=== PATIENT | female | born 2005 | race Caucasian/White ===

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

== ENCOUNTER 2023-06-10 16:13 | Emergency (ER) | payer OTHER, SELFPAY ==
--- NOTE | ~2023-06-10 | CT_ITS ---
EXAMINATION: CT ABDOMEN AND PELVIS WITH CONTRAST CLINICAL INFORMATION: Right lower quadrant pain. Suspect appendicitis COMPARISON: None available. TECHNIQUE: Multidetector volumetric images were obtained from the superior aspect of the liver through the pubic symphysis following administration 85 mL of Omnipaque 350 intravenous contrast. Sagittal and coronal reformatted images were obtained on the technologist's workstation. Oral contrast: No This CT examination was performed using dose optimization techniques as appropriate, variously including the following: *Automated exposure control *Adjustment of mA and/or kV according to patient size (this includes techniques or standardized protocols for targeted exams where dose is matched to indication/reason for exam; i.e. extremities or head) *Use of iterative reconstruction technique DLP: 641 mGy-cm FINDINGS: LUNG BASES: The visualized lung bases are unremarkable. LIVER, GALLBLADDER, AND BILIARY TREE: The liver is enlarged at 17.7 cm and demonstrates decreased attenuation consistent with hepatic steatosis. Decreased attenuation adjacent to the falciform ligament in the right lobe of the liver probably secondary to focal fat. There is some focal fatty sparing seen adjacent to the gallbladder. No worrisome solid focal hepatic lesion or biliary ductal dilatation is present. The gallbladder is unremarkable with no evidence of radiopaque gallstones, gallbladder wall thickening, or obvious pericholecystic inflammatory changes. PANCREAS: Unremarkable. SPLEEN: Mild splenomegaly at 12.7 cm in greatest transverse dimension. ADRENAL GLANDS: Unremarkable. KIDNEYS AND URETERS: The kidneys are normal in size, shape, and attenuation. No hydronephrosis, hydroureter, or calculi seen. No perinephric stranding. BLADDER: Unremarkable. GASTROINTESTINAL TRACT: The small and large bowel are unremarkable. The appendix is unremarkable. ABDOMINAL WALL: No significant hernia is appreciated. LYMPH NODES: Normal. VASCULAR: Unremarkable. PELVIC VISCERA: Unremarkable. OSSEOUS STRUCTURES: Unremarkable. CT/CT abdomen pelvis w IV con IMPRESSION: 1. A cause for the patient's right lower quadrant pain has not been found. The appendix is normal. 2. Enlarged fatty liver with mild splenomegaly. Fleischner guidelines were followed.
[2023-06-10 16:48] VITALS: BP 142/84; PULSE 93; RESP 16; TEMP 36.6; O2SAT 98; BMI 29.0
--- NOTE | 2023-06-10 16:48 | ED.GENADULT ---
HPI - General Adult General Chief complaint: Abdominal Pain Stated complaint: abd pain,vomiting Time Seen by Provider: 06/10/23 20:04 Source: patient Mode of arrival: ambulatory History of Present Illness HPI narrative: 18-year-old female presents with complaints of 3 weeks dark brown vaginal discharge denies any associated fever, chills, nausea, vomiting. Patient is concerned because she states she has not had a period for 3 months she denies any dysuria or diarrhea. Patient reports that she did vomit twice today. Related Data Previous Rx's Medication Instructions Recorded cephalexin 500 mg capsule 1,000 mg (2 x 500 mg) PO BID #20 12/13/22 caps meloxicam 15 mg tablet 15 mg PO DAILY #14 tabs 12/13/22 methocarbamol 750 mg tablet 750 mg PO Q8H PRN back pain #10 12/13/22 tabs Allergies Allergy/AdvReac Type Severity Reaction Status Date / Time No Known Allergies Allergy Verified 11/06/22 13:53 Review of Systems Review of Systems: Pertinent positives and negatives as stated in HPI [facility] Past Medical History Source: nursing notes reviewed Social History Social History Smoked in Last 30 Days: No Use of substances other than those prescribed or required for medical reasons: No Advance Directives: No Advance Directives Information Provided: No Physical Exam ED Vital Signs: Vital Signs - 24 hr 06/10/23 16:48 06/10/23 20:29 Temperature 97.8 F 97.5 F Pulse Rate 93 82 Respiratory Rate 16 18 Blood Pressure 142/84 H 128/82 Pulse Oximetry 98 99 Oxygen Delivery Method Room Air Room Air BMI result Body Mass Index 29.0 VITAL SIGNS: Reviewed. GENERAL: Elevated BMI, Well developed, well nourished, in no acute distress. HEAD: Normocephalic/atraumatic EYES: PERRLA, EOMI EARS: Ext canals without abnormality NOSE: Nares patent bilateral OROPHARYNX: no oral lesions noted, posterior pharynx clear NECK: Supple, no adenopathy LUNGS: Normal breath sounds. No adventitious sounds or accessory muscle use. SpO2<99> CARDIOVASCULAR: Regular rate and rhythm without noted murmurs ABDOMEN: Soft, right lower quadrant discomfort, non-distended with bowel sounds. MUSCULOSKELETAL: No tenderness, deformities, or effusions noted on gross inspection. EXTREMITIES: No cyanosis, clubbing or edema. SKIN: Inspection of the skin reveals no rashes NEUROLOGIC: Alert and oriented x 4. Strength and sensation to light touch were grossly intact x 4. Course Course Course Narrative: RME- 18 year old female presents with abdominal pain and brown vaginal discharge. Has not had a menstrual period in 3 months, denies use of control. Medications Administered Discontinued Medications Generic Name Dose Route Start Last Admin Trade Name Ceci PRN Reason Stop Dose Admin Iohexol 100 ml 06/10/23 21:31 06/10/23 21:31 Iohexol 350 Mg/Ml 100 Ml Infus..Btl IV 06/10/23 21:32 85 ml ONCE ONE Administration Ketorolac Tromethamine 15 mg 06/10/23 21:06 06/10/23 21:11 Ketorolac Tromethamine 30 Mg/Ml Vial IVPUSH 06/10/23 21:07 15 mg ONCE ONE Administration Medical Decision Making Medical Decision Making [facility] Narrative: 18-year-old female with history and clinical presentation, DDX: Ectopic, UTI, due to length of time no clinical suspicion for ovarian torsion, possibility of appendicitis. I reviewed all investigations and hematologic indices demonstrate minimal leukocytosis without left shift and no anemia or thrombocytopenia. Chemistry indices are grossly within normal limits without evidence of UMU her electrolytes/liver enzyme derangements and beta hCG is undetectable. Urinalysis negative for UTI or hematuria. CT scan negative for acute intra-abdominal pathology, and otherwise my interpretation is in agreement with radiology's impression. Patient received Toradol and on re-evaluation her pain has completely resolved and she reports that she is hungry. Patient is offered food and water and tolerating it and will be discharged home with further outpatient workup as necessary. Differential Diagnosis Differential Diagnoses: The differential diagnosis associated with the presentation includes Please see the discussion above Admission/Observation Consideration of admission/observation: Escalation of care including admission/observation considered Please see the discussion above Lab Data [facility] Lab Attestation statement: I reviewed the patient's lab results. Please see the discussion above 06/10/23 17:09 06/10/23 17:09 Labs: Lab Results 06/10/23 06/10/23 Range/Units 17:09 20:37 WBC 11.6 H (4.8-10.8) X10*3/uL RBC 4.53 (4.20-5.50) X10*6/uL Hgb 13.2 (12.0-16.0) g/dl Hct 40.7 (37.0-47.0) % MCV 89.8 (80.0-98.0) fL MCH 29.1 (27.0-33.0) pg MCHC 32.4 (31.0-35.0) g/dl RDW 11.9 (11.0-16.0) % Plt Count 328 (160-400) X10*3/uL MPV 10.7 (9.4-12.3) fL Immature Gran % (Auto) 0.3 (0.0-0.4) % Neut % (Auto) 55.6 (45-73) % Lymph % (Auto) 35.0 (20-40) % Garrett % (Auto) 6.9 (2-11) % Eos % (Auto) 1.9 (0-4) % Baso % (Auto) 0.3 (0-2) % Lymph # (Auto) 4.1 (1.2-4.9) X10*3/uL Garrett # (Auto) 0.8 (0.1-1.2) X10*3/uL Eos # (Auto) 0.2 (0.0-0.4) X10*3/uL Baso # (Auto) 0.0 (0.0-0.2) X10*3/uL Abs Immat Gran (auto) 0.04 H (0.00-0.03) X10*3/uL Absolute Neuts (auto) 6.4 (2.0-8.3) x10*3/uL Absolute Nucleated RBC 0.000 (0.0-0.012) X10*3/uL Nucleated RBC % (auto) 0.0 (0.0-0.2) /100WBC Sodium 139 (135-145) mmol/L Potassium 4.2 (3.3-5.1) mmol/L Chloride 106 (96-108) mmol/L Carbon Dioxide 27 (22-29) mmol/L Anion Gap 10 L (12-20) BUN 9 (9-16) mg/dL Creatinine 0.69 (0.5-1.4) mg/dL Estim Creat Clear Calc 140.1 Estimated GFR > 60 Random Glucose 93 (60-115) mg/dL Calcium 9.6 (8.4-10.2) mg/dL Total Bilirubin 0.4 (0.0-1.0) mg/dL AST 27 (5-31) U/L ALT 47 H (0-31) U/L Alkaline Phosphatase 79 (39-117) U/L Total Protein 7.5 (6.5-8.0) g/dL Albumin 4.1 (3.5-5.0) g/dL Lipase 13 (8-78) U/L Beta HCG, Quant < 2 mIU/mL Urine Color Yellow Urine Appearance Clear Urine pH 6.5 (5.0-9.0) Ur Specific [place] 1.020 (1.005-1.025) Urine Protein Negative (Neg-Trace) mg/dL Urine Glucose (UA) Negative (Negative) mg/dL Urine Ketones Negative (Negative) mg/dL Urine Blood Negative (Negative) Urine Nitrite Negative (Negative) Ur Leukocyte Esterase Negative (Negative) Urine RBC 0-2 (0-2) /HPF Urine WBC 0-5 (0-5) /HPF Ur Squamous Epith Cells 0-2 (0-2) /HPF Urine Bacteria None Seen (None Seen) Hyaline Casts 0-2 (0-2) /LPF Urine Test NEGATIVE (NEGATIVE) Radiology Impression Discussion of test interpretation with radiology: I have reviewed the radiologist's reading. Radiologist Impression: Please see the discussion above Discharge Plan Discharge Clinical Impression: Abdominal discomfort Patient Disposition: Home, Self-Care Instructions: Abdominal Pain (ED) Additional Instructions: 1. Resume all home medications as prescribed. 2. Recommend [id number] Tylenol/ibuprofen as needed for pain control. 3. Please follow-up with your primary care doctor in the next 1-2 days. Return to the ER for any worsening symptoms. Prescriptions: No Action cephalexin 500 mg capsule 1,000 mg PO BID Qty: 20 0RF meloxicam 15 mg tablet 15 mg PO DAILY Qty: 14 0RF methocarbamol 750 mg tablet 750 mg PO Q8H PRN (Reason: back pain) Qty: 10 0RF
[2023-06-10 17:16] LABS: MANUAL DIFF FLAG NO
[2023-06-10 17:19] LABS: Basophils Percent Auto 0.3 % (0-2); Eosinophils Absolute Auto 0.2 X10*3/uL (0.0-0.4); Eosinophils Percent Auto 1.9 % (0-4); Hematocrit 40.7 % (37.0-47.0); Hemoglobin 13.2 g/dl (12.0-16.0); Imm Gran Abs Auto 0.04 X10*3/uL (0.00-0.03); Imm Gran Pct Auto 0.3 % (0.0-0.4); Lymphocytes Absolute Auto 4.1 X10*3/uL (1.2-4.9); Mean Corpuscular HGB Conc 32.4 g/dl (31.0-35.0); Mean Corpuscular Hemoglobin 29.1 pg (27.0-33.0); Mean Corpuscular Volume 89.8 fL (80.0-98.0); Mean Platelet Volume 10.7 fL (9.4-12.3); Monocytes Absolute Auto 0.8 X10*3/uL (0.1-1.2); Monocytes Percent Auto 6.9 % (2-11); Neutrophils Absolute Auto 6.4 x10*3/uL (2.0-8.3); Neutrophils Percent Auto 55.6 % (45-73); Platelet Count 328 X10*3/uL (160-400); Red Blood Count 4.53 X10*6/uL (4.20-5.50); Red Cell Distribution Width 11.9 % (11.0-16.0); White Blood Count 11.6 X10*3/uL (4.8-10.8)
[2023-06-10 17:42] LABS: Alanine Aminotransferase 47 U/L (0-31); Albumin Level 4.1 g/dL (3.5-5.0); Alkaline Phosphatase 79 U/L (39-117); Anion Gap 10 (12-20); Aspartate Amino Transferase 27 U/L (5-31); Bilirubin Total 0.4 mg/dL (0.0-1.0); Blood Urea Nitrogen 9 mg/dL (9-16); Calcium 9.6 mg/dL (8.4-10.2); Carbon Dioxide 27 mmol/L (22-29); Chloride 106 mmol/L (96-108); Creatinine Clr Calc Pharmacy 140.1; Estimated Glomerular Filt Rate > 60; Glucose Random 93 mg/dL (60-115); Lipase 13 U/L (8-78); Potassium 4.2 mmol/L (3.3-5.1); Sodium 139 mmol/L (135-145); Total Protein 7.5 g/dL (6.5-8.0)
[2023-06-10 17:46] LABS: HCG Quantitative < 2 mIU/mL
[2023-06-10 20:29] VITALS: BP 128/82; PULSE 82; RESP 18; TEMP 36.4; O2SAT 99
[2023-06-10 20:48] LABS: Appearance Urine Clear; Color Urine Yellow; Glucose Urine UA Negative (Negative); Leukocyte Esterase Urine Negative (Negative); Nitrite Urine Negative (Negative); PH 6.5 (5.0-9.0); Urine Blood Negative (Negative); Urine Ketones Negative (Negative); Urine Protein Negative (Neg-Trace)
[2023-06-10 20:50] LABS: UPreg QC Valid YES; Urine Pregnancy NEGATIVE (NEGATIVE)
[2023-06-10 20:53] LABS: Bacteria Urine None Seen (None Seen); Hyaline Casts Urine 0-2 /LPF (0-2); RBC Urine 0-2 /HPF (0-2); Squamous Epithelial Cell Urine 0-2 /HPF (0-2); WBC Urine 0-5 /HPF (0-5)
[2023-06-10] MEDS: Ketorolac Tromethamine 30 MG/ML VIAL 15 MG IVPUSH (21:11)
--- NOTE | 2023-06-10 21:13 | PC.NURSE ---
medication administered per provider order.
[2023-06-10] MEDS: iohexoL 350 MG/ML 100 ML INFUS..BTL IV (21:31)
[2023-06-10 23:11] VITALS: PULSE 85; RESP 18
== END 2023-06-10 23:12 | disposition home or self-care (01) ==
PROVIDERS: Physician Assistant; Emergency Provider Student in an Organized Health Care Education/Training Program
DX: R10.9 Unspecified abdominal pain (principal); N89.8 Other specified noninflammatory disorders of vagina; R11.2 Nausea with vomiting, unspecified; Z79.899 Other long term (current) drug therapy
CPT/HCPCS: 36415; 74177; 80053; 81001; 81025; 83690; 84702; 85025; 96374; 99284; 99285; J1885; Q9967

== ENCOUNTER 2023-08-27 13:42 | Emergency (ER) | payer OTHER, SELFPAY ==
--- NOTE | 2023-08-27 13:58 | ED_ITS ---
HPI - General Adult General Chief complaint: General Medical Stated complaint: Not Feeling Well Time Seen by Provider: 08/27/23 14:33 Source: patient and family Mode of arrival: ambulatory Limitations: no limitations History of Present Illness HPI narrative: Patient is a 18-year-old female presenting to the emergency department with complaint of nausea, vomiting, and diarrhea which began suddenly at 3:00 a.m. today. Denies fevers. States has not been able to tolerate any p.o. fluids today. Family gave Zofran once prior to arrival with little relief. States emesis is nonbloody, nonbilious. Denies any hematochezia or melena. Denies any abdominal pain, just diffuse discomfort. Denies dysuria, frequency hematuria or other urinary symptoms. Denies back or flank pain. MD complaint: Nausea vomiting diarrhea Onset (ago): hour(s) Exacerbating factors: eating Associated symptoms: denies other symptoms Treatments prior to arrival: other Related Data Previous Rx's Medication Instructions Recorded cephalexin 500 mg capsule 1,000 mg (2 x 500 mg) PO BID #20 12/13/22 caps meloxicam 15 mg tablet 15 mg PO DAILY #14 tabs 12/13/22 methocarbamol 750 mg tablet 750 mg PO Q8H PRN back pain #10 12/13/22 tabs ibuprofen 600 mg tablet 600 mg PO Q6H PRN pain #14 tabs 08/27/23 ondansetron 4 mg disintegrating 4 mg PO Q8H PRN nausea and 08/27/23 tablet vomiting #12 tabs Allergies Allergy/AdvReac Type Severity Reaction Status Date / Time No Known Allergies Allergy Verified 08/27/23 13:58 Review of Systems 2 Review of Systems: As per HPI. Yes all other systems are reviewed and are negative Constitutional: Constitutional: Reports as per HPI [facility] Social History Social History Advance Directives: No Physical Exam ED Vital Signs: Vital Signs - 24 hr 08/27/23 13:59 Temperature 98 F Pulse Rate 122 H Respiratory Rate 18 Blood Pressure 125/78 Pulse Oximetry 98 BMI result Body Mass Index 30.8 Vital signs have been reviewed and appear to be correct. Blood pressure normal. Heart rate tachycardic. Respiratory rate normal. Temperature normal. Oxygen saturation normal. Const General: cooperative, healthy appearing and no acute distress Orientation/consciousness: oriented to person, oriented to place, oriented to time and patient oriented x3 Limitations: no limitations HENMT Head: Yes normocephalic and Yes atraumatic Ears: external ears normal General nose exam: Normal external nose present Face and sinus: Yes face symmetric Mouth: oropharynx normal and moist mucous membranes Throat: Yes uvula midline Eyes Pupils: Equal, round and reactive pupils present Neck Neck: Yes normal visual inspection and Yes supple Resp Effort & Inspection: normal respiratory effort and able to speak in complete sentences Auscultation: clear to auscultation bilaterally Cardio Rate: regular rate Rhythm: regular rhythm Heart sounds: S1 normal heart sound present and S2 normal heart sound present GI Palpation (GI): Soft to palpation and nontender Auscultation: normoactive bowel sounds General: Yes no CVA tenderness Back/Spine/Pelvis Back: no CVA tenderness Skin General skin exam: elasticity normal and turgor normal Neuro General: oriented to person, oriented to place, oriented to time, patient oriented x3, moves all extremities, no focal motor deficits and CN's II-XI intact bilaterally Cranial nerves: Yes Equal, round and reactive pupils present Cognition (Neuro): normal cognition Extrem General: Yes full ROM, Yes no pedal edema and Yes no calf tenderness Psych Mental Status: mental status grossly normal Affect: normal affect Thought process: Normal thought process present Course Course Course Narrative: RME: 18 year-old F w/no sig PMHx presenting to the ED c/o generalized fatigue, myalgias, nausea, vomiting, diarrhea since 3AM w/lightheadedness. labs, UA, viral testing ordered Full HPI, ROS and PE to be performed by primary ED provider. Medications Administered Discontinued Medications Generic Name Dose Route Start Last Admin Trade Name Freq PRN Reason Stop Dose Admin Sodium Chloride 1,000 mls @ 999 mls/hr 08/27/23 15:15 08/27/23 17:39 Ns IV 08/27/23 16:15 Infused .Q1H1M JEMAL Infusion Ketorolac Tromethamine 15 mg 08/27/23 16:09 08/27/23 16:13 Ketorolac Tromethamine 15 Mg/Ml Vial IVPUSH 08/27/23 16:10 15 mg ONCE ONE Administration Ondansetron HCl 4 mg 08/27/23 15:11 08/27/23 15:30 Ondansetron Hcl 4 Mg/2 Ml Vial IVPUSH 08/27/23 15:12 4 mg ONCE ONE Administration Medical Decision Making Medical Decision Making [facility] Narrative: Patient is a 18-year-old female presenting to the emergency department with complaint of nausea, vomiting, and diarrhea which began suddenly at 3:00 a.m. today. On exam patient is awake, A+Ox3, tachycardic, VS otherwise WNL, afebrile, normal neurological exam without focal deficits, physical exam findings as above. Given reported symptoms and physical exam findings, initial differential includes acute gastroenteritis, other viral illness, COVID, flu. Labs notable for leukocytosis, likely due to viral illness, no electrolyte abnormalities, no evidence of UMU, mildly elevated ALT similar to prior. No evidence of infection on urinalysis. COVID and flu swab negative. Plan: IV fluids,zofran, reassess Patient reports improvement in nausea and headache after ondansetron and ketorolac. She has been able to tolerate small sips of ximena remy in the ED. Feel patient is stable for discharge home with zofran, ibuprofen. Advised patient to slowly progress to clear liquid diet, then bland diet then back to regular diet as symptoms improve. Return precautions discussed at bedside. Instructed patient to follow-up with primary care provider. Patient verbalized understanding of and agreement with plan. Differential Diagnosis Differential Diagnoses: The differential diagnosis associated with the presentation includes As per MDM. Lab Data [facility] Lab Attestation statement: I reviewed the patient's lab results. As per [facility]. 08/27/23 14:34 08/27/23 14:34 Labs: Lab Results 08/27/23 Range/Units 14:34 WBC 17.2 H (4.8-10.8) X10*3/uL RBC 4.73 (4.20-5.50) X10*6/uL Hgb 14.3 (12.0-16.0) g/dl Hct 43.2 (37.0-47.0) % MCV 91.3 (80.0-98.0) fL MCH 30.2 (27.0-33.0) pg MCHC 33.1 (31.0-35.0) g/dl RDW 11.7 (11.0-16.0) % Plt Count 296 (160-400) X10*3/uL MPV 10.7 (9.4-12.3) fL Immature Gran % (Auto) 0.2 (0.0-0.4) % Neut % (Auto) 92.0 H (45-73) % Lymph % (Auto) 3.4 L (20-40) % [place] % (Auto) 3.8 (2-11) % Eos % (Auto) 0.4 (0-4) % Baso % (Auto) 0.2 (0-2) % Lymph # (Auto) 0.6 L (1.2-4.9) X10*3/uL [place] # (Auto) 0.7 (0.1-1.2) X10*3/uL Eos # (Auto) 0.1 (0.0-0.4) X10*3/uL Baso # (Auto) 0.0 (0.0-0.2) X10*3/uL Abs Immat Gran (auto) 0.04 H (0.00-0.03) X10*3/uL Absolute Neuts (auto) 15.8 H (2.0-8.3) x10*3/uL Absolute Nucleated RBC 0.000 (0.0-0.012) X10*3/uL Nucleated RBC % (auto) 0.0 (0.0-0.2) /100WBC Smear Tech's Comments VERIFIED Sodium 139 (135-145) mmol/L Potassium 4.2 (3.3-5.1) mmol/L Chloride 106 (96-108) mmol/L Carbon Dioxide 27 (22-29) mmol/L Anion Gap 10 L (12-20) BUN 10 (9-16) mg/dL Creatinine 0.68 (0.5-1.4) mg/dL Estim Creat Clear Calc 141.1 Estimated GFR > 60 Random Glucose 97 (60-115) mg/dL Calcium 9.4 (8.4-10.2) mg/dL Magnesium 1.8 (1.6-2.6) mg/dL Total Bilirubin 1.0 (0.0-1.0) mg/dL Direct Bilirubin 0.3 (0.0-0.5) mg/dL AST 23 (5-31) U/L ALT 43 H (0-31) U/L Alkaline Phosphatase 80 (39-117) U/L Total Protein 7.7 (6.5-8.0) g/dL Albumin 4.1 (3.5-5.0) g/dL Lipase 11 (8-78) U/L COVID-19 (WADE) Negative (Negative) COVID-19 Clin Com See Note Influenza Type A (TAMIKA) Negative (Negative) Influenza Type B (TAMIKA) Negative (Negative) Influenza A & B Note See Note External Record Review External record reviewed: Inpatient record, Office record and Outpatient record Prescription Management I considered prescription management with: Pain Medication and Other Discharge Plan Discharge Clinical Impression: Acute gastroenteritis Patient Disposition: Home, Self-Care Instructions: Gastroenteritis (DC), Acute Nausea and Vomiting (ED), Acute Diarrhea (ED) Additional Instructions: You have been evaluated in the emergency department today for nausea, vomiting, and diarrhea. Your evaluation suggests that your symptoms are most likely due to a viral illness which will improve on it's own with rest and fluids. Remember to drink plenty of fluids at home. You are being prescribed ondansetron which you can use as per the prescription instructions for nausea. You can take 650mg Tylenol or 600mg ibuprofen every 6 hours as needed for headache/pain. Please follow up with your primary care provider within two days. Return to the emergency department if you experience worsening or uncontrolled pain, inability to tolerate fluids by mouth, difficulty breathing, fevers 100.4? F or greater, recurrent vomiting, or any other concerning symptoms. Prescriptions: New ondansetron 4 mg tablet,disintegrating 4 mg PO Q8H PRN (Reason: nausea and vomiting) Qty: 12 0RF ibuprofen 600 mg tablet 600 mg PO Q6H PRN (Reason: pain) Qty: 14 0RF No Action cephalexin 500 mg capsule 1,000 mg PO BID Qty: 20 0RF meloxicam 15 mg tablet 15 mg PO DAILY Qty: 14 0RF methocarbamol 750 mg tablet 750 mg PO Q8H PRN (Reason: back pain) Qty: 10 0RF Stand Alone Forms: Work/School Release
[2023-08-27 13:59] VITALS: BP 125/78; PULSE 122; RESP 18; TEMP 36.6; O2SAT 98; BMI 30.8
[2023-08-27 14:44] LABS: Basophils Percent Auto 0.2 % (0-2); Eosinophils Absolute Auto 0.1 X10*3/uL (0.0-0.4); Eosinophils Percent Auto 0.4 % (0-4); Hematocrit 43.2 % (37.0-47.0); Hemoglobin 14.3 g/dl (12.0-16.0); Imm Gran Abs Auto 0.04 X10*3/uL (0.00-0.03); Imm Gran Pct Auto 0.2 % (0.0-0.4); Lymphocytes Absolute Auto 0.6 X10*3/uL (1.2-4.9); Lymphocytes Percent Auto 3.4 % (20-40); MANUAL DIFF FLAG SCAN; Mean Corpuscular HGB Conc 33.1 g/dl (31.0-35.0); Mean Corpuscular Hemoglobin 30.2 pg (27.0-33.0); Mean Corpuscular Volume 91.3 fL (80.0-98.0); Mean Platelet Volume 10.7 fL (9.4-12.3); Monocytes Absolute Auto 0.7 X10*3/uL (0.1-1.2); Monocytes Percent Auto 3.8 % (2-11); Neutrophils Absolute Auto 15.8 x10*3/uL (2.0-8.3); Platelet Count 296 X10*3/uL (160-400); Red Blood Count 4.73 X10*6/uL (4.20-5.50); Red Cell Distribution Width 11.7 % (11.0-16.0); SCAN SMEAR FLAG 1; White Blood Count 17.2 X10*3/uL (4.8-10.8)
[2023-08-27 14:58] LABS: Alanine Aminotransferase 43 U/L (0-31); Albumin Level 4.1 g/dL (3.5-5.0); Alkaline Phosphatase 80 U/L (39-117); Anion Gap 10 (12-20); Aspartate Amino Transferase 23 U/L (5-31); Bilirubin Direct 0.3 mg/dL (0.0-0.5); Blood Urea Nitrogen 10 mg/dL (9-16); Calcium 9.4 mg/dL (8.4-10.2); Carbon Dioxide 27 mmol/L (22-29); Chloride 106 mmol/L (96-108); Creatinine Clr Calc Pharmacy 141.1; Estimated Glomerular Filt Rate > 60; Glucose Random 97 mg/dL (60-115); Lipase 11 U/L (8-78); Magnesium 1.8 mg/dL (1.6-2.6); Potassium 4.2 mmol/L (3.3-5.1); Sodium 139 mmol/L (135-145); Total Protein 7.7 g/dL (6.5-8.0)
[2023-08-27 15:02] LABS: COVID-19 Test Negative (Negative); IDNOW Serial# 6674DD1D
[2023-08-27 15:04] LABS: SLIDE REVIEW VERIFIED
[2023-08-27 15:12] LABS: IDNOW Serial# 152EDE1D; Influenza A Negative (Negative); Influenza B2 Negative (Negative)
[2023-08-27] MEDS: ondansetron HCL 4 MG/2 ML VIAL IVPUSH (15:30)
[2023-08-27] MEDS: 0.9 % Sodium Chloride 1,000 ML 999 ML IV (15:30)
--- NOTE | 2023-08-27 15:31 | PC.NURSE ---
pt medicated per mar.
[2023-08-27] MEDS: Ketorolac Tromethamine 15 MG/ML VIAL IVPUSH (16:13)
== END 2023-08-27 19:00 | disposition home or self-care (01) ==
PROVIDERS: Physician Assistant; Emergency Provider Emergency Medicine Emergency Medical Services
DX: K52.9 Noninfective gastroenteritis and colitis, unspecified (principal); R11.2 Nausea with vomiting, unspecified; Z11.52 Encounter for screening for COVID-19
CPT/HCPCS: 80048; 80076; 83690; 83735; 85025; 87502; 87635; 96361; 96374; 96375; 99283; 99284; J1885; J2405

== ENCOUNTER 2023-10-20 18:14 | Emergency (ER) | payer OTHER, SELFPAY ==
--- NOTE | ~2023-10-20 | US_ITS ---
EXAMINATION: US PELVIS CLINICAL INFORMATION: Right lower quadrant pain. Question ovarian torsion/cyst. COMPARISON: CT from the same date. TECHNIQUE: Ultrasound of the pelvis is performed using both transabdominal and transvaginal transducers along with spectral and color Doppler assessment of the ovaries. Transvaginal imaging is performed due to inadequate visualization transabdominally. FINDINGS: Uterus: The uterus is anteverted and measures 7.9 x 3.6 x 4.5 cm. The double wall endometrial thickness is 0.9 mm. The uterus is smooth in contour and has normal myometrial echogenicity. No visible fibroid. A few nabothian cysts are identified in the cervix. Adnexa: Both ovaries are visualized. There is normal color flow to the adnexa. Arterial and venous spectral waveforms are identified in both ovaries on spectral Doppler. There is no evidence of active ovarian torsion. There is no pelvic ascites or fluid collection. There is a dominant follicle in the right ovary. Right ovary measures 3.9 x 1.9 x 2.4 cm. Left ovary measures 3.5 x 2.1 x 2.1 cm. US/US pelvic and transvaginal IMPRESSION: Normal pelvic ultrasound. No evidence of active ovarian torsion.
--- NOTE | ~2023-10-20 | CT_ITS ---
EXAMINATION: CT ABDOMEN AND PELVIS WITH CONTRAST CLINICAL INFORMATION: Right lower quadrant pain and tenderness COMPARISON: 06/10/2023 TECHNIQUE: Multidetector volumetric images were obtained from the superior aspect of the liver through the pubic symphysis following administration 85 mL of Omnipaque 350 intravenous contrast. Sagittal and coronal reformatted images were obtained on the technologist's workstation. Oral contrast: No This CT examination was performed using dose optimization techniques as appropriate, variously including the following: *Automated exposure control *Adjustment of mA and/or kV according to patient size (this includes techniques or standardized protocols for targeted exams where dose is matched to indication/reason for exam; i.e. extremities or head) *Use of iterative reconstruction technique DLP: 698 mGy-cm FINDINGS: LUNG BASES: The visualized lung bases are unremarkable. LIVER, GALLBLADDER, AND BILIARY TREE: The liver appears mildly enlarged and demonstrates hypoattenuation consistent with steatosis. No focal hepatic lesion or biliary ductal dilatation is identified. Gallbladder is contracted and not adequately evaluated. PANCREAS: Unremarkable. SPLEEN: Unremarkable. ADRENAL GLANDS: Unremarkable. KIDNEYS AND URETERS: Bilateral nephrograms are symmetric. No hydronephrosis or obstructing calculus identified. BLADDER: Unremarkable. GASTROINTESTINAL TRACT: No evidence of bowel obstruction or significant wall thickening. The appendix is unremarkable. No free fluid or free air is seen. ABDOMINAL WALL: No significant hernia is appreciated. LYMPH NODES: Normal. VASCULAR: Unremarkable. PELVIC VISCERA: Unremarkable. OSSEOUS STRUCTURES: Unremarkable. CT/CT abdomen pelvis w IV con IMPRESSION: No acute findings identified in the abdomen/pelvis. Normal appendix. Hepatic steatosis.
--- NOTE | ~2023-10-20 | US_ITS ---
EXAMINATION: US PELVIS CLINICAL INFORMATION: Right lower quadrant pain. Question ovarian torsion/cyst. COMPARISON: CT from the same date. TECHNIQUE: Ultrasound of the pelvis is performed using both transabdominal and transvaginal transducers along with spectral and color Doppler assessment of the ovaries. Transvaginal imaging is performed due to inadequate visualization transabdominally. FINDINGS: Uterus: The uterus is anteverted and measures 7.9 x 3.6 x 4.5 cm. The double wall endometrial thickness is 0.9 mm. The uterus is smooth in contour and has normal myometrial echogenicity. No visible fibroid. A few nabothian cysts are identified in the cervix. Adnexa: Both ovaries are visualized. There is normal color flow to the adnexa. Arterial and venous spectral waveforms are identified in both ovaries on spectral Doppler. There is no evidence of active ovarian torsion. There is no pelvic ascites or fluid collection. There is a dominant follicle in the right ovary. Right ovary measures 3.9 x 1.9 x 2.4 cm. Left ovary measures 3.5 x 2.1 x 2.1 cm. US/US pelvic ovarian doppler IMPRESSION: Normal pelvic ultrasound. No evidence of active ovarian torsion.
[2023-10-20 18:24] VITALS: BP 114/62; PULSE 89; RESP 16; TEMP 36.6; O2SAT 98; BMI 28.3
[2023-10-20 18:49] LABS: MANUAL DIFF FLAG NO
[2023-10-20 18:51] LABS: Basophils Absolute Auto 0.1 X10*3/uL (0.0-0.2); Basophils Percent Auto 0.4 % (0-2); Eosinophils Absolute Auto 0.2 X10*3/uL (0.0-0.4); Eosinophils Percent Auto 1.6 % (0-4); Hematocrit 38.6 % (37.0-47.0); Hemoglobin 13.2 g/dl (12.0-16.0); Imm Gran Abs Auto 0.02 X10*3/uL (0.00-0.03); Imm Gran Pct Auto 0.2 % (0.0-0.4); Lymphocytes Absolute Auto 4.2 X10*3/uL (1.2-4.9); Lymphocytes Percent Auto 32.8 % (20-40); Mean Corpuscular HGB Conc 34.2 g/dl (31.0-35.0); Mean Corpuscular Hemoglobin 30.1 pg (27.0-33.0); Mean Corpuscular Volume 87.9 fL (80.0-98.0); Mean Platelet Volume 10.9 fL (9.4-12.3); Monocytes Percent Auto 7.9 % (2-11); Neutrophils Absolute Auto 7.3 x10*3/uL (2.0-8.3); Neutrophils Percent Auto 57.1 % (45-73); Platelet Count 329 X10*3/uL (160-400); Red Blood Count 4.39 X10*6/uL (4.20-5.50); Red Cell Distribution Width 11.8 % (11.0-16.0); White Blood Count 12.8 X10*3/uL (4.8-10.8)
[2023-10-20 19:16] LABS: Alanine Aminotransferase 52 U/L (0-31); Alkaline Phosphatase 83 U/L (39-117); Anion Gap 14 (12-20); Aspartate Amino Transferase 24 U/L (5-31); Bilirubin Total 0.6 mg/dL (0.0-1.0); Blood Urea Nitrogen 11 mg/dL (9-16); Calcium 9.6 mg/dL (8.4-10.2); Carbon Dioxide 26 mmol/L (22-29); Chloride 105 mmol/L (96-108); Creatinine Clr Calc Pharmacy 118.1; Estimated Glomerular Filt Rate > 60; Glucose Random 84 mg/dL (60-115); Potassium 3.8 mmol/L (3.3-5.1); Sodium 141 mmol/L (135-145); Total Protein 7.4 g/dL (6.5-8.0)
--- NOTE | 2023-10-20 19:24 | MHC.EDTECH ---
Patient brought into triage area,urine sample obtained and sent to lab.
[2023-10-20 19:31] LABS: Appearance Urine Cloudy; Color Urine Yellow; Glucose Urine UA Negative (Negative); Leukocyte Esterase Urine Negative (Negative); Nitrite Urine Negative (Negative); PH 5.5 (5.0-9.0); Specific Gravity - Urine >= 1.030 (1.005-1.025); Urine Blood Negative (Negative); Urine Ketones Negative (Negative); Urine Protein Negative (Neg-Trace)
[2023-10-20 19:33] LABS: UPreg QC Valid YES; Urine Pregnancy NEGATIVE (NEGATIVE)
[2023-10-20 19:44] LABS: Bacteria Urine 2+ (None Seen); Hyaline Casts Urine 0-2 /LPF (0-2); Squamous Epithelial Cell Urine >20 /HPF (0-2); WBC Urine 0-5 /HPF (0-5)
--- NOTE | 2023-10-20 21:25 | PC.NURSE ---
this rn assumed care of pt from waiting room 20g iv placed in L Ac. pt tolerate well awaiting CT scan pt partner at bedside
[2023-10-20] MEDS: iohexoL 350 MG/ML 100 ML INFUS..BTL IV (21:32)
[2023-10-20 21:37] LABS: HCG Quantitative < 2 mIU/mL
--- NOTE | 2023-10-20 21:51 | ED_ITS ---
HPI - General Adult General Chief complaint: Abdominal Pain Stated complaint: stabbing lower right abd pain Time Seen by Provider: 10/20/23 20:50 Source: patient Mode of arrival: ambulatory Limitations: no limitations History of Present Illness HPI narrative: 18-year-old female presents to the ED healthy presents to the ED for right lower quadrant pain since saturday and its worse on movement. Patient denies any urinary symptoms. Patient denies any flank pain. Patient states no vaginal lesions or discharge. Related Data Previous Rx's Medication Instructions Recorded cephalexin 500 mg capsule 1,000 mg (2 x 500 mg) PO BID #20 12/13/22 caps meloxicam 15 mg tablet 15 mg PO DAILY #14 tabs 12/13/22 methocarbamol 750 mg tablet 750 mg PO Q8H PRN back pain #10 12/13/22 tabs ibuprofen 600 mg tablet 600 mg PO Q6H PRN pain #14 tabs 08/27/23 ondansetron 4 mg disintegrating 4 mg PO Q8H PRN nausea and 08/27/23 tablet vomiting #12 tabs naproxen 500 mg tablet 500 mg PO BID PRN pain 7 days #14 10/21/23 tabs Allergies Allergy/AdvReac Type Severity Reaction Status Date / Time No Known Allergies Allergy Verified 08/27/23 13:58 Review of Systems 2 Review of Systems: Abdominal pain RLQ Yes all other systems are reviewed and are negative [facility] Social History Social History Smoked in Last 30 Days: No Use of substances other than those prescribed or required for medical reasons: No Advance Directives: No Advance Directives Information Provided: No Patient : No Physical Exam ED Vital Signs: Vital Signs - 24 hr 10/21/23 02:18 Temperature 98.1 F Pulse Rate 84 Respiratory Rate 16 Blood Pressure 120/78 Pulse Oximetry 99 Oxygen Delivery Method Room Air BMI result Body Mass Index 28.3 Const General: cooperative, healthy appearing, comfortable, no acute distress, well developed, alert, awake and Physically active Orientation/consciousness: oriented to person, oriented to place, oriented to time and patient oriented x3 HENMT Head: Yes normal to inspection, Yes No palpable skull fracture present, Yes normocephalic, Yes atraumatic and No abrasion Eyes General: appearance normal, both eyes and all related structures Neck Neck: Yes normal visual inspection, Yes full ROM, Yes no lymphadenopathy, Yes no meningeal signs, Yes trachea midline, Yes supple, No anterior neck swelling and No tender Chest Chest palpation & inspection: normal inspection of the chest and normal palpation of entire chest wall Resp Effort & Inspection: normal respiratory effort and able to speak in complete sentences Auscultation: clear to auscultation bilaterally Cardio Jugular venous distension: no JVD Heart sounds: S1 normal heart sound present and S2 normal heart sound present GI Inspection: Yes normal to inspection Palpation (GI): Soft to palpation, not firm, Tenderness to palpation present (GI) in the RLQ, no guarding and not rigid General: No CVA tenderness and Yes no CVA tenderness External Female Exam: normal external appearance and normal appearance of the urethra Speculum Exam - Vagina: normal appearance of the vagina Speculum Exam - Cervix: normal appearance of the cervix Bimanual exam- vagina & uterus: normal bimanual exam Bimanual Exam- Adnexa, other: normal adnexae Back/Spine/Pelvis Back: no CVA tenderness, No CVA tenderness and No back tenderness Skin General skin exam: no rashes or lesions noted, elasticity normal and turgor normal Neuro General: oriented to person, oriented to place, oriented to time, patient oriented x3, gait normal, tone normal, moves all extremities, Normal light touch and pain sensation, no meningeal signs, no focal motor deficits, CN's II-XI intact bilaterally and normal sensation to monofilament Extrem General: Yes normal to inspection, Yes full ROM and Yes capillary refill normal Psych Appearance: grossly normal, well kempt and not disheveled Medications Administered Discontinued Medications Generic Name Dose Route Start Last Admin Trade Name Checoq PRN Reason Stop Dose Admin Iohexol 100 ml 10/20/23 21:32 10/20/23 21:32 Iohexol 350 Mg/Ml 100 Ml Infus..Btl IV 10/20/23 21:33 85 ml ONCE ONE Administration Ketorolac Tromethamine 30 mg 10/20/23 22:00 10/20/23 23:04 Ketorolac Tromethamine 30 Mg/Ml Vial IVPUSH 10/20/23 22:01 30 mg ONCE ONE Administration Medical Decision Making Medical Decision Making MDM Narrative: 18-year-old female with right lower quadrant pain tender on palpation. Patient has had this pain before in the past Was sent for abdominal CT scan and ultrasound. Ruling out appendicitis, torsion, ovarian abscess. Pain med ordered. 1:09am: Patient abdominal CT scan normal. Ultrasound transvaginal pelvic normal negative for torsion, ovarian abscess. Pelvic exam negative for any discharge, lesions, lympnodes, or rash . STI swabs done. Patient apparently does not want any empiric treatment and does not suspect any STIs. Patient will follow-up with primary care provider and OBGYN. Patient given copy of labs and images for follow up. Differential Diagnosis Differential Diagnoses: The differential diagnosis associated with the presentation includes (Appendicitis, ovarian abscess, ovarian torsion.) Admission/Observation Consideration of admission/observation: Escalation of care including admission/observation considered Lab Data MDM Lab Attestation statement: I reviewed the patient's lab results. 10/20/23 18:37 10/20/23 18:37 Labs: Lab Results 10/20/23 10/20/23 10/21/23 Range/Units 18:37 19:23 01:00 WBC 12.8 H (4.8-10.8) X10*3/uL RBC 4.39 (4.20-5.50) X10*6/uL Hgb 13.2 (12.0-16.0) g/dl Hct 38.6 (37.0-47.0) % MCV 87.9 (80.0-98.0) fL MCH 30.1 (27.0-33.0) pg MCHC 34.2 (31.0-35.0) g/dl RDW 11.8 (11.0-16.0) % Plt Count 329 (160-400) X10*3/uL MPV 10.9 (9.4-12.3) fL Immature Gran % (Auto) 0.2 (0.0-0.4) % Neut % (Auto) 57.1 (45-73) % Lymph % (Auto) 32.8 (20-40) % [place] % (Auto) 7.9 (2-11) % Eos % (Auto) 1.6 (0-4) % Baso % (Auto) 0.4 (0-2) % Lymph # (Auto) 4.2 (1.2-4.9) X10*3/uL [place] # (Auto) 1.0 (0.1-1.2) X10*3/uL Eos # (Auto) 0.2 (0.0-0.4) X10*3/uL Baso # (Auto) 0.1 (0.0-0.2) X10*3/uL Abs Immat Gran (auto) 0.02 (0.00-0.03) X10*3/uL Absolute Neuts (auto) 7.3 (2.0-8.3) x10*3/uL Absolute Nucleated RBC 0.000 (0.0-0.012) X10*3/uL Nucleated RBC % (auto) 0.0 (0.0-0.2) /100WBC Sodium 141 (135-145) mmol/L Potassium 3.8 (3.3-5.1) mmol/L Chloride 105 (96-108) mmol/L Carbon Dioxide 26 (22-29) mmol/L Anion Gap 14 (12-20) BUN 11 (9-16) mg/dL Creatinine 0.78 (0.5-1.4) mg/dL Estim Creat Clear Calc 118.1 Estimated GFR > 60 Random Glucose 84 (60-115) mg/dL Calcium 9.6 (8.4-10.2) mg/dL Total Bilirubin 0.6 (0.0-1.0) mg/dL AST 24 (5-31) U/L ALT 52 H (0-31) U/L Alkaline Phosphatase 83 (39-117) U/L Total Protein 7.4 (6.5-8.0) g/dL Albumin 4.0 (3.5-5.0) g/dL Beta HCG, Quant < 2 mIU/mL Urine Color Yellow Urine Appearance Cloudy Urine pH 5.5 (5.0-9.0) Ur Specific Marshall >= 1.030 H (1.005-1.025) Urine Protein Negative (Neg-Trace) mg/dL Urine Glucose (UA) Negative (Negative) mg/dL Urine Ketones Negative (Negative) mg/dL Urine Blood Negative (Negative) Urine Nitrite Negative (Negative) Ur Leukocyte Esterase Negative (Negative) Urine RBC 3-5 H (0-2) /HPF Urine WBC 0-5 (0-5) /HPF Ur Squamous Epith Cells >20 (0-2) /HPF Urine Bacteria 2+ (None Seen) Hyaline Casts 0-2 (0-2) /LPF Urine Test NEGATIVE (NEGATIVE) Darling species DNA Negative (Negative) Chlam trachomat DNA PCR NOT DETECTED (Not Detect.) Gardnerella DNA Probe Negative (Negative) N.gonorrhoeae DNA (PCR) NOT DETECTED (Not Detect.) Trichomonas DNA Probe Negative (Negative) Independent Interpretation I performed an independent interpretation of an: Ultrasound and CT Scan Radiology Impression Discussion of test interpretation with radiology: I have reviewed the radiologist's reading. Independent Historian Clinical information obtained from an independent historian. History obtained from or confirmed by: Other (Patient) External Record Review External record reviewed: Other (Prior visits) Prescription Management I considered prescription management with: Pain Medication Discharge Plan Discharge Clinical Impression: Abdominal pain Patient Disposition: Home, Self-Care Instructions: Abdominal Pain (ED) Additional Instructions: Recommend follow-up with primary care provider and OBGYN. Return to the ED immediately for worsening abdominal pain, nausea, vomiting, flank pain, fever, chills, weakness, dizziness, blood in urine, blood in stool, constipation, diarrhea, chest pain, shortness of breath, or any other concerning symptoms. Prescriptions: New naproxen 500 mg tablet 500 mg PO BID PRN (Reason: pain) 7 Days Qty: 14 0RF No Action cephalexin 500 mg capsule 1,000 mg PO BID Qty: 20 0RF meloxicam 15 mg tablet 15 mg PO DAILY Qty: 14 0RF methocarbamol 750 mg tablet 750 mg PO Q8H PRN (Reason: back pain) Qty: 10 0RF ondansetron 4 mg tablet,disintegrating 4 mg PO Q8H PRN (Reason: nausea and vomiting) Qty: 12 0RF ibuprofen 600 mg tablet 600 mg PO Q6H PRN (Reason: pain) Qty: 14 0RF Stand Alone Forms: Work/School Release Interventions: ED Discharge Assessment Last Done: 10/21/23 02:18 Discharge Date/Time: 10/21/23 02:20 Print Language: Sri Lankan
[2023-10-20] MEDS: Ketorolac Tromethamine 30 MG/ML VIAL IVPUSH (23:04)
[2023-10-21 02:18] VITALS: BP 120/78; PULSE 84; RESP 16; TEMP 36.7; O2SAT 99
[2023-10-21 02:45] LABS: CT PCR NOT DETECTED (Not Detect.); NG PCR NOT DETECTED (Not Detect.)
[2023-10-21 13:16] LABS: BV Int Neg Control Negative (Negative); BV Int Pos Control Positive (Positive)
== END 2023-10-21 02:20 | disposition home or self-care (01) ==
PROVIDERS: Physician Assistant; Emergency Provider Internal Medicine
DX: R10.31 Right lower quadrant pain (principal)
CPT/HCPCS: 0353U; 36415; 74177; 76830; 76856; 80053; 81001; 81025; 84702; 85025; 87480; 87510; 87660; 93975; 96374; 99284; J1885; Q9967

== ENCOUNTER 2023-12-18 20:04 | Emergency (ER) | payer OTHER, SELFPAY ==
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
[2023-12-18 20:31] VITALS: BP 139/77; PULSE 96; RESP 16; TEMP 36.7; O2SAT 100
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
[2023-12-18 21:25] LABS: UPreg QC Valid YES; Urine Pregnancy NEGATIVE (NEGATIVE)
[2023-12-18 23:50] VITALS: BP 110/79; PULSE 84; RESP 18; O2SAT 99
[2023-12-18] MEDS: Acetaminophen 325 MG TABLET 650 MG PO (23:53)
[2023-12-19] MEDS: Ibuprofen 600 MG TABLET PO (02:17)
[2023-12-19] MEDS: Cyclobenzaprine HCl 10 MG TABLET PO (02:17)
[2023-12-19 02:28] VITALS: BP 115/81; PULSE 71; RESP 15; TEMP 36.6; O2SAT 99
== END 2023-12-19 02:30 | disposition home or self-care (01) ==
PROVIDERS: Registered Nurse Emergency; Emergency Provider Emergency Medicine
DX: S39.012A Strain of muscle, fascia and tendon of lower back, initial encounter (principal); S20.219A Contusion of unspecified front wall of thorax, initial encounter; V43.62XA Car passenger injured in collision with other type car in traffic accident, initial encounter; Y93.9 Activity, unspecified; Y92.410 Unspecified street and highway as the place of occurrence of the external cause; Y99.9 Unspecified external cause status
CPT/HCPCS: 71046; 72100; 81025; 99283; 99284

== ENCOUNTER 2024-03-10 08:28 | Emergency (ER) | payer MEDICAID, SELFPAY ==
--- NOTE | ~2024-03-10 | CT_ITS ---
EXAMINATION: CT ABDOMEN AND PELVIS WITHOUT CONTRAST CLINICAL INFORMATION: Left-sided flank pain COMPARISON: CT abdomen pelvis 10/20/2023 TECHNIQUE: Multidetector volumetric imaging was performed from the superior aspect of the liver through the pubic symphysis. Sagittal and coronal reformatted images were obtained on the technologist's workstation. This CT examination was performed using dose optimization techniques as appropriate, variously including the following: *Automated exposure control *Adjustment of mA and/or kV according to patient size (this includes techniques or standardized protocols for targeted exams where dose is matched to indication/reason for exam; i.e. extremities or head) *Use of iterative reconstruction technique DLP: 708 mGy-cm FINDINGS: LUNG BASES: The visualized lung bases are unremarkable. LIVER, GALLBLADDER, AND BILIARY TREE: The liver is enlarged measuring 19 cm in cephalocaudad dimension with decreased attenuation consistent with hepatic steatosis. Focal areas of sparing are seen around the gallbladder. No concerning solid focal hepatic lesion or biliary ductal dilatation is present. The gallbladder is unremarkable with no evidence of radiopaque gallstones, gallbladder wall thickening, or obvious pericholecystic inflammatory changes. PANCREAS: Unremarkable. SPLEEN: Mildly prominent spleen at 12.3 cm in maximal transverse dimension. ADRENAL GLANDS: Unremarkable. KIDNEYS AND URETERS: The kidneys are normal in size, shape, and attenuation. No hydronephrosis, hydroureter, or calculi seen. No perinephric stranding. BLADDER: Unremarkable. GASTROINTESTINAL TRACT: The small and large bowel are unremarkable aside from colonic diverticulosis without diverticulitis. The appendix is unremarkable. ABDOMINAL WALL: No significant hernia is appreciated. LYMPH NODES: Normal. VASCULAR: Unremarkable. PELVIC VISCERA: The uterus and adnexa are unremarkable. OSSEOUS STRUCTURES: Unremarkable. CT/CT abdomen pelvis wo IV con IMPRESSION: 1. A cause for the patient's left-sided flank pain has not been found. 2. Incidental note made of an enlarged fatty liver and mildly prominent spleen. Fleischner guidelines were followed.
[2024-03-10 08:50] VITALS: BP 117/76; PULSE 93; RESP 16; TEMP 36.8; O2SAT 97; BMI 36.0
--- NOTE | 2024-03-10 09:05 | ED_ITS ---
HPI - Abdominal Pain General Chief Complaint: Abdominal Pain Stated Complaint: Abd pain Time Seen by Provider: 03/10/24 09:04 Source: patient and RN notes reviewed Mode of arrival: ambulatory Limitations: no limitations History of Present Illness ED Provider: Sushila Gonzales PA-C HPI narrative: This is a 19-year-old female, with no known medical problems, who presents emergency department with complaints of left-sided flank pain. Patient states that since March 01, she has had suprapubic pain. She states that last night she developed left-sided flank pain. She states that she is very uncomfortable. She states that she took Tylenol as well as Biofreeze which provided her with minimal relief. She states that the pain woke her up this morning. She denies any fevers, chills, chest pain, shortness of breath, nausea, vomiting, urinary symptoms, or diarrhea. She states that she has a history of constipation which is typical for her, last moved her bowels yesterday. No other complaints or concerns at this time. Related Data Previous Rx's ?Medication ?Instructions ?Recorded cephalexin 500 mg capsule 1,000 mg (2 x 500 mg) PO BID #20 12/13/22 caps meloxicam 15 mg tablet 15 mg PO DAILY #14 tabs 12/13/22 methocarbamol 750 mg tablet 750 mg PO Q8H PRN back pain #10 12/13/22 tabs ibuprofen 600 mg tablet 600 mg PO Q6H PRN pain #14 tabs 08/27/23 ondansetron 4 mg disintegrating 4 mg PO Q8H PRN nausea and 08/27/23 tablet vomiting #12 tabs naproxen 500 mg tablet 500 mg PO BID PRN pain 7 days #14 10/21/23 tabs cyclobenzaprine 10 mg tablet 10 mg PO TID PRN muscle spasm #7 12/19/23 tabs ibuprofen 600 mg tablet 600 mg PO Q8H PRN pain #14 tabs 12/19/23 acetaminophen 500 mg tablet 1,000 mg (2 x 500 mg) PO Q8H PRN 03/10/24 (Tylenol Extra Strength) pain #30 tabs ibuprofen 600 mg tablet 600 mg PO Q6H PRN pain #30 tabs 03/10/24 lidocaine 5 % topical patch 1 patch topical DAILY #30 ea 03/10/24 (Lidoderm) Allergies Allergy/AdvReac Type Severity Reaction Status Date / Time No Known Allergies Allergy Verified 03/10/24 08:56 Review of Systems Review of Systems Yes all other systems are reviewed and are negative Constitutional: Reports as per [facility] Social History Social History Advance Directives: No Advance Directives Information Provided: Yes Physical Exam ED Vital Signs: Vital Signs - 24 hr 03/10/24 08:50 03/10/24 10:21 03/10/24 12:02 Temperature 98.3 F 97.7 F 97.8 F Pulse Rate 93 67 70 Respiratory Rate 16 18 20 Blood Pressure 117/76 95/50 L 132/71 Pulse Oximetry 97 97 97 Oxygen Delivery Method Room Air Room Air Room Air BMI result Body Mass Index 36.0 Const General: cooperative, comfortable and no acute distress Orientation/consciousness: patient oriented x3 Limitations: no limitations HENMT Head: Yes normal to inspection, Yes normocephalic and Yes atraumatic Ears: hearing grossly normal bilaterally General nose exam: Normal external nose present Face and sinus: Yes normal facial exam Mouth: Normal oral and palatal mucosa present, oropharynx normal and moist mucous membranes Throat: Yes posterior oropharynx normal Eyes General: appearance normal, both eyes and all related structures Eyelids: Yes eyelids normal Conjunctivae: conjunctivae normal Sclerae: sclerae normal Pupils: Equal, round and reactive pupils present EOM: EOMs intact bilaterally Neck Neck: Yes normal visual inspection, Yes full ROM and Yes no lymphadenopathy Lymphatic: no lymphadenopathy noted Chest Chest palpation & inspection: normal inspection of the chest Resp Effort & Inspection: normal respiratory effort and able to speak in complete sentences Auscultation: clear to auscultation bilaterally, no crackles, no rales, no rhonchi and no wheezes Cardio Rate: regular rate Rhythm: regular rhythm Heart sounds: S1 normal heart sound present and S2 normal heart sound present GI Other: Abdomen is soft, with tenderness palpation in the left flank Inspection: Yes normal to inspection Back/Spine/Pelvis Other: + CVA tenderness on the left Skin General skin exam: no rashes or lesions noted Trauma: no lacerations or abrasions Wounds: no wounds Neuro General: patient oriented x3 and moves all extremities Cranial nerves: Yes Equal, round and reactive pupils present Extrem General: Yes normal to inspection Right upper extremity: normal to inspection Left upper extremity: normal to inspection Right lower extremity: normal to inspection Left lower extremity: normal to inspection Course Reevaluation(s) Reevaluation #1: CT scan without any acute finding of left flank pain, enlarged fatty liver and mildly prominent spleen noted. Discussed findings with patient, discussed strict return precautions. She is feeling better. She understands and agrees with plan. Time: 11:58 Medical Decision Making Medical Decision Making [facility] Narrative: This is a 19-year-old female, with no known medical problems, who presents emergency department with complaints of left-sided flank pain that started last night. Patient states that she had suprapubic pain for the last week and a half. She states that her last menses was February 18. No urinary symptoms. Differential diagnoses include acute cystitis, pyelonephritis, obstructive uropathy, UMU, acute pancreatitis. Abdomen is soft, with tenderness palpation in the left flank with CVA tenderness. Plan: Labs, UA, U preg, +/- CT abdomen, Toradol 30 mg IV Differential Diagnosis Differential Diagnoses: The differential diagnosis associated with the presentation includes See above Lab Data [facility] Lab Attestation statement: I reviewed the patient's lab results. No WBC, stable H&H, no UMU, neg preg 03/10/24 09:26 03/10/24 09:26 Labs: Lab Results 03/10/24 03/10/24 Range/Units 09:25 09:26 WBC 9.6 (4.8-10.8) X10*3/uL RBC 4.52 (4.20-5.50) X10*6/uL Hgb 13.4 (12.0-16.0) g/dl Hct 40.3 (37.0-47.0) % MCV 89.2 (80.0-98.0) fL MCH 29.6 (27.0-33.0) pg MCHC 33.3 (31.0-35.0) g/dl RDW 11.7 (11.0-16.0) % Plt Count 301 (160-400) X10*3/uL MPV 10.8 (9.4-12.3) fL Immature Gran % (Auto) 0.2 (0.0-0.4) % Neut % (Auto) 58.2 (45-73) % Lymph % (Auto) 31.4 (20-40) % Mcleod % (Auto) 6.7 (2-11) % Eos % (Auto) 3.1 (0-4) % Baso % (Auto) 0.4 (0-2) % Lymph # (Auto) 3.0 (1.2-4.9) X10*3/uL Mcleod # (Auto) 0.6 (0.1-1.2) X10*3/uL Eos # (Auto) 0.3 (0.0-0.4) X10*3/uL Baso # (Auto) 0.0 (0.0-0.2) X10*3/uL Abs Immat Gran (auto) 0.02 (0.00-0.03) X10*3/uL Absolute Neuts (auto) 5.6 (2.0-8.3) x10*3/uL Absolute Nucleated RBC 0.000 (0.0-0.012) X10*3/uL Nucleated RBC % (auto) 0.0 (0.0-0.2) /100WBC Sodium 139 (135-145) mmol/L Potassium 4.3 (3.3-5.1) mmol/L Chloride 107 (96-108) mmol/L Carbon Dioxide 23 (22-29) mmol/L Anion Gap 13 (12-20) BUN 10 (9-16) mg/dL Creatinine 0.66 (0.5-1.4) mg/dL Estim Creat Clear Calc 156.4 Estimated GFR > 60 Random Glucose 97 (60-115) mg/dL Calcium 9.4 (8.4-10.2) mg/dL Total Bilirubin 0.6 (0.0-1.0) mg/dL Direct Bilirubin 0.1 (0.0-0.5) mg/dL AST 27 (5-31) U/L ALT 50 H (0-31) U/L Alkaline Phosphatase 70 (39-117) U/L Total Protein 7.3 (6.5-8.0) g/dL Albumin 4.0 (3.5-5.0) g/dL Lipase 15 (8-78) U/L Beta HCG, Quant < 2 mIU/mL Urine Color Yellow Urine Appearance Clear Urine pH 6.0 (5.0-9.0) Ur Specific Ledbetter 1.020 (1.005-1.025) Urine Protein Negative (Neg-Trace) mg/dL Urine Glucose (UA) Negative (Negative) mg/dL Urine Ketones Negative (Negative) mg/dL Urine Blood Negative (Negative) Urine Nitrite Negative (Negative) Ur Leukocyte Esterase Negative (Negative) Urine Test NEGATIVE (NEGATIVE) Radiology Impression Discussion of test interpretation with radiology: I have reviewed the radiologist's reading. External Record Review External record reviewed: Inpatient record, Office record, Outpatient record, Prior outpatient labs, Prior outpatient radiology, Primary care record and Outside ED record Medications Administered Discontinued Medications Generic Name Dose Route Start Last Admin Trade Name Freq PRN Reason Stop Dose Admin Sodium Chloride 1,000 mls @ 999 mls/hr 03/10/24 09:44 03/10/24 09:52 Ns IV 03/10/24 10:44 999 mls/hr .Q1H1M ONE Administration Ketorolac Tromethamine 30 mg 03/10/24 09:43 03/10/24 09:51 Ketorolac Tromethamine 30 Mg/Ml Vial IVPUSH 03/10/24 09:44 30 mg ONCE ONE Administration Discharge Plan Discharge Clinical Impression: Left flank pain Patient Disposition: Home, Self-Care Instructions: Non-Alcoholic Fatty Liver Disease (ED), Abdominal Pain (ED) Additional Instructions: You were seen in the emergency department due to abdominal pain. You refused doing a pelvic exam today. I am recommending you follow-up with your primary care physician. Your lab work today was reassuring. Your urine does not appear to be infected. Your CT scan showed a mildly enlarged spleen as well as an enlarged fatty liver. You have had this on your CT scans in the past, this is nothing to worry about however notify your primary care physician regarding this. Drink plenty of fluids get plenty of rest. Alternate between ibuprofen and Tylenol as needed for pain. You may use Lidoderm patches as needed for pain and symptoms. If any new or worsening symptoms occur including but not limited to fevers, chills, chest pain, shortness breath, worsening abdominal pain, please return for re-evaluation. Prescriptions: New ibuprofen 600 mg tablet 600 mg PO Q6H PRN (Reason: pain) Qty: 30 0RF acetaminophen [Tylenol Extra Strength] 500 mg tablet 1,000 mg PO Q8H PRN (Reason: pain) Qty: 30 0RF lidocaine [Lidoderm] 5 % adhesive patch,medicated 1 patch topical DAILY Qty: 30 0RF Rx Instructions: leave on most painful area for up to 12 hrs No Action cephalexin 500 mg capsule 1,000 mg PO BID Qty: 20 0RF meloxicam 15 mg tablet 15 mg PO DAILY Qty: 14 0RF methocarbamol 750 mg tablet 750 mg PO Q8H PRN (Reason: back pain) Qty: 10 0RF ondansetron 4 mg tablet,disintegrating 4 mg PO Q8H PRN (Reason: nausea and vomiting) Qty: 12 0RF ibuprofen 600 mg tablet 600 mg PO Q6H PRN (Reason: pain) Qty: 14 0RF naproxen 500 mg tablet 500 mg PO BID PRN (Reason: pain) 7 Days Qty: 14 0RF ibuprofen 600 mg tablet 600 mg PO Q8H PRN (Reason: pain) Qty: 14 0RF cyclobenzaprine 10 mg tablet 10 mg PO TID PRN (Reason: muscle spasm) Qty: 7 0RF Interventions: ED Discharge Assessment Last Done: 03/10/24 12:51 Discharge Date/Time: 03/10/24 12:52 Print Language: Mohawk
--- OUTSIDE RECORDS SUMMARY | 2024-03-10 09:08 | XMS_ITS | Patient Health Record ---
Author Organization [facility] Address [address] [place] [address] Care Team Providers Care Re Examiner Name Role Phone Hattie Mcginnis Unavailable [phone] Osmar Christianson Unavailable [phone] Marychuy Neri Unavailable [phone] Dr Usman Unavailable [phone] PROBLEMS Type Condition ICD9-CM Code QNK89-ND Code Onset Dates Condition Status W/U Status Risk SNOMED Code Notes Problem Abnormal menses N92.6 confirmed [id number] Problem Syncope and collapse R55 confirmed [id number] Problem Acute depression F32.9 confirmed [id number] Problem Frequent nosebleeds R04.0 confirmed [id number] ALLERGIES No Known Allergies ENCOUNTERS from 2003 to 2024-03-10 Encounter Location Date Provider Diagnosis [address] [id number] [place] [address] Apr, Hattie Mcginnis OB/CDE-110 Facility [address] [place] [address] 18 Mar, 2022 Hattie Mcginnis Encounter for physical examination Z00.00 ; Screening for thyroid disorder Z13.29 ; Screening for lipid disorders Z13.220 ; Screening for diabetes mellitus (DM) Z13.1 ; Shortness of breath R06.02 ; control counseling Z30.09 and Screening for STDs (sexually transmitted diseases) Z11.3 [facility] ([facility]) [address] [place] [address] Jan, Marychuy Neri Costovertebral angle pain M54.9 [facility] [address] [facility] [id number], [place] [address] Sep, Osmar Christianson [facility] [address] [facility] [id number], [place] [address] Sep, Osmar Christianson [address] Aug, Osmar Christianson Syncope and collapse R55 ; Abnormal menses N92.6 and Frequent nosebleeds R04.[address] [id number], [place] [address] Jun, Osmar Christianson [place] [address] Jun, Dr Mary [address] [id number], [place] [address] Jun, Osmar Christianson [place] [address] Jun, Dr Mary [place] [address] Jun, Osmar Christianson Acute depression F32.9 ; Encounter for well child exam with abnormal findings Z00.121 ; Acute chest wall pain R07.89 ; Encounter for immunization Z23 ; Dietary counseling Z71.3 ; BMI,pediatric 85% - <95% Z68.53 and Exercise counseling Z71.82 IMMUNIZATIONS Vaccine Route Administration Date Status *VFC (Pedi/Adol): Hepatitis A Vaccine 0.5 mL IM x 1 Unknown Apr 02, 2018 Administered *VFC (Pedi/Adol): Hepatitis A Vaccine 0.5 mL IM x 1 IM Intramuscular Jun 15, 2019 Administered *VFC: MMR-V LIVE Vaccine 0.5 mL SC x 1 Unknown Apr 09, 2007 Administered *VFC: DTaP Vaccine (6 YEARS AND YOUNGER) 0.5 mL IM x 1 Unknown Sep 01, 2004 Administered *VFC: HPV-9 Vaccine 0.5 mL IM x 1 IM Intramuscular Jun 15, 2019 Administered *VFC: Hib Vaccine 0.5 mL IM x 1 Unknown Aug 02, 003 Administered *VFC: Influenza Vaccine, 6mo - 18 yrs IM Intramuscular Jun 15, 2019 Administered *VFC: Hib Vaccine 0.5 mL IM x 1 Unknown 2003 Administered *VFC: Hib Vaccine 0.5 mL IM x 1 Unknown February 29, 2004 Administered *VFC: Varicella LIVE Vaccine 0.5 mL SC x 1 Unknown February 29, 2004 Administered *VFC: DTaP Vaccine (6 YEARS AND YOUNGER) 0.5 mL IM x 1 Unknown Apr 09, 2007 Administered *VFC: MMR LIVE Vaccine 0.5 m L SC x 1 Unknown May 01, 2004 Administered *VFC: HPV-9 Vaccine 0.5 mL IM x 1 Unknown February Administered *VFC: Hib Vaccine 0.5 mL IM x 1 Unknown 2003 Administered *VFC: IPV Vaccine 0.5 mL IM x 1 Unknown Apr 09, 2007 Administered *VFC: Meningococcal (MenACWY ) Vaccine 0.5 mL x 1 IM Intramuscular Jun 15, 2019 Administered *VFC: Meningococcal (MenACWY ) Vaccine 0.5 mL x 1 Unknown Apr 02, 2018 Administered *VFC: DTaP/Hep B/IPV (Pediar ix) Vaccine 0.5 mL IM x 1 Unknown 2003 Administered *VFC: DTaP/Hep B/IPV (Pediar ix) Vaccine 0.5 mL IM x 1 Unknown 2003 Administered *VFC: DTaP/Hep B/IPV (Pediar ix) Vaccine 0.5 mL IM x 1 Unknown 2003 Administered *VFC: Tdap Vaccine (7 YEARS AND UP) 0.5 mL IM x 1 Unknown Aug 24, 2016 Administered SOCIAL HISTORY Tobacco Use: Social History Observation Description Date Details (start date - stop date) Never Smoker Sex Assigned At : Social History Observation Description Sex Assigned At Unknown Alcohol Screen Question Answer Notes Did you have a drink containing alcohol in the p ast year? No Points 0 Interpretation Negative Tobacco Use/Smoking Question Answer Notes Are you a never smoker DAST-10 (2020 Edition) Question Answer Notes 1. Have you used drugs other than those required for medical reasons? No 2. Do you abuse more than one drug at a time? No 3. Are you always able to stop using drugs when you want to? No 4. Have you had blackouts or flashbacks as a result of drug use? No 5. Do you ever feel bad or guilty about your teo g use? No 6. Does your spouse (or pare nts) ever complain about your involvement with drugs? No 7. Have you neglected your family because of you r use of drugs? No 8. Have you engaged in illegal activities in ord er to obtain drugs? No 9. Have you ever experienced withdrawal symptoms (felt sick) when you stopped taking drugs? No 10. Have you had medical pro blems as a result of your drug use (e.g., memory loss, hepatitis, convulsions, bleeding etc.)? No Results: 1 Interpretation of Score: Low level Sexual History Question Answer Notes Had sex in the past 12 months (vaginal, oral, or anal)? Yes Last menstrual period 03/18/2022 Have you ever had a Sexually transmitted disease ? No with Men only Use protection? Yes How often? All of the time REASON FOR REFERRAL from 2003 to 2024-03-10 Reason [employer] Diagnosis 1 Counseling and coord ination of care (Z71.89) Referral Organization [facility] Referring Provider First Name Osmar Ref[facility]erring Provider [facility] Referred Organization [facility] Referred Provider Osmar Martin Referred Address [address] [place] [id number] Referred Provider [facility]ty [facility] Referral Priority Routine General Notes Sabina Plascencia 06/22/20 19 2:38:04 PM >Patient's mom came in to apply for [employer] insurance; mom was unable to get the insurance b/c she still had insurance from [place]. Sabina Plascencia 07/07/2019 11:14:32 AM >Mom and minor child had insurance from [place]. CC Derek Benton advised mom that she needed to [place] before [place] in [place]. Mom decided to keep [place] insurance for now b/c she had some very specialized scheduled visits for one of her children who has some challenges. This referral is closed. Reason Syncope and Collapse while seated doing makeup, pallor and fatigue Does have irregular menses and frequent nosebleeds. Labs being ordered, to be cc'd to specialist Diagnosis 1 Syncope and collapse (R55) Referral Organization [facility] Referring Provider First Name Osmar Referring Provider Last Name Bryan Referring Provider Specialty Family Prac lety Referred Provider CARDIOLOGY, [facility], Referred Provider Specialty Cardiology Referral Priority Routine Referral Appointment Date 2019-08-31 Reason 03/30 17yF with per jeanne SOB following COVID a few months ago. Please eval. Thank you! Diagnosis 1 Encounter for physic al examination (Z00.00) Referral Organization [facility] Referring Provider First Name Hattie Referring Provider Last Name Flater Referring Provider Specialty Physician A ssistant Referred Provider PULMONARY Domenic BELLA IS, Referred Provider Specialty Pulmonary Di seases Referral Priority Routine General Notes Chelsi Lynn 01:45:00 PM >Referral Faxed Provider Name: GAVIN HOOVER Provider Speciality: Pulmonary Diseases Address1: [address] [facility] Address2: [address] [place] [address], Zip: [place], [place], [facility] Chelsi Lynn 03/30/2022 01:47:02 PM >pt was called and given referral info to call and schedule an appt.//ck Chelsi Lynn 04/10/2022 11:35:12 AM >unable to reach pt.//ck VITAL SIGNS from 2003 to 2024-03-10 Weight 192.4 lbs Mar, Height 64.5 in Mar, Temperature 98.6 degrees Fahrenheit Mar, Heart Rate 88 /min Mar, Respiratory Rate 18 /min Mar, BMI 32.51 kg/m2 Mar, Oximetry 98 % Mar, Height-cm 163.83 cm Mar, Weight-kg 87.27 kg Mar, Blood pressure systolic 118 mm Hg Mar, Blood pressure diastolic 77 mm Hg Mar, MEDICATIONS Medication SIG (Take, Route, Frequency, Duration) Notes Start Date End Date Status ProAir HFA 108 (90 Base) MCG/ACT 1 puff as needed Inhalation every 4 hrs for 30 days Active Nexplanon 68 MG as directed Subcutaneous Mar, Active Ibuprofen 800 MG 1 tablet with food or milk as needed Orally Three times a day for 14 days EH1Y Jun, Not-Taking/PRN Cyclobenzaprine HCl 10 MG 1 tablet Orally three times a day as needed for pain for 7 days Jan, Not-Taking/PRN PROCEDURES from 2003 to 2024-03-10 Procedure Date Ordered Date Performed Result Body Sit e PHQ-2/9/A FORM (PSYCHOSOCIAL /BEHAVIORAL ASSESSMENT) 2019-06-15 N/A Y-PSC FORM (PSYCHOSOCIAL/BEH AVIORAL ASSESSMENT) 2019-06-15 N/A RESULTS from 2003 to 2024-03-10 Component Value Reference Range Notes COMPREHENSIVE METABOLIC PANE L Reviewed date:03/27/2022 14:55:06 Interpretation: Normal Performing Lab:[facility] NL1, [employer] [facility], [address] [place] [address], [address], [place], [address] [place]., ,[place], [address] Notes/Report: ALBUMIN 4.1 g/dL 3.6-5.1 g/dL ALBUMIN/GLOBULIN RATIO 1.4 (calc) 1.0-2.5 (calc) ALKALINE PHOSPHATASE 73 U/L 36-128 U/L ALT 15 U/L 5-32 U/L AST 14 U/L 12-32 U/L BILIRUBIN, TOTAL 0.5 mg/dL 0.2-1.1 mg/dL BUN/CREATININE RATIO NOT APPLICABLE (calc) 6-22 (calc) CALCIUM 9.6 mg/dL 8.9-10.4 mg/dL CARBON DIOXIDE 26 mmol/L 20-32 mmol/L CHLORIDE 104 mmol/L 98-110 mmol/L CREATININE 0.63 mg/dL 0.50-0.96 mg/dL EGFR 131 mL/min/1.73m2 >OR = 60 mL/min/1.73m2 GLOBULIN 3.0 g/dL (calc) 2.0-3.8 g/dL (calc) GLUCOSE 96 mg/dL 65-99 mg/dL POTASSIUM 4.3 mmol/L 3.8-5.1 mmol/L PROTEIN, TOTAL 7.1 g/dL 6.3-8.2 g/dL SODIUM 138 mmol/L 135-146 mmol/L UREA NITROGEN (BUN) 11 mg/dL 7-20 mg/dL LIPID PANEL WITH REFLEX TO D IRECT LDL Reviewed date:03/27/2022 14:55:06 Interpretation: Normal Performing Lab:[facility], [facility], [employer], [address] [place] [address], [place], [address] Danny [place]., ,[place], [address] Notes/Report: CHOL/HDLC RATIO 4.0 (calc) <5.0 (calc) CHOLESTEROL, TOTAL 157 mg/dL <170 mg/dL HDL CHOLESTEROL 39 mg/dL >45 mg/dL LDL-CHOLESTEROL 98 mg/dL (calc) <110 mg/dL (calc) NON HDL CHOLESTEROL 118 mg/dL (calc) <120 mg/dL (calc) TRIGLYCERIDES 106 mg/dL <90 mg/dL RPR (DX) W/REFL TITER AND CO NFIRMATORY TESTING Reviewed date:03/27/2022 14:55:06 Interpretation:Negative Performing Lab:[facility], [facility], [employer], [address] [place] [address], [facility], [place], [address] Danny [place]., ,[place], [address] Notes/Report: RPR (DX) W/REFL TITER AND CONFIRMATORY TESTING NON-REACTIVE NON-REACTIVE TSH W/REFLEX TO FT4 Reviewed date:03/27/2022 14:55:06 Interpretation: Normal Performing Lab:[facility], [facility], [employer], [address] [place] [address], [place], [address] Danny [place]., ,[place], [address] Notes/Report: TSH W/REFLEX TO FT4 0.79 mIU/L HEMOGLOBIN A1c Reviewed date:03/27/2022 14:55:06 Interpretation:4.9 Performing Lab:[facility], [facility], [employer], [address] [place] [address], [address] , [place], [address] Danny [place]., ,[place], [address] Notes/Report: HEMOGLOBIN A1c 4.9 % of total Hgb <5.7 % of total Hgb CBC (INCLUDES DIFF/PLT) Reviewed date:03/27/2022 14:55:06 Interpretation: Normal Performing Lab:[facility] [employer] [facility]., NL1, [employer], [address], [place], [address] Danny [place]., ,[place], [address] Notes/Report: ABSOLUTE BASOPHILS 38 cells/uL 0-200 cells/uL ABSOLUTE EOSINOPHILS 202 cells/uL 15-500 cells/uL ABSOLUTE LYMPHOCYTES 2582 cells/uL 850-3900 cells/uL ABSOLUTE MONOCYTES 538 cells/uL 200-950 cells/uL ABSOLUTE NEUTROPHILS 6240 cells/uL 8851-0776 cells/uL ABSOLUTE NEUTROPHILS 6240 cells/uL 3905-8311 cells/uL BASOPHILS 0.4 % EOSINOPHILS 2.1 % HEMATOCRIT 37.3 % 35.0-45.0 % HEMOGLOBIN 12.6 g/dL 11.7-15.5 g/dL LYMPHOCYTES 26.9 % MCH 29.6 pg 27.0-33.0 pg MCHC 33.8 g/dL 32.0-36.0 g/dL MCV 87.6 fL 80.0-100.0 fL MONOCYTES 5.6 % MPV 12.1 fL 7.5-12.5 fL NEUTROPHILS 65 % PLATELET COUNT 300 Thousand/uL 140-400 Thousand/uL RDW 11.9 % 11.0-15.0 % RED BLOOD CELL COUNT 4.26 Million/uL 3.80-5.10 Million /uL WHITE BLOOD CELL COUNT 9.6 Thousand/uL 3.8-10.8 Th[place] [address]/uL HEPATITIS C ANTIBODY Reviewed date:03/27/2022 14:55:06 Interpretation:negative Performing Lab:[facility] [employer] [facility]., 1, [employer], [address], [facility], [place], [address] Danny [place]., ,[place], [address] Notes/Report: HEPATITIS C ANTIBODY NON-REACTIVE NON-REACTIVE INDEX 0.10 <1.00 HIV 1/2 ANTIGEN/ANTIBODY, FO URTH GENERATION W/RFL Reviewed date:03/27/2022 14:55:06 Interpretation:negative Performing Lab:[employer], [employer], [address], [facility] B, [place], [address] Danny [place]., ,[place], [address] Notes/Report: HIV AG/AB, 4TH GEN NON-REACTIVE NON-REACTIVE COMPREHENSIVE METABOLIC PANE L Reviewed date:08/20/2019 20:58:57 Interpretation:WNL Performing Lab:[employer] NL1, [employer], [address], [facility], [place], [address] [place], [address] Notes/Report: ALBUMIN 4.2 g/dL 3.6-5.1 g/dL ALBUMIN/GLOBULIN RATIO 1.6 (calc) 1.0-2.5 (calc) ALKALINE PHOSPHATASE 77 U/L 47-176 U/L ALT 10 U/L 5-32 U/L AST 12 U/L 12-32 U/L BILIRUBIN, TOTAL 0.7 mg/dL 0.2-1.1 mg/dL BUN/CREATININE RATIO NOT APPLICABLE (calc) 6-22 (calc) CALCIUM 9.5 mg/dL 8.9-10.4 mg/dL CARBON DIOXIDE 27 mmol/L 20-32 mmol/L CHLORIDE 105 mmol/L 98-110 mmol/L CREATININE 0.58 mg/dL 0.50-1.00 mg/dL GLOBULIN 2.7 g/dL (calc) 2.0-3.8 g/dL (calc) GLUCOSE 85 mg/dL 65-99 mg/dL POTASSIUM 4.5 mmol/L 3.8-5.1 mmol/L PROTEIN, TOTAL 6.9 g/dL 6.3-8.2 g/dL SODIUM 139 mmol/L 135-146 mmol/L UREA NITROGEN (BUN) 11 mg/dL 7-20 mg/dL CBC (H/H, RBC, INDICES, WBC, PLT) Reviewed date:08/20/2019 20:58:57 Interpretation:WNL Performing Lab:[employer] NL1, [employer], [address] [place] [address], [address], [place], [address] [place], [address] Notes/Report: HEMATOCRIT 38.6 % 34.0-46.0 % HEMOGLOBIN 13.2 g/dL 11.5-15.3 g/dL MCH 30.1 pg 25.0-35.0 pg MCHC 34.2 g/dL 31.0-36.0 g/dL MCV 87.9 fL 78.0-98.0 fL MPV 11.4 fL 7.5-12.5 fL PLATELET COUNT 258 Thousand/uL 140-400 Thousand/uL RDW 11.5 % 11.0-15.0 % RED BLOOD CELL COUNT 4.39 Million/uL 3.80-5.10 Million /uL WHITE BLOOD CELL COUNT 6.6 Thousand/uL 4.5-13.0 Thous[place] nd/uL VON WILLEBRAND COMPREHENSIVE PANEL Reviewed date:08/20/2019 20:58:57 Interpretation:WNL Performing Lab:[employer] AMD, [facility], [address] [facility] , [place], [address] Rigoberto Vaughn M.D.,[place], ,[place], [address] Notes/Report: FACTOR VIII ACTIVITY, CLOTTING 63 % normal 50-180 % n ormal INTERPRETATION see note PARTIAL THROMBOPLASTIN TIME, ACTIVATED 30 sec 22-34 sec RISTOCETIN COFACTOR 45 % normal 42-200 % normal VON WILLEBRAND FACTOR ANTIGEN 54 % 50-217 % VWF AG, MULTIMERIC see note FACTOR VIII ACT, CLOTTING W/ RFL CHROMOGENIC Reviewed date:08/20/2019 20:58:57 Interpretation:WNL Performing Lab:[employer] EZ, [facility],, [address] [address] [place], [address] Maria L Adams MD,PhD,[place], ,[place], [address] Notes/Report: FACTOR VIII ACTIVITY, CLOTTING 79 % normal 50-180 % n ormal T4, FREE Reviewed date:08/20/2019 20:58:57 Interpretation:WNL Performing Lab:[employer] NL1, [employer], [address], [address], [place], [address] [place], [address] Notes/Report: T4, FREE 1.1 ng/dL 0.8-1.4 ng/dL PROTHROMBIN TIME-INR Reviewed date:08/20/2019 20:58:57 Interpretation:WNL Performing Lab:[employer] QWA, [employer] [facility], [address], [place], [address] [place], ,[place], [address] Notes/Report: INR 1.0 PT 10.3 sec 9.0-11.5 sec TSH Reviewed date:08/20/2019 20:58:57 Interpretation:WNL Performing Lab:[employer] NL1, [employer], [address], [address], [place], [address] [place] ,[place], [address] Notes/Report: TSH 1.32 mIU/L REASON FOR VISIT No Information MEDICAL (GENERAL) HISTORY Type Description Date Medical History ADHD Medical History Intermittent Reflux Surgical History colonoscopy/endoscop y as (Failure to thrive, underweight until 3yr) Hospitalization History 1 mo' ICU after swallowe d meconium 2002 MENTAL STATUS No Information ASSESSMENTS Encounter Date Diagnosis Assessment Notes Treatment Notes Treatment Clinical Notes Mar, Screening for thyroid disorder (ICD-10 - Z13.29) Mar, Encounter for physical examination (ICD-10 - Z00.00) Will update bloodwor k and treat as indicated. Reviewed lifestyle modifications for prevention of HTN, DM, CVD. Patient verbalized agreement and understanding. Mar, Screening for lipid disorders (ICD-10 - Z13.220) Mar, Screening for diabetes mellitus (DM) (ICD-10 - Z13.1) Mar, Shortness of breath (ICD-10 - R06.02) CXR ordered for further evaluation. Will also set up for pulmonology consult for PFTs. Exam benign, O2 normal in office today. Rx sent to trial albuterol. Rev'd dosing, side effects. Will follow up after CXR returns. Discussed warning signs and when to seek additional medical treatment, patient verbalized agreement and understanding. Mar, control counseling (ICD-10 - Z30.09) Reviewed options for control including pill, patch, ring, injection, implant and IUD. No contraindications at this time. Patient would like to move forward with nexplanon. Rev'd insertion process, side effects. Forms completed today, will call to schedule patient when device arrives. Discussed warning signs and when to seek additional medical treatment, patient verbalized agreement and understanding. Mar, Screening for STDs (sexually transmitted diseases) (ICD-10 - Z11.3) Additional STD testing sent per patient request. Rev'd safe sex practices. Jan, Costovertebral angle pain (ICD-10 - M54.9) concern for nephrolithiasis given tenderness on left CVA Will order KUB, advised her that not all stones are visible on x-ray Advised to report to ED if experiencing severe pain Patient advised to report to ED if experiencing saddle anesthesia, fever, urinary retention or fecal incontinence Aug, Syncope and collapse (ICD-10 - R55) Syncope and collapse last week of , preceeded with cold feeling, nausea. Was seated and doing makeup at the time. 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 Has BM twice weekly and tenesmus, straining. - cardiology referral - cbc, cmp, - tsh Aug, Abnormal menses (ICD-10 - N92.6) 14yrs old. Menarche began at 11. Reports irregular. Doesn't keep track. But seems to come 1-2x per month for 4-7 days. Heavy initially. Pelvic pain throughout the 4-7 day course. Doesn't take anything for it. - discuss contraception. Aug, Frequent nosebleeds (ICD-10 - R04.0) Notices that nose bleeds very frequently and easily. Feels it occurs more when it's hot. Occurs 2-3x monthly, and can be triggered with the slightest bump. Currently no treatment or prior eval. Jun, Encounter for well child exam with abnormal findings (ICD-10 - Z00.121) Moved from [facility] 2 mo's ago, to [place] 1 week ago. Social stressor of breaking up with bobbi boyfriend. Acutely feels sad, but declines referral, no SI/HI. Has had 1 HPV vaccination at 9yrs old. Has 4 days msck chest pain, costochondritis. Screenings performed. CBC for hx heavy periods. Jun, Acute depression (ICD-10 - F32.9) PHQ9 of 11 with recent depressive symptoms s/p moving from [place] 2 months ago to [place], and to [place] 1 wk ago. Patient feels uprooted and recently broke up with boyfriend. Denies Anhedonia or SI/HI. Declines referral for now. We will re-evaluate mood on f/u. Jun, Acute chest wall pain (ICD-10 - R07.89) Likely recurrence of costochondritis -vs- Somatic dysfunction of 4rth or 5th right rib, of 4-5 days. Not severe pain. Worse with deep inspiration. Advised rest, hot compress, tylenol for pain, ibuprofen for inflammation. f/u 2wks. -Consider chiropractic/omt on f/u Jun, Encounter for immunization (ICD-10 - Z23) Needs HepA, Menactra , HPV #2, and Flu shot. Jun, Dietary counseling (ICD-10 - Z71.3) Jun, BMI,pediatric 85% - <95% (ICD-10 - Z68.53) Jun, Exercise counseling (ICD-10 - Z71.82) PLAN OF TREATMENT Medication Medication Name Sig Start Date Stop Date Nexplanon 68 MG as directed Subcutaneous Mar, ProAir HFA 108 (90 Base) MCG/ACT 1 puff as needed Inhalation every 4 hrs for 30 days Treatment Notes Assessment Notes Clinical Notes Syncope and collapse Syncope and collapse last week of , preceeded with cold feeling, nausea. Was seated and doing makeup at the time. 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 Has BM twice weekly and tenesmus, straining. - cardiology referral - cbc, cmp, - tsh Abnormal menses 14yrs old. Menar maira began at 11. Reports irregular. Doesn't keep track. But seems to come 1-2x per month for 4-7 days. Heavy initially. Pelvic pain throughout the 4-7 day course. Doesn't take anything for it. - discuss contraception. Encounter for physical examination Will update bloodwork and treat as indicated. Reviewed lifestyle modifications for prevention of HTN, DM, CVD. Patient verbalized agreement and understanding. Costovertebral angle pain concern for ne phrolithiasis given tenderness on left CVA Will order KUB, advised her that not all stones are visible on x-ray Advised to report to ED if experiencing severe pain Patient advised to report to ED if experiencing saddle anesthesia, fever, urinary retention or fecal incontinence Encounter for well child exam with abnormal findings Moved from [place] 2 mo 's ago, to [place] 1 week ago. Social stressor of breaking up with bobbi boyfriend. Acutely feels sad, but declines referral, no SI/HI. Has had 1 HPV vaccination at 9yrs old. Has 4 days msck chest pain, costochondritis. Screenings performed. CBC for hx heavy periods. Acute depression PHQ9 of 11 with recent depressive symptoms s/p moving from [place] 2 months ago to [place], and to [place] 1 wk ago. Patient feels uprooted and recently broke up with boyfriend. Denies Anhedonia or SI/HI. Declines referral for now. We will re-evaluate mood on f/u. Frequent nosebleeds Notices that nose bleeds very frequently and easily. Feels it occurs more when it's hot. Occurs 2-3x monthly, and can be triggered with the slightest bump. Currently no treatment or prior eval. Acute chest wall pain Likely rec urrence of costochondritis -vs- Somatic dysfunction of 4rth or 5th right rib, of 4-5 days. Not severe pain. Worse with deep inspiration. Advised rest, hot compress, tylenol for pain, ibuprofen for inflammation. f/u 2wks. -Consider chiropractic/omt on f/u Encounter for immunization Needs HepA, Menactra, HPV #2, and Flu shot. Shortness of breath CXR ordered for further evaluation. Will also set up for pulmonology consult for PFTs. Exam benign, O2 normal in office today. Rx sent to trial albuterol. Rev'd dosing, side effects. Will follow up after CXR returns. Discussed warning signs and when to seek additional medical treatment, patient verbalized agreement and understanding. Screening for STDs (sexually transmitted diseases) Additional STD testing sent per patient request. Rev'd safe sex practices. control counseling Reviewe d options for control including pill, patch, ring, injection, implant and IUD. No contraindications at this time. Patient would like to move forward with nexplanon. Rev'd insertion process, side effects. Forms completed today, will call to schedule patient when device arrives. Discussed warning signs and when to seek additional medical treatment, patient verbalized agreement and understanding. Pending Tests Test Name Order Date CHLAMYDIA/N. GONORRHOEAE RNA, TMA 03-22 X ray : Chest with 2 views 2022-03-22 HEPATITIS C AB W/REFL TO HCV RNA, QN, PC R 2022-03-22 X ray : Abdomen, Kidneys, Ureters, and B ladder (KUB) 2022-01-24 BASIC METABOLIC PANEL 2019-08-12 PARTIAL THROMBOPLASTIN TIME, ACTIVATED 2 CBC (H/H, RBC, INDICES, WBC, PLT) 2018-08 1-11 Referrals Referral Date Details Osmar JOSEPH [facility], [address] [place] [address], [id number], 2019-08-31 2019-08-31, Syncope and Collapse while seated doing makeup, pallor and fatigue Does have irregular menses and frequent nosebleeds. Labs being ordered, to be cc'd to specialist, [facility]30 17yF with per sistent SOB following COVID a few months ago. Please eval. Thank you!, PULMONARY - [facility] Insurance Providers Payer Name Payer Address Payer Phone Insured Name Patient Relationship to Insured Coverage Start Date Coverage End Date Subscriber Number Group Number Crystal Valdez [address] [facility] [id number] Sandra Nunes Self - patient is the insured [id number]
[2024-03-10 09:32] LABS: MANUAL DIFF FLAG NO
--- NOTE | 2024-03-10 09:32 | PC.NURSE ---
IV placed in the left #20 AC, labs drawn and sent. clean catch urine obtained and sent
[2024-03-10 09:34] LABS: Appearance Urine Clear; Color Urine Yellow; Glucose Urine UA Negative (Negative); Leukocyte Esterase Urine Negative (Negative); Nitrite Urine Negative (Negative); UPreg QC Valid YES; Urine Blood Negative (Negative); Urine Ketones Negative (Negative); Urine Protein Negative (Neg-Trace)
[2024-03-10 09:34] LABS: Basophils Percent Auto 0.4 % (0-2); Eosinophils Absolute Auto 0.3 X10*3/uL (0.0-0.4); Eosinophils Percent Auto 3.1 % (0-4); Hematocrit 40.3 % (37.0-47.0); Hemoglobin 13.4 g/dl (12.0-16.0); Imm Gran Abs Auto 0.02 X10*3/uL (0.00-0.03); Imm Gran Pct Auto 0.2 % (0.0-0.4); Lymphocytes Percent Auto 31.4 % (20-40); Mean Corpuscular HGB Conc 33.3 g/dl (31.0-35.0); Mean Corpuscular Hemoglobin 29.6 pg (27.0-33.0); Mean Corpuscular Volume 89.2 fL (80.0-98.0); Mean Platelet Volume 10.8 fL (9.4-12.3); Monocytes Absolute Auto 0.6 X10*3/uL (0.1-1.2); Monocytes Percent Auto 6.7 % (2-11); Neutrophils Absolute Auto 5.6 x10*3/uL (2.0-8.3); Neutrophils Percent Auto 58.2 % (45-73); Platelet Count 301 X10*3/uL (160-400); Red Blood Count 4.52 X10*6/uL (4.20-5.50); Red Cell Distribution Width 11.7 % (11.0-16.0); White Blood Count 9.6 X10*3/uL (4.8-10.8)
[2024-03-10 09:36] LABS: Urine Pregnancy NEGATIVE (NEGATIVE)
[2024-03-10] MEDS: Ketorolac Tromethamine 30 MG/ML VIAL IVPUSH (09:51)
[2024-03-10] MEDS: 0.9 % Sodium Chloride 1,000 ML 999 ML IV (09:52)
[2024-03-10 10:06] LABS: Alanine Aminotransferase 50 U/L (0-31); Alkaline Phosphatase 70 U/L (39-117); Anion Gap 13 (12-20); Aspartate Amino Transferase 27 U/L (5-31); Bilirubin Direct 0.1 mg/dL (0.0-0.5); Bilirubin Total 0.6 mg/dL (0.0-1.0); Blood Urea Nitrogen 10 mg/dL (9-16); Calcium 9.4 mg/dL (8.4-10.2); Carbon Dioxide 23 mmol/L (22-29); Chloride 107 mmol/L (96-108); Creatinine Clr Calc Pharmacy 156.4; Estimated Glomerular Filt Rate > 60; Glucose Random 97 mg/dL (60-115); HCG Quantitative < 2 mIU/mL; Lipase 15 U/L (8-78); Potassium 4.3 mmol/L (3.3-5.1); Sodium 139 mmol/L (135-145); Total Protein 7.3 g/dL (6.5-8.0)
[2024-03-10 10:21] VITALS: BP 95/50; PULSE 67; RESP 18; TEMP 36.5; O2SAT 97
[2024-03-10 12:02] VITALS: BP 132/71; PULSE 70; RESP 20; TEMP 36.6; O2SAT 97
[2024-03-10 12:51] VITALS: BP 126/64; PULSE 65; RESP 17; TEMP 36.6; O2SAT 98
== END 2024-03-10 12:52 | disposition home or self-care (01) ==
PROVIDERS: Physician Assistant Medical; Emergency Provider Emergency Medicine
DX: R10.9 Unspecified abdominal pain (principal); K76.0 Fatty (change of) liver, not elsewhere classified
CPT/HCPCS: 36415; 74176; 80048; 80076; 81003; 81025; 83690; 84702; 85025; 96374; 99284; J1885

== ENCOUNTER 2024-04-11 15:18 | Emergency (ER) | payer MEDICAID, SELFPAY ==
--- NOTE | ~2024-04-11 | XR_ITS ---
EXAMINATION: PORTABLE CHEST 1 VIEW CLINICAL INFORMATION: SOB. COMPARISON: 2003. TECHNIQUE: Portable frontal view of the chest was obtained. FINDINGS: The lungs are well expanded. There is very subtle increased markings the lateral left base but this does not obscure the left hemidiaphragm or left heart border. This is difficult to define further on this single portable frontal view. No superimposed effusion , edema, or pneumothorax. Cardiac and mediastinal silhouettes are within normal limits for technique. No acute bony abnormality seen. XR/XR chest 1V IMPRESSION: Very subtle increased markings at the lateral left base but this does not obscure the left heart border or left hemidiaphragm. Early infiltrate would be difficult to exclude in the acute setting. Electronically signed by: Amandeep Angulo MD 04/11/2024 05:06 PM EDT RP
[2024-04-11 15:20] VITALS: BP 148/79; PULSE 99; RESP 18; TEMP 36.2; O2SAT 97; BMI 36.5
--- NOTE | 2024-04-11 15:21 | ED_ITS ---
HPI - General Adult General Chief complaint: Dyspnea Stated complaint: cough Time Seen by Provider: 04/11/24 16:17 Source: patient Mode of arrival: ambulatory Limitations: no limitations History of Present Illness ED Provider: Dr. Aruna Sharp HPI narrative: Patient comes to the emergency room complaining of 2 weeks of cough. Patient states that the cough has been getting much worse over last couple of days. No fever. Patient states that she has been feeling significantly short of breath, when she got here to the emergency room, she was offered a nebulization treatment which states that it helped significantly. Patient has never been diagnosed with asthma. Patient states that her chest and back hurt from so much coughing. Related Data Previous Rx's ?Medication ?Instructions ?Recorded cephalexin 500 mg capsule 1,000 mg (2 x 500 mg) PO BID #20 12/13/22 caps meloxicam 15 mg tablet 15 mg PO DAILY #14 tabs 12/13/22 methocarbamol 750 mg tablet 750 mg PO Q8H PRN back pain #10 12/13/22 tabs ibuprofen 600 mg tablet 600 mg PO Q6H PRN pain #14 tabs 08/27/23 ondansetron 4 mg disintegrating 4 mg PO Q8H PRN nausea and 08/27/23 tablet vomiting #12 tabs naproxen 500 mg tablet 500 mg PO BID PRN pain 7 days #14 10/21/23 tabs cyclobenzaprine 10 mg tablet 10 mg PO TID PRN muscle spasm #7 12/19/23 tabs ibuprofen 600 mg tablet 600 mg PO Q8H PRN pain #14 tabs 12/19/23 acetaminophen 500 mg tablet 1,000 mg (2 x 500 mg) PO Q8H PRN 03/10/24 (Tylenol Extra Strength) pain #30 tabs ibuprofen 600 mg tablet 600 mg PO Q6H PRN pain #30 tabs 03/10/24 lidocaine 5 % topical patch 1 patch topical DAILY #30 ea 03/10/24 (Lidoderm) albuterol sulfate 90 mcg/actuation 1 puff inhalation QID PRN 04/11/24 aerosol inhaler shortness of breath or wheezing #6.7 grams amoxicillin 500 mg capsule 500 mg PO TID 5 days #15 caps 04/11/24 azithromycin 250 mg tablet 250 mg PO DAILY 4 days #4 tabs 04/11/24 benzonatate 100 mg capsule 100 mg PO TID PRN cough #15 caps 04/11/24 prednisone 50 mg tablet 50 mg PO DAILY #4 tabs 04/11/24 Allergies Allergy/AdvReac Type Severity Reaction Status Date / Time No Known Allergies Allergy Verified 04/11/24 15:22 Review of Systems 2 Review of Systems: Constitutional : No Weight loss, No Fever, No Chills, No Night Sweats, No Fatigue, No Malaise ENT/Mouth : No Hearing loss, No Ear Pain, No Nasal Congestion, No Sinus Pain, No Hoarseness, No sore throat, No Rhinorrhea, No Swallowing Difficulty Eyes: No Eye Pain, No Swelling, No Redness, No Foreign Body, No Discharge, No Vision Changes Cardiovascular : No Chest Pain, No SOB, No Dyspnea on Exertion, No Orthopnea, No Edema, No Palpitations Respiratory : Productive coughing, shortness of breath, wheezing Gastrointestinal : No Nausea, No Vomiting, No Diarrhea, No Constipation, No abdominal Pain, No Hematochezia, No Melena Genitourinary : no irregular bleeding, No Dysuria, No Urinary Frequency, No Hematuria, No Urinary Incontinence, No Urgency, No Flank Pain, No Urinary Flow Changes, No Hesitancy Musculoskeletal : No joint pain, No Myalgias, No Joint Swelling Skin : No Skin Lesions, No rash Neuro : No Weakness, No Numbness, No Paresthesias, No Loss of Consciousness, No Dizziness, No Headache Psych : No Anxiety/Panic, No Depression, No SI/HI/AH/VH, No Social Issues, Heme/Lymph: No Bruising, No Bleeding,No Lymphadenopathy Endocrine : No Polyuria, No Polydipsia, No Temperature Intolerance [facility] Social History Social History Advance Directives: No Advance Directives Information Provided: No Physical Exam ED Vital Signs: Vital Signs - 24 hr 04/11/24 15:20 04/11/24 15:45 04/11/24 16:01 Temperature 97.1 F 98.4 F Pulse Rate 99 92 113 H Respiratory Rate 18 8 L 16 Blood Pressure 148/79 H 138/76 Pulse Oximetry 97 97 Oxygen Delivery Method Room Air Room Air BMI result Body Mass Index 36.5 Const Other: Appearance: Alert. Oriented X3. No acute distress. Eyes: Pupils equal, round and reactive to light. ENT: Pharynx normal. Neck: Normal inspection. Neck supple. No lymph nodes noted. No crepitus CVS: Normal heart rate and rhythm. Pulses normal. Normal S1 and S2 Respiratory: No respiratory distress. Bilateral rales, no crackles, no wheezing Abdomen: Soft and nontender. No rigidity. No distention. Skin: Skin warm and dry. Normal skin color. Normal skin turgor. Extremities: No lower extremity edema. No Lacerations. No Rash Neuro: Oriented X 3. No motor deficit. No sensory deficit. Moving all extremities. No slurred speech. CN 2 through 12 grossly intact Psych: calm, cooperative, normal affect Course Course Course Narrative: RME performed by Yasmine Duran PA-C. Patient is a 19 year old assigned female at presenting to the emergency department with a cough and increased wheezing. Patient states that she has had a cough and had increased difficulty breathing lately. Detailed physical exam and review of systems are deferred to the meter tester primary. Labs, imaging, swabs ordered. Patient placed back in the waiting room pending room availability and results. Medications Administered Discontinued Medications Generic Name Dose Route Start Last Admin Trade Name Freq PRN Reason Stop Dose Admin Albuterol/Ipratropium 3 ml 04/11/24 15:43 04/11/24 15:45 Albuterol/Iprat 2.5/0.5mg 3 Ml Ampul.Neb INHALE 04/11/24 15:44 3 ml ONCE ONE Administration Magnesium Sulfate/Dextrose 1 gm in 100 mls @ 100 mls/hr 04/11/24 15:22 04/11/24 17:08 Magnesium Sulfate/D5w IV 04/11/24 16:21 Infused ONCE ONE Infusion Methylprednisolone Sodium Succinate 60 mg 04/11/24 15:22 04/11/24 15:48 Methylprednisolone Sod Succ 125 Mg/2 Ml Vial IVPUSH 04/11/24 15:23 60 mg ONCE ONE Administration Medical Decision Making Medical Decision Making [facility] Narrative: By the time that I examined the patient, patient had no wheezing at all. From triage, patient had a DuoNeb, magnesium and Solu-Medrol. -my interpretation of chest x-ray, possible infiltrate -I have some, patient is breathing comfortably, oxygen saturation 98% on room air, on physical exam there is no wheezing at all. -radiology report suggests possible early infiltrate. We will go ahead and treat with antibiotics. -patient was given the 1st dose of azithromycin and amoxicillin Differential Diagnosis Differential Diagnoses: The differential diagnosis associated with the presentation includes (RSV, COVID, pneumonia, bronchitis) Lab Data MDM Lab Attestation statement: I reviewed the patient's lab results. 04/11/24 16:12 04/11/24 16:12 Labs: Lab Results 04/11/24 Range/Units 16:12 WBC 9.3 (4.8-10.8) X10*3/uL RBC 4.11 L (4.20-5.50) X10*6/uL Hgb 12.4 (12.0-16.0) g/dl Hct 36.7 L (37.0-47.0) % MCV 89.3 (80.0-98.0) fL MCH 30.2 (27.0-33.0) pg MCHC 33.8 (31.0-35.0) g/dl RDW 11.6 (11.0-16.0) % Plt Count 259 (160-400) X10*3/uL MPV 10.6 (9.4-12.3) fL Immature Gran % (Auto) 0.1 (0.0-0.4) % Neut % (Auto) 48.9 (45-73) % Lymph % (Auto) 40.9 H (20-40) % [place] % (Auto) 7.0 (2-11) % Eos % (Auto) 2.8 (0-4) % Baso % (Auto) 0.3 (0-2) % Lymph # (Auto) 3.8 (1.2-4.9) X10*3/uL [place] # (Auto) 0.7 (0.1-1.2) X10*3/uL Eos # (Auto) 0.3 (0.0-0.4) X10*3/uL Baso # (Auto) 0.0 (0.0-0.2) X10*3/uL Abs Immat Gran (auto) 0.01 (0.00-0.03) X10*3/uL Absolute Neuts (auto) 4.5 (2.0-8.3) x10*3/uL Absolute Nucleated RBC 0.000 (0.0-0.012) X10*3/uL Nucleated RBC % (auto) 0.0 (0.0-0.2) /100WBC Sodium 140 (135-145) mmol/L Potassium 3.6 (3.3-5.1) mmol/L Chloride 108 (96-108) mmol/L Carbon Dioxide 22 (22-29) mmol/L Anion Gap 14 (12-20) BUN 10 (9-16) mg/dL Creatinine 0.70 (0.5-1.4) mg/dL Estim Creat Clear Calc 148.4 Estimated GFR > 60 Random Glucose 112 (60-115) mg/dL Calcium 9.5 (8.4-10.2) mg/dL Magnesium 1.9 (1.6-2.6) mg/dL Total Bilirubin 0.5 (0.0-1.0) mg/dL AST 22 (5-31) U/L ALT 44 H (0-31) U/L Alkaline Phosphatase 70 (39-117) U/L Total Protein 7.2 (6.5-8.0) g/dL Albumin 3.9 (3.5-5.0) g/dL Influenza Type A (PCR) NEGATIVE (Negative) Influenza Type B (PCR) NEGATIVE (Negative) RSV RNA Qual (PCR) NEGATIVE (Negative) SARS-CoV-2 RNA (RT-PCR) NEGATIVE (Negative) Independent Interpretation I performed an independent interpretation of an: Plain X-Ray Radiology Impression Discussion of test interpretation with radiology: I have reviewed the radiologist's reading. Radiologist Impression: The lungs are well expanded. There is very subtle increased markings the lateral left base but this does not obscure the left hemidiaphragm or left heart border. This is difficult to define further on this single portable frontal view. No superimposed effusion , edema, or pneumothorax. Cardiac and mediastinal silhouettes are within normal limits for technique. No acute bony abnormality seen. XR/XR chest 1V IMPRESSION: Very subtle increased markings at the lateral left base but this does not obscure the left heart border or left hemidiaphragm. Early infiltrate would be difficult to exclude in the acute setting. Discharge Plan Discharge Clinical Impression: Bronchitis, Pneumonia Patient Disposition: Home, Self-Care Instructions: Acute Bronchitis (ED), Community Acquired Pneumonia (ED) Additional Instructions: Please follow-up with your primary care physician tomorrow. If you have any worsening or new symptoms, please return to the emergency room or call 911 Prescriptions: New albuterol sulfate 90 mcg/actuation HFA aerosol inhaler 1 puff inhalation QID PRN (Reason: shortness of breath or wheezing) Qty: 6.7 0RF prednisone 50 mg tablet 50 mg PO DAILY Qty: 4 0RF benzonatate 100 mg capsule 100 mg PO TID PRN (Reason: cough) Qty: 15 0RF azithromycin 250 mg tablet 250 mg PO DAILY 4 Days Qty: 4 0RF Rx Instructions: start on day 2 of therapy amoxicillin 500 mg capsule 500 mg PO TID 5 Days Qty: 15 0RF No Action cephalexin 500 mg capsule 1,000 mg PO BID Qty: 20 0RF meloxicam 15 mg tablet 15 mg PO DAILY Qty: 14 0RF methocarbamol 750 mg tablet 750 mg PO Q8H PRN (Reason: back pain) Qty: 10 0RF ondansetron 4 mg tablet,disintegrating 4 mg PO Q8H PRN (Reason: nausea and vomiting) Qty: 12 0RF ibuprofen 600 mg tablet 600 mg PO Q6H PRN (Reason: pain) Qty: 14 0RF naproxen 500 mg tablet 500 mg PO BID PRN (Reason: pain) 7 Days Qty: 14 0RF ibuprofen 600 mg tablet 600 mg PO Q8H PRN (Reason: pain) Qty: 14 0RF cyclobenzaprine 10 mg tablet 10 mg PO TID PRN (Reason: muscle spasm) Qty: 7 0RF ibuprofen 600 mg tablet 600 mg PO Q6H PRN (Reason: pain) Qty: 30 0RF acetaminophen [Tylenol Extra Strength] 500 mg tablet 1,000 mg PO Q8H PRN (Reason: pain) Qty: 30 0RF lidocaine [Lidoderm] 5 % adhesive patch,medicated 1 patch topical DAILY Qty: 30 0RF Rx Instructions: leave on most painful area for up to 12 hrs Print Language: Khmer
--- NOTE | 2024-04-11 15:22 | ECG_ITS ---
Test Reason : sob Blood Pressure : / mmHG Vent. Rate : 090 BPM Atrial Rate : 090 BPM P-R Int : 146 ms QRS Dur : 084 ms QT Int : 374 ms P-R-T Axes : 039 036 017 degrees QTc Int : 457 ms Normal sinus rhythm Normal ECG No previous ECGs available Referred By: Yasmine Duran Electronically Signed By:LUANNE BARRETO
[2024-04-11 15:45] VITALS: PULSE 92; RESP 8; O2SAT 98
[2024-04-11] MEDS: Albuterol/Iprat 2.5/0.5MG 3 ML AMPUL.NEB INHALE (15:45)
[2024-04-11] MEDS: Magnesium Sulfate/D5W 1 GM/100 ML PIGGYBACK IV (15:48)
[2024-04-11] MEDS: methylPREDNISolone Sod Succ 125 MG/2 ML VIAL 60 MG IVPUSH (15:48)
--- OUTSIDE RECORDS SUMMARY | 2024-04-11 15:54 | XMS_ITS | Patient Health Record ---
Author Organization [employer] Address [id number] [place] [address] Care Team Providers Care Money Position Officer Name Role Phone Hattie Mcginnis Primary Care Provider ALLERGIES No Known Allergies REASON FOR REFERRAL No Information MEDICATIONS Medication SIG (Take, Route, Frequency, Duration) Notes Start Date End Date Status Ibuprofen 800 MG 1 tablet with food o r milk as needed Orally Three times a day for 14 days EH1Y 06/15/2019 Not-Taking ProAir HFA 108 (90 Base) MCG/ACT 1 puff as needed Inhalation every 4 hrs for 30 days Active Nexplanon 68 MG as directed Subcutaneous 03/23/2022 Active Cyclobenzaprine HCl 10 MG 1 tablet Orall y three times a day as needed for pain for 7 days 01/24/2022 Not-Taking IMMUNIZATIONS Vaccine Route Administration Date Status Comme nts *VFC (Pedi/Adol): Hepatitis A Vaccine 0.5 mL IM x 1 Unknown 04/02/2018 Administered *VFC (Pedi/Adol): Hepatitis A Vaccine 0.5 mL IM x 1 IM Intramuscular 06/15/2019 Administered *VFC: DTaP Vaccine (6 YEARS AND YOUNGER) 0.5 mL IM x 1 Unknown 09/01/2004 Administered *VFC: DTaP Vaccine (6 YEARS AND YOUNGER) 0.5 mL IM x 1 Unknown 04/09/2007 Administered *VFC: DTaP/Hep B/IPV (Pediarix) Vaccine 0.5 mL IM x 1 Unknown 2003 Administered *VFC: DTaP/Hep B/IPV (Pediarix) Vaccine 0.5 mL IM x 1 Unknown 2003 Administered *VFC: DTaP/Hep B/IPV (Pediarix) Vaccine 0.5 mL IM x 1 Unknown 2003 Administered *VFC: Hib Vaccine 0.5 mL IM x 1 Unknown 2003 Administered *VFC: Hib Vaccine 0.5 mL IM x 1 Unknown 2003 Administered *VFC: Hib Vaccine 0.5 mL IM x 1 Unknown 2003 Administered *VFC: Hib Vaccine 0.5 mL IM x 1 Unknown 02/29/2004 Administered *VFC: HPV-9 Vaccine 0.5 mL IM x 1 Unknown 2014 Administered *VFC: HPV-9 Vaccine 0.5 mL IM x 1 IM Intramuscular 06/15/2019 Administered *VFC: Influenza Vaccine, 6mo - 18 yrs IM Intramuscular 06/15/2019 Administered *VFC: IPV Vaccine 0.5 mL IM x 1 Unknown 04/09/2007 Administered *VFC: Meningococcal (MenACWY) Vaccine 0.5 mL x 1 Unknown 04/02/2018 Administered *VFC: Meningococcal (MenACWY) Vaccine 0.5 mL x 1 IM Intramuscular 06/15/2019 Administered *VFC: MMR LIVE Vaccine 0.5 mL SC x 1 Unknown 05/01/2004 Administered *VFC: MMR-V LIVE Vaccine 0.5 mL SC x 1 Unknown 04/09/2007 Administered *VFC: Tdap Vaccine (7 YEARS AND UP) 0.5 mL IM x 1 Unknown 08/24/2016 Administered *VFC: Varicella LIVE Vaccine 0.5 mL SC x 1 Unknown 02/29/2004 Administered SOCIAL HISTORY Tobacco Use: Social History Observation Description Date Details (start date - stop date) Never Smoker NA - NA Sex Assigned At : Social History Observation Description Sex Assigned At Unknown Tobacco Use/Smoking Question Answer Notes Are you a nonsmoker Alcohol Screen Question Answer Notes Did you have a drink containing alcohol in the p ast year? No Points 0 Interpretation Negative Sexual History Question Answer Notes Had sex in the past 12 months (vaginal, oral, or anal)? Yes with Men only Use protection? Yes How often? All of the time Have you ever had a Sexually transmitted disease ? No Last menstrual period 03/18/2022 DAST-10 (2020 Edition) Question Answer Notes 1. [...] Results: 1 Interpretation of Score: Low level PROBLEMS Problem Type ICD Code Onset Dates Problem Status W/U Status Risk SNOMED Code Notes Problem Syncope and collapse (R55) Active confirmed 900221532 Problem Acute depression (F32.9) Active confirmed Acute depression (335003796) Problem Abnormal menses (N92.6) Active confirmed 714714585 Problem Frequent nosebleeds (R04.0) Active confirmed 755626526 PLAN OF TREATMENT Pending Test Test Name Order Date X ray : Abdomen, Kidneys, Ureters, and B ladder (KUB) 01/24/2022 X ray : Chest with 2 views 03/22/2022 BASIC METABOLIC PANEL 08/12/2019 CHLAMYDIA/N. GONORRHOEAE RNA, TMA 2021 CBC (H/H, RBC, INDICES, WBC, PLT) 2018 PARTIAL THROMBOPLASTIN TIME, ACTIVATED 0 08/12/2019 HEPATITIS C AB W/REFL TO HCV RNA, QN, PC R 03/22/2022 Insurance Providers Payer Name Payer Address Payer Phone Subscriber Number Group Number Insured Name Patient Relationship to Insured Coverage Start Date Coverage End Date Eugenio Valdez [address] [place] [address] [id number] Arlen Nunes Self - patient is the insured MEDICAL (GENERAL) HISTORY Medical History History ICD Code ADHD Intermittent Reflux Surgical History Surgery Date(Month/Year) colonoscopy/endoscopy as inf ant (Failure to thrive, underweight until 5yr) Hospitalization History Reason Date(Month/Year) 1 mo' ICU after swallowed meconium 2002
[2024-04-11 16:01] VITALS: BP 138/76; PULSE 113; RESP 16; TEMP 36.9; O2SAT 97
[2024-04-11 16:15] LABS: MANUAL DIFF FLAG NO
[2024-04-11 16:16] LABS: Basophils Percent Auto 0.3 % (0-2); Eosinophils Absolute Auto 0.3 X10*3/uL (0.0-0.4); Eosinophils Percent Auto 2.8 % (0-4); Hematocrit 36.7 % (37.0-47.0); Hemoglobin 12.4 g/dl (12.0-16.0); Imm Gran Abs Auto 0.01 X10*3/uL (0.00-0.03); Imm Gran Pct Auto 0.1 % (0.0-0.4); Lymphocytes Absolute Auto 3.8 X10*3/uL (1.2-4.9); Lymphocytes Percent Auto 40.9 % (20-40); Mean Corpuscular HGB Conc 33.8 g/dl (31.0-35.0); Mean Corpuscular Hemoglobin 30.2 pg (27.0-33.0); Mean Corpuscular Volume 89.3 fL (80.0-98.0); Mean Platelet Volume 10.6 fL (9.4-12.3); Monocytes Absolute Auto 0.7 X10*3/uL (0.1-1.2); Neutrophils Absolute Auto 4.5 x10*3/uL (2.0-8.3); Neutrophils Percent Auto 48.9 % (45-73); Platelet Count 259 X10*3/uL (160-400); Red Blood Count 4.11 X10*6/uL (4.20-5.50); Red Cell Distribution Width 11.6 % (11.0-16.0); White Blood Count 9.3 X10*3/uL (4.8-10.8)
[2024-04-11 16:38] LABS: Alanine Aminotransferase 44 U/L (0-31); Albumin Level 3.9 g/dL (3.5-5.0); Alkaline Phosphatase 70 U/L (39-117); Anion Gap 14 (12-20); Aspartate Amino Transferase 22 U/L (5-31); Bilirubin Total 0.5 mg/dL (0.0-1.0); Blood Urea Nitrogen 10 mg/dL (9-16); Calcium 9.5 mg/dL (8.4-10.2); Carbon Dioxide 22 mmol/L (22-29); Chloride 108 mmol/L (96-108); Creatinine Clr Calc Pharmacy 148.4; Estimated Glomerular Filt Rate > 60; Glucose Random 112 mg/dL (60-115); Magnesium 1.9 mg/dL (1.6-2.6); Potassium 3.6 mmol/L (3.3-5.1); Sodium 140 mmol/L (135-145); Total Protein 7.2 g/dL (6.5-8.0)
[2024-04-11 17:04] LABS: Influenza A PCR NEGATIVE (Negative); Influenza B PCR NEGATIVE (Negative); Resp Syncy Virus RNA Qual PCR NEGATIVE (Negative); SARS COV2 PCR INHOUSE NEGATIVE (Negative)
[2024-04-11] MEDS: Amoxicillin 500 MG CAPSULE PO (17:23)
[2024-04-11] MEDS: Azithromycin 500 MG TABLET PO (17:23)
[2024-04-11 17:42] VITALS: BP 137/78; PULSE 102; RESP 16; TEMP 36.8; O2SAT 97
[2024-04-11 17:55] VITALS: BP 137/78; PULSE 102; RESP 18; TEMP 36.8; O2SAT 97
== END 2024-04-11 17:57 | disposition home or self-care (01) ==
PROVIDERS: Physician Assistant Medical; Emergency Provider Emergency Medicine
DX: J18.8 Other pneumonia, unspecified organism (principal); J40 Bronchitis, not specified as acute or chronic; Z03.818 Encounter for observation for suspected exposure to other biological agents ruled out; R05.9 Cough, unspecified; R06.02 Shortness of breath
CPT/HCPCS: 0241U; 71045; 80053; 83735; 85025; 93005; 94640; 96361; 96374; 99284; 99285; J2919; J3475

== ENCOUNTER 2024-08-31 16:19 | Outpatient (REF) | payer MEDICAID, SELFPAY ==
--- NOTE | ~2024-08-31 | US_ITS ---
CLINICAL HISTORY: irregular periods Transabdominal and transvaginal pelvic ultrasound Comparison: 10/20/2023 Findings: Uterus 6.4 x 3.2 x 4.2 cm. Endometrium 1.1 cm. No significant free fluid. Small nabothian cysts. Right ovary 3.9 x 1.9 x 2.3 cm. Left ovary 3.4 x 1.4 x 1.7 cm. No significant focal abnormality. Impression: No significant abnormality This document has been electronically signed by: Maikol Barnett MD on 08/31/2024 19:02:48
--- OUTSIDE RECORDS SUMMARY | 2024-08-31 19:50 | XMS_ITS | Clinical Summary ---
Author Organization [facility] Address [address] [place] [address] Care Team Providers Care Av Specialist Name Role Phone Pcp, No Primary Care Provider Unavailabl e Allergies No known active allergies Medications No known medications Social History Tobacco Use Types Packs/Day Years Used Date Smoking Tobacco: Never Smokeless Tobacco: Never Alcohol Use Standard Drinks/Week Comments Never 0 (1 standard drink = 0.6 oz pur e alcohol) Sex and Gender Information Value Date Recorded Sex Assigned at Not on file Gender Identity Not on file Sexual Orientation Not on file Last Filed Vital Signs Vital Sign Reading Time Taken Comments Blood Pressure 120/78 04/07/2021 1:31 PM EDT Pulse 69 04/07/2021 1:31 PM EDT Temperature 36.9 ??C (98.5 ??F) 04/07/2021 1:31 PM ED T Respiratory Rate - - Oxygen Saturation 97% 04/07/2021 1:31 PM EDT Inhaled Oxygen Concentration - - Weight 63.5 kg (140 lb) 04/07/2021 1:31 PM EDT Height 165.1 cm (5' 5 ) 04/07/2021 1:31 PM EDT Body Mass Index 23.3 04/07/2021 1:31 PM EDT Plan of Treatment Health Maintenance Due Date Last Done Comments Hepatitis C Virus Screening 2003 HIV Screening 02/17/2016 HPV Vaccines (1 - 3-dose series) 2018 DTaP/Tdap/Td Vaccines (1 - Tdap) 2022 Hepatitis B Vaccines (1 of 3 - 19+ 3-dose series) 2022 Pap Smear (Ages 21-65) 02/17/2024 Influenza Vaccine 03/05/2024 COVID-19 Vaccine ( - 2023-2 5 season) 2024 12/26/2020, 12/05/2020 Pneumococcal Vaccine: Pediatric (0-5 Years) and At-Risk Patients (6 to 49 Years) Aged Out No longer eligible b ased on patient's age to complete this topic Care Teams Av Specialist Relationship Specialty Start Date End Date Pcp, No [address] [id number] PCP - General 03/08/21
--- OUTSIDE RECORDS SUMMARY | 2024-08-31 19:50 | XMS_ITS | Encounter Summary ---
Author Organization [employer] Address [address] [facility] [address] [place] [address] Care Team Providers Care Music Typographer Name Role Phone Liam Vivar MD Primary Care Prov ider Reason for Visit * Reason Onset Date Comments Chart Prep 08/18/2024 Encounter Details Date Type Department Care Team ([facility] st Contact Info) Description 08/18/2024 Telephone [facility] PEDS [address] [place], [place] [phone] Liam Vivar MD [address] [place] [address] Chart Prep Social History Tobacco Use Types Packs/Day Years Used Date Smoking Tobacco: Never Smokeless Tobacco: Never Alcohol Use Standard Drinks/Week Comments Never 0 (1 standard drink = 0.6 oz pur e alcohol) Depression Answer Date Recorded Patient Health Questionnaire-9 Score 16 08/19/2024 Patient Health Questionnaire-9 Score 16 08/19/2024 Last PHQ-9: Questionnaire Data Not on file 0 08/19/2024 Housing Stability Answer Date Recorded What is your housing situation today? I have nyaligia buchanan 08/12/[address] you li ve. Do you have problems with any of the following? None of the above 08/12/2024 Food Insecurity Answer Date Recorded Within the past 12 months, y ou worried that your food would run out before you got money to buy more: Never True 08/12/2024 Within the past 12 months,th e food you bought just didn't last and you didn't have enough money to get more: Never True 03/2025 Transportation Answer Date Recorded In the past 12 months, has l ack of transportation kept you from medical appts, meetings, work or from getting things needed for daily living? No 08/12/2024 Utilities Answer Date Recorded In the past 12 months, has t he electric, gas, oil or water company threatened to shut off services in your home? No 08/12/2024 Depression Answer Date Recorded Patient Health Questionnaire-2 Score 3 08/19/2024 Internet Access Answer Date Recorded Internet Access Q1 Yes 08/12/2024 Internet Access Q2 Not on file 08/12/2024 Comments Unknown Sex and Gender Information Value Date Recorded Sex Assigned at Female 06/04/2022 10:18 AM EDT Legal Sex Female 10:18 AM EDT Gender Identity Female 06/30/2024 11:46 AM EST Sexual Orientation Don't know 06/30/2024 11 :46 AM EST documented as of this encounter Miscellaneous Notes * Telephone Encounter - Lucille Finn MA - 08/18/2024 2:13 PM EST Chart Prep Labs: not applicable Images: not applicable Vaccines due: yes Referrals: n/a Screenings: pap smear , STI screening Overdue care gaps: Sbirt, PHQ-9 documented in this encounter Plan of Treatment Upcoming Encounters Date Type Department Care Team (Late st Contact Info) Description 09/23/2024 8:30 AM EST Telemedicine [facility] MED & PEDS [address] [place] [address] Liam Vivar MD [address] [place] [address] documented as of this encounter Visit Diagnoses Not on filedocumented in this encounter Care Teams Music Typographer Relationship Specialty Start Date End Date Liam Vivar MD [address] [place] [address] PCP - General Internal Medicine 07/22/24 documented as of this encounter
--- OUTSIDE RECORDS SUMMARY | 2024-08-31 19:50 | XMS_ITS | Encounter Summary ---
Author Organization [employer] Address [address] [place] [address] Care Team Providers Care Music Ministries Director Name Role Phone Liam Vivar MD Primary Care Prov ider Reason for Referral * Imaging (Routine) - Authorized Specialty Diagnoses / Procedures Referred By Contac t Referred To Contact Radiology Diagnoses Irregular periods Procedures US Pelvis Transvaginal Liam Vivar MD [address] [place] [address] Phone: tel: fax: [address] Phone: tel: fax: Referral ID Status Reason Start Date Expiration Date V isits Requested Visits Authorized [id number] Authorized 08/19/2024 08/19/2025 1 1 * Consultation (Routine) - Closed Specialty Diagnoses / Procedures Referred By Contac t Referred To Contact Physical Therapy Diagnoses Chronic pain of left knee Liam Vivar MD [address] [place] [address] Phone: tel: fax: [facility] Physical Therapy [address] [place] [address] Phone: tel: fax: Referral ID Status Reason Start Date Expiration Date V isits Requested Visits Authorized [id number] Closed Specialty Services Required 08/19/2024 08/19/2025 1 1 * Consultation (Routine) - Closed Specialty Diagnoses / Procedures Referred By Contac t Referred To Contact Physical Therapy Diagnoses Upper back pain Liam Vivar MD [address] [place] [address] Phone: tel: fax: [facility] Physical Therapy [address] [place] [address] Phone: tel: fax: Referral ID Status Reason Start Date Expiration Date V isits Requested Visits Authorized [id number] Closed Specialty Services Required 08/19/2024 08/19/2025 1 1 Reason for Visit * Reason Comments Annual Exam Encounter Details Date Type Department Care Team (Late st Contact Info) Description 08/19/2024 8:30 AM EST Office Visit [facility] MED & PEDS [address] [place] [address] Liam Vivar MD [address] [place] [address] Upper back pain (Primary Dx); Chronic pain of left knee; Obesity (BMI 30-39.9); Irregular periods; Gastroesophageal reflux disease without esophagitis; Anxiety and depression; Dietary counseling; Exercise counseling Social History Tobacco Use Types Packs/Day Years [...] is your housing situation today? I have nya buchanan 08/12/[address] you [...] AM EST documented as of this encounter Last Filed Vital Signs Vital Sign Reading Time Taken Comments Blood Pressure 120/78 08/19/2024 9:01 AM EST Pulse 86 08/19/2024 9:01 AM EST Temperature 36.5 ??C (97.7 ??F) 08/19/2024 9:01 AM ES T Respiratory Rate 16 08/19/2024 9:01 AM EST Oxygen Saturation 99% 08/19/2024 9:01 AM EST Inhaled Oxygen Concentration - - Weight 97.5 kg (215 lb) 08/19/2024 9:01 AM EST Height 165.7 cm (5' 5.25 ) 08/19/2024 9:01 AM ES T Body Mass Index 35.5 08/19/2024 9:01 AM EST documented in this encounter Progress Notes * Liam Tam MD - 08/19/2024 8:30 AM EST Subjective Patient ID: Arlen Nunes is a 19 y.o. female who presents for Annual Exam. HPI Patient was seen on the office for a physical examination Review of Systems Constitutional: Negative for chills, fatigue and fever. Respiratory: Negative for cough and shortness of breath. Cardiovascular: Negative for chest pain and palpitations. Gastrointestinal: Negative for abdominal distention and constipation. Genitourinary: Positive for pelvic pain. Musculoskeletal: Positive for arthralgias. Objective Physical Exam Constitutional: Appearance: Normal appearance. HENT: Right Ear: Tympanic membrane, ear canal and external ear normal. There is no impacted cerumen. Left Ear: Tympanic membrane, ear canal and external ear normal. There is no impacted cerumen. Cardiovascular: Rate and Rhythm: Normal rate and regular rhythm. Heart sounds: No murmur heard. Pulmonary: Effort: Pulmonary effort is normal. No respiratory distress. Breath sounds: No stridor. No wheezing or rhonchi. Abdominal: General: Abdomen is flat. There is no distension. Palpations: There is no mass. Tenderness: There is no abdominal tenderness. Hernia: No hernia is present. Musculoskeletal: General: Normal range of motion. Cervical back: Normal range of motion. No rigidity or tenderness. Lymphadenopathy: Cervical: No cervical adenopathy. Neurological: General: No focal deficit present. Mental Status: She is alert and oriented to person, place, and time. Psychiatric: Mood and Affect: Mood normal. Behavior: Behavior normal. Assessment/Plan Problem List Items Addressed This Visit Upper back pain - Primary She has macromastia, instructed about appropriate breast support, will refer to PT for upper back pain, call back if not improving Relevant Orders Referral to Physical Therapy Chronic pain of left knee MRI done in 2020, continues with daily pain, no swelling, erythema, no recent trauma, will refer toPT, take tylenol/Nsaids as needed Relevant Orders Referral to Physical Therapy Gastroesophageal reflux disease without esophagitis Lifestyle modifications discussed, will start on omeprazole, call back if not improving Obesity (BMI 30-39.9) Discussed benefits of weight loss, eating healthier, smaller meals, exercise as tolerated, will start on phentermine and topamax, will call if side effects developed Relevant Orders CBC auto differential Comprehensive Metabolic Panel Lipid Panel, Standard TSH W/Reflex to FT4 Hemoglobin A1c HIV-1/2 Antigen and Antibodies, Fourth Generation, with Reflexes Hepatitis C Antibody with Reflex to HCV, RNA, Quantitative, Real-Time PCR Anxiety and depression No suicidal/homicidal ideas, will refer to therapist, start on hydroxyzine as needed for anxiety Irregular periods Relevant Orders FSH And LH Prolactin hCG, Total, Quantitative Estradiol US Pelvis Transvaginal Other Visit Diagnoses Dietary counseling Exercise counseling documented in this encounter Miscellaneous Notes * Assessment & Plan Note - Liam Tam MD - 08/19/2024 9:32 AM ESTAssociated Problem(s): Upper back pain She has macromastia, instructed about appropriate breast support, will refer to PT for upper back pain, call back if not improving * Assessment & Plan Note - Liam Tam MD - 08/19/2024 9:30 AM ESTAssociated Problem(s): Anxiety and depression No suicidal/homicidal ideas, will refer to therapist, start on hydroxyzine as needed for anxiety * Assessment & Plan Note - Liam Tam MD - 08/19/2024 9:30 AM ESTAssociated Problem(s): Obesity (BMI 30-39.9) Discussed benefits of weight loss, eating healthier, smaller meals, exercise as tolerated, will start on phentermine and topamax, will call if side effects developed * Assessment & Plan Note - Liam Tam MD - 08/19/2024 9:29 AM ESTAssociated Problem(s): Chronic pain of left knee MRI done in 2020, continues with daily pain, no swelling, erythema, no recent trauma, will refer toPT, take tylenol/Nsaids as needed * Assessment & Plan Note - Liam Tam MD - 08/19/2024 9:28 AM ESTAssociated Problem(s): Gastroesophageal reflux disease without esophagitis Lifestyle modifications discussed, will start on omeprazole, call back if not improving documented in this encounter Plan of Treatment Upcoming Encounters Date Type Department Care Team (Late st Contact Info) Description 09/23/2024 8:30 AM EST Telemedicine [facility] MED [facility] PEDS [address] [place], [place] [phone] Liam Vivar MD [address] [place], [place] [phone] Scheduled Orders Name Type Priority Associated Diagnoses Orde r Schedule CBC auto differential Lab Routine Obesity (BMI 30-39.9) Expected: 08/19/2024 (Approximate), Expires: 08/19/2025 Comprehensive Metabolic Panel Lab Routine Obesity (BMI 30-39.9) Expected: 08/19/2024 (Approximate), Expires: 08/19/2025 Lipid Panel, Standard Lab Routine Obesity (BMI 30-39.9) Expected: 08/19/2024 (Approximate), Expires: 08/19/2025 TSH W/Reflex to FT4 Lab Routine Obesity (BMI 30-39.9) Expected: 08/19/2024 (Approximate), Expires: 08/19/2025 Hemoglobin A1c Lab Routine Obesity (BMI 30-39.9) Expected: 08/19/2024 (Approximate), Expires: 08/19/2025 HIV-1/2 Antigen and Antibodies, Fourth Generation, with Reflexes Lab Routine Obesity (BMI 30-39.9) Expected: 08/19/2024 (Approximate), Expires: 08/19/2025 Hepatitis C Antibody with Reflex to HCV, RNA, Quantitative, Real-Time PCR Lab Routine Obesity (BMI 30-39.9) Expected: 08/19/2024, Expires: 08/19/2025 FSH And LH Lab Routine Irregular periods Expected: 08/19/2024 (Approximate), Expires: 08/19/2025 Prolactin Lab Routine Irregular periods Expected: 08/19/2024 (Approximate), Expires: 08/19/2025 hCG, Total, Quantitative Lab Routine Irregular periods Expected: 08/19/2024 (Approximate), Expires: 08/19/2025 Estradiol Lab Routine Irregular periods Expected: 08/19/2024, Expires: 08/19/2025 Scheduled Referrals Name Type Priority Associated Diagnoses Orde r Schedule Referral to Physical Therapy Outpatient Referral Routine Upper back pain Expected: 08/19/2024 (Approximate), Expires: 08/19/2025 Referral to Physical Therapy Outpatient Referral Routine Chronic pain of left knee Expected: 08/19/2024 (Approximate), Expires: 08/19/2025 documented as of this encounter Procedures Procedure Name Priority Date/Time Associated Diagnosis Comments US PELVIS TRANSVAGINAL Routine 08/31/2024 7:02 PM EST Irregular periods documented in this encounter Results * US Pelvis Transvaginal (08/31/2024 7:02 PM EST) Anatomical Region Laterality Modality Pelvis Ultrasound 08/31/2024 7:02 PM EST Narrative 08/31/2024 7:03 PM EST ? [facility] ?[address] ?[place] [address] ? Ultrasound Report ? Signed ? Patient: Nunes,Arlen ?MR#: [id number] ?? [id number] ? : 2005 ?Acct:[id number] ? Age/Sex: 19 / F ?ADM Date: 01/27/25 ? Loc: HO.US ? Attending Augustine Tam MD ? Ordering Physician: Liam Vivar MD ?? Date of Service: 08/31/24 ?? Procedure(s): US pelvic and transvaginal ?? Accession Number(s): [id number] ? cc: Liam Vivar MD ? CLINICAL HISTORY: irregular periods ? Transabdominal and transvaginal pelvic ultrasound ? Comparison: 10/20/2023 ? Findings: ? Uterus 6.4 x 3.2 x 4.2 cm. Endometrium 1.1 cm. ?? No significant free fluid. Small nabothian cysts. ? Right ovary 3.9 x 1.9 x 2.3 cm. ?? Left ovary 3.4 x 1.4 x 1.7 cm. ?? No significant focal abnormality. ? Impression: ? No significant abnormality ? This document has been electronically signed by: Maikol Barnett MD on ?? 08/31/2024 19:02:48 ? Dictated By: ?Maikol Barnett MD ? Signed By: ?<Electronically signed by Maikol Barnett MD in OV> ? 08/31/24 1903 ? DD/ 01 ? TD/TT: 08/31/241901 ? Medical Office Asst: ? Procedure Note Donna, Image - 08/31/2024 [place] [address] Ultrasound Report Signed Patient: Mone Nunes#: [id number] : 2005Acct:[id number] Age/Sex: M Date: 08/31/24 Loc: HO.US Attending Dr: Liam Tam MD Ordering Physician: Liam Vivar MD Date of Service: 08/31/24 Procedure(s): US pelvic and transvaginal Accession Number(s): [id number] cc: Liam Vivar MD CLINICAL HISTORY: irregular periods Transabdominal and transvaginal pelvic ultrasound Comparison: 10/20/2023 Findings: Uterus 6.4 x 3.2 x 4.2 cm. Endometrium 1.1 cm. No significant free fluid. Small nabothian cysts. Right ovary 3.9 x 1.9 x 2.3 cm. Left ovary 3.4 x 1.4 x 1.7 cm. No significant focal abnormality. Impression: No significant abnormality This document has been electronically signed by: Maikol Barnett MD on 08/31/2024 19:02:48 Dictated By: Maikol Barnett MD Signed By: <Electronically signed by Maikol Barnett MD in OV> 08/31/241902 DD/ 01 TD/TT: 08/31/241901 Medical Office Asst: Liam Tam MD [facility] PROCEDURES Final Result documented in this encounter Visit Diagnoses Diagnosis Upper back pain- Primary Unspecified backache Chronic pain of left knee Obesity (BMI 30-39.9) Irregular periods Gastroesophageal reflux disease without esophagitis Esophageal reflux Anxiety and depression Dietary counseling Dietary surveillance and counseling Exercise counseling documented in this encounter Additional Health Concerns Assessment Noted Time PHQ-9 Depression Total Score: 16 025 9:29 AM EST documented as of this encounter Care Teams Music Ministries Director Relationship Specialty Start Date End Date Liam Vivar MD [address] [place] [id number] PCP - General Internal Medicine 07/22/24 documented as of this encounter
--- OUTSIDE RECORDS SUMMARY | 2024-08-31 19:50 | XMS_ITS | Continuity of Care Document ---
Author Organization [employer] Address [address] [place] [address] Phone Care Team Providers Care Soap Slabber Name Role Phone Moises Cui MD Unavailable Unavailable Allergies, Adverse Reactions, Alerts Substance Reaction Status Criticality No Known Allergies Active No Inform ation Procedures Procedure Date OFFICE/OUTPATIENT VISIT, EST IMMUNIZATION ADMIN Flu Vac Preserv Free Quadrivalent 0.5 Ml >6mo IMMUNIZATION ADMIN HPV VACCINE 9 VALENT OFFICE/OUTPATIENT VISIT, EST [facility] D[facility]AL ASSESS[facility]/REFERRAL [facility] NUTRITIONAL ASSESSMENT [facility] 2001P DEVELOPMENTAL ASSESSMENT 8 PURE TONE HEARING TEST, AIR VISUAL ACUITY SCREEN HEMOGLOBIN IMMUNIZATION ADMIN HEP A VACC, PED/ADOL, 2 DOSE PEDIATRIC A IMMUNIZATION ADMIN, EACH ADD MENINGOCOCCAL VACCINE, IM PREV VISIT, NEW, AGE 12-17 Advance Directives Directive Yes / No Effective Date File Name No Information Encounters Encounter Description Practice Location Reason(s) For Visit Diagnoses Date Provider Providers Copied on Encounter [employer], [address], [place], [place], [id number], [place] tel:[phone] [facility] No Information [address], [place], [id number], [place]. tel:[phone] OFFICE/OUTPA TIENT VISIT, EST [facility], [address], [place], [place], [id number], [place] tel:[phone] [facility] flu shot (chief complaint) Needs flu shot No Information OFFICE/OUTPA TIENT VISIT, [facility], [address], [place], [place], [id number], [place] tel:[phone] [facility] Labs Results (chief complaint) Immunization dueEncounter to discuss test results No Information PREV VISIT, NEW, AGE 12-17 [facility], [address], [place], [place], [id number], [place] tel:[phone] [facility] Well child (chief complaint) chest tightness [...] Insurance type Covered republican ID Authoriza tion(s) [facility] [id number] REPLACED BY [facility] Managed Wrap [id number] [facility] [id number] REPLACED BY [facility] Managed Wrap [id number] [facility] [id number] REPLACED BY [facility] Managed Wrap [id number] [facility] [id number] REPLACED BY [facility] Managed Wrap [id number] Social History Type Description Quantity Date Captured [...] Goal Diet education completed Referral Ordered: Referrals: Family Services Coordinator. Consult ordered Patient Education Well Care [...] Related to Encounter to discuss test results HPV not available- s cheduled to come back Related to Immunization due Discussed. Ibuprofen prn Related to Costochondritis Hemoglobin 12.7 Related to Encnt r screen for dis of the bld/bld-form org/immun mechnsm Age appropriate anti cipatory guidance discussed (15-21 [...]
--- OUTSIDE RECORDS SUMMARY | 2024-08-31 19:50 | XMS_ITS | Patient Health Record ---
Author Organization [employer] Address [address] [facility] [id number] [place] [address] Care Team Providers Care Distribution Collection Operator Name Role Phone Hattie Mcginnis Primary Care [...] Problem Syncope and collapse (R55) Active confirmed [id number] Problem Acute depression (F32.9) Active confirmed Acute depression (728571243) Problem Abnormal menses (N92.6) Active confirmed [id number] Problem Frequent nosebleeds (R04.0) Active confirmed [id number] PLAN OF TREATMENT Pending Test Test Name [...] Coverage End Date Eugenio Valdez [address] [place] [address] [id number] Arlen Nunes Self - patient is the insured MEDICAL (GENERAL) HISTORY Medical History History ICD Code ADHD Intermittent Reflux Surgical History Surgery Date(Month/Year) colonoscopy/endoscopy as inf ant (Failure to thrive, underweight until 5yr) Hospitalization History Reason Date(Month/Year) 1 mo' ICU after swallowed meconium 2002
--- OUTSIDE RECORDS SUMMARY | 2024-08-31 19:50 | XMS_ITS | Encounter Summary ---
Author Organization [employer] Address [address] [facility] [address] [place] [address] Care Team Providers Care Agricultural Equipment Design Engineer Name Role Phone Liam Vivar MD Primary Care Prov ider Reason for Visit * Reason Comments Earache Sore Throat Encounter Details Date Type Department Care Team ([facility] st Contact Info) Description 08/07/2024 2:40 PM EST Office Visit [facility] [address] [place] [address] Nereida Handley MD [address] [place] [address] Strep pharyngitis Social History Tobacco Use Types Packs/Day Years Used Date Smoking Tobacco: Never Smokeless Tobacco: Never Alcohol Use Standard Drinks/Week Comments Never 0 (1 standard drink = 0.6 oz pur e alcohol) Comments Unknown Sex and Gender Information Value Date Recorded Sex Assigned at Female 06/04/2022 10:18 AM EDT Legal Sex Female 10:18 AM EDT Gender Identity Female 06/30/2024 11:46 AM EST Sexual Orientation Don't know 06/30/2024 11 :46 AM EST documented as of this encounter Last Filed Vital Signs Vital Sign Reading Time Taken Comments Blood Pressure 122/76 08/07/2024 2:02 PM EST Pulse 83 08/07/2024 2:02 PM EST Temperature 36.6 ??C (97.9 ??F) 08/07/2024 2:02 PM ES T Respiratory Rate 18 08/07/2024 2:02 PM EST Oxygen Saturation 98% 08/07/2024 2:02 PM EST Inhaled Oxygen Concentration - - Weight 98.4 kg (217 lb) 08/07/2024 2:02 PM EST Height - - Body Mass Index - - documented in this encounter Progress Notes * Nereida Handley MD - 08/07/2024 2:40 PM EST Subjective Patient ID: Arlen Nunes is a 19 y.o. female who presents for Earache and Sore Throat. Sore Throat This is a new problem. The current episode started yesterday. The problem has been gradually worsening. There has been no fever. The pain is at a severity of 6/10. The pain is moderate. Associated symptoms include congestion, a hoarse voice, swollen glands and trouble swallowing. Pertinent negatives include no abdominal pain, coughing, diarrhea, drooling, ear discharge, ear pain or headaches. Shehas tried nothing for the symptoms. The treatment provided mild relief. Review of Systems HENT: Positive for congestion, hoarse voice and trouble swallowing. Negative for drooling, ear discharge and ear pain. Respiratory: Negative for cough. Gastrointestinal: Negative for abdominal pain and diarrhea. Neurological: Negative for headaches. Objective Physical Exam Constitutional: Appearance: She is ill-appearing. HENT: Mouth/Throat: Pharynx: Oropharyngeal exudate, posterior oropharyngeal erythema and postnasal drip present. Assessment/Plan Diagnoses and all orders for this visit: Strep pharyngitis Comments: Started On Amox for 5 days Advised warm water gargles Advised ibuprofen /Tylenol as needed Orders: - POCT rapid strep A manually resulted Other orders - amoxicillin (Amoxil) 500 MG capsule; Take 1 capsule (500 mg) by mouth 2 times daily for 5 days. - pseudoephedrine (Sudafed) 30 MG tablet; Take 1 tablet (30 mg) by mouth every 4 (four) hours if needed for congestion for up to 10 days. - ibuprofen 800 MG tablet; Take 1 tablet (800 mg) by mouth 3 times daily. documented in this encounter Plan of Treatment Upcoming Encounters Date Type Department Care Team (Late st Contact Info) Description 09/23/2024 8:30 AM EST Telemedicine [facility] [address] [place] [address] Liam Vivar MD [address] [place] [address] documented as of this encounter Procedures Procedure Name Priority Date/Time Associated Diagnosis Comments POC GALLOWAY ID NOW STREP A Routine 08/07/2024 2:05 PM EST Strep pharyngitis documented in this encounter Results * (ABNORMAL) POCT rapid strep A manually resulted (08/07/2024 2:05 PM EST) Rapid Strep A Screen Positive( A) Negative, None Detected Swab 08/07/2024 2:05 PM EST Nereida Handley MD POINT OF CARE TEST ENTER/EDIT OR DERABLES Final Result documented in this encounter Visit Diagnoses Diagnosis Strep pharyngitis documented in this encounter Care Teams Agricultural Equipment Design Engineer Relationship Specialty Start Date End Date Liam Vivar MD [address] [place] [address] PCP - General Internal Medicine 07/22/24 documented as of this encounter
--- OUTSIDE RECORDS SUMMARY | 2024-08-31 19:50 | XMS_ITS | Encounter Summary ---
Author Organization [employer] Address [address] [facility] 7t [place] [address] Care Team Providers Care Ship Purser Name Role Phone Liam Vivar MD Primary Care Prov ider Encounter Details Date Type Department Care Team (Latest Contact Info) Description 08/19/2024 Travel Social History Tobacco Use Types Packs/Day Years [...] AM EST documented as of this encounter Plan of Treatment Upcoming Encounters Date Type Department Care Team (Late st Contact Info) Description 09/23/2024 8:30 AM EST Telemedicine [facility] [address] [place] [address] Liam Vivar MD 505 [place] [address] documented as of this encounter Visit Diagnoses Not on filedocumented in this encounter Additional Health Concerns Assessment Noted Time PHQ-9 Depression Total Score: 16 025 9:29 AM EST documented as of this encounter Care Teams Ship Purser Relationship Specialty Start Date End Date Liam Vivar MD [address] [place] [address] PCP - General Internal Medicine 07/22/24 documented as of this encounter
--- OUTSIDE RECORDS SUMMARY | 2024-08-31 19:50 | XMS_ITS | Encounter Summary ---
Author Organization [employer] Address [address] [place] [address] [address] [address] Care Team Providers Care Observation Nurse Name Role Phone Liam Vivar MD Primary Care Prov ider Encounter Details Date Type Department Care Team (Late st Contact Info) Description 07/14/2024 Orders Only [facility]S [address] [place] [address] Liam Vivar MD [address] [place] [address] Social History Tobacco Use Types Packs/Day Years [...] Info) Description 09/23/2024 8:30 AM EST Telemedicine [facility] [address] [place], [place] [phone] Liam Vivar MD [address] [place], [place] [phone] documented as of this encounter Visit Diagnoses Not on filedocumented in this encounter Care Teams Observation Nurse Relationship Specialty Start Date End Date Liam Vivar MD [address] [place] [address] PCP - General Internal Medicine 07/22/24 documented as of this encounter
--- OUTSIDE RECORDS SUMMARY | 2024-08-31 19:50 | XMS_ITS | Encounter Summary ---
Author Organization [employer] Address 75 [facility] 7t [place] [address] Care Team Providers Care Collection Clerk Name Role Phone Liam Vivar MD Primary Care Prov ider Reason for Visit * Reason Comments Pre-visit Planning SDOH negative, Tobac co screening negative. Encounter Details Date Type Department Care Team ([facility] st Contact Info) Description 08/12/2024 Patient Outreach [facility]S [address] [place], [place] [phone] Liam Vivar MD 505 [place] [address] Pre-visit Planning (SDOH negative, Tobacco screening negative. ) Social History Tobacco Use Types Packs/Day Years Used Date Smoking Tobacco: Never Smokeless Tobacco: Never Alcohol Use Standard Drinks/Week Comments Never 0 (1 standard drink = 0.6 oz pur e alcohol) Housing Stability Answer Date Recorded What is [...] off services in your home? No 08/12/2024 Internet Access Answer Date Recorded Internet Access Q1 Yes 08/12/2024 Internet Access Q2 Not on file 08/12/2024 Comments Unknown Sex and Gender Information Value Date Recorded Sex Assigned at Female 06/04/2022 10:18 AM EDT Legal Sex Female 10:18 AM EDT Gender Identity Female 06/30/2024 11:46 AM EST Sexual Orientation Don't know 06/30/2024 11 :46 AM EST documented as of this encounter Progress Notes * Nina Gross - 08/12/2024 1:56 PM EST CC Nina S. placed successful outbound call to patient for pre-visit planning. Patient name and confirmed. Patient confirms appt date and time, and has transportation arrangements. Biggest concern for appointment at this time is chest and back pains. Left knee hurts when walking for long period of times, patient period is irregular. Appropriate screenings completed in anticipation of appointment. documented in this encounter Plan of Treatment Upcoming Encounters Date Type Department Care Team (Late st Contact Info) Description 09/23/2024 8:30 AM EST Telemedicine [facility] MED & PEDS [address] [place] [address] Liam Vivar MD [address] [place] [address] documented as of this encounter Visit Diagnoses Not on filedocumented in this encounter Care Teams Collection Clerk Relationship Specialty Start Date End Date Liam Vivar MD [address] [place] [address] PCP - General Internal Medicine 07/22/24 documented as of this encounter
--- OUTSIDE RECORDS SUMMARY | 2024-08-31 19:51 | XMS_ITS | Clinical Summary ---
Author Organization [employer] Address [address] [facility] 7t [place] [address] Care Team Providers Care Overhead Irrigator Name Role Phone Liam Vivar MD Primary Care Prov ider Allergies No known active allergies Medications * This document contains information received from the source organization and may not represent a complete record from that organization. ibuprofen 800 MG tablet Take 1 tablet (800 mg) by mouth 3 times daily. 90 tablet 2 5 11/06/19 25 Active Omeprazole 20 MG tablet delayed-releas e Take 1 tablet (20 mg) by mouth Once per day. 30 tablet 3 5 Active phentermine 15 MG capsule Take 1 capsule (15 mg) by mouth before breakfast. 30 capsule 5 09/18/19 25 Active topiramate (Topamax) 50 MG tablet Take 1 tablet (50 mg) by mouth Once per day. 30 tablet 11 5 08/19/19 26 Active hydrOXYzine HCl (Atarax) 25 MG tablet Take 1 tablet (25 mg) by mouth if needed in the morning, at noon, and at bedtime for anxiety. 90 tablet 3 5 12/18/19 25 Active amoxicillin (Amoxil) 500 MG capsule Take 1 capsule (500 mg) by mouth 2 times daily for 5 days. 10 capsule 5 08/19/19 25 Discontinu ed(Therapy completed) pseudoephedrin e (Sudafed) 30 MG tablet Take 1 tablet (30 mg) by mouth every 4 (four) hours if needed for congestion for up to 10 days. 30 tablet 5 08/19/19 25 Discontinu ed(Therapy completed) Active Problems Problem Noted Date Diagnosed Date Encounter for medical examination to establish c are 08/21/2024 Assessment & Plan (08/21/2024 3:08 PM EST): Last pcp visit 2 years ago Er visit: November 2023 due to abdominal pain Hospitalization:- Pmhx: Pcos/Prediabetes Pshx:- All- Meds- G0 Sexually active with 1 male partner Moderate depressive disorder 08/20/2024 Severe anxiety with panic 08/20/2024 Assessment & Plan (08/25/2024 10:34 AM EST): During IBH Consult Arlen presenting with depressed mood, Tearful, crying spells , hopelessness, irritable mood, loss of interests/pleasure , sense of isolation/loneliness , isolating, change in appetite or weight overeating, changes in sleep difficulty falling asleep, psychomotor retardation, fatigue/loss of energy, worthlessness, inappropriate/excessive guilt , difficulty concentrating, indecisiveness and excessive worry/anxiety, difficulty controlling worry, anxiety/worry associated to restlessness and/or feeling keyed-up/On edge , easily fatigued , difficulty concentrating and/or mind going blank , and irritability, Fear , and sense of dread , palpitations and short of breath; for a period of 6-12 mo, for most or all symptoms in the context of unable to identify significant stressors. Arlen reports feeling emotionally overwhelmed. No particular stressor associated with presentation of sxs. Arlen has a strong sense of spirituality and enrrique. Her sense of belonging and jain are highly connected and identified as strength. Pt needs guidance in setting up healthy boundaries around her social support (family and pentecostal community). Her focus most part of the time goes around pleasing others. PCP started medication as PRN to treat sxs (see PCP note). clinician engaged patient with active/reflective listening. Provided a safe space for patient to share her emotions and concerns. Reviewed and assessed for risk, current stressors and protective factors using open-ended questions. Explored coping skills to incorporate in daily routine and importance of building personal healthy boundaries. Pt will be referred to OP individual therapy, continue treatment recommended by PCP, and will follow-up with clinician to assess sxs and provide additional support if needed. Upper back pain 08/19/2024 Assessment & Plan (08/19/2024 9:32 AM EST): She has macromastia, instructed about appropriate breast support, will refer to PT for upper back pain, call back if not improving Chronic pain of left knee 08/19/2024 Assessment & Plan (08/19/2024 9:29 AM EST): MRI done in 2020, continues with daily pain, no swelling, erythema, no recent trauma, will refer to PT, take tylenol/Nsaids as needed Gastroesophageal reflux disease without esophagi tis 08/19/2024 Assessment & Plan (08/19/2024 9:28 AM EST): Lifestyle modifications discussed, will start on omeprazole, call back if not improving Obesity (BMI 30-39.9) 08/19/2024 Assessment & Plan (08/19/2024 9:30 AM EST): Discussed benefits of weight loss, eating healthier, smaller meals, exercise as tolerated, will start on phentermine and topamax, will call if side effects developed Anxiety and depression 08/19/2024 Assessment & Plan (08/19/2024 9:30 AM EST): No suicidal/homicidal ideas, will refer to therapist, start on hydroxyzine as needed for anxiety Irregular periods 08/19/2024 Encounters * This document contains information received from the source organization and may not represent a complete record from that organization. Date Type Department Care Team Description 08/19/2024 8:30 AM EST Office Visit [facility] [address] [place], [place] [phone] Liam Vivar MD Upper back pain (Primary Dx); Chronic pain of left knee; Obesity (BMI 30-39.9); Irregular periods; Gastroesophageal reflux disease without esophagitis; Anxiety and depression; Dietary counseling; Exercise counseling 08/19/[address] [facility] [address] [place] [address] Liam Vivar MD 08/19/2024 Travel 08/18/2024 Telephone [facility] [address] [place] [address] Liam Vivar MD Chart Prep 08/12/2024 Patient Outreach [facility] [address] [place] [address] Liam Vivar MD Pre-visit Planning (SDOH negative, Tobacco screening negative. ) 08/07/2024 2:40 PM EST Office Visit [facility] [address] [place] [address] Nereida Handley MD Strep pharyngitis 07/22/2024 Telephone [facility] [address] [place] [address] Liam Vivar MD TelephoneCall 07/14/2024 Orders Only [facility] [address] [place] [address] Liam Vivar MD 06/30/2024 1:45 PM EST Telemedicine [facility] [address] [place] [address] Liam Vivar MD Encounter for medical examination to establish care (Primary Dx) 06/30/2024 Telephone [facility] [address] [place] [address] Emily Berman MA 06/30/2024 Travel 06/29/2024 Telephone [facility] [address] [place] [address] Lucille Finn MA Chart Prep from Last 3 Months Immunizations Name Administration Dates Next Due DTaP 04/09/2007, 5,2003,08/02,2003 HPV 9-Valent 11/28/2015 HPV, Quadrivalent 10/11/2014,05/31/2014 Hep A, ped/adol, 2 dose 10/11/2014 Hep B, Adolescent or Pediatric 2003,2002,2003 Hib (HbOC) 02/29/2004, 4,2003,04/21 IPV 04/09/2007, 4,2003,02/18 Influenza injectable quadriv alent IIV4 with preservative 07/06/2015 Influenza injectable quadriv alent preservative free 04/24/2016 Influenza live intranasal trivalent 05/28/2013,1 ,05/24/2011 Influenza, injectable, quadr ivalent, preservative free, pediatric 05/31/2014 MMR 04/09/2007,05/01/2004 Meningococcal MCV4P ACYW-135 10/11/2014 Tdap 05/31/2014 Varicella 04/09/2007,02/29/2004 Family History Medical History Relation Name Comments Diverticulosis Father Hypertension Father Skin cancer Maternal Grandmother Diabetes Mother Hypertension Mother Osteoarthritis Mother Brain cancer Mother's Brother Relation Name Status Comments Father Maternal Grandmother Mother Mother's Brother Social History Tobacco Use Types Packs/Day Years Used Date Smoking Tobacco: Never Smokeless Tobacco: Never Tobacco Cessation:Counseling Given: Not Answered Alcohol Use Standard Drinks/Week Comments Never 0 [...] Don't know 06/30/2024 11 :46 AM EST Last Filed Vital Signs Vital Sign Reading [...] Mass Index 35.5 08/19/2024 9:01 AM EST Plan of Treatment Upcoming Encounters Date Type Department Care Team (Late st Contact Info) Description 09/23/2024 8:30 AM EST Telemedicine [facility] [address] [place] [address] Liam Vivar MD 505 [place] [address] Health Maintenance Due Date Last Done Comments Chlamydia and Gonorrhea Screening 2003 HIV Screening 2003 Lipid Panel 2003 Alcohol/Substance Use Screening 2015 Family Planning (PISQ) 2018 Hepatitis C Screening 2021 Pap Smear 02/17/2024 COVID-19 Vaccine ( season) 2024 Influenza Vaccine (#1) 2024 9, 04/24/2016, 07/06/2015, Additional history exists Depression Monitoring (PHQ-9) 2025 08/19/2024, 08/19/2024 SDOH Screening 08/12/2025 08/12/2024 Depression Screening 08/19/2025 08/19/2024, 08/19/19 Tobacco Screening 08/21/2025 08/21/2024 DTaP/Tdap/Td Vaccines (8 - Td or Tdap) 08/24/2026 08/24/2016, 05/31/2014, 04/09/2007, Additional history exists Zoster Vaccines (1 of 2) 2053 RSV Patients and Patients Aged 60 years or older (1 - 1-dose 75+ series) 2078 Hepatitis B Vaccines Completed 2003, 2003, 2003, Additional history exists HIB Vaccines Completed 02/29/2004, 10/2003, 2003, Additional history exists IPV Vaccines Completed 04/09/2007, 10/2003, 2003, Additional history exists HPV Vaccines Completed 06/15/2019, 11/04, 10/11/2014, Additional history exists Hepatitis A Vaccines Completed 06/15/2019, 04/02/2018, 10/11/2014 Meningococcal Vaccine Completed 06/15/2019 , 04/02/2018, 10/11/2014 Pneumococcal Vaccine: Pediatrics (0 to 5 Years) and At-Risk Patients (6 to 64 Years) Aged Out No longer eligible based on patient's age to complete this topic RSV under 20 months Aged Out No longe r eligible based on patient's age to complete this topic Rotavirus Vaccines Aged Out No longer eligible based on patient's age to complete this topic Procedures Procedure Name Priority Date/Time Associated Diagnosis Comments US PELVIS TRANSVAGINAL Routine 08/31/2024 7:02 PM EST Irregular periods POC GALLOWAY ID NOW STREP A Routine 08/07/2024 2:05 PM EST Strep pharyngitis from Last 3 Months Results * US Pelvis Transvaginal (08/31/2024 7:02 PM EST) Anatomical Region Laterality Modality Pelvis Ultrasound 08/31/2024 7:02 PM EST Narrative 08/31/2024 7:03 PM EST ? [facility] ?[address] ?[place] [address] ? Ultrasound Report ? Signed ? Patient: Nunes,Arlen ?MR#: [id number] ?? [id number] ? : 2005 ?Acct:[id number] ? Age/Sex: 19 / F ?ADM Date: 08/31/24 ? Loc: HO.US ? Attending Dr: Liam Tam MD ? Ordering Physician: Liam Vivar MD ?? Date of Service: 08/31/24 ?? Procedure(s): US pelvic and transvaginal ?? Accession Number(s): [id number] ? cc: Liam Vivar MD ? CLINICAL [...] in OV> ? 08/31/24 1903 ? DD/ 190 ? TD/TT: 08/31/241901 ? Quality Rn: ? Procedure Note Donna, Image - 08/31/[address] [address] Ultrasound Report Signed Patient: Mone Nunes#: [id number] : 2005Acct:[id number] Age/Sex: 19 / FADM Date: 08/31/24 Loc: HO.US Attending Dr: Liam Tam MD Ordering Physician: Liam Vivar MD Date of Service: 08/31/24 Procedure(s): US pelvic and transvaginal Accession Number(s): [id number] cc: Liam Vivar MD CLINICAL HISTORY: irregular [...] in OV> 08/31/241902 DD/ 01 TD/TT: 08/31/241901 Quality Rn: Liam Tam MD IMG US PROCEDURES Final Result * (ABNORMAL) POCT rapid strep A manually resulted (08/07/2024 2:05 PM EST) Rapid Strep A Screen Positive( A) Negative, None Detected Swab 08/07/2024 2:05 PM EST Nereida Handley MD POINT OF CARE TEST ENTER/EDIT OR DERABLES Final Result from Last [address] [place] [address] [place] [address] C3 Care Teams Overhead Irrigator Relationship Specialty Start Date End Date Liam Vivar MD [address] [place] [address] PCP - General Internal Medicine 07/22/24
--- OUTSIDE RECORDS SUMMARY | 2024-08-31 19:51 | XMS_ITS | Encounter Summary ---
Author Organization [employer] Address [address] [address] Care Team Providers Care Windshield Technician Name Role Phone Liam Vivar MD Primary Care Prov ider Encounter Details Date Type Department Care Team (Late st Contact Info) Description 08/19/2024 Telephone [employer] [facility] Information Management [address] [place] [address] Liam Vivar MD [address] [place] [address] Social History Tobacco Use Types Packs/Day Years [...] Description 09/23/2024 8:30 AM EST Telemedicine [facility] PEDS [address] [place] [address] Liam Vivar MD [address] [place] [address] documented as of this encounter Visit Diagnoses Not on filedocumented in this encounter Additional Health Concerns Assessment Noted Time PHQ-9 Depression Total Score: 16 025 9:29 AM EST documented as of this encounter Care Teams Windshield Technician Relationship Specialty Start Date End Date Liam Vivar MD [address] [place] [address] PCP - General Internal Medicine 07/22/24 documented as of this encounter
== END 2024-08-31 16:20 | disposition home or self-care (01) ==
LOC: HO.US 16:19
PROVIDERS: PCP Internal Medicine; Visit Provider Internal Medicine
DX: N92.6 Irregular menstruation, unspecified (principal)
CPT/HCPCS: 76830; 76856

== ENCOUNTER → 2024-08-31 16:21 | Outpatient (BNV) | payer MEDICAID, SELFPAY | PROVIDERS: PCP Internal Medicine; Visit Provider Radiology Diagnostic Radiology | DX: N92.6 Irregular menstruation, unspecified (principal) | CPT/HCPCS: 76830; 76856 ==

== ENCOUNTER 2024-09-01 | Outpatient (REF) | payer MEDICAID, SELFPAY ==
--- OUTSIDE RECORDS SUMMARY | 2024-09-02 14:02 | XMS_ITS | Encounter Summary ---
Author Organization [employer] Address [address] [facility] [address] 7t [place] [address] Care Team Providers Care Health Care Marketing Manager Name Role Phone Liam Vivar MD Primary [...] Info) Description 09/23/2024 8:30 AM EST Telemedicine [facility] MED [facility] PED[facility] [address] [place] [address] Liam Vivar MD [address] [place] [address] documented as of this encounter Visit Diagnoses Not on filedocumented in this encounter Additional Health Concerns Assessment Noted Time PHQ-9 Depression Total Score: 16 025 9:29 AM EST documented as of this encounter Care Teams Health Care Marketing Manager Relationship Specialty Start Date End Date Liam Vivar MD [address] [place] [address] PCP - General Internal Medicine 07/22/24 documented as of this encounter
--- OUTSIDE RECORDS SUMMARY | 2024-09-02 14:02 | XMS_ITS | Encounter Summary ---
Author Organization [employer] Address [address] [place] [address] [address] [place] [address] Care Team Providers Care Guitar Maker Name Role Phone Liam Vivar MD Primary Care Prov ider Reason for Referral * Imaging (Routine) - Authorized Specialty Diagnoses / Procedures Referred By Betty redd Referred To Contact Radiology Diagnoses Irregular periods Procedures US Pelvis Transvaginal Liam Vivar MD [address] [place] [address] Phone: tel: fax: [address] Phone: tel: fax: Referral ID Status Reason Start Date Expiration Date V isits Requested Visits Authorized [id number] Authorized 08/19/2024 08/19/2025 1 1 * Consultation (Routine) - Closed Specialty Diagnoses / Procedures Referred By Betty redd Referred To Contact Physical Therapy Diagnoses Chronic pain of left knee Liam Vivar MD [address] [place] [address] Phone: tel: fax: [facility] Physical [facility] [address] [place] [address] Phone: tel: fax: Referral ID Status Reason Start Date Expiration Date V isits Requested Visits Authorized [id number] Closed Specialty Services Required 08/19/2024 08/19/2025 1 1 * Consultation (Routine) - Closed Specialty Diagnoses / Procedures Referred By Contac t Referred To Contact Physical Therapy Diagnoses Upper back pain Liam Vivar MD [address] [place] [address] Phone: tel: fax: [facility] Physical Therapy [address] [place] [address] Phone: tel: fax: Referral ID Status Reason Start Date Expiration Date V isits Requested Visits Authorized [id number] Closed Specialty Services Required 08/19/2024 08/19/2025 1 1 Reason for Visit * Reason Comments Annual Exam Encounter Details Date Type Department Care Team ([facility] st Contact Info) Description 08/19/2024 8:30 AM EST Office Visit [facility] [address] [place] [address] Liam Vivar MD [address] [place] [address] Upper back pain (Primary Dx); Chronic pain [...] Info) Description 09/23/2024 8:30 AM EST Telemedicine [facility] MED & PEDS [address] [place], [place] [phone] Liam Vivar MD [address] [place], [place] [phone] Scheduled Orders Name Type Priority Associated Diagnoses [...] EST Narrative 08/31/2024 7:03 PM EST ? [facility] ?[address] ?[place] [address] ? Ultrasound Report ? Signed ? Patient: Nunes,Arlen ?MR#: [id number] ?? [id number] ? : 2005 ?Acct:[id number] ? Age/Sex: 19 / F ?ADM Date: 01/27/25 ? Loc: HO.US ? Attending : Liam Tam MD ? Ordering Physician: Liam Vivar MD ?? Date of Service: 08/31/24 ?? Procedure(s): US pelvic and transvaginal ?? Accession Number(s): [id number] ? cc: Liam Vivar MD ? CLINICAL [...] in OV> ? 08/31/24 1903 ? DD/ 1902 ? TD/TT: 08/31/24 1902 ? Freight Claim Investigator: ? Procedure Note Dondeandreter, Image - 08/31/2024 [place] [address] Ultrasound Report Signed Patient: Mone Nunes#: [id number] : 2005Acct:[id number] Age/Sex: Date: 08/31/24 Loc: HO.US Attending Dr: Liam Tam MD Ordering Physician: Liam Vivar MD Date of Service: 08/31/24 Procedure(s): US pelvic and transvaginal Accession Number(s): [id number] cc: Liam Vivar MD CLINICAL HISTORY: irregular [...] in OV> 08/31/241902 DD/ 01 TD/TT: 08/31/241901 Freight Claim Investigator: Liam Tam MD [facility] PROCEDURES Final Result documented in this encounter [...] documented as of this encounter Care Teams Guitar Maker Relationship Specialty Start Date End Date Liam Vivar MD [address] [place] [address] PCP - General Internal Medicine 07/22/24 documented as of this encounter
--- OUTSIDE RECORDS SUMMARY | 2024-09-02 14:02 | XMS_ITS | Encounter Summary ---
Author Organization [employer] Address [address] [facility] 7t [place] [address] Care Team Providers Care Brigadier Name Role Phone Liam Vivar MD Primary Care Prov ider Encounter Details Date Type Department Care Team (Late Contact Info) Description 07/14/2024 Orders Only [facility] [address] [place] [address] Liam Vivar MD [address] [place] [address] Social History Tobacco Use Types Packs/Day Years [...] Encounters Date Type Department Care Team (Late Contact Info) Description 09/23/2024 8:30 AM EST Telemedicine [facility] [address] [place], [place] [phone] Liam Vivar MD [address] [place] [address] documented as of this encounter Visit Diagnoses Not on filedocumented in this encounter Care Teams Brigadier Relationship Specialty Start Date End Date Liam Vivar MD [address] [place] [address] PCP - General Internal Medicine 07/22/24 documented as of this encounter
--- OUTSIDE RECORDS SUMMARY | 2024-09-02 14:03 | XMS_ITS | Encounter Summary ---
Author Organization [employer] Address [address] [facility] [address] 7t [place] [address] Care Team Providers Care Mold Making Supervisor Name Role Phone Liam Vivar MD Primary Care Prov ider Reason for Visit * Reason Comments Earache Sore Throat Encounter Details Date Type Department Care Team (Late st Contact Info) Description 08/07/2024 2:40 PM EST Office Visit [facility] [address] [place] [address] Nereida Handley MD 505 [place] [address] Strep pharyngitis Social History Tobacco Use Types [...] Info) Description 09/23/2024 8:30 AM EST Telemedicine [facility] [address] [place] [address] Liam Vivar MD 505 [place] [address] documented as of this encounter Procedures Procedure [...] pharyngitis documented in this encounter Care Teams Mold Making Supervisor Relationship Specialty Start Date End Date Liam Vivar MD [address] [place] [address] PCP - General Internal Medicine 07/22/24 documented as of this encounter
--- OUTSIDE RECORDS SUMMARY | 2024-09-02 14:03 | XMS_ITS | Encounter Summary ---
Author Organization [employer] Address [address] [facility] 7t [place] [address] Care Team Providers Care Button Sewing Machine Operator Name Role Phone Liam Vivar MD Primary Care Prov ider Encounter Details Date Type Department Care Team ([facility] Contact Info) Description 08/19/2024 Telephone [email or web address] [facility] [address] [place] [address] Liam Vivar MD 505 [place] [address] Social History Tobacco Use Types Packs/Day Years [...] your housing situation today? I have nya sing 08/12/[address] you li [...] Info) Description 09/23/2024 8:30 AM EST Telemedicine [facility] [address] [place] [address] Liam Vivar MD [address] [place] [address] documented as of this encounter Visit Diagnoses Not on filedocumented in this encounter Additional Health Concerns Assessment Noted Time PHQ-9 Depression Total Score: 16 025 9:29 AM EST documented as of this encounter Care Teams Button Sewing Machine Operator Relationship Specialty Start Date End Date Liam Vivar MD [address] [place] [address] PCP - General Internal Medicine 07/22/24 documented as of this encounter
--- OUTSIDE RECORDS SUMMARY | 2024-09-02 14:03 | XMS_ITS | Clinical Summary ---
Author Organization [facility] Address [address] [place] [address] Care Team Providers Care Hide Cleaner Name Role Phone Pcp, No Primary Care [...] age to complete this topic Care Teams Hide Cleaner Relationship Specialty Start Date End Date Pcp, No 80 CARLOS Goldberg [address] PCP - General 03/08/21
--- OUTSIDE RECORDS SUMMARY | 2024-09-02 14:03 | XMS_ITS | Patient Health Record ---
Author Organization [employer] Address [address] [facility] [id number] [place] [address] Care Team Providers Care Electronics Assembler Name Role Phone Hattie Mcginnis Primary Care [...] Problem Syncope and collapse (R55) Active confirmed 571895442 Problem Acute depression (F32.9) Active confirmed Acute depression (675929468) Problem Abnormal menses (N92.6) Active confirmed [id number] Problem Frequent nosebleeds (R04.0) Active confirmed [id number] PLAN OF TREATMENT Pending Test Test Name [...] Coverage End Date Eugenio Valdez [address] [place] [id number] Arlen Nunes Self - patient is the insured MEDICAL (GENERAL) HISTORY Medical History History ICD Code ADHD Intermittent Reflux Surgical History Surgery Date(Month/Year) colonoscopy/endoscopy as inf ant (Failure to thrive, underweight until 5yr) Hospitalization History Reason Date(Month/Year) 1 mo' ICU after swallowed meconium 2002
--- OUTSIDE RECORDS SUMMARY | 2024-09-02 14:03 | XMS_ITS | Clinical Summary ---
Author Organization [employer] Address [address] [facility] 7t [place] [address] Care Team Providers Care Chief Operations Officer Name Role Phone Liam Vivar MD Primary [...] 90 tablet 3 5 12/18/19 25 Active acyclovir (Zovirax) 800 MG tabletIndicati ons:Herpes Simplex Infection Take 3 tabs a day for 2 days 6 tablet 1 5 Active amoxicillin (Amoxil) 500 MG capsule Take 1 capsule (500 mg) by mouth 2 times daily for 5 days. 10 capsule 5 08/19/19 Discontinu ed(Therapy completed) pseudoephedrin e (Sudafed) 30 MG tablet Take 1 tablet (30 mg) by mouth every 4 (four) hours if needed for congestion for up to 10 days. 30 tablet 5 08/19/19 Discontinu ed(Therapy completed) Active Problems Problem Noted Date Diagnosed Date Herpes labialis 09/01/2024 Assessment & Plan (09/01/2024 2:38 PM EST): Exam findings consistent with herpes labialis. -sent swab for HSV testing 09/01/24 -prescribed acyclovir (Zovirax) 800 MG, take 3 tabs a day for 2 day Encounter for medical examination to establish c [...] and enrrique. Her sense of belonging and advent are highly connected and identified as strength. Pt needs guidance in setting up healthy boundaries around her social support (family and [employer] community). Her focus most part of the [...] organization. Date Type Department Care Team Description 09/02/2024 Telephone [facility] [address] [place] [address] Liam Vivar MD Nurse Triage 09/01/2024 2:20 PM EST [facility] [address] [address] Opal Salvador MD Herpes labialis (Primary Dx) 08/19/2024 8:30 AM EST Office Visit [facility] [address] [place] [address] Liam Vivar MD Upper back pain (Primary Dx); Chronic pain of left knee; Obesity (BMI 30-39.9); Irregular periods; Gastroesophageal reflux disease without esophagitis; Anxiety and depression; Dietary counseling; Exercise counseling 08/19/2024 Telephone [facility] [address] [place] [address] Liam Vivar MD 08/19/2024 Travel 08/18/2024 Telephone [facility] [address] [place] [address] Liam Vivar MD Chart Prep 08/12/2024 Patient Outreach [facility] [address] [place] [address] Liam Vivar MD Pre-visit Planning (SDOH negative, Tobacco screening negative. ) 08/07/2024 2:40 PM EST Office Visit [facility] [address] [address] Nereida Handley MD Strep pharyngitis 07/22/2024 Telephone [facility] [address] [place] [address] Liam Vivar MD TelephoneCall 07/14/2024 Orders Only [facility] [address] [place] [address] Liam Vivar MD 06/30/2024 1:45 PM EST Telemedicine [facility] [address] [place] [address] Liam Vivar MD Encounter for medical examination to establish care (Primary Dx) 06/30/2024 Telephone [facility] [address] [place] [address] Emily Berman MA 06/30/2024 Travel 06/29/2024 Telephone [facility] [address] [place] [address] Lucille Finn MA Chart Prep from Last [...] Sign Reading Time Taken Comments Blood Pressure 131/85 09/01/2024 1:58 PM EST Pulse 90 09/01/2024 1:58 PM EST Temperature 36.2 ??C (97.1 ??F) 09/01/2024 1:58 PM ES T Respiratory Rate 20 09/01/2024 1:58 PM EST Oxygen Saturation 98% 09/01/2024 1:58 PM EST Inhaled Oxygen Concentration - - Weight 95.7 kg (211 lb) 09/01/2024 1:58 PM EST Height 165.7 cm (5' 5.25 ) 09/01/2024 1:58 PM ES T Body Mass Index 34.84 09/01/2024 1:58 PM EST Plan of Treatment Upcoming Encounters Date Type Department Care Team ([facility] st Contact Info) Description 09/23/2024 8:30 AM EST Telemedicine [facility] [address] [place] [address] Liam Vivar MD [address] [place] [address] Health Maintenance Due Date Last Done Comments [...] Depression Screening 08/19/2025 08/19/2024, 08/19/19 Tobacco Screening 09/01/2025 09/01/2024 DTaP/Tdap/Td Vaccines (8 - Td or Tdap) [...] Additional history exists HPV Vaccines Completed 06/15/2019, /2 12/2015, 10/11/2014, Additional history exists Hepatitis A Vaccines Completed 06/15/2019, 04/02/2018, 10/11/2014 Meningococcal Vaccine Completed 06/15/2019 , 04/02/2018, 10/11/2014 Pneumococcal Vaccine: Pediatrics (0 to 5 Years) and At-Risk Patients (6 to 49) Years) Aged Out No longer eligible based [...] EST Narrative 08/31/2024 7:03 PM EST ? [facility] ?[address] ?[place] [address] ? Ultrasound Report ? Signed ? Patient: Arlen Nunes ?MR#: [id number] ?? [id number] ? : 2005 ?Acct:[id number] ? Age/Sex: 19 / F ?ADM Date: 08/31/24 ? Loc: HO.US ? Attending Dr: Liam Tam MD ? Ordering Physician: Liam Vivar MD ?? Date of Service: 08/31/24 ?? Procedure(s): US pelvic and transvaginal ?? Accession Number(s): [id number] ? cc: Liam Vivar MD ? CLINICAL [...] by Maikol Barnett MD in OV> ? 08/31/241902 ? DD/ 01 ? TD/TT: 08/31/241901 ? Bridge Repairer: ? Procedure Note Dondeandreter, Image - 08/31/[address] [address] Ultrasound Report Signed Patient: Mone Nunes#: [id number] : 2005Acct:[id number] Age/Sex: 19 M Date: 08/31/24 Loc: HO.US Attending Dr: Liam Tam MD Ordering Physician: Liam Vivar MD Date of Service: 08/31/24 Procedure(s): US pelvic and transvaginal Accession Number(s): [id number] cc: Liam Vivar MD CLINICAL HISTORY: irregular [...] in OV> 08/31/241902 DD/ 01 TD/TT: 08/31/241901 Bridge Repairer: us Liam Tam MD IMG US PROCEDURES Final Result * (ABNORMAL) POCT rapid strep A manually resulted (08/07/2024 2:05 PM EST) Rapid Strep A Screen Positive( A) Negative, None Detected Swab 08/07/2024 2:05 PM EST Nereida Handley MD POINT OF CARE TEST ENTER/EDIT OR DERABLES Final Result from Last 3 Months Insurance Shareable Social C3 Care Teams Chief Operations Officer Relationship Specialty Start Date End Date Liam Vivar MD [address] [place] [address] PCP - General Internal Medicine 07/22/24
--- OUTSIDE RECORDS SUMMARY | 2024-09-02 14:03 | XMS_ITS | Encounter Summary ---
Author Organization [employer] Address [address] [facility] 7t [place] [address] Care Team Providers Care Preschool Assistant Name Role Phone Liam Vivar MD Primary Care Prov ider Reason for Visit * Reason Onset Date Comments Chart Prep 08/18/2024 Encounter Details Date Type Department Care Team ([facility] Contact Info) Description 08/18/2024 Telephone [facility] [address] [place] [address] Liam Vivar MD [address] [place] [address] Chart Prep Social History Tobacco Use Types [...] Info) Description 09/23/2024 8:30 AM EST Telemedicine [facility] [address] [place] [address] Liam Vivar MD [address] [place] [address] documented as of this encounter Visit Diagnoses Not on filedocumented in this encounter Care Teams Preschool Assistant Relationship Specialty Start Date End Date Liam Vivar MD [address] [place] [address] PCP - General Internal Medicine 12/18/24 documented as of this encounter
--- OUTSIDE RECORDS SUMMARY | 2024-09-02 14:03 | XMS_ITS | Encounter Summary ---
Author Organization [employer] Address [address] [facility] [address] 7t [place] [address] Care Team Providers Care Occupational Health Nursing Director Name Role Phone Liam Vivar MD Primary Care Prov ider Encounter Details Date Type Department Care Team (Late st Contact Info) Description 09/01/2024 2:20 PM EST Office Visit [facility] [address] [place] [address] Opal Salvador MD [address] [place] [address] Herpes labialis (Primary Dx) Social History Tobacco Use Types Packs/Day Years [...] Mass Index 34.84 09/01/2024 1:58 PM EST documented in this encounter Progress Notes * Gaston Fernández - 09/01/2024 2:20 PM EST Images from the original note were not included. Subjective Patient ID: Arlen Nunes is a 19 y.o. female with past medical history of GERD, obesity and depression who presents to walk in clinic for bump on lip. Pt reports she noticed a bump on her lip about 2 days ago and the bump has now started to form blisters inside. Review of Systems Constitutional: Negative for fever and unexpected weight change. HENT: Lip lesion Respiratory: Negative for shortness of breath. Cardiovascular: Negative for chest pain. Gastrointestinal: Negative for abdominal pain. Genitourinary: Negative for difficulty urinating. Objective Visit Vitals BP 131/85 (BP Location: Left arm, Patient Position: Sitting, BP Cuff Size: Adult) Pulse 90 Temp 97.1 ??F (36.2 ??C) (Temporal) Resp 20 Body mass index is 34.84 kg/m??. Physical Exam Constitutional: Appearance: Normal appearance. Cardiovascular: Rate and Rhythm: Normal rate. Pulmonary: Effort: Pulmonary effort is normal. Skin: Findings: Lesion (approx. 1cm lesion on bottom lip withsmall appearing vesicles) present. Neurological: Mental Status: She is alert and oriented to person, place, and time. Problem List Items Addressed This Visit Herpes labialis - Primary Exam findings consistent with herpes labialis. -sent swab for HSV testing 09/01/24 -prescribed acyclovir (Zovirax) 800 MG, take 3 tabs a day for 2 day Relevant Medications acyclovir (Zovirax) 800 MG tablet Other Relevant Orders Herpes Simplex Virus Culture with Reflex Typing -No evidence of acute disease process. Suspect Herpes labialis. Symptoms mild. -Will treat with antiviral empirically. -ER precautions discussed. -Seek medical attention for worsening symptoms. I, Gaston Fernández, am serving as a scribe to document services personally performed by Dr. Calderon, based on the patient's response to questions by provider and providers statements to me. documented in this encounter Miscellaneous Notes * Assessment & Plan Note - Gaston Fernández - 09/01/2024 2:38 PM ESTAssociated Problem(s): Herpes labialis Exam findings consistent with herpes labialis. -sent swab for HSV testing 09/01/24 -prescribed acyclovir (Zovirax) 800 MG, take 3 tabs a day for 2 day documented in this encounter Plan of Treatment Upcoming Encounters Date Type Department Care Team (Late st Contact Info) Description 09/23/2024 8:30 AM EST Telemedicine [facility] [address] [place] [address] Liam Vivar MD [address] [place] [address] Scheduled Orders Name Type Priority Associated Diagnoses Orde r Schedule Herpes Simplex Virus Culture with Reflex Typing Microbiology Routine Herpes labialis Expected: 09/01/2024, Expires: 09/01/2025 documented as of this encounter Visit Diagnoses Diagnosis Herpes labialis- Primary Herpes simplex without mention of complication documented in this encounter Additional Health Concerns Assessment Noted Time PHQ-9 Depression Total Score: 16 025 9:29 AM EST documented as of this encounter Care Teams Occupational Health Nursing Director Relationship Specialty Start Date End Date Liam Vivar MD [address] [place] [address] PCP - General Internal Medicine 07/22/24 documented as of this encounter
--- OUTSIDE RECORDS SUMMARY | 2024-09-02 14:03 | XMS_ITS | Continuity of Care Document ---
Author Organization [employer] Address [address] [place] [address] Phone Care Team Providers Care Process Tech Name Role Phone Moises Cui MD Unavailable Unavailable Allergies, Adverse Reactions, Alerts Substance Reaction Status Criticality No Known Allergies Active No Inform ation Procedures Procedure Date OFFICE/OUTPATIENT VISIT, EST IMMUNIZATION ADMIN Flu Vac Preserv Free Quadrivalent 0.5 Ml >6mo IMMUNIZATION ADMIN HPV VACCINE 9 VALENT OFFICE/OUTPATIENT VISIT, EST [facility]/REFERRAL 018 [facility] NUTRITIONAL ASSESSMENT [facility] ANTICIPATORY GUIDENCE [facility] ED. Au [facility] DEVELOPMENTAL ASSESSMENT 8 PURE TONE HEARING TEST, AIR VISUAL ACUITY SCREEN HEMOGLOBIN IMMUNIZATION ADMIN HEP A VACC, PED/ADOL, 2 DOSE PEDIATRIC A IMMUNIZATION ADMIN, EACH ADD MENINGOCOCCAL VACCINE, IM PREV VISIT, NEW, AGE 12-17 Advance Directives Directive Yes / No Effective Date File Name No Information Encounters Encounter Description Practice Location Reason(s) For Visit Diagnoses Date Provider Providers Copied on Encounter [facility], [address], [place], [place], [id number], [place] tel:[phone] [facility] No Information [address], [place], [id number], [place]. tel:[phone] OFFICE/OUTPA TIENT VISIT, EST Counts Include [facility], [address], [place], [place], [id number], [place] tel:[phone] [facility] flu shot (chief complaint) Needs flu shot No Information OFFICE/OUTPA TIENT VISIT, [facility], [address], [place], [place], [id number], [place] tel:[phone] [facility] Labs Results (chief complaint) Immunization dueEncounter to discuss test results No Information PREV VISIT, NEW, AGE 12-17 Counts Include [facility], [address], [place], [place], [id number], [place] tel:[phone] [facility] Well child (chief complaint) chest tightness [...] use administered Note: verified by Aminata Whiting GERIATRIC ASSISTANT, monitored 15 minutes no reaction ; Source: [...] Record Payers Payer name Insurance type Covered libertarian ID Authoriza tion(s) [facility] [id number] [employer] Managed Wrap [id number] [facility] [id number] [employer] [id number] [facility] [id number] [employer] [id number] [facility] [id number] [employer] [id number] Social History Type Description Quantity Date Captured Comments Alcohol Use Details Unknown Caffeine Use Details Unknown Tobacco Use Status No Information Smoking Status No Information Sex Female Sexual Orientation Straight or heterosexual Gender Identity Female Chief Complaint And Reason For Visit No Information Reason For Referral Reason For Referral No Information Plan Of Treatment Date Type Action Status Goal HPV (2nd). Due on 8 due Goal Depression screening. Due on due Goal HPV (1st) due Goal Tdap due Goal HPV (3rd). Due on 9 due Goal Fluoride varnish application. Due on due Goal PPD (TST). Due on 9 due Goal Influenza vaccine. Due on due Goal Fluoride varnish application. Due on due Goal Tdap due Goal Depression screening. Due on due Goal PPD (TST). Due on 8 due Goal HPV (1st) due Goal Diet education completed Referral Ordered: Referrals: Staff Psychologist. Consult ordered Patient Education Well Care - [...] or any medical concern at this time Well child 13 year old ramy winn came in for well visit. She has complaints of occasional sudden onset of chest pain that it hurts when she breathes for 3 months now. No cough or colds. She is generally healthy and has no medical concerns with this visit. chest tightness see above Functional Status Date Functional Assessmen t No Information Instructions Date Instruction Additional Infor aviva Results showed abnor mal cholesterol levels. Discussed [...]
--- OUTSIDE RECORDS SUMMARY | 2024-09-02 14:03 | XMS_ITS | Encounter Summary ---
Author Organization [employer] Address [address] [facility] 7t [place] [address] Care Team Providers Care Bus Matron Name Role Phone Liam Vivar MD Primary Care Prov ider Reason for Visit * Reason Comments Pre-visit Planning SDOH negative, Tobac co screening negative. Encounter Details Date Type Department Care Team ([facility] st Contact Info) Description 08/12/2024 Patient Outreach [facility] [address] [place] [address] Liam Vivar MD [address] [place] [address] Pre-visit Planning (SDOH negative, Tobacco screening negative. [...] - 08/12/2024 1:56 PM EST CC Nina Braswell placed successful outbound call to patient for [...] [facility] [address] [place] [address] Liam Vivar MD [address] [place] [address] documented as of this encounter Visit Diagnoses Not on filedocumented in this encounter Care Teams Bus Matron Relationship Specialty Start Date End Date Liam Vivar MD [address] [place] [address] PCP - General Internal Medicine 07/22/24 documented as of this encounter
== END 2024-09-01 00:01 | disposition home or self-care (01) ==
LOC: HO.HHCLNP
PROVIDERS: Visit Provider Family Medicine
DX: B00.1 Herpesviral vesicular dermatitis (principal)
CPT/HCPCS: 36415; 87255

== ENCOUNTER 2024-09-08 18:16 | Outpatient (REF) | payer MEDICAID, SELFPAY ==
--- OUTSIDE RECORDS SUMMARY | 2024-09-08 18:19 | XMS_ITS | Encounter Summary ---
Author Organization [employer] Address [address] [place] [address] [address] [place] [address] Care Team Providers Care Support Service Tech Name Role Phone Liam Vivar MD Primary Care Prov ider Reason for Referral * Imaging (Routine) - Closed Specialty Diagnoses / Procedures Referred By Betty redd Referred To Contact Radiology Diagnoses Irregular periods Procedures US Pelvis Transvaginal Liam Vivar MD [address] [place] [address] Phone: tel: fax: [address] Phone: tel: fax: Referral ID Status Reason Start Date Expiration Date Visits Re quested Visits Authorized [id number] Closed 08/19/2024 08/19/2025 1 1 * Consultation (Routine) - Closed Specialty Diagnoses / Procedures Referred By Betty redd Referred To Contact Physical Therapy Diagnoses Chronic pain of left knee Liam Vivar MD [address] [place] [address] Phone: tel: fax: [facility] Physical Therapy [address] [place] [address] Phone: tel: fax: Referral ID Status Reason Start Date Expiration Date V isits Requested Visits Authorized [id number] Closed Specialty Services Required 08/19/2024 08/19/2025 1 1 * Consultation (Routine) - Closed Specialty Diagnoses / Procedures Referred By Contac t Referred To Contact Physical Therapy Diagnoses Upper back pain Liam Vivar MD [address] [place] [address] Phone: tel: fax: [facility] Physical Therapy [address] [place] [address] Phone: tel: fax: Referral ID Status Reason Start Date Expiration Date V isits Requested Visits Authorized [id number] Closed Specialty Services Required 08/19/2024 08/19/2025 1 1 Reason for Visit * Reason Comments Annual Exam Encounter Details Date Type Department Care Team ([facility] st Contact Info) Description 08/19/2024 8:30 AM EST Office Visit [facility] [address] [place] [address] Liam Vivar MD [address] [place] [address] Upper back pain (Primary Dx); Chronic pain [...] Description 09/23/2024 8:30 AM EST Telemedicine [facility] [address] [place] [address] Liam Vivar MD [address] [place] [address] 10/15/2024 9:30 AM EDT Procedure Visit [facility] [address] [place] [address] Earlene Fall, CN [address] [place] [address] Scheduled Orders Name Type Priority Associated Diagnoses [...] EST Narrative 08/31/2024 7:03 PM EST ? [facility] ?[address] ?[place] [address] ? Ultrasound Report ? Signed ? Patient: Nunes,Arlen ?MR#: [id number] ?? [id number] ? : 2005 ?Acct:[id number] ? Age/Sex: 19 / F ?ADM Date: 01/27/25 ? Loc: HO.US ? Attending Dr: Liam Tam MD ? Ordering Physician: Liam Vivar MD ?? Date of Service: 08/31/24 ?? Procedure(s): US pelvic and transvaginal ?? Accession Number(s): [id number] ? cc: Liam Vivar MD ? CLINICAL [...] DD/ 1902 ? TD/TT: 08/31/24 1902 ? Recycling Attendant: ? Procedure Note Donna, Image - 08/31/2024 [place] [address] Ultrasound Report Signed Patient: Mone Nunes#: [id number] : 2005Acct:[id number] Age/Sex: Date: 08/31/24 Loc: HO.US Attending Dr: Liam Tam MD Ordering Physician: Liam Vivar MD Date of Service: 08/31/24 Procedure(s): US pelvic and transvaginal Accession Number(s): [id number] cc: Liam Vivar MD CLINICAL HISTORY: irregular [...] in OV> 08/31/241902 DD/ 01 TD/TT: 08/31/241901 Recycling Attendant: us Liam Tam MD IM US PROCEDURES Final Result documented in this encounter [...] documented as of this encounter Care Teams Support Service Tech Relationship Specialty Start Date End Date Liam Vivar MD [address] [place] [address] PCP - General Internal Medicine 07/22/24 documented as of this encounter
--- OUTSIDE RECORDS SUMMARY | 2024-09-08 18:19 | XMS_ITS | Encounter Summary ---
Author Organization [employer] Address [address] [facility] [address] 7t [place] [address] Care Team Providers Care Sausage Maker Name Role Phone Liam Vivar MD Primary Care Prov ider Encounter Details Date Type Department Care Team (Late st Contact Info) Description 09/01/2024 2:20 PM EST Office Visit [facility] [address] [place] [address] Opal Salvador MD [address] [place] [address] Herpes labialis (Primary Dx) Social History Tobacco [...] [facility] [address] [place], [place] [phone] Liam Vivar MD 505 [place] [address] 10/15/2024 9:30 AM EDT Procedure Visit [facility] [address] [place] [address] Earlene Fall, CNM [address] [place] [address] documented as of this encounter Procedures Procedure Name Priority Date/Time Associated Diagnosis Comments HERPES CULTURE WITH REFLEX TYPING Routine 09/01/2024 2:35 PM EST Herpes labialis documented in this encounter Results * (ABNORMAL) Herpes Simplex Virus Culture with Reflex Typing (09/01/2024 2:35 PM EST) HSV Culture/Type SEE NOTE(A) [facility] Comment:HERPES SIMPLEX VIRUS CULTURE W/RFL TO TYPING Micro Number: [id number] Test Status: Final Specimen Source: Not given Specimen Quality: Adequate HSV Culture: Isolated HSV TYPE 2: Not Isolated HSV TYPE 1: IsolatedTHIS TEST WAS PERFORMED AT:[employer] [address] [id number] MERATI,MD Swab Topography unknown / Unknown 09/01/2024 2:35 PM EST 09/02/2024 11:38 AM EST us Opal Salvador MD LAB MICROBIOLOGY - GENERAL ORDERABLES Final Result [facility] [address] [place] [address] [phone] documented in this encounter Visit Diagnoses Diagnosis Herpes labialis- Primary Herpes simplex without mention of complication documented in this encounter Additional Health Concerns Assessment Noted Time PHQ-9 Depression Total Score: 16 025 9:29 AM EST documented as of this encounter Care Teams Sausage Maker Relationship Specialty Start Date End Date Liam Vivar MD [address] [place] [address] PCP - General Internal Medicine 07/22/24 documented as of this encounter
--- OUTSIDE RECORDS SUMMARY | 2024-09-08 18:19 | XMS_ITS | Clinical Summary ---
Author Organization [facility] Address [address] [place] [address] Care Team Providers Care Wall Washer Name Role Phone Pcp, No Primary Care [...] age to complete this topic Care Teams Wall Washer Relationship Specialty Start Date End Date Pcp, No 80 CARLOS Goldberg [address] PCP - General 03/08/21
--- OUTSIDE RECORDS SUMMARY | 2024-09-08 18:19 | XMS_ITS | Continuity of Care Document ---
Author Organization [employer] Address [address] [place] [address] Phone Care Team Providers Care Maintenance Groundman Name Role Phone Moises Cui MD Unavailable Unavailable Allergies, Adverse Reactions, Alerts Substance Reaction Status Criticality No Known Allergies Active No Inform ation Procedures Procedure Date OFFICE/OUTPATIENT VISIT, EST IMMUNIZATION ADMIN Flu Vac Preserv Free Quadrivalent 0.5 Ml >6mo IMMUNIZATION ADMIN HPV VACCINE 9 VALENT OFFICE/OUTPATIENT VISIT, EST [facility] D[facility]AL [facility]/REFERRAL 018 [facility] NUTRITIONAL ASSESSMENT [facility] ANTICIPAT[facility]. Au [facility] DEVELOPMENTAL ASSESSMENT 8 PURE TONE HEARING TEST, AIR VISUAL ACUITY SCREEN HEMOGLOBIN IMMUNIZATION ADMIN HEP A VACC, PED/ADOL, 2 DOSE PEDIATRIC A IMMUNIZATION ADMIN, EACH ADD MENINGOCOCCAL VACCINE, IM PREV VISIT, NEW, AGE 12-17 Advance Directives Directive Yes / No Effective Date File Name No Information Encounters Encounter Description Practice Location Reason(s) For Visit Diagnoses Date Provider Providers Copied on Encounter [facility], [address], [place], [place], [id number], [place] tel:[phone] [facility] No Information 9 Basilia De Leon. [address], [place], [id number], [place]. tel:[phone] OFFICE/OUTPA TIENT VISIT, EST [facility], [address], [place], [place], [id number], [place] tel:[phone] [facility] flu shot (chief complaint) Needs flu shot No Information OFFICE/OUTPA TIENT VISIT, [facility], [address], [place], [place], [id number], [place] tel:[phone] [facility] Labs Results (chief complaint) Immunization dueEncounter to discuss test results No Information PREV VISIT, NEW, AGE 12-17 [facility], [address], [place], [place], [id number], [place] tel:[phone] [facility] Well child (chief complaint) chest tightness (chief [...] Insurance type Covered libertarian ID Authoriza tion(s) [facility] [id number] [facility] Managed Wrap [id number] [facility] [id number] [facility] Managed Wrap [id number] [facility] [id number] [facility] Managed Wrap [id number] [facility] [id number] [facility] Managed Wrap [id number] Social History Type Description Quantity Date Captured [...] Diet education completed Referral Ordered: Referrals: Dry Janitor. Consult ordered Patient Education Well Care - [...]
--- OUTSIDE RECORDS SUMMARY | 2024-09-08 18:19 | XMS_ITS | Encounter Summary ---
Author Organization [employer] Address 75 [facility] 7t [place] [address] Care Team Providers Care Correspondence Coordinator Name Role Phone Liam Vivar MD Primary Care Prov ider Reason for Visit * Reason Onset Date Comments Chart Prep 08/18/2024 Encounter Details Date Type Department Care Team ([facility] Contact Info) Description 08/18/2024 Telephone [facility] [address] [place] [address] Liam Vivar MD [address] [place] [address] Chart Prep Social History Tobacco Use Types [...] 09/23/2024 8:30 AM EST Telemedicine [facility] [address] [place] [address] Liam Vivar MD [address] [place] [address] 10/15/2024 9:30 AM EDT Procedure Visit [facility] [address] [place] [address] Earlene Fall CNM [address] [place] [address] documented as of this encounter Visit Diagnoses Not on filedocumented in this encounter Care Teams Correspondence Coordinator Relationship Specialty Start Date End Date Liam Vivar MD [address] [place] [address] PCP - General Internal Medicine 07/22/24 documented as of this encounter
--- OUTSIDE RECORDS SUMMARY | 2024-09-08 18:19 | XMS_ITS | Encounter Summary ---
Author Organization [employer] Address 75 [facility] 7t [place] [address] Care Team Providers Care Doggy Daycare Activities Director Name Role Phone Liam Vivar MD Primary Care Prov ider Reason for Visit * Reason Comments Pre-visit Planning SDOH negative, Tobac co screening negative. Encounter Details Date Type Department Care Team ([facility] st Contact Info) Description 08/12/2024 Patient Outreach [facility] [address] [place] [address] Liam Vivar MD 505 [place] [address] Pre-visit Planning (SDOH negative, Tobacco screening negative. [...] - 08/12/2024 1:56 PM EST CC Nina rBaswell placed successful outbound call to patient for [...] Info) Description 09/23/2024 8:30 AM EST Telemedicine [facility] [address] [place] [address] Liam Vivar MD [address] [place] [address] 10/15/2024 9:30 AM EDT Procedure Visit [facility] [address] [place] [address] Earlene Fall, ALVA [address] [place] [address] documented as of this encounter Visit Diagnoses Not on filedocumented in this encounter Care Teams Doggy Daycare Activities Director Relationship Specialty Start Date End Date Liam Vivar MD [address] [place] [address] PCP - General Internal Medicine 07/22/24 documented as of this encounter
--- OUTSIDE RECORDS SUMMARY | 2024-09-08 18:19 | XMS_ITS | Encounter Summary ---
Author Organization [employer] Address [address] [facility] 7t [place] [address] Care Team Providers Care Life Insurance Underwriter Name Role Phone Liam Vivar MD Primary Care Prov ider Encounter Details Date Type Department Care Team (Late Contact Info) Description 07/14/2024 Orders Only [facility] [address] [place] [address] Liam Vivar MD 505 [place] [address] Social History Tobacco Use Types Packs/Day Years [...] Info) Description 09/23/2024 8:30 AM EST Telemedicine [facility] [address] [place], [place] [phone] Liam Vivar MD [address] [place] [address] 10/15/2024 9:30 AM EDT Procedure Visit [facility] [address] [place], [place] [phone] Earlene Fall, ALVA [address] [place] [address] documented as of this encounter Visit Diagnoses Not on filedocumented in this encounter Care Teams Life Insurance Underwriter Relationship Specialty Start Date End Date Liam Vivar MD [address] [place] [address] PCP - General Internal Medicine 07/22/24 documented as of this encounter
--- OUTSIDE RECORDS SUMMARY | 2024-09-08 18:19 | XMS_ITS | Encounter Summary ---
Author Organization [employer] Address 75 [facility] 7t [place] [address] Care Team Providers Care Mosaic Worker Name Role Phone Liam Vivar MD Primary Care Prov ider Reason for Visit * Reason Onset Date Comments Nurse Triage 09/02/2024 Encounter Details Date Type Department Care Team (Late st Contact Info) Description 09/02/2024 Telephone [facility] [address] [place] [address] Liam Vivar MD [address] [place] [address] Nurse Triage Social History Tobacco Use Types Packs/Day Years [...] encounter Miscellaneous Notes * Telephone Encounter - Caitlyn Stone LPN - 09/02/2024 3:09 PM EST Triage call returned to patient who reports concerns as she has had two episodes following intercourse where she woke up in the morning with a alvin amount of blood in her underwear and in the bed. Bleeding is only found at that time and no continued bleeding during the day. Patient had first episode on the morning of 08/27 then did not have intercourse for 1 week. ( Did not have severe pain or cramping with noted blood no clots or tissue identified). Second episode was yesterday 09/01/24 again following intercourse same with blood noted in the morning only. Patient reports that during sex she had to stop as she felt some pelvic pain. Had LMP ended on 08/24/24 and menses very irregular. Not on BC at this time. No abdominal pain no cramping and no bleeding at time of call. Had recent Vaginal US and was told it was fine. Report on chart. Disposition reviewed and patient in agreement with plan. ASK/Pearl CALLE on Saturday09/08/24 915am.Reviewed with patient home care recommendations, reasons to call back and symptoms that require immediate evaluation in UC or ER. Pt verbalized understanding and agrees. Protocol Used: Vaginal Bleeding - Abnormal (Adult) Protocol-Based Disposition: See in Office or Video Visit within 2 Weeks Positive Triage Question: * Bleeding or spotting occurs after sex (Exception: First intercourse.) * All higher-acuity triage questions were negative * Telephone Encounter - Justin Andrea - 09/02/2024 1:47 PM EST Symptom: Vaginal Bleeding - Not Outcome: Talk to a nurse or provider within 15 minutes Reason: Heavy bleeding The caller accepted this outcome. Contact pt at [phone] documented in this encounter Plan of Treatment Upcoming Encounters Date Type Department Care Team ([facility] st Contact Info) Description 09/23/2024 8:30 AM EST Telemedicine [facility] [address] [place] [address] Liam Vivar MD [address] [place] [address] 10/15/2024 9:30 AM EDT Procedure Visit [facility] [address] [place] [address] Earlene Fall, CNM [address] [place] [address] documented as of this encounter Visit Diagnoses Not on filedocumented in this encounter Additional Health Concerns Assessment Noted Time PHQ-9 Depression Total Score: 16 025 9:29 AM EST documented as of this encounter Care Teams Mosaic Worker Relationship Specialty Start Date End Date Liam Vivar MD [address] [place] [address] PCP - General Internal Medicine 07/22/24 documented as of this encounter
--- OUTSIDE RECORDS SUMMARY | 2024-09-08 18:19 | XMS_ITS | Encounter Summary ---
Author Organization [employer] Address 75 [facility] 7t [place] [address] Care Team Providers Care Hand Almond Blancher Name Role Phone Liam Vivar MD Primary Care Prov ider Encounter Details Date Type Department Care Team ([facility] Contact Info) Description 08/19/2024 Telephone [facility] [address] [place] [address] Liam Vivar MD [address] [place] [address] Social History Tobacco Use Types Packs/Day Years [...] Info) Description 09/23/2024 8:30 AM EST Telemedicine [facility] [address] [place] [address] Liam Vivar MD [address] [place] [address] 10/15/2024 9:30 AM EDT Procedure Visit [facility] [address] [place] [address] Earlene Fall, MER [address] [place] [address] documented as of this encounter Visit Diagnoses Not on filedocumented in this encounter Additional Health Concerns Assessment Noted Time PHQ-9 Depression Total Score: 16 025 9:29 AM EST documented as of this encounter Care Teams Hand Almond Blancher Relationship Specialty Start Date End Date Liam Vivar MD [address] [place] [address] PCP - General Internal Medicine 07/22/24 documented as of this encounter
--- OUTSIDE RECORDS SUMMARY | 2024-09-08 18:19 | XMS_ITS | Clinical Summary ---
Author Organization [employer] Address 75 [facility] 7t [place] [address] Care Team Providers Care Cable Maintainer Name Role Phone Liam Vivar MD Primary [...] 2 days 6 tablet 1 5 Active Vit-Fe Fumarate-FA ( Plus) 27-1 MG tablet One tablet by mouth daily 30 tablet 11 5 Active amoxicillin (Amoxil) 500 MG capsule [...] Active Problems Problem Noted Date Diagnosed Date Family history of breast cancer 09/08/2024 Herpes labialis 09/01/2024 Assessment & Plan (09/01/2024 [...] and enrrique. Her sense of belonging and nondenominational are highly connected and identified as strength. Pt needs guidance in setting up healthy boundaries around her social support (family and buddhism community). Her focus most part of the [...] organization. Date Type Department Care Team Description 09/08/2024 9:15 AM EST Office Visit [address] [address] Earlene Fall CNM Postcoital bleeding (Primary Dx); Screening examination for venereal disease; Irregular periods; Family history of breast cancer 09/08/2024 Travel 09/03/2024 Refill [facility] [address] [address] Opal Salvador MD Herpes labialis 09/02/[address] [address] Liam Vivar MD Nurse Triage 09/01/2024 2:20 PM EST Office Visit [facility] [address] [address] Opal Salvador MD Herpes labialis (Primary Dx) 08/19/2024 8:30 AM EST Office Visit [facility] [address] [place] [address] Liam Vivar MD Upper back pain (Primary Dx); Chronic pain of left knee; Obesity (BMI 30-39.9); Irregular periods; Gastroesophageal reflux disease without esophagitis; Anxiety and depression; Dietary counseling; Exercise counseling 08/19/2024 Telephone [facility] [address] [place] [address] Liam Vivar MD 08/19/2024 Travel 08/18/2024 Telephone [facility] [address] [place], [place] [phone] Liam Vivar MD Chart Prep 08/12/2024 Patient Outreach [facility] [address] [place], [place] [phone] Liam Vivar MD Pre-visit Planning (SDOH negative, Tobacco screening negative. ) 08/07/2024 2:40 PM EST Office Visit [facility] [address] [place] [address] Nereida Handley MD Strep pharyngitis 07/22/2024 Telephone [facility] [address] [place] [address] Liam Vivar MD TelephoneCall 07/14/2024 Orders Only [facility] [address] [place] [address] Liam Vivar MD 06/30/2024 1:45 PM EST Telemedicine [facility] [address] [place] [address] Liam Vivar MD Encounter for medical examination to establish care (Primary Dx) 06/30/2024 Telephone [facility] [address] [place] [address] Emily Berman MA 06/30/2024 Travel 06/29/2024 Telephone [facility] [address] [place] [address] Lucille Finn MA Chart Prep from Last [...] Relation Name Comments Diverticulosis Father Hypertension Father Breast cancer Maternal Grandmother Skin cancer Maternal Grandmother Breast cancer Mother Diabetes Mother Hypertension Mother Osteoarthritis Mother Brain [...] Access Q2 Not on file 08/12/2024 Comments No Sex and Gender Information Value Date Recorded Sex Assigned at Female 06/04/2022 10:18 AM EDT Legal Sex Female 10:18 AM EDT Gender Identity Female 06/30/2024 11:46 AM EST Sexual Orientation Don't know 06/30/2024 11 :46 AM EST Last Filed Vital Signs Vital Sign Reading Time Taken Comments Blood Pressure 127/79 09/08/2024 9:18 AM EST Pulse 89 09/08/2024 9:18 AM EST Temperature 36.6 ??C (97.8 ??F) 09/08/2024 9:18 AM ES T Respiratory Rate 16 09/08/2024 9:18 AM EST Oxygen Saturation 99% 09/08/2024 9:18 AM EST Inhaled Oxygen Concentration - - Weight 95.3 kg (210 lb 3.2 oz) 09/08/2024 9:18 A M EST Height 166.4 cm (5' 5.5 ) 09/08/2024 9:18 AM EST Body Mass Index 34.45 09/08/2024 9:18 AM EST Plan of Treatment Upcoming Encounters Date Type Department Care Team (Late st Contact Info) Description 09/23/2024 8:30 AM EST Telemedicine [facility] [address] [place] [address] Liam Vivar MD [address] [place] [address] 10/15/2024 9:30 AM EDT Procedure Visit [facility] [address] [place] [address] Earlene Fall, MER [address] [place] [address] Health Maintenance Due Date Last Done Comments Chlamydia and Gonorrhea Screening 2003 HIV Screening 2003 Lipid Panel 2003 Alcohol/Substance Use Screening 2015 Hepatitis C Screening 2021 Pap Smear 02/17/2024 COVID-19 Vaccine ( season) 2024 Influenza Vaccine (#1) 2024 9, 04/24/2016, 07/06/2015, Additional history exists Depression Monitoring (PHQ-9) 2025 08/19/2024, 08/19/2024 SDOH Screening 08/12/2025 08/12/2024 Depression Screening 08/19/2025 08/19/2024, 08/19/19 Family Planning (PISQ) 09/08/2025 09/08/2024 Tobacco Screening 09/08/2025 09/08/2024 DTaP/Tdap/Td Vaccines (8 - Td or Tdap) [...] Procedure Name Priority Date/Time Associated Diagnosis Comments POCT , URINE Routine 09/08/2024 9:47 AM EST Postcoital bleeding HERPES CULTURE WITH REFLEX TYPING Routine 09/01/2024 2:35 PM EST Herpes labialis US PELVIS TRANSVAGINAL Routine 08/31/2024 7:02 PM EST Irregular periods POC GALLOWAY ID NOW STREP A Routine 08/07/2024 2:05 PM EST Strep pharyngitis from Last 3 Months Results * POCT , urine manually resulted (09/08/2024 9:47 AM EST) Preg Test, Ur Negative Negative, Indeterminate, None Detected, Invalid, Specimen unsatisfactory for evaluation, Weakly Positive QC Media Lot # [id number] Lot# Expiration Date [id number] Urine 09/08/2024 9:47 AM EST Earlene Fall CNM POINT OF CARE TEST ENTER/ EDIT ORDERABLES Final Result * (ABNORMAL) Herpes Simplex Virus Culture with Reflex Typing (09/01/2024 2:35 PM EST) Pathologist [facility] HSV Culture/Type SEE NOTE(A) [facility] Comment:HERPES SIMPLEX VIRUS CULTURE W/RFL TO TYPING Micro Number: [id number] Test Status: Final Specimen Source: Not given Specimen Quality: Adequate HSV Culture: Isolated HSV TYPE 2: Not Isolated HSV TYPE 1: IsolatedTHIS TEST WAS PERFORMED AT:[employer] [facility] [address] [id number] MERATI,MD Swab Topography unknown / Unknown 09/01/2024 2:35 PM EST 09/02/2024 11:38 AM EST Opal Salvador MD LAB MICROBIOLOGY - GENERAL ORDERABLES Final Result [facility] [address] [place] [phone] * US Pelvis Transvaginal (08/31/2024 7:02 PM EST) Anatomical Region Laterality Modality Pelvis Ultrasound 08/31/2024 7:02 PM EST Narrative 08/31/2024 7:03 PM EST ? [place] [facility] ?[address] ?[place] [address] ? Ultrasound Report ? Signed ? Patient: Nunes,Arlen ?MR#: [id number] ?? [id number] ? : 2005 ?Acct:[id number] ? Age/Sex: 19 / F ?ADM Date: 08/31/24 ? Loc: HO.US ? Attending Dr: Liam Tam MD ? Ordering Physician: Liam Vivar MD ?? Date of Service: 08/31/24 ?? Procedure(s): US pelvic and transvaginal ?? Accession Number(s): [id number] ? cc: Liam Vivar MD ? CLINICAL [...] ? DD/ 190 ? TD/TT: 08/31/241901 ? Printed Circuit Board Reworker: ? Procedure Note Donna, Image - 08/31/2024 [place] [address] Ultrasound Report Signed Patient: Mone Nunes#: [id number] : 2005Acct:[id number] Age/Sex: 19 FADM Date: 08/31/24 Loc: HO.US Attending Dr: Liam Tam MD Ordering Physician: Liam Vivar MD Date of Service: 08/31/24 Procedure(s): US pelvic and transvaginal Accession Number(s): [id number] cc: Liam Vivar MD CLINICAL HISTORY: irregular [...] in OV> 08/31/241902 DD/ 01 TD/TT: 08/31/241901 Printed Circuit Board Reworker: Liam Tam MD [facility] PROCEDURES Final Result * (ABNORMAL) POCT rapid strep A manually resulted (08/07/2024 2:05 PM EST) Rapid Strep A Screen Positive( A) Negative, None Detected Swab 08/07/2024 2:05 PM EST Nereida Handley MD POINT OF CARE TEST ENTER/EDIT OR DERABLES Final Result from Last 3 Months Insurance Care Teams Cable Maintainer Relationship Specialty Start Date End Date Liam Vivar MD [address] [place] [address] PCP - General Internal Medicine 07/22/24
--- OUTSIDE RECORDS SUMMARY | 2024-09-08 18:19 | XMS_ITS | Encounter Summary ---
Author Organization [employer] Address [address] [facility] [address] 7t [place] [address] Care Team Providers Care Inside B2B Sales Name Role Phone Liam Vivar MD Primary [...] 09/23/2024 8:30 AM EST Telemedicine [facility] [address] [place] [address] Liam Vivar MD 505 [place] [address] 10/15/2024 9:30 AM EDT Procedure Visit [facility] [address] [place] [address] Earlene Fall, MER [address] [place] [address] documented as of this encounter Visit Diagnoses Not on filedocumented in this encounter Additional Health Concerns Assessment Noted Time PHQ-9 Depression Total Score: 16 025 9:29 AM EST documented as of this encounter Care Teams Inside B2B Sales Relationship Specialty Start Date End Date Liam Vivar MD [address] [place] [address] PCP - General Internal Medicine 07/22/24 documented as of this encounter
--- OUTSIDE RECORDS SUMMARY | 2024-09-08 18:19 | XMS_ITS | Encounter Summary ---
Author Organization [employer] Address [address] [facility] [address] 7[address] [place] [address] Care Team Providers Care Apparatus Repair Mechanic Name Role Phone Liam Vivar MD Primary Care Prov ider Reason for Visit * Reason Comments Med Refill Encounter Details Date Type Department Care Team (Late st Contact Info) Description 09/03/2024 Refill [facility] [address] [place] [address] Opal Salvador MD [address] [place] [address] Herpes labialis Social History Tobacco Use Types Packs/Day Years [...] 09/23/2024 8:30 AM EST Telemedicine [facility] [address] [place] [address] Liam Vivar MD 505 [place] [address] 10/15/2024 9:30 AM EDT Procedure Visit [facility] [address] [place] [address] Earlene Fall, ALVA [address] [place] [address] documented as of this encounter Visit Diagnoses Diagnosis Herpes labialis Herpes simplex without mention of complication documented in this encounter Additional Health Concerns Assessment Noted Time PHQ-9 Depression Total Score: 16 025 9:29 AM EST documented as of this encounter Care Teams Apparatus Repair Mechanic Relationship Specialty Start Date End Date Liam Vivar MD 505 [place] [address] PCP - General Internal Medicine 07/22/24 documented as of this encounter
--- OUTSIDE RECORDS SUMMARY | 2024-09-08 18:19 | XMS_ITS | Encounter Summary ---
Author Organization [employer] Address [address] [facility] [facility] [address] [place] [address] Care Team Providers Care Equipment Tech Name Role Phone Liam Vivar MD Primary Care Prov ider Encounter Details Date Type Department Care Team (Latest Contact Info) Description 09/08/2024 Travel Social History Tobacco Use Types Packs/Day [...] [facility] [address] [place] [address] Liam Vivra MD 505 [place] [address] 10/15/2024 9:30 AM EDT Procedure Visit [facility] [address] [place] [address] Earlene Fall, MER [address] [place] [address] documented as of this encounter Visit Diagnoses Not on filedocumented in this encounter Additional Health Concerns Assessment Noted Time PHQ-9 Depression Total Score: 16 025 9:29 AM EST documented as of this encounter Care Teams Equipment Tech Relationship Specialty Start Date End Date Liam Vivar MD [address] [place] [address] PCP - General Internal Medicine 07/22/24 documented as of this encounter
--- OUTSIDE RECORDS SUMMARY | 2024-09-08 18:19 | XMS_ITS | Encounter Summary ---
Author Organization [employer] Address [address] [facility] 7t [place] [address] Care Team Providers Care Oracle Data Warehouse Developer Name Role Phone Liam Vivar MD Primary Care Prov ider Reason for Visit * Reason Comments Gynecologic Exam Encounter Details Date Type Department Care Team (Late st Contact Info) Description 09/08/2024 9:15 AM EST Office Visit [facility] [address] [place] [address] Earlene Fall CN [address] [place] [address] Postcoital bleeding (Primary Dx); Screening examination for venereal disease; Irregular periods; Family history of breast cancer Social History Tobacco Use Types Packs/Day Years [...] Mass Index 34.45 09/08/2024 9:18 AM EST documented in this encounter Progress Notes * Earlene Fall CNM - 09/08/2024 9:15 AM EST Subjective Patient ID: Arlen Nunes is a 19 y.o. female who presents for post coital bleeding. Labs and ultrasound ordered by PCP for evaluation of irregular bleeding. Normal ultrasound, labs pending. She will get these done this week. No pap or Gonorrhea/Chlamydia/trichomonas testing on file.Agrees to both today. Here with AMAB partner, Zain, who remained for visit with Arlen's consent.Notes new onset PCB, vaginal discharge and pain with sex for past 2 weeks. Still spotting off and on. test negative today. Not planning , but would be okay if it happened. Partner is 23, has not fathered any children. Reports previous history of PCOS. Menses Q1-3 months, occasionally prolonged bleeding. Review of Systems Constitutional: Negative for chills and fever. Genitourinary: Positive for dyspareunia, vaginal bleeding and vaginal discharge. Negative for dysuria, frequency, genital sores, hematuria, menstrual problem, pelvic pain, urgency and vaginal pain. Objective BP 127/79 (BP Location: Left arm, Patient Position: Sitting, BP Cuff Size: Large adult) Pulse 89 Temp 97.8 ??F (36.6 ??C) (Temporal) Resp 16 Ht 5' 5.5 (1.664 m) Wt 210 lb 3.2 oz (95.3 kg) LMP 08/16/2024 (Exact Date) SpO2 99% BMI 34.45 kg/m?? Physical Exam Constitutional: Appearance: Normal appearance. Genitourinary: General: Normal vulva. Labia: Right: No rash, tenderness, lesion or injury. Left: No rash, tenderness, lesion or injury. Vagina: Normal. No signs of injury and foreign body. No vaginal discharge, erythema, tenderness, bleeding or lesions. Cervix: No cervical motion tenderness, discharge, friability, lesion, erythema, cervical bleeding or eversion. Uterus: Normal. Not enlarged and not tender. Adnexa: Right adnexa normal and left adnexa normal. Right: No mass, tenderness or fullness. Left: No mass, tenderness or fullness. Comments: Menses noted Neurological: Mental Status: She is alert. Psychiatric: Mood and Affect: Mood normal. Behavior: Behavior normal. Assessment/Plan Diagnoses and all orders for this visit: Postcoital bleeding - Pap Smear - STI testing add on (NG, CT, Trich) - POCT , urine manually resulted test negative today. No worrisome findings on ultrasound. Reviewed pap procedure and indications prior to exam. Will send pap and pap based STI testing today and contact with results. Pap in 3 years if normal. Screening examination for venereal disease - STI testing add on (NG, CT, Trich) Pap based STI testing sent. Will get serum labs as ordered by PCP. Syphilis testing added after visit. Irregular periods - Testosterone, Total, males (Adult), IA; Future Will get PCP labs, testosterone added on. Other orders - Vit-Fe Fumarate-FA ( Plus) 27-1 MG tablet; One tablet by mouth daily sent in. Report missed menses. May come any time if interested in starting control or wants to discuss options. Family history of breast cancer - urged to talk with mother about genetics testing and keep us informed of results. Will refer to genetics if indicated. documented in this encounter Plan of Treatment Upcoming Encounters Date Type Department Care Team (Late st Contact Info) Description 09/23/2024 8:30 AM EST Telemedicine [facility] [address] [place] [address] Liam Vivar MD 505 [place] [address] 10/15/2024 9:30 AM EDT Procedure Visit [facility] [address] [place] [address] Earlene Fall CNM [address] [place] [address] Scheduled Orders Name Type Priority Associated Diagnoses Orde r Schedule Pap Smear Pathology and Cytology Routine Postcoital bleeding Ordered: 09/08/2024 STI testing add on (NG, CT, Trich) Pathology and Cytology Routine Postcoital bleeding Screening examination for venereal disease Ordered: 09/08/2024 Testosterone, Total, males (Adult), IA Lab Routine Irregular periods Expected: 09/08/2024, Expires: 09/08/2025 Syphilis Screen Lab Routine Screening examination for venereal disease Expected: 09/08/2024, Expires: 09/08/2025 documented as of this encounter Procedures Procedure Name Priority Date/Time Associated Diagnosis Comments POCT , URINE Routine 09/08/2024 9:47 AM EST Postcoital bleeding documented in this encounter Results * POCT , urine manually resulted (09/08/2024 9:47 AM EST) Preg Test, Ur Negative Negative, Indeterminate, None Detected, Invalid, Specimen unsatisfactory for evaluation, Weakly Positive QC Media Lot # [id number] Lot# Expiration Date [id number] Urine 09/08/2024 9:47 AM EST Earlene DEL [place] POINT OF CARE TEST ENTER/ EDIT ORDERABLES Final Result documented in this encounter Visit Diagnoses Diagnosis Postcoital bleeding- Primary Screening examination for venereal disease Irregular periods Family history of breast cancer Family history of malignant neoplasm of breast documented in this encounter Additional Health Concerns Assessment Noted Time PHQ-9 Depression Total Score: 16 025 9:29 AM EST documented as of this encounter Care Teams Oracle Data Warehouse Developer Relationship Specialty Start Date End Date Liam Vivar MD [address] [place] [id number] PCP - General Internal Medicine 07/22/24 documented as of this encounter
[2024-09-13 20:03] LABS: C. trachomatis RNA TMA Not Detected (Not Detected); N. gonorrhoeae RNA TMA Not Detected (Not Detected); Trichomonas (NAAT) Not Detected (Not Detected)
== END 2024-09-08 18:17 | disposition home or self-care (01) ==
LOC: HO.HHCLNP 18:16
PROVIDERS: Visit Provider Advanced Practice Midwife
DX: N93.0 Postcoital and contact bleeding (principal); Z11.3 Encounter for screening for infections with a predominantly sexual mode of transmission
CPT/HCPCS: 87491; 87591; 87661; 88175

== ENCOUNTER 2024-09-11 02:09 | Emergency (ER) | payer MEDICAID, SELFPAY ==
[2024-09-11 02:16] VITALS: BP 111/70; PULSE 100; RESP 20; TEMP 37.5; O2SAT 97; BMI 34.9
[2024-09-11 02:31] LABS: MANUAL DIFF FLAG NO
[2024-09-11 02:32] LABS: Basophils Percent Auto 0.4 % (0-2); Hematocrit 38.2 % (37.0-47.0); Hemoglobin 13.2 g/dl (12.0-16.0); Imm Gran Abs Auto 0.01 X10*3/uL (0.00-0.03); Imm Gran Pct Auto 0.2 % (0.0-0.4); Lymphocytes Absolute Auto 1.6 X10*3/uL (1.2-4.9); Lymphocytes Percent Auto 32.2 % (20-40); Mean Corpuscular HGB Conc 34.6 g/dl (31.0-35.0); Mean Corpuscular Hemoglobin 30.3 pg (27.0-33.0); Mean Corpuscular Volume 87.8 fL (80.0-98.0); Mean Platelet Volume 10.5 fL (9.4-12.3); Monocytes Absolute Auto 0.6 X10*3/uL (0.1-1.2); Monocytes Percent Auto 11.2 % (2-11); Neutrophils Absolute Auto 2.8 x10*3/uL (2.0-8.3); Platelet Count 234 X10*3/uL (160-400); Red Blood Count 4.35 X10*6/uL (4.20-5.50); Red Cell Distribution Width 11.9 % (11.0-16.0); White Blood Count 4.9 X10*3/uL (4.8-10.8)
[2024-09-11 03:02] LABS: Alanine Aminotransferase 50 U/L (0-31); Albumin Level 3.8 g/dL (3.5-5.0); Alkaline Phosphatase 51 U/L (39-117); Anion Gap 12 (12-20); Aspartate Amino Transferase 35 U/L (5-31); Bilirubin Total 0.5 mg/dL (0.0-1.0); Blood Urea Nitrogen 7 mg/dL (9-16); Calcium 8.5 mg/dL (8.4-10.2); Carbon Dioxide 22 mmol/L (22-29); Chloride 105 mmol/L (96-108); Creatinine Clr Calc Pharmacy 156.2; Estimated Glomerular Filt Rate > 60; Glucose Random 104 mg/dL (60-115); HCG Quantitative < 2 mIU/mL; Lipase 17 U/L (8-78); Potassium 3.4 mmol/L (3.3-5.1); Sodium 136 mmol/L (135-145); Total Protein 7.3 g/dL (6.5-8.0)
[2024-09-11 03:08] LABS: Influenza A PCR POSITIVE (Negative); Influenza B PCR NEGATIVE (Negative); Resp Syncy Virus RNA Qual PCR NEGATIVE (Negative); SARS COV2 PCR INHOUSE NEGATIVE (Negative)
--- NOTE | 2024-09-11 05:57 | ED_ITS ---
HPI - General Adult General Chief complaint: General Medical Stated complaint: res symptoms Time Seen by Provider: 09/11/24 05:57 Source: patient Mode of arrival: ambulatory Limitations: no limitations History of Present Illness ED Provider: HPI narrative: Patient's history of asthma been coughing sneezing for last 5 days was seen at urgent care center on 09/09/2024 was told that patient has COVID positive prescribed Paxlovid and inhaler patient did not take Paxlovid yet is still coughing a lot patient is also spotting for last 3 days serum negative Related Data Previous Rx's ?Medication ?Instructions ?Recorded cephalexin 500 mg capsule 1,000 mg (2 x 500 mg) PO BID #20 12/13/22 caps meloxicam 15 mg tablet 15 mg PO DAILY #14 tabs 12/13/22 methocarbamol 750 mg tablet 750 mg PO Q8H PRN back pain #10 12/13/22 tabs ibuprofen 600 mg tablet 600 mg PO Q6H PRN pain #14 tabs 08/27/23 ondansetron 4 mg disintegrating 4 mg PO Q8H PRN nausea and 08/27/23 tablet vomiting #12 tabs naproxen 500 mg tablet 500 mg PO BID PRN pain 7 days #14 10/21/23 tabs cyclobenzaprine 10 mg tablet 10 mg PO TID PRN muscle spasm #7 12/19/23 tabs ibuprofen 600 mg tablet 600 mg PO Q8H PRN pain #14 tabs 12/19/23 acetaminophen 500 mg tablet 1,000 mg (2 x 500 mg) PO Q8H PRN 03/10/24 (Tylenol Extra Strength) pain #30 tabs ibuprofen 600 mg tablet 600 mg PO Q6H PRN pain #30 tabs 03/10/24 lidocaine 5 % topical patch 1 patch topical DAILY #30 ea 03/10/24 (Lidoderm) albuterol sulfate 90 mcg/actuation 1 puff inhalation QID PRN 04/11/24 aerosol inhaler shortness of breath or wheezing #6.7 grams amoxicillin 500 mg capsule 500 mg PO TID 5 days #15 caps 04/11/24 azithromycin 250 mg tablet 250 mg PO DAILY 4 days #4 tabs 04/11/24 benzonatate 100 mg capsule 100 mg PO TID PRN cough #15 caps 04/11/24 prednisone 50 mg tablet 50 mg PO DAILY #4 tabs 04/11/24 codeine 10 mg-guaifenesin 100 mg/5 10 ml PO Q6H PRN cough #237 mL 09/11/24 mL oral liquid prednisone 20 mg tablet 40 mg (2 x 20 mg) PO DAILY #10 tabs 09/11/24 Allergies Allergy/AdvReac Type Severity Reaction Status Date / Time No Known Allergies Allergy Verified 09/11/24 02:20 Review of Systems 2 Review of Systems: Yes all other systems are reviewed and are negative [facility] Social History Social History Advance Directives: No Do you have a plan to hurt others: No Plan Physical Exam ED Vital Signs: Vital Signs - 24 hr 09/11/24 02:16 09/11/24 06:21 Temperature 99.5 F 98 F Pulse Rate 100 91 Respiratory Rate 20 18 Blood Pressure 111/70 107/66 Pulse Oximetry 97 98 Oxygen Delivery Method Room Air Room Air BMI result Body Mass Index 34.9 Appearance: Alert. Oriented X3. No acute distress. ENT: Pharynx erythematous Oral Mucosa moist Neck: Normal inspection. Neck supple. CVS: Normal heart rate and rhythm. Pulses normal. Respiratory: No respiratory distress. Equal air entry bilateral, no wheezing/rales/rhonchi Skin: Skin warm and dry. Normal skin color. Normal skin turgor. Extremities: No lower extremity edema. Neuro: Oriented X 3. Medications Administered Discontinued Medications Generic Name Dose Route Start Last Admin Trade Name Freq PRN Reason Stop Dose Admin Guaifenesin/Codeine Phosphate 10 ml 09/11/24 06:03 09/11/24 06:18 Guaifen/Codeine Sf 200/20/10ml 10 Ml Liquid PO 09/11/24 06:04 10 ml ONCE ONE Administration Ketorolac Tromethamine 60 mg 09/11/24 06:03 09/11/24 06:17 Ketorolac Tromethamine 60 Mg/2 Ml Vial IM 09/11/24 06:04 60 mg ONCE ONE Administration Prednisone 60 mg 09/11/24 06:03 09/11/24 06:18 Prednisone 20 Mg Tablet PO 09/11/24 06:04 60 mg ONCE ONE Administration Medical Decision Making Medical Decision Making MDM Narrative: Patient with influenza A with stable labs taking p.o. fluids feeling much better will discharge patient home on supportive treatment Lab Data MDM Lab Attestation statement: I reviewed the patient's lab results. 09/11/24 02:26 09/11/24 02:26 Labs: Lab Results 09/11/24 09/11/24 Range/Units 02: 02:26 WBC 4.9 (4.8-10.8) X10*3/uL RBC 4.35 (4.20-5.50) X10*6/uL Hgb 13.2 (12.0-16.0) g/dl Hct 38.2 (37.0-47.0) % MCV 87.8 (80.0-98.0) fL MCH 30.3 (27.0-33.0) pg MCHC 34.6 (31.0-35.0) g/dl RDW 11.9 (11.0-16.0) % Plt Count 234 (160-400) X10*3/uL MPV 10.5 (9.4-12.3) fL Immature Gran % (Auto) 0.2 (0.0-0.4) % Neut % (Auto) 56.0 (45-73) % Lymph % (Auto) 32.2 (20-40) % [place] % (Auto) 11.2 H (2-11) % Eos % (Auto) 0.0 (0-4) % Baso % (Auto) 0.4 (0-2) % Lymph # (Auto) 1.6 (1.2-4.9) X10*3/uL Madison # (Auto) 0.6 (0.1-1.2) X10*3/uL Eos # (Auto) 0.0 (0.0-0.4) X10*3/uL Baso # (Auto) 0.0 (0.0-0.2) X10*3/uL Abs Immat Gran (auto) 0.01 (0.00-0.03) X10*3/uL Absolute Neuts (auto) 2.8 (2.0-8.3) x10*3/uL Absolute Nucleated RBC 0.000 (0.0-0.012) X10*3/uL Nucleated RBC % (auto) 0.0 (0.0-0.2) /100WBC Sodium 136 (135-145) mmol/L Potassium 3.4 (3.3-5.1) mmol/L Chloride 105 (96-108) mmol/L Carbon Dioxide 22 (22-29) mmol/L Anion Gap 12 (12-20) BUN 7 L (9-16) mg/dL Creatinine 0.65 (0.5-1.4) mg/dL Estim Creat Clear Calc 156.2 Estimated GFR > 60 Random Glucose 104 (60-115) mg/dL Calcium 8.5 D (8.4-10.2) mg/dL Total Bilirubin 0.5 (0.0-1.0) mg/dL AST 35 H (5-31) U/L ALT 50 H (0-31) U/L Alkaline Phosphatase 51 (39-117) U/L Total Protein 7.3 (6.5-8.0) g/dL Albumin 3.8 (3.5-5.0) g/dL Lipase 17 (8-78) U/L Beta HCG, Quant < 2 mIU/mL Influenza Type A (PCR) POSITIVE A (Negative) Influenza Type B (PCR) NEGATIVE (Negative) RSV RNA Qual (PCR) NEGATIVE (Negative) SARS-CoV-2 RNA (RT-PCR) NEGATIVE (Negative) Discharge Plan Discharge Clinical Impression: Influenza A Patient Disposition: Home, Self-Care Instructions: Influenza (ED) Additional Instructions: Drink plenty of fluids Cough syrup , prednisone as prescribed Continue to use your albuterol inhaler Prescriptions: New prednisone 20 mg tablet 40 mg PO DAILY Qty: 10 0RF codeine-guaifenesin 10-100 mg/5 mL liquid 10 ml PO Q6H PRN (Reason: cough) Qty: 237 0RF No Action cephalexin 500 mg capsule 1,000 mg PO BID Qty: 20 0RF meloxicam 15 mg tablet 15 mg PO DAILY Qty: 14 0RF methocarbamol 750 mg tablet 750 mg PO Q8H PRN (Reason: back pain) Qty: 10 0RF ondansetron 4 mg tablet,disintegrating 4 mg PO Q8H PRN (Reason: nausea and vomiting) Qty: 12 0RF ibuprofen 600 mg tablet 600 mg PO Q6H PRN (Reason: pain) Qty: 14 0RF naproxen 500 mg tablet 500 mg PO BID PRN (Reason: pain) 7 Days Qty: 14 0RF albuterol sulfate 90 mcg/actuation HFA aerosol inhaler 1 puff inhalation QID PRN (Reason: shortness of breath or wheezing) Qty: 6.7 0RF prednisone 50 mg tablet 50 mg PO DAILY Qty: 4 0RF benzonatate 100 mg capsule 100 mg PO TID PRN (Reason: cough) Qty: 15 0RF azithromycin 250 mg tablet 250 mg PO DAILY 4 Days Qty: 4 0RF Rx Instructions: start on day 2 of therapy amoxicillin 500 mg capsule 500 mg PO TID 5 Days Qty: 15 0RF ibuprofen 600 mg tablet 600 mg PO Q8H PRN (Reason: pain) Qty: 14 0RF cyclobenzaprine 10 mg tablet 10 mg PO TID PRN (Reason: muscle spasm) Qty: 7 0RF ibuprofen 600 mg tablet 600 mg PO Q6H PRN (Reason: pain) Qty: 30 0RF acetaminophen [Tylenol Extra Strength] 500 mg tablet 1,000 mg PO Q8H PRN (Reason: pain) Qty: 30 0RF lidocaine [Lidoderm] 5 % adhesive patch,medicated 1 patch topical DAILY Qty: 30 0RF Rx Instructions: leave on most painful area for up to 12 hrs Print Language: Swedish
--- OUTSIDE RECORDS SUMMARY | 2024-09-11 06:08 | XMS_ITS | Encounter Summary ---
Author Organization [employer] Address [address] [facility] 7t [place] [address] Care Team Providers Care Recovery Agent Name Role Phone Liam Vivar MD Primary Care Prov ider Encounter Details Date Type Department Care Team ([facility] Contact Info) Description 08/19/2024 Telephone [employer] [facility] [address] [place] [address] Liam Vivar MD [address] [place] [address] Social History Tobacco Use Types Packs/Day Years [...] Info) Description 09/23/2024 8:30 AM EST Telemedicine [facility] [address] [place] [address] Liam Vivar MD [address] [place] [address] 10/15/2024 9:30 AM EDT Procedure Visit [facility] [address] [place] [address] Earlene Fall, MER [address] [place] [address] documented as of this encounter Visit Diagnoses Not on filedocumented in this encounter Additional Health Concerns Assessment Noted Time PHQ-9 Depression Total Score: 16 025 9:29 AM EST documented as of this encounter Care Teams Recovery Agent Relationship Specialty Start Date End Date Liam Vivar MD [address] [place] [address] PCP - General Internal Medicine 07/22/24 documented as of this encounter
--- OUTSIDE RECORDS SUMMARY | 2024-09-11 06:08 | XMS_ITS | Encounter Summary ---
Author Organization [employer] Address [address] [facility] 7t [place] [address] Care Team Providers Care Allergist/Immunologist Physician Name Role Phone Liam Vivar MD Primary Care Prov ider Reason for Visit * Reason Comments Pre-visit Planning SDOH negative, Tobac co screening negative. Encounter Details Date Type Department Care Team ([facility] st Contact Info) Description 08/12/2024 Patient Outreach [facility] [address] [place] [address] Liam Vivar MD [address] [place] [address] Pre-visit Planning (SDOH negative, Tobacco screening negative. [...] [facility] [address] [place] [address] Liam Vivar MD [address] [place] [address] 10/15/2024 9:30 AM EDT Procedure Visit [facility] [address] [place] [address] Earlene Fall, ALVA [address] [place] [address] documented as of this encounter Visit Diagnoses Not on filedocumented in this encounter Care Teams Allergist/Immunologist Physician Relationship Specialty Start Date End Date Liam Vivar MD [address] [place] [id number] PCP - General Internal Medicine 07/22/24 documented as of this encounter
--- OUTSIDE RECORDS SUMMARY | 2024-09-11 06:08 | XMS_ITS | Encounter Summary ---
Author Organization [employer] Address [address] [facility] [address] [place] [address] Care Team Providers Care Stitcher Feeder Name Role Phone Liam Vivar MD Primary [...] Description 09/23/2024 8:30 AM EST Telemedicine [facility] [address] [place] [address] Liam Vivar MD [address] [place] [address] 10/15/2024 9:30 AM EDT Procedure Visit [facility] [address] [place] [address] Earlene Fall, MER [address] [place] [address] documented as of this encounter Visit Diagnoses Not on filedocumented in this encounter Additional Health Concerns Assessment Noted Time PHQ-9 Depression Total Score: 16 025 9:29 AM EST documented as of this encounter Care Teams Stitcher Feeder Relationship Specialty Start Date End Date Liam Vivar MD [address] [place] [address] PCP - General Internal Medicine 07/22/24 documented as of this encounter
--- OUTSIDE RECORDS SUMMARY | 2024-09-11 06:08 | XMS_ITS | Encounter Summary ---
Author Organization [employer] Address [address] [facility] [address] [place] [address] Care Team Providers Care Bed And Breakfast Operator Name Role Phone Liam Vivar MD Primary Care Prov ider Encounter Details Date Type Department Care Team (Latest Contact Info) Description 09/09/2024 Travel Social History Tobacco Use Types Packs/Day [...] [facility] [address] [place] [address] Liam Vivar MD [address] [place] [address] 10/15/2024 9:30 AM EDT Procedure Visit [facility] [address] [place] [address] Earlene Fall, MER [address] [place] [address] documented as of this encounter Visit Diagnoses Not on filedocumented in this encounter Additional Health Concerns Assessment Noted Time PHQ-9 Depression Total Score: 16 025 9:29 AM EST documented as of this encounter Care Teams Bed And Breakfast Operator Relationship Specialty Start Date End Date Liam Vivar MD [address] [place] [address] PCP - General Internal Medicine 07/22/24 documented as of this encounter
--- OUTSIDE RECORDS SUMMARY | 2024-09-11 06:08 | XMS_ITS | Encounter Summary ---
Author Organization [employer] Address [address] [facility] [address] [place] [address] Care Team Providers Care Machine Operator Helper Name Role Phone Liam Vivar MD Primary Care Prov ider Reason for Visit * Reason Comments Cough Fever Encounter Details Date Type Department Care Team ([facility] st Contact Info) Description 09/09/2024 9:20 AM EST Office Visit [facility] [address] [place] [address] Heather Romero NP [address] [place] [address] Cough in adult patient (Primary Dx); COVID-19; Shortness of breath; Vomiting in adult patient Social History Tobacco Use Types Packs/Day Years [...] Sign Reading Time Taken Comments Blood Pressure 111/76 09/09/2024 9:36 AM EST Pulse 110 09/09/2024 9:36 AM EST Temperature 37.2 ??C (99 ??F) 09/09/2024 9:36 AM EST Respiratory Rate 20 09/09/2024 9:36 AM EST Oxygen Saturation 98% 09/09/2024 9:36 AM EST Inhaled Oxygen Concentration - - Weight 95.7 kg (211 lb) 09/09/2024 9:36 AM EST Height - - Body Mass Index 34.58 09/08/2024 9:18 AM EST documented in this encounter Progress Notes * Kevin Milton MA - 09/09/2024 9:20 AM EST * Heather Romero NP - 09/09/2024 9:20 AM EST SUBJECTIVE: Arlen Nunes is a 19 y.o. female who presents to the Walk in Center for a sick visit. Denies recent illness, injury, or hospitalization. Here with boyfriend Zain. Cough Associated symptoms include a fever, headaches and shortness of breath. Pertinent negatives includeno chest pain, chills, myalgias or rash. Fever Associated symptoms include coughing, headaches, nausea and vomiting. Pertinent negatives include no abdominal pain, chest pain, diarrhea, rash or urinary pain. Per boyfriend, onset yesterday of back pain, fatigue, dizziness, nausea, vomiting, weakness, fever by touch. Review of Systems Constitutional: Positive for fever. Negative for chills. Respiratory: Positive for cough and shortness of breath. Negative for chest tightness. Cardiovascular: Negative for chest pain. Gastrointestinal: Positive for nausea and vomiting. Negative for abdominal pain, constipation and diarrhea. Genitourinary: Negative for dysuria. Musculoskeletal: Negative for arthralgias, back pain, myalgias and neck pain. Skin: Negative. Negative for rash and wound. Neurological: Positive for dizziness, weakness and headaches. Negative for light-headedness. Psychiatric/Behavioral: Negative for behavioral problems, confusion, decreased concentration and suicidal ideas. OBJECTIVE: Visit Vitals BP 111/76 (BP Location: Left arm, Patient Position: Sitting, BP Cuff Size: Adult) Pulse 110 Temp 99 ??F (37.2 ??C) (Temporal) Resp 20 Wt 211 lb (95.7 kg) LMP 08/16/2024 (Exact Date) SpO2 98% BMI 34.58 kg/m?? OB Status Having periods Smoking Status Never BSA 2.1 m?? Patient Active Problem List Diagnosis Upper back pain Chronic pain of left knee Gastroesophageal reflux disease without esophagitis Obesity (BMI 30-39.9) Anxiety and depression Irregular periods Encounter for medical examination to establish care Moderate depressive disorder Severe anxiety with panic Herpes labialis Family history of breast cancer Physical Exam Vitals reviewed. Constitutional: General: She is not in acute distress. Appearance: Normal appearance. She is ill-appearing. HENT: Head: Normocephalic and atraumatic. Right Ear: External ear normal. Left Ear: External ear normal. Nose: Nose normal. Eyes: General: No scleral icterus. Extraocular Movements: Extraocular movements intact. Cardiovascular: Rate and Rhythm: Normal rate and regular rhythm. Pulmonary: Effort: Pulmonary effort is normal. No respiratory distress. Breath sounds: Decreased breath sounds present. Musculoskeletal: General: Normal range of motion. Cervical back: Normal range of motion and neck supple. Lymphadenopathy: Cervical: No cervical adenopathy. Skin: General: Skin is warm. Neurological: General: No focal deficit present. Mental Status: She is alert and oriented to person, place, and time. Gait: Gait normal. Psychiatric: Mood and Affect: Mood normal. Behavior: Behavior normal. Assessment/Plan Diagnoses and all orders for this visit: Cough in adult patient - Influenza A (ID NOW Rapid Molecular) - Influenza B (ID NOW Rapid Molecular) - POCT Rapid COVID Ag COVID-19 Comments: POCT positive COVID, flu negative; within window for paxlovid treatment and there are no med interactions -rx'ed paxlovid and cough suppressant -advised increase fluid intake and rest -tylenol/ibuprofen for pain/fever (patient has at home) -Sore throat: salt water gargles, drink tea with honey & lemon, suck lozenge -come to walk-in center or ED if symptoms worsen Orders: - Nirmatrelvir&Ritonavir 300/100 (Paxlovid, 300/100,) 20 x 150 MG & 10 x 100MG tablet therapy pack; Take 300 mg by mouth 2 times daily. Take 3 tablets 2x/day for 5 days - guaiFENesin (Robitussin) 100 MG/5ML liquid; Take 10 mL (200 mg) by mouth if needed in the morning, at noon, and at bedtime for cough for up to 10 days. Shortness of breath - albuterol 108 (90 Base) MCG/ACT inhaler; Inhale 2 puffs every 6 (six) hours if needed for wheezing. Vomiting in adult patient Comments: -likely r/t COVID infection -advised bland diet (food examples provided), slowly progressing as tolerated -maintain adequate hydration with water/ gatorade -RTC if symptoms worsen or fail to improve -ED precautions reviewed documented in this encounter Plan of Treatment Upcoming Encounters Date Type Department Care Team (Late st Contact Info) Description 09/23/2024 8:30 AM EST Telemedicine [facility] MED & PEDS [address] [place], [place] [phone] Liam Vivar MD [address] [place] [address] 10/15/2024 9:30 AM EDT Procedure Visit [facility] MED & PEDS [address] [place] [address] Juan David Earlene, CNM [address] [place] [address] documented as of this encounter Procedures Procedure Name Priority Date/Time Associated Diagnosis Comments POCT INFLUENZA B (ID NOW RAPID MOLECULAR) Routine 09/09/2024 9:51 AM EST Cough in adult patient POCT INFLUENZA A (ID NOW RAPID MOLECULAR) Routine 09/09/2024 9:51 AM EST Cough in adult patient POCT RAPID COVID ANTIGEN Routine 09/09/2024 9:41 AM EST Cough in adult patient documented in this encounter Results * Influenza B (ID NOW Rapid Molecular) (09/09/2024 9:51 AM EST) Pathologist [facility] Influenza B Negative Negative, Indeterminate [facility] Swab 09/09/2024 9:51 AM EST us Heather Hodgesm INORGANIC CHEMISTRY PROFESSOR POINT OF CARE TEST ENTER/EDIT O RDERABLES Final Result Performing Organization Address [facility]/ZIP Co de Phone Number [facility] [address] [place] [address] [phone] * Influenza A (ID NOW Rapid Molecular) (09/09/2024 9:51 AM EST) Pathologist [facility] Influenza A Negative Negative, Indeterminate [facility] Swab 09/09/2024 9:51 AM EST us Heather Appram INORGANIC CHEMISTRY PROFESSOR POINT OF CARE TEST ENTER/EDIT O RDERABLES Final Result [facility] [address] [place] [address] [phone] * POCT Rapid COVID Ag (09/09/2024 9:41 AM EST) Rapid COVID Ag Positive Swab 09/09/2024 9:41 AM EST [facility] INORGANIC CHEMISTRY PROFESSOR POINT OF CARE TEST ENTER/EDIT O RDERABLES Final Result documented in this encounter Visit Diagnoses Diagnosis Cough in adult patient- Primary COVID-19 Shortness of breath Vomiting in adult patient documented in this encounter Additional Health Concerns Assessment Noted Time PHQ-9 Depression Total Score: 16 025 9:29 AM EST documented as of this encounter Care Teams Machine Operator Helper Relationship Specialty Start Date End Date Liam Vivar MD [address] [place] [phone] PCP - General Internal Medicine 07/22/24 documented as of this encounter
--- OUTSIDE RECORDS SUMMARY | 2024-09-11 06:08 | XMS_ITS | Continuity of Care Document ---
Author Organization [email or web address] Address [address] [place] [address] Phone Care Team Providers Care Centerpuncher Name Role Phone Moises Cui MD Unavailable Unavailable Allergies, Adverse Reactions, Alerts Substance Reaction Status Criticality No Known Allergies Active No Inform ation Procedures Procedure Date OFFICE/OUTPATIENT VISIT, EST IMMUNIZATION ADMIN Flu Vac Preserv Free Quadrivalent 0.5 Ml >6mo IMMUNIZATION ADMIN HPV VACCINE 9 VALENT OFFICE/OUTPATIENT VISIT, EST [facility]/REFERRAL 018 [facility] NUTRITIONAL [facility]ESSMENT [facility] Au [facility] DEVELOPMENTAL ASSESSMENT 8 PURE TONE HEARING TEST, AIR VISUAL ACUITY SCREEN HEMOGLOBIN IMMUNIZATION ADMIN HEP A VACC, PED/ADOL, 2 DOSE PEDIATRIC A IMMUNIZATION ADMIN, EACH ADD MENINGOCOCCAL VACCINE, IM PREV VISIT, NEW, AGE 12-17 Advance Directives Directive Yes / No Effective Date File Name No Information Encounters Encounter Description Practice Location Reason(s) For Visit Diagnoses Date Provider Providers Copied on Encounter [facility], [address], [place], [place], [id number], [place] tel:[phone] [facility] No Information [address], [place], [id number], [place]. tel:[phone] OFFICE/OUTPA TIENT VISIT, EST [facility], [address], [place], [place], [id number], [place] tel:[phone] [facility] flu shot (chief complaint) Needs flu shot No Information OFFICE/OUTPA TIENT VISIT, [facility], [address], [place], [place], [id number], [place] tel:[phone] [facility] Labs Results (chief complaint) Immunization dueEncounter to discuss test results No Information PREV VISIT, NEW, AGE 12-17 [facility], [address], [place], [place], [id number], [place] tel:[phone] [facility] Well child (chief complaint) chest [...] use administered Note: verified by Aminata Whiting [employer]PARTMENT TRAFFIC FREIGHT ROUTER, monitored 15 minutes no reaction ; Source: New Immunization Record Gardisil 9 (HPV 9-valent) administered No te: 15 min monitored, no reaction, dose verified by Olamide Whiting , idx2 ; Source: New Immunization Record Hep A (ped/adol, 2 dose) administered Not e: monitored pt. 15 mins ADELAIDE -dlopez ma ; Source: New Immunization Record MCV4P (meningococcal) administered Note: monitored pt. 15 mins ADELAIDE graibay ma ; Source: New Immunization Record Tdap [...] Insurance type Covered democrat ID Authoriza tion(s) [facility] [id number] [facility] Managed Wrap [id number] [facility] [id number] [facility] Managed Wrap [id number] [facility] [id number] [facility] Managed Wrap [id number] [facility] [id number] [facility] Managed Wrap [id number] Social History Type Description Quantity Date Captured [...] Goal Diet education completed Referral Ordered: Referrals: Flame Cutting Supervisor. Consult ordered Patient Education Well Care - [...]
--- OUTSIDE RECORDS SUMMARY | 2024-09-11 06:08 | XMS_ITS | Encounter Summary ---
Author Organization [employer] Address [address] [facility] 7t [place] [address] Care Team Providers Care Bookkeeping Manager Name Role Phone Liam Vivar MD Primary Care Prov ider Encounter Details Date Type Department Care Team (Late Contact Info) Description 07/14/2024 Orders Only [facility] MED [facility] P[facility] [address] [place] [address] Liam Vivar MD [address] [place] [address] Social History Tobacco Use Types Packs/Day Years [...] Info) Description 09/23/2024 8:30 AM EST Telemedicine [facility] [address] [place], [place] [phone] Liam Vivar MD [address] [place] [address] 10/15/2024 9:30 AM EDT Procedure Visit [facility] MED & PEDS [address] [place] [address] Earlene Fall, ALVA [address] [place] [address] documented as of this encounter Procedures Procedure Name Priority Date/Time Associated Diagnosis Comments CBC WITH AUTO DIFFERENTIAL Routine 09/11/2024 2:26 AM EST HCG, TOTAL, QN Routine 09/11/2024 2:26 AM EST LIPASE Routine 09/11/2024 2:26 AM EST COMPREHENSIVE METABOLIC PANEL Routine 09/11/2024 2:26 AM EST SARS COV2/INFLUENZA A/B AND RSV RNA QL NAAT Routine 09/11/2024 2:25 AM EST documented in this encounter Results * hCG, Total, Quantitative (09/11/2024 2:26 AM EST) HCG Quantitative <2 mIU/mL [facility] Comment:Weeks post LMP Appro ximate hCG(Last Menstrual Period) Range (mIU/ml)3 - 4 weeks 9 - 1304 - 5 weeks 75 - 2,6005 - 6 weeks 850 - 20,8006 - 7 weeks 4000 - 100,2007 - 12 weeks 11,500 - 289,90004 - 16 weeks 18,300 - 137,34282 - 29 weeks (2nd trimester) 1,400 - 53,70141 - 41 weeks (3rd trimester) 940 - 60,000The Dorman B- hCG assay is used for the early detection ofpregnancy; it cannot be used to diagnose any conditionunrelated to . If a B-hCG level is not supportedby the clinical evidence, results should be confirmed by analternative method (qualitative urine hCG, for example). 09/11/2024 2:26 AM EST 09/11/2024 2:30 AM EST us Generic External Data Provider LAB BLOOD ORDERAB LES Final Result Performing Organization Address City/[facility]/ZIP Co de Phone Number [facility] [address] [place] [phone] * Lipase (09/11/2024 2:26 AM EST) Lipase 17 8 - 78 U/L [facility] 09/11/2024 2:26 AM EST 09/11/2024 2:30 AM EST Generic External Data Provider LAB BLOOD ORDERAB LES Final Result Performing Organization Address [facility] de Phone Number [facility] [address] [place] [phone] * (ABNORMAL) Comprehensive Metabolic Panel (09/11/2024 2:26 AM EST) Sodium 136 135 - 145 mmol/L [facility] Potassium 3.4 3.3 - 5.1 mmol/L [facility] Chloride 105 96 - 108 mmol/L [facility] Carbon Dioxide 22 22 - 29 mmol/L [facility] Anion Gap 12 12 - 20 [facility] Urea Nitrogen (BUN) 7(L) 9 - 16 mg/dL [facility] Creatinine, Serum 0.65 0.5 - 1.4 mg/dL [facility] Creatinine Clr Calc Pharmacy 156.2 [facility] Comment:Provided height and weight: 165.1 cm,95.254 kg.eGFR (calculated from the MDRD study equation) and eCrCl(calculated from the Cockcroft-Gault equation) are based ondifferent parameters and may not yield comparable results.If eCrCl result is absurd, please check patient'sheight/weight. Estimated Glomerular Filt Rate >60 [facility] Comment:Chronic Kidney Disea se: Estimated GFR < 60 mL/min/1.57v7Mqgveo Kidney Disease: Estimated GFR < 15 mL/min/1.73m2 Glucose 104 60 - 115 mg/dL [facility] Calcium 8.5 8.4 - 10.2 mg/dL [facility] Bilirubin, Total 0.5 0.0 - 1.0 mg/dL [facility] Aspartate Amino Transferase 35(H) 5 - 31 U/L [facility] Alanine Aminotransferase 50(H) 0 - 31 U/L [facility] Total Protein 7.3 6.5 - 8.0 g/dL [facility] Albumin Level 3.8 3.5 - 5.0 g/dL [facility] Alkaline Phosphatase 51 39 - 117 U/L [facility] 09/11/2024 2:26 AM EST 09/11/2024 2:30 AM EST us Generic External Data Provider LAB BLOOD ORDERAB LES Final Result [facility] [address] [place] [phone] * (ABNORMAL) CBC auto differential (09/11/2024 2:26 AM EST) White Blood Count 4.9 4.8 - 10.8 X10*3/uL [facility] Red Blood Count 4.35 4.20 - 5.50 X10*6/uL [facility] Hemoglobin 13.2 12.0 - 16.0 g/dl [facility] Hematocrit 38.2 37.0 - 47.0 % [facility] Mean Corpuscular Volume 87.8 80.0 - 98.0 fL [facility] Mean Corpuscular Hemoglobin 30.3 27.0 - 33.0 pg [facility] Mean Corpuscular HGB Conc 34.6 31.0 - 35.0 g/dl [facility] Red Cell Distribution Width 11.9 11.0 - 16.0 % [facility] Platelet Count 234 160 - 400 X10*3/uL [facility] Mean Platelet Volume 10.5 9.4 - 12.3 fL [facility] Neutrophils Percent Auto 56.0 45 - 73 % [facility] Imm Gran Pct Auto 0.2 0.0 - 0.4 % [facility] Lymphocytes Percent Auto 32.2 20 - 40 % [facility] Monocytes Percent Auto 11.2(H) 2 - 11 % [facility] Eosinophils Percent Auto 0.0 0 - 4 % [facility] Basophils Percent Auto 0.4 0 - 2 % [facility] NRBC Pct Auto 0.0 0.0 - 0.2 /100WBC [facility] Neutrophils Absolute Auto 2.8 2.0 - 8.3 x10*3/uL [facility] Imm Gran Abs Auto 0.01 0.00 - 0.03 X10*3/uL [facility] Lymphocytes Absolute Auto 1.6 1.2 - 4.9 X10*3/uL [facility] Monocytes Absolute Auto 0.6 0.1 - 1.2 X10*3/uL [facility] Eosinophils Absolute Auto 0.0 0.0 - 0.4 X10*3/uL [facility] Basophils Absolute Auto 0.0 0.0 - 0.2 X10*3/uL [facility] NRBC Abs Auto 0.000 0.0 - 0.012 X10*3/uL [facility] 09/11/2024 2:26 AM EST 09/11/2024 2:30 AM EST us Generic External Data Provider LAB BLOOD ORDERAB LES Final Result [facility] [address] [place] [phone] * (ABNORMAL) SARS-CoV-2 RNA, Influenza A/B, and RSV RNA, Ql NAAT (09/11/2024 2:25 AM EST) Influenza A PCR POSITIVE(A) Negative [facility] Influenza B PCR NEGATIVE Negative [facility] Resp Syncy Virus RNA Qual PCR NEGATIVE Negative [facility] SARS COV2 PCR NEGATIVE Negative [facility] Comment:All test results mus t be correlated with clinical findings.Negative results do not preclude SARS-CoV2, influenza Avirus, influenza B virus and/or RSV infectionand should not be used as the sole basis for treatment orother patient management decisions. Negative results must becombined with clinical observations, patient history, andepidemiological information.This test has not been evaluated for monitoring treatment ofinfection.This test has been authorized by the FDA under an EmergencyUse Authorization (EUA) for use by authorized laboratories.Testing performed on the [employer] GeneXpert utilizingreal-time RT-PCR.All SARS CoV2 and positive influenza A/B results arereported to [facility]. 09/11/2024 2:25 AM EST 09/11/2024 2:30 AM EST us Generic External Data Provider LAB MICROBIOLOGY - GENERAL ORDERABLES Final Result [facility] [address] [place] [address] [phone] documented in this encounter Visit Diagnoses Not on filedocumented in this encounter Care Teams Bookkeeping Manager Relationship Specialty Start Date End Date Liam Vivar MD [address] [place] [phone] PCP - General Internal Medicine 07/22/24 documented as of this encounter
--- OUTSIDE RECORDS SUMMARY | 2024-09-11 06:08 | XMS_ITS | Encounter Summary ---
Author Organization [employer] Address [address] [facility] 7t [place] [address] Care Team Providers Care Credit Collections Analyst Name Role Phone Liam Vivar MD Primary Care Prov ider Reason for Visit * Reason Comments Gynecologic Exam Encounter Details Date Type Department Care Team (Late st Contact Info) Description 09/08/2024 9:15 AM EST Office Visit [facility] MEDICINE [address] [place] [address] Earlene Fall CN [address] [place] [address] Postcoital bleeding (Primary Dx); Screening examination for [...] Info) Description 09/23/2024 8:30 AM EST Telemedicine [facility] MED & PEDS [address] [place] [address] Liam Vivar MD [address] [place] [address] 10/15/2024 9:30 AM EDT Procedure Visit [facility] PEDS [address] [place] [address] Earlene Fall CNM [address] [place] [address] Scheduled Orders Name Type Priority Associated Diagnoses [...] Media Lot # [id number] Lot# Expiration Date [id number] Urine 09/08/2024 9:47 AM EST Earlene DEL [...] documented as of this encounter Care Teams Credit Collections Analyst Relationship Specialty Start Date End Date Liam Vivar MD [address] [place] [phone] PCP - General Internal Medicine 07/22/24 documented as of this encounter
--- OUTSIDE RECORDS SUMMARY | 2024-09-11 06:08 | XMS_ITS | Patient Health Record ---
Author Organization [employer] Address [address] [facility] [id number] [place] [address] Care Team Providers Care Manager Forms Name Role Phone Hattie Mcginnis Primary Care [...] Vaccine Route Administration Date Status Comme nts *VFC: Varicella LIVE Vaccine 0.5 mL SC x 1 Unknown 02/29/2004 Administered *VFC: Tdap Vaccine (7 YEARS AND UP) 0.5 mL IM x 1 Unknown 08/24/2016 Administered *VFC: MMR-V LIVE Vaccine 0.5 mL SC x 1 Unknown 04/09/2007 Administered *VFC: MMR LIVE Vaccine 0.5 mL SC x 1 Unknown 05/01/2004 Administered *VFC: Meningococcal (MenACWY) Vaccine 0.5 mL x 1 Unknown 04/02/2018 Administered *VFC: Meningococcal (MenACWY) Vaccine 0.5 mL x 1 IM Intramuscular 06/15/2019 Administered *VFC: IPV Vaccine 0.5 mL IM x 1 Unknown 04/09/2007 Administered *VFC: Influenza Vaccine, 6mo - 18 yrs IM Intramuscular 06/15/2019 Administered *VFC: HPV-9 Vaccine 0.5 mL IM x 1 Unknown 2014 Administered *VFC: HPV-9 Vaccine 0.5 mL IM x 1 IM Intramuscular 06/15/2019 Administered *VFC: Hib Vaccine 0.5 mL IM x 1 Unknown 2003 Administered *VFC: Hib Vaccine 0.5 mL IM x 1 Unknown 2003 Administered *VFC: Hib Vaccine 0.5 mL IM x 1 Unknown 2003 Administered *VFC: Hib Vaccine 0.5 mL IM x 1 Unknown 02/29/2004 Administered *VFC: DTaP/Hep B/IPV (Pediarix) Vaccine 0.5 mL IM x 1 Unknown 2003 Administered *VFC: DTaP/Hep B/IPV (Pediarix) Vaccine 0.5 mL IM x 1 Unknown 2003 Administered *VFC: DTaP/Hep B/IPV (Pediarix) Vaccine 0.5 mL IM x 1 Unknown 2003 Administered *VFC: DTaP Vaccine (6 YEARS AND YOUNGER) 0.5 mL IM x 1 Unknown 09/01/2004 Administered *VFC: DTaP Vaccine (6 YEARS AND YOUNGER) 0.5 mL IM x 1 Unknown 04/09/2007 Administered *VFC (Pedi/Adol): Hepatitis A Vaccine 0.5 mL IM x 1 Unknown 04/02/2018 Administered *VFC (Pedi/Adol): Hepatitis A Vaccine 0.5 mL IM x 1 IM Intramuscular 06/15/2019 Administered SOCIAL HISTORY Tobacco Use: Social History [...] Problem Syncope and collapse (R55) Active confirmed 589369101 Problem Acute depression (F32.9) Active confirmed Acute depression (347438191) Problem Abnormal menses (N92.6) Active confirmed [id number] Problem Frequent nosebleeds (R04.0) Active confirmed [id number] PLAN OF TREATMENT Pending Test Test Name [...] Coverage End Date Eugenio Valdez [address] [place] [id number] Arlen Nunes Self - patient is the insured MEDICAL (GENERAL) HISTORY Medical History History ICD Code ADHD Intermittent Reflux Surgical History Surgery Date(Month/Year) colonoscopy/endoscopy as inf ant (Failure to thrive, underweight until 5yr) Hospitalization History Reason Date(Month/Year) 1 mo' ICU after swallowed meconium 2002
--- OUTSIDE RECORDS SUMMARY | 2024-09-11 06:08 | XMS_ITS | Clinical Summary ---
Author Organization [employer] Address [address] [facility] 7t [place] [address] Care Team Providers Care Inter Fold Roll Cutter Name Role Phone Liam Vivar MD Primary [...] mouth daily 30 tablet 11 5 Active Nirmatrelvir&R itonavir 300/100 (Paxlovid, 300/100,) 20 x 150 MG & 10 x 100MG tablet therapy packIndication s:COVID-19 Take 300 mg by mouth 2 times daily. Take 3 tablets 2x/day for 5 days 30 each 5 Active guaiFENesin (Robitussin) 100 MG/5ML liquidIndicati ons:COVID-19 Take 10 mL (200 mg) by mouth if needed in the morning, at noon, and at bedtime for cough for up to 10 days. 240 mL 5 09/19/19 25 Active albuterol 108 (90 Base) MCG/ACT inhalerIndicat ions:Shortness of breath Inhale 2 puffs every 6 (six) hours if needed for wheezing. 18 g 11 5 09/09/19 26 Active amoxicillin (Amoxil) 500 MG capsule Take [...] and enrrique. Her sense of belonging and baptism are highly connected and identified as strength. Pt needs guidance in setting up healthy boundaries around her social support (family and worship community). Her focus most part of the [...] organization. Date Type Department Care Team Description 09/09/2024 9:20 AM EST Office Visit [facility] [address] [place] [phone] Heather Romero NP Cough in adult patient (Primary Dx); COVID-19; Shortness of breath; Vomiting in adult patient 09/09/2024 Travel 09/08/2024 9:15 AM EST Office Visit [facility] [address] [place] [phone] Earlene Fall CNM Postcoital bleeding (Primary Dx); Screening examination for venereal disease; Irregular periods; Family history of breast cancer 09/08/2024 Travel 09/03/2024 Refill [facility] [address] [place] [address] Opal Salvador MD Herpes labialis 09/02/[address] [address] Liam Vivar MD Nurse Triage 09/01/2024 2:20 PM EST Office Visit [facility] [address] [place] [address] Opal Salvador MD Herpes labialis (Primary Dx) 08/19/2024 8:30 AM EST Office Visit [facility] [address] [place] [address] Liam Vivar MD Upper back pain (Primary Dx); Chronic pain of left knee; Obesity (BMI 30-39.9); Irregular periods; Gastroesophageal reflux disease without esophagitis; Anxiety and depression; Dietary counseling; Exercise counseling 08/19/2024 Telephone [facility] [address] [place] [phone] Liam Vivar MD 08/19/2024 Travel 08/18/2024 Telephone [facility] [address] [place] [phone] Liam Vivra MD Chart Prep 08/12/2024 Patient Outreach [facility] [address] [place] [address] Liam Vivar MD Pre-visit Planning (SDOH negative, Tobacco screening negative. ) 08/07/2024 2:40 PM EST Office Visit [facility] [address] [address] Nereida Handley MD Strep pharyngitis 07/22/2024 Telephone [facility] [address] [place] [address] Liam Vivar MD TelephoneCall 07/14/2024 Orders Only [facility] [address] [place] [address] Liam Vivar MD 06/30/2024 1:45 PM EST Telemedicine [facility] [address] [place] [address] Liam Vivar MD Encounter for medical examination to establish care (Primary Dx) 06/30/2024 Telephone [facility] [address] [place] [phone] Emily Berman MA 06/30/2024 Travel 06/29/2024 Telephone [facility] [address] [place] [address] Lucille Finn MA Chart Prep from Last [...] (211 lb) 09/09/2024 9:36 AM EST Height 166.4 cm (5' 5.5 ) 09/08/2024 9:18 AM EST Body Mass Index 34.58 09/08/2024 9:18 AM EST Plan of Treatment Upcoming Encounters Date Type Department Care Team ([facility] st Contact Info) Description 09/23/2024 8:30 AM EST Telemedicine [facility] [address] [place] [address] Liam Vivar MD [address] [place] [address] 10/15/2024 9:30 AM EDT Procedure Visit [facility] [address] [place] [address] Earlene Fall, CNM [address] [place] [address] Health Maintenance Due Date Last Done Comments [...] Procedure Name Priority Date/Time Associated Diagnosis Comments HCG, TOTAL, QN Routine 09/11/2024 2:26 AM EST LIPASE Routine 09/11/2024 2:26 AM EST COMPREHENSIVE METABOLIC PANEL Routine 09/11/2024 2:26 AM EST CBC WITH AUTO DIFFERENTIAL Routine 09/11/2024 2:26 AM EST SARS COV2/INFLUENZA A/B AND RSV RNA QL NAAT Routine 09/11/2024 2:25 AM EST POCT INFLUENZA B (ID NOW RAPID MOLECULAR) Routine 09/09/2024 9:51 AM EST Cough in adult patient POCT INFLUENZA A (ID NOW RAPID MOLECULAR) Routine 09/09/2024 9:51 AM EST Cough in adult patient POCT RAPID COVID ANTIGEN Routine 09/09/2024 9:41 AM EST Cough in adult patient POCT , URINE Routine 09/08/2024 9:47 AM EST Postcoital bleeding HERPES CULTURE WITH REFLEX TYPING Routine 09/01/2024 2:35 PM EST Herpes labialis US PELVIS TRANSVAGINAL Routine 7:02 PM EST Irregular periods POC GALLOWAY ID NOW STREP A Routine 08/07/2024 2:05 PM EST Strep pharyngitis from Last 3 Months Results * (ABNORMAL) CBC auto differential (09/11/2024 2:26 AM EST) White Blood Count 4.9 4.8 - 10.8 X10*3/uL [facility] Red Blood Count 4.35 4.20 - 5.50 X10*6/uL [facility] Hemoglobin 13.2 12.0 - 16.0 g/dl [facility] Hematocrit 38.2 37.0 - 47.0 % [facility] Mean Corpuscular Volume 87.8 80.0 - 98.0 fL [facility] Mean Corpuscular Hemoglobin 30.3 27.0 - 33.0 pg [facility] Mean Corpuscular HGB Conc 34.6 31.0 - 35.0 g/dl [facility] Red Cell Distribution Width 11.9 11.0 - 16.0 % [facility] Platelet Count 234 160 - 400 X10*3/uL [facility] Mean Platelet Volume 10.5 9.4 - 12.3 fL [facility] Neutrophils Percent Auto 56.0 45 - 73 % [facility] Imm Gran Pct Auto 0.2 0.0 - 0.4 % [facility] Lymphocytes Percent Auto 32.2 20 - 40 % [facility] Monocytes Percent Auto 11.2(H) 2 - 11 % [facility] Eosinophils Percent Auto 0.0 0 - 4 % [facility] Basophils Percent Auto 0.4 0 - 2 % [facility] NRBC Pct Auto 0.0 0.0 - 0.2 /100WBC [facility] Neutrophils Absolute Auto 2.8 2.0 - 8.3 x10*3/uL [facility] Imm Gran Abs Auto 0.01 0.00 - 0.03 X10*3/uL [facility] Lymphocytes Absolute Auto 1.6 1.2 - 4.9 X10*3/uL [facility] Monocytes Absolute Auto 0.6 0.1 - 1.2 X10*3/uL [facility] Eosinophils Absolute Auto 0.0 0.0 - 0.4 X10*3/uL [facility] Basophils Absolute Auto 0.0 0.0 - 0.2 X10*3/uL [facility] NRBC Abs Auto 0.000 0.0 - 0.012 X10*3/uL [facility] 09/11/2024 2:26 AM EST 09/11/2024 2:30 AM EST Generic External Data Provider LAB BLOOD ORDERAB LES Final Result Performing Organization Address [facility]/ZIP Co de Phone Number [facility] [address] [place] [phone] * hCG, Total, Quantitative (09/11/2024 2:26 AM EST) HCG Quantitative <2 mIU/mL [facility] Comment:Weeks post LMP Appro ximate hCG(Last Menstrual Period) Range (mIU/ml)3 - 4 weeks 9 - 1304 - 5 weeks 75 - 2,6005 - 6 weeks 850 - 20,8006 - 7 weeks 4000 - 100,2007 - 12 weeks 11,500 - 289,55866 - 16 weeks 18,300 - 137,09172 - 29 weeks (2nd trimester) 1,400 - 53,22772 - 41 weeks (3rd trimester) 940 - 60,000The Galloway B- hCG assay is used for the [...] ORDERAB LES Final Result Performing Organization Address [facility] Co de Phone Number [facility] [address] [place] [phone] * Lipase (09/11/2024 2:26 AM EST) Lipase 17 8 - 78 U/L [facility] 09/11/2024 2:26 AM EST 09/11/2024 2:30 AM EST us Generic External Data Provider LAB BLOOD ORDERAB LES Final Result [facility] [address] [place] [phone] * (ABNORMAL) Comprehensive Metabolic Panel (09/11/2024 2:26 AM EST) Sodium 136 135 - 145 mmol/L [facility] Potassium 3.4 3.3 - 5.1 mmol/L [facility] Chloride 105 96 - 108 mmol/L [facility] Carbon Dioxide 22 22 - 29 mmol/L [facility] Anion Gap 12 12 - 20 [facility] Urea Nitrogen (BUN) 7(L) 9 - 16 mg/dL [facility] Creatinine, Serum 0.65 0.5 - 1.4 mg/dL [facility] Creatinine Clr Calc Pharmacy 156.2 [facility] Comment:Provided height and weight: 165.1 cm,95.254 kg.eGFR (calculated from the MDRD study equation) and eCrCl(calculated from the Cockcroft-Gault equation) are based ondifferent parameters and may not yield comparable results.If eCrCl result is absurd, please check patient'sheight/weight. Estimated Glomerular Filt Rate >60 [facility] Comment:Chronic Kidney Disea se: Estimated GFR < 60 mL/min/1.76j2Fmyfrp Kidney Disease: Estimated GFR < 15 mL/min/1.73m2 Glucose 104 60 - 115 mg/dL [facility] Calcium 8.5 8.4 - 10.2 mg/dL [facility] Bilirubin, Total 0.5 0.0 - 1.0 mg/dL [facility] Aspartate Amino Transferase 35(H) 5 - 31 U/L [facility] Alanine Aminotransferase 50(H) 0 - 31 U/L [facility] Total Protein 7.3 6.5 - 8.0 g/dL [facility] Albumin Level 3.8 3.5 - 5.0 g/dL [facility] Alkaline Phosphatase 51 39 - 117 U/L [facility] 09/11/2024 2:26 AM EST 09/11/2024 2:30 AM EST Generic External Data Provider LAB BLOOD ORDERAB LES Final Result Performing Organization Address [facility] Co de Phone Number [facility] [address] [place] [phone] * (ABNORMAL) SARS-CoV-2 RNA, Influenza A/B, and RSV RNA, Ql NAAT (09/11/2024 2:25 AM EST) Influenza A PCR POSITIVE(A) Negative [facility] Influenza B PCR NEGATIVE Negative [facility] Resp Syncy Virus RNA Qual PCR NEGATIVE Negative [facility] SARS COV2 PCR NEGATIVE Negative [facility] Comment:All test results mus t [...] use by authorized laboratories.Testing performed on the [employer] GeneXpert utilizingreal-time RT-PCR.All SARS CoV2 and positive influenza A/B results arereported to [facility]. 09/11/2024 2:25 AM EST 09/11/2024 2:30 AM EST Generic External Data Provider LAB MICROBIOLOGY - GENERAL ORDERABLES Final Result Performing Organization Address [facility]/ZIP Co de Phone Number [facility] [address] [place] [phone] * Influenza B (ID NOW Rapid Molecular) (09/09/2024 9:51 AM EST) [facility] Influenza B Negative Negative, Indeterminate [facility] Swab 09/09/2024 9:51 AM EST [facility] FIELD PRODUCER POINT OF CARE TEST ENTER/EDIT O RDERABLES Final Result Performing Organization Address City/[facility]/ZIP Co de Phone Number [facility] [address] [place] [phone] * Influenza A (ID NOW Rapid Molecular) (09/09/2024 9:51 AM EST) [facility] Influenza A Negative Negative, Indeterminate [facility] Swab 09/09/2024 9:51 AM EST [facility] POINT OF CARE TEST ENTER/EDIT O RDERABLES Final Result Performing Organization Address City/[facility]/ZIP Co de Phone Number [facility] [address] [place] [address] [phone] * POCT Rapid COVID Ag (09/09/2024 9:41 AM EST) [facility] Rapid COVID Ag Positive Swab 09/09/2024 9:41 AM EST [facility] FIELD PRODUCER POINT OF CARE TEST ENTER/EDIT O RDERABLES Final Result * POCT , urine manually resulted (09/08/2024 9:47 AM EST) [facility] Preg Test, Ur Negative Negative, Indeterminate, None Detected, Invalid, Specimen unsatisfactory for evaluation, Weakly Positive QC Media Lot # [id number] Lot# Expiration Date [id number] Urine 09/08/2024 9:47 AM EST Earlene Fall CNM POINT OF CARE TEST ENTER/ EDIT ORDERABLES Final Result * (ABNORMAL) Herpes Simplex Virus Culture with Reflex Typing (09/01/2024 2:35 PM EST) HSV Culture/Type SEE NOTE(A) [facility] Comment:HERPES SIMPLEX VIRUS CULTURE W/RFL TO TYPING Micro Number: [id number] Test Status: Final Specimen Source: Not given Specimen Quality: Adequate HSV Culture: Isolated HSV TYPE 2: Not Isolated HSV TYPE 1: IsolatedTHIS TEST WAS PERFORMED AT:[employer] [id number] MERATI,MD Swab Topography unknown / Unknown 09/01/2024 2:35 PM EST 09/02/2024 11:38 AM EST Opal Salvador MD LAB MICROBIOLOGY - GENERAL ORDERABLES Final Result Performing Organization Address City/State/[facility] Co de Phone Number [facility] [address] [place] [phone] * US Pelvis Transvaginal (08/31/2024 7:02 PM EST) Anatomical Region Laterality Modality Pelvis Ultrasound 08/31/2024 7:02 PM EST Narrative 08/31/2024 7:03 PM EST ? [facility] ?[address] [place] [address]. ?[place] [address] ? Ultrasound Report ? Signed ? Patient: Nunes,Arlen ?MR#: [id number] ?? [id number] ? : 2005 ?Acct:[id number] ? Age/Sex: 19 / F ?ADM Date: 01/27/25 ? Loc: HO.US ? Attending : Liam Tam MD ? Ordering Physician: Rowe Tam,Liam MD ?? Date of Service: 08/31/24 ?? Procedure(s): US pelvic and transvaginal ?? Accession Number(s): [id number] ? cc: Liam Vivar MD ? CLINICAL [...] ? DD/ 01 ? TD/TT: 08/31/241901 ? Manager Of International: ? Procedure Note Donna, Image - 08/31/2024 [place] [address] Ultrasound Report Signed Patient: Mone Nunes#: [id number] : 2005Acct:[id number] Age/Sex: M Date: 08/31/24 Loc: HO.US Attending Dr: Liam Tam MD Ordering Physician: Liam Vivar MD Date of Service: 08/31/24 Procedure(s): US pelvic and transvaginal Accession Number(s): [id number] cc: Liam Vivar MD CLINICAL HISTORY: irregular [...] in OV> 08/31/241902 DD/ 01 TD/TT: 08/31/241901 Manager Of International: Liam Tam MD [facility] PROC[facility] Final Result * (ABNORMAL) POCT rapid strep A manually resulted (08/07/2024 2:05 PM EST) Rapid Strep A Screen Positive( A) Negative, None Detected Swab 08/07/2024 2:05 PM EST us Nereida Handley MD POINT OF CARE TEST ENTER/EDIT OR DERABLES Final Result from Last [address] [place], [place] [address] C[facility] Care Teams Inter Fold Roll Cutter Relationship Specialty Start Date End Date Liam Vivar MD NPI: [id number] [place] [id number] PCP - General Internal Medicine 07/22/24
--- OUTSIDE RECORDS SUMMARY | 2024-09-11 06:08 | XMS_ITS | Encounter Summary ---
Author Organization [employer] Address 75 [facility] 7t [place] [address] Care Team Providers Care Double Cutter Name Role Phone Liam Vivar MD Primary Care Prov ider Reason for Visit * Reason Onset Date Comments Chart Prep 08/18/2024 Encounter Details Date Type Department Care Team ([facility] Contact Info) Description 08/18/2024 Telephone [facility] [address] [place] [address] Liam Vivar MD [address] [place] [address] Chart Prep Social History Tobacco Use Types [...] EST Telemedicine [facility] [address] [place] [address] Liam Vivar MD [address] [place] [address] 10/15/2024 9:30 AM EDT Procedure Visit [facility] [address] [place] [address] Earlene Fall CNM [address] [place] [address] documented as of this encounter Visit Diagnoses Not on filedocumented in this encounter Care Teams Double Cutter Relationship Specialty Start Date End Date Lima Vivar MD [address] [place] [phone] PCP - General Internal Medicine 07/22/24 documented as of this encounter
--- OUTSIDE RECORDS SUMMARY | 2024-09-11 06:08 | XMS_ITS | Encounter Summary ---
Author Organization [employer] Address [address] [facility] [address] [place] [address] Care Team Providers Care Lead Ruby On Rails Developer Name Role Phone Liam Vivar MD [...] 8:30 AM EST Telemedicine [facility] [address] [place] [address] Liam Vivar MD [address] [place] [address] 10/15/2024 9:30 AM EDT Procedure Visit [facility] [address] [place] [address] Earlene Fall, MER [address] [place] [address] documented as of this encounter Visit Diagnoses Not on filedocumented in this encounter Additional Health Concerns Assessment Noted Time PHQ-9 Depression Total Score: 16 025 9:29 AM EST documented as of this encounter Care Teams Lead Ruby On Rails Developer Relationship Specialty Start Date End Date Liam Vivar MD [address] [place] [address] PCP - General Internal Medicine 07/22/24 documented as of this encounter
--- OUTSIDE RECORDS SUMMARY | 2024-09-11 06:08 | XMS_ITS | Encounter Summary ---
Author Organization [employer] Address [address] [facility] [address]t [place] [address] Care Team Providers Care Children'S Librarian Name Role Phone Liam Vivar MD Primary Care Prov ider Reason for Visit * Reason Comments Med Refill Encounter Details Date Type Department Care Team (Late st Contact Info) Description 09/03/2024 Refill [facility] [address] [place] [address] Opal Salvador MD [address] [place] [address] Herpes labialis Social History Tobacco Use Types [...] [facility] [address] [place] [address] Liam Vivar MD [address] [place] [address] 10/15/2024 9:30 AM EDT Procedure Visit [facility] [address] [place] [address] Earlene Fall, ALVA [address] [place] [address] documented as of this encounter Visit Diagnoses Diagnosis Herpes labialis Herpes simplex without mention of complication documented in this encounter Additional Health Concerns Assessment Noted Time PHQ-9 Depression Total Score: 16 025 9:29 AM EST documented as of this encounter Care Teams Children'S Librarian Relationship Specialty Start Date End Date Lima Vivar MD [address] [place] [address] PCP - General Internal Medicine 07/22/24 documented as of this encounter
--- OUTSIDE RECORDS SUMMARY | 2024-09-11 06:08 | XMS_ITS | Encounter Summary ---
Author Organization [employer] Address [address] [facility] [address] [place] [address] Care Team Providers Care Alum Mixer Name Role Phone Liam Vivar MD Primary Care Prov ider Encounter Details Date Type Department Care Team (Late st Contact Info) Description 09/01/2024 2:20 PM EST Office Visit [facility] [address] [place] [address] Opal Salvador MD [address] [place] [phone] Herpes labialis (Primary Dx) Social History Tobacco [...] [facility] [address] [place], [place] [phone] Liam Vivar MD [address] [place] [address] 10/15/2024 9:30 AM EDT Procedure Visit [facility] [address] [place] [address] Earlene Fall, CNM [address] [place] [address] documented as of this encounter Procedures Procedure Name Priority Date/Time Associated Diagnosis Comments HERPES CULTURE WITH REFLEX TYPING Routine 09/01/2024 2:35 PM EST Herpes labialis documented in this encounter Results * (ABNORMAL) Herpes Simplex Virus Culture with Reflex Typing (09/01/2024 2:35 PM EST) HSV Culture/Type SEE NOTE(A) [facility] Comment:HERPES SIMPLEX VIRUS CULTURE W/RFL TO TYPING Micro Number: [id number] Test Status: Final Specimen Source: Not given Specimen Quality: Adequate HSV Culture: Isolated HSV TYPE 2: Not Isolated HSV TYPE 1: IsolatedTHIS TEST WAS PERFORMED AT:[employer] [address] [id number] MERATI,MD Swab Topography unknown / Unknown 09/01/2024 2:35 PM EST 09/02/2024 11:38 AM EST us Opal Salvador MD LAB MICROBIOLOGY - GENERAL ORDERABLES Final Result [facility] [address] [place] [phone] [phone] documented in this encounter Visit Diagnoses Diagnosis Herpes labialis- Primary Herpes simplex without mention of complication documented in this encounter Additional Health Concerns Assessment Noted Time PHQ-9 Depression Total Score: 16 025 9:29 AM EST documented as of this encounter Care Teams Alum Mixer Relationship Specialty Start Date End Date Liam Vivar MD [address] [place] [phone] PCP - General Internal Medicine 07/22/24 documented as of this encounter
--- OUTSIDE RECORDS SUMMARY | 2024-09-11 06:08 | XMS_ITS | Encounter Summary ---
Author Organization [employer] Address [address] [facility] 7t [place] [address] Care Team Providers Care Pbx Inspector Name Role Phone Liam Vivar MD Primary Care Prov ider Reason for Visit * Reason Onset Date Comments Nurse Triage 09/02/2024 Encounter Details Date Type Department Care Team (Late st Contact Info) Description 09/02/2024 Telephone [facility] [address] [place] [address] Liam Vivar MD [address] [place] [address] Nurse Triage Social History Tobacco Use Types [...] caller accepted this outcome. Contact pt at [phone] documented in this encounter Plan of Treatment Upcoming Encounters Date Type Department Care Team ([facility] st Contact Info) Description 09/23/2024 8:30 AM EST Telemedicine [facility] [address] [place] [address] Liam Vivar MD [address] [place] [address] 10/15/2024 9:30 AM EDT Procedure Visit [facility] [address] [place] [address] Earlene Fall, CNM [address] [place] [address] documented as of this encounter Visit Diagnoses Not on filedocumented in this encounter Additional Health Concerns Assessment Noted Time PHQ-9 Depression Total Score: 16 025 9:29 AM EST documented as of this encounter Care Teams Pbx Inspector Relationship Specialty Start Date End Date Liam Vivar MD [address] [place] [address] PCP - General Internal Medicine 07/22/24 documented as of this encounter
--- OUTSIDE RECORDS SUMMARY | 2024-09-11 06:08 | XMS_ITS | Encounter Summary ---
Author Organization [employer] Address [address] [place] [address] [address] [address] Care Team Providers Care Foreign Collection Clerk Name Role Phone Liam Vivar MD Primary Care Prov ider Reason for Referral * Imaging (Routine) - Closed Specialty Diagnoses / Procedures Referred By Betty redd Referred To Contact Radiology Diagnoses Irregular periods Procedures US Pelvis Transvaginal Liam Vivar MD [address] [place] [address] Phone: tel: fax: [address] Phone: tel: fax: Referral ID Status Reason Start Date Expiration Date Visits Re quested Visits Authorized [id number] Closed 08/19/2024 08/19/2025 1 1 * Consultation (Routine) - Closed Specialty Diagnoses / Procedures Referred By Betty redd Referred To Contact Physical Therapy Diagnoses Chronic pain of left knee Liam Vivar MD [address] [place] [address] Phone: tel: fax: [facility] Physical Therapy [address] [place] [address] Phone: tel: fax: Referral ID Status Reason Start Date Expiration Date V isits Requested Visits Authorized [id number] Closed Specialty Services Required 08/19/2024 08/19/2025 1 1 * Consultation (Routine) - Closed Specialty Diagnoses / Procedures Referred By Contac t Referred To Contact Physical Therapy Diagnoses Upper back pain Liam Vivar MD [address] [place] [address] Phone: tel: fax: [facility] Physical Therapy [address] [place] [address] Phone: tel: fax: Referral ID Status Reason Start Date Expiration Date V isits Requested Visits Authorized [id number] Closed Specialty Services Required 08/19/2024 08/19/2025 1 1 Reason for Visit * Reason Comments Annual Exam Encounter Details Date Type Department Care Team ([facility] st Contact Info) Description 08/19/2024 8:30 AM EST Office Visit [facility]EDS [address] [place] [address] Liam Vivar MD [address] [place] [address] Upper back pain (Primary Dx); Chronic pain [...] Telemedicine [facility] MED & PEDS [address] [place] [address] Liam Vivar MD [address] [place] [address] 10/15/2024 9:30 AM EDT Procedure Visit [facility] [address] [place] [address] Earlene Fall, CN [address] [place] [address] Scheduled Orders Name Type Priority Associated Diagnoses [...] EST Narrative 08/31/2024 7:03 PM EST ? [facility] ?[address] ?[place] [address] ? Ultrasound Report ? Signed ? Patient: Nunes,Arlen ?MR#: [id number] ?? [id number] ? : 2005 ?Acct:[id number] ? Age/Sex: 19 / F ?ADM Date: 01/27/25 ? Loc: HO.US ? Attending Dr: Liam Tam MD ? Ordering Physician: Liam Vivar MD ?? Date of Service: 08/31/24 ?? Procedure(s): US pelvic and transvaginal ?? Accession Number(s): [id number] ? cc: Liam Vivar MD ? CLINICAL [...] DD/ 1902 ? TD/TT: 08/31/24 1902 ? Orthopaedic Surgeon: ? Procedure Note Donna, Image - 08/31/2024 [place] [address] Ultrasound Report Signed Patient: Mone Nunes#: [id number] : 2005Acct:[id number] Age/Sex: Date: 08/31/24 Loc: HO.US Attending Dr: Liam Tam MD Ordering Physician: Liam Vivar MD Date of Service: 08/31/24 Procedure(s): US pelvic and transvaginal Accession Number(s): [id number] cc: Liam Vivar MD CLINICAL HISTORY: irregular [...] in OV> 08/31/241902 DD/ 01 TD/TT: 08/31/241901 Orthopaedic Surgeon: us Liam Tam MD IM US PROCEDURES [...] documented as of this encounter Care Teams Foreign Collection Clerk Relationship Specialty Start Date End Date Liam Vivar MD [address] [place] [address] PCP - General Internal Medicine 07/22/24 documented as of this encounter
--- OUTSIDE RECORDS SUMMARY | 2024-09-11 06:08 | XMS_ITS | Clinical Summary ---
Author Organization [facility] Address [address] [place] [address] Care Team Providers Care Vice President Of Business Development Name Role Phone Pcp, No Primary Care [...] age to complete this topic Care Teams Vice President Of Business Development Relationship Specialty Start Date End Date Pcp, No 80 CARLOS Goldberg [address] PCP - General 03/08/21
[2024-09-11] MEDS: Ketorolac Tromethamine 60 MG/2 ML VIAL IM (06:17)
[2024-09-11] MEDS: guaiFEN/Codeine SF 200/20/10ML 10 ML LIQUID PO (06:18)
[2024-09-11] MEDS: predniSONE 20 MG TABLET 60 MG PO (06:18)
[2024-09-11 06:21] VITALS: BP 107/66; PULSE 91; RESP 18; TEMP 36.6; O2SAT 98
[2024-09-11 07:04] VITALS: BP 107/66; PULSE 91; RESP 18; TEMP 36.6; O2SAT 98
== END 2024-09-11 07:05 | disposition home or self-care (01) ==
PROVIDERS: Emergency Provider Internal Medicine; PCP Internal Medicine
DX: J10.1 Influenza due to other identified influenza virus with other respiratory manifestations (principal); R05.9 Cough, unspecified; Z03.818 Encounter for observation for suspected exposure to other biological agents ruled out; Z79.899 Other long term (current) drug therapy
CPT/HCPCS: 0241U; 36415; 80053; 83690; 84702; 85025; 96372; 99284; J1885

== ENCOUNTER 2024-09-14 15:08 | Outpatient (REF) | payer MEDICAID, SELFPAY ==
[2024-09-14 16:07] LABS: MANUAL DIFF FLAG NO
[2024-09-14 16:14] LABS: Hematocrit 38.7 % (37.0-47.0); Hemoglobin 12.6 g/dl (12.0-16.0); Imm Gran Abs Auto 0.03 X10*3/uL (0.00-0.03); Imm Gran Pct Auto 0.5 % (0.0-0.4); Lymphocytes Absolute Auto 0.9 X10*3/uL (1.2-4.9); Lymphocytes Percent Auto 14.9 % (20-40); Mean Corpuscular HGB Conc 32.6 g/dl (31.0-35.0); Mean Corpuscular Hemoglobin 29.5 pg (27.0-33.0); Mean Corpuscular Volume 90.6 fL (80.0-98.0); Mean Platelet Volume 11.3 fL (9.4-12.3); Monocytes Absolute Auto 0.3 X10*3/uL (0.1-1.2); Neutrophils Absolute Auto 5.1 x10*3/uL (2.0-8.3); Neutrophils Percent Auto 80.6 % (45-73); Platelet Count 268 X10*3/uL (160-400); Red Blood Count 4.27 X10*6/uL (4.20-5.50); White Blood Count 6.3 X10*3/uL (4.8-10.8)
--- OUTSIDE RECORDS SUMMARY | 2024-09-14 16:15 | XMS_ITS | Encounter Summary ---
Author Organization [employer] Address [address] 7t [place] [address] Care Team Providers Care Retail Representative Name Role Phone Liam Vivar MD Primary [...] your housing situation today? I have nyaligia buchnaan 08/12/[address] you li [...] [facility] MED & [facility] [address] [place] [address] Liam Vivar MD [address] [place] [address] 10/15/2024 9:30 AM EDT Procedure Visit [facility] [address] [place] [address] Earlene Fall, MER 230 [place] [address] documented as of this encounter Visit Diagnoses Not on filedocumented in this encounter Additional Health Concerns Assessment Noted Time PHQ-9 Depression Total Score: 16 025 9:29 AM EST documented as of this encounter Care Teams Retail Representative Relationship Specialty Start Date End Date Liam Vivar MD [address] [place] [address] PCP - General Internal Medicine 07/22/24 documented as of this encounter
--- OUTSIDE RECORDS SUMMARY | 2024-09-14 16:15 | XMS_ITS | Patient Health Record ---
Author Organization [employer] Address [address] [facility] [id number] [place] [address] Care Team Providers Care Gem Expert Name Role Phone Hattie Mcginnis Primary Care [...] Problem Syncope and collapse (R55) Active confirmed [id number] Problem Acute depression (F32.9) Active confirmed Acute depression (104097239) Problem Abnormal menses (N92.6) Active confirmed [id number] Problem Frequent nosebleeds (R04.0) Active confirmed [id number] PLAN OF TREATMENT Pending Test Test Name [...] Coverage End Date Eugenio Valdez [address] [place] [id number] Arlen Nunes Self - patient is the insured MEDICAL (GENERAL) HISTORY Medical History History ICD Code ADHD Intermittent Reflux Surgical History Surgery Date(Month/Year) colonoscopy/endoscopy as inf ant (Failure to thrive, underweight until 5yr) Hospitalization History Reason Date(Month/Year) 1 mo' ICU after swallowed meconium 2002
--- OUTSIDE RECORDS SUMMARY | 2024-09-14 16:15 | XMS_ITS | Continuity of Care Document ---
Author Organization [employer] Address [address] [place] [address] Phone Care Team Providers Care Pot Fisher Name Role Phone Moises Cui MD Unavailable Unavailable Allergies, Adverse Reactions, Alerts Substance Reaction Status Criticality No Known Allergies Active No Inform ation Procedures Procedure Date OFFICE/OUTPATIENT VISIT, EST IMMUNIZATION ADMIN Flu Vac Preserv Free Quadrivalent 0.5 Ml >6mo IMMUNIZATION ADMIN HPV VACCINE 9 VALENT OFFICE/OUTPATIENT VISIT, EST [facility]/REFERRAL 018 [facility] NUTRITIONAL ASSESSMENT [facility]. Au [facility] DEVELOPMENTAL ASSESSMENT 8 PURE TONE HEARING TEST, AIR VISUAL ACUITY SCREEN HEMOGLOBIN IMMUNIZATION ADMIN HEP A VACC, PED/ADOL, 2 DOSE PEDIATRIC A IMMUNIZATION ADMIN, EACH ADD MENINGOCOCCAL VACCINE, IM PREV VISIT, NEW, AGE 12-17 Advance Directives Directive Yes / No Effective Date File Name No Information Encounters Encounter Description Practice Location Reason(s) For Visit Diagnoses Date Provider Providers Copied on Encounter [employer], [address], [place], [place], [id number], [place] tel:[phone] [facility] No Information [address] Basilia De Leon. [address] [place], [place], [id number], [place]. tel:[phone] OFFICE/OUTPA TIENT VISIT, EST [facility], [address], [place], [place], [id number], [place] tel:[phone] [facility] flu shot (chief complaint) Needs flu shot No Information OFFICE/OUTPA TIENT VISIT, [facility], [address], [place], [place], [id number], [place] tel:[phone] [facility] Labs Results (chief complaint) Immunization dueEncounter to discuss test results No Information PREV VISIT, NEW, AGE 12-17 [facility], [address], [place], [place], [address], [place] tel:[phone] [facility] Well child (chief complaint) chest [...] use administered Note: verified by Aminata Whiting HOUSE REGISTRY RN, monitored 15 minutes no reaction ; Source: [...] Record Payers Payer name Insurance type Covered alliance party ID Authoriza tion(s) [facility] [id number] [facility] Managed Wrap [id number] [facility] [id number] [facility] [employer] [id number] [facility] [id number] [facility] Man[employer] W[employer] [id number] [facility] [id number] [facility] Man[employer] W[employer] [id number] Social History Type Description Quantity Date Captured [...] Goal Diet education completed Referral Ordered: Referrals: Tugboat Captain. Consult ordered Patient Education Well Care - [...]
--- OUTSIDE RECORDS SUMMARY | 2024-09-14 16:15 | XMS_ITS | Encounter Summary ---
Author Organization [employer] Address [address] [place] [address] [facility] [place] [address] Care Team Providers Care Director Of Quality Name Role Phone Liam Vivar MD Primary Care Prov ider Reason for Referral * Imaging (Routine) - Closed Specialty Diagnoses / Procedures Referred By Betty redd Referred To Contact Radiology Diagnoses Irregular periods Procedures US Pelvis Transvaginal Liam Vivar MD [address] [place] [address] Phone: tel: fax: [address] Phone: tel: fax: Referral ID Status Reason Start Date Expiration Date Visits Re quested Visits Authorized [id number] Closed 08/19/2024 08/19/2025 1 1 * Consultation (Routine) - Closed Specialty Diagnoses / Procedures Referred By Betty redd Referred To Contact Physical Therapy Diagnoses Chronic pain of left knee Liam Vivar MD [address] [place] [address] Phone: tel: fax: [facility] Physical Therapy [address] [place] [address] Phone: tel: fax: Referral ID Status Reason Start Date Expiration Date V isits Requested Visits Authorized [id number] Closed Specialty Services Required 08/19/2024 08/19/2025 1 1 * Consultation (Routine) - Closed Specialty Diagnoses / Procedures Referred By Contac t Referred To Contact Physical Therapy Diagnoses Upper back pain Liam Vivar MD [address] [place] [address] Phone: tel: fax: [facility] Physical Therapy [address] [place] [address] Phone: tel: fax: Referral ID Status Reason Start Date Expiration Date V isits Requested Visits Authorized [id number] Closed Specialty Services Required 08/19/2024 08/19/2025 1 1 Reason for Visit * Reason Comments Annual Exam Encounter Details Date Type Department Care Team ([facility] st Contact Info) Description 08/19/2024 8:30 AM EST Office Visit [facility] & [facility] [address] [place] [address] Liam Vivar MD [address] [place] [address] Upper back pain (Primary Dx); Chronic pain [...] [facility] MED & P[facility] [address] [place] [address] Liam Vivar MD [address] [place] [address] 10/15/2024 9:30 AM EDT Procedure Visit [facility] & P[facility] [address] [place] [address] Earlene Fall, CN [address] [place] [address] Scheduled Orders Name Type Priority Associated Diagnoses Orde r Schedule Comprehensive Metabolic Panel Lab Routine Obesity (BMI [...] Diagnosis Comments CBC WITH AUTO DIFFERENTIAL Routine 09/14/2024 3:11 PM EST Obesity (BMI 30-39.9) US PELVIS TRANSVAGINAL Routine 08/31/2024 7:02 PM EST Irregular periods documented in this encounter Results * (ABNORMAL) CBC auto differential (09/14/2024 3:11 PM EST) White Blood Count 6.3 4.8 - 10.8 X10*3/uL [facility] Red Blood Count 4.27 4.20 - 5.50 X10*6/uL [facility] Hemoglobin 12.6 12.0 - 16.0 g/dl [facility] Hematocrit 38.7 37.0 - 47.0 % [facility] Mean Corpuscular Volume 90.6 80.0 - 98.0 fL [facility] Mean Corpuscular Hemoglobin 29.5 27.0 - 33.0 pg [facility] Mean Corpuscular HGB Conc 32.6 31.0 - 35.0 g/dl [facility] Red Cell Distribution Width 12.0 11.0 - 16.0 % [facility] Platelet Count 268 160 - 400 X10*3/uL [facility] Mean Platelet Volume 11.3 9.4 - 12.3 fL [facility] Neutrophils Percent Auto 80.6(H) 45 - 73 % [facility] Imm Gran Pct Auto 0.5(H) 0.0 - 0.4 % [facility] Lymphocytes Percent Auto 14.9(L) 20 - 40 % [facility] Monocytes Percent Auto 4.0 2 - 11 % [facility] Eosinophils Percent Auto 0.0 0 - 4 % [facility] Basophils Percent Auto 0.0 0 - 2 % [facility] NRBC Pct Auto 0.0 0.0 - 0.2 /100WBC [facility] Neutrophils Absolute Auto 5.1 2.0 - 8.3 x10*3/uL [facility] Imm Gran Abs Auto 0.03 0.00 - 0.03 X10*3/uL [facility] Lymphocytes Absolute Auto 0.9(L) 1.2 - 4.9 X10*3/uL [facility] Monocytes Absolute Auto 0.3 0.1 - 1.2 X10*3/uL [facility] Eosinophils Absolute Auto 0.0 0.0 - 0.4 X10*3/uL [facility] Basophils Absolute Auto 0.0 0.0 - 0.2 X10*3/uL [facility] NRBC Abs Auto 0.000 0.0 - 0.012 X10*3/uL [facility] Blood Venous blood specimen / Unknown 09/14/2024 3:11 PM EST 09/14/2024 4:02 PM EST us Liam Tam MD LAB BLOOD ORDERABL ES Final Result [facility] [address] [place] [address] [phone] * US Pelvis Transvaginal (08/31/2024 7:02 PM EST) Anatomical Region Laterality Modality Pelvis Ultrasound 08/31/2024 7:02 PM EST Narrative 08/31/2024 7:03 PM EST ? [facility] ?[address] ?[place] [address] ? Ultrasound Report ? Signed ? Patient: Nunes,Arlen ?MR#: [id number] ?? [id number] ? : 2005 ?Acct:[id number] ? Age/Sex: 19 / F ?ADM Date: 08/31/24 ? Loc: HO.US ? Attending Dr: Liam Tam MD ? Ordering Physician: Liam Vivar MD ?? Date of Service: 08/31/24 ?? Procedure(s): US pelvic and transvaginal ?? Accession Number(s): [id number] ? cc: Liam Vivar MD ? CLINICAL [...] by Maikol Barnett MD in OV> ? 08/31/243 ? DD/ 01 ? TD/TT: 08/31/241901 ? [facility] Supervisor: ? Procedure Note Raffaele Thompson - 08/31/2024 [facility] [address] [place] [address] Ultrasound Report Signed Patient: Sky NunesSouravR#: [id number] : 2005Acct:[id number] Age/Sex: 19 / FADM Date: 08/31/24 Loc: HO.US Attending Dr: Liam Tam MD Ordering Physician: Liam Vivar MD Date of Service: 08/31/24 Procedure(s): US pelvic and transvaginal Accession Number(s): [id number] cc: Liam Vivar MD CLINICAL HISTORY: irregular [...] in OV> 08/31/241902 DD/ 01 TD/TT: 08/31/241901 [facility] Supervisor: Liam Tam MD IMG US PROCEDURES Final Result documented in this [...] documented as of this encounter Care Teams Director Of Quality Relationship Specialty Start Date End Date Liam Vivar MD [address] [place] [address] PCP - General Internal Medicine 07/22/24 documented as of this encounter
--- OUTSIDE RECORDS SUMMARY | 2024-09-14 16:15 | XMS_ITS | Encounter Summary ---
Author Organization [employer] Address [address] [facility] 7t [place] [address] Care Team Providers Care Elementary Esl Teacher Name Role Phone Liam Vivar MD Primary Care Prov ider Reason for Visit * Reason Comments Gynecologic Exam Encounter Details Date Type Department Care Team (Late st Contact Info) Description 09/08/2024 9:15 AM EST Office Visit [facility] [address] [place] [address] Earlene Fall CN [address] [place] [address] Postcoital bleeding (Primary Dx); Screening examination for [...] Info) Description 09/23/2024 8:30 AM EST Telemedicine [facility] MED & PED[facility] [address] [place] [address] Liam Vivar MD [address] [place] [address] 10/15/2024 9:30 AM EDT Procedure Visit [facility] [address] [place] [address] Earlene Fall CNM [address] [place] [address] Scheduled Orders Name Type Priority Associated Diagnoses Orde r Schedule Pap Smear Pathology and Cytology Routine Postcoital bleeding Ordered: 09/08/2024 Testosterone, Total, males (Adult), IA Lab Routine Irregular periods Expected: 09/08/2024, Expires: 09/08/2025 Syphilis Screen Lab Routine Screening examination for venereal disease Expected: 09/08/2024, Expires: 09/08/2025 documented as of this encounter Procedures Procedure Name Priority Date/Time Associated Diagnosis Comments CHLAMYDIA/N. GONORRHOEAE AND T. VAGINALIS RNA, QUAL,TMA Routine 09/08/2024 9:48 AM EST Postcoital bleeding Screening examination for venereal disease POCT , URINE Routine 09/08/2024 9:47 AM EST Postcoital bleeding documented in this encounter Results * STI testing add on (NG, CT, Trich) (09/08/2024 9:48 AM EST) Trichomonas (NAAT) Not Detected Not Detected [facility] Comment:Methodology: Transcr iption Mediated Amplification(TMA)The analytical performance characteristics of thisassay have been determined by [place]. The modificationshave not been cleared or approved by the FDA. Thisassay has been validated pursuant to the CLIAregulations and is used for clinical purposes.For additional information, please refer tohttp://[employer].GiveForward/faq/Trichomonastma (This link is being providedfor information/educational purposes only).THIS TEST WAS PERFORMED AT:[employer] [id number] [place] [address]LIFSPDFELIAZAR MILLER MD,PHD CTNG Ref Lab Not Detected Not Detected [facility] NG Ref Lab Not Detected Not Detected [facility] Comment:Methodology: Transcr iption Mediated Amplification(TMA) to detect RNA.The analytical performance characteristics of thisassay, when used to test SurePath specimens havebeen determined by [employer]. The modificationshave not been cleared or approved by the FDA.This assay has been validated pursuant to the CLIAregulations and is used for clinical purposes.For additional information, please refer tohttps://education.GiveForward/faq/NYX642(This link is being provided for information/educational purposes only).THIS TEST WAS PERFORMED AT:[employer] [id number] [place] [address]CDOSKSDELIAZAR MILLER MD,PHD ThinPrep?? vial Cervix uteri structure / Unknown 09/08/2024 9:48 AM EST 09/09/2024 9:15 AM EST Narrative [facility] - 09/13/2024 8:03 PM EST Collection Date: [id number] by: JENNIFER Chen: Cervix Earlene DEL ANG[facility] LAB CYTOLOGY ORDERABLES F inal Result [facility] [address] [place] [address] [phone] * POCT , urine manually resulted (09/08/2024 9:47 AM EST) Preg Test, Ur Negative Negative, Indeterminate, None Detected, Invalid, Specimen unsatisfactory for evaluation, Weakly Positive QC Media Lot # [id number] Lot# Expiration Date [id number] Urine 09/08/2024 9:47 AM EST Earlene Fall [...] documented as of this encounter Care Teams Elementary Esl Teacher Relationship Specialty Start Date End Date Liam Vivar MD [address] [place] [address] PCP - General Internal Medicine 07/22/24 documented as of this encounter
--- OUTSIDE RECORDS SUMMARY | 2024-09-14 16:15 | XMS_ITS | Clinical Summary ---
Author Organization [facility] Address [address] [place] [address] Care Team Providers Care Elderly Sitter Name Role Phone Pcp, No Primary Care [...] age to complete this topic Care Teams Elderly Sitter Relationship Specialty Start Date End Date Pcp, No 80 CARLOS Goldberg [address] PCP - General 03/08/21
--- OUTSIDE RECORDS SUMMARY | 2024-09-14 16:15 | XMS_ITS | Encounter Summary ---
Author Organization [employer] Address [address] [facility] 7t [place] [address] Care Team Providers Care Computational Mathematician Name Role Phone Liam Vivar MD Primary Care Prov ider Reason for Visit * Reason Comments Cough Fever Encounter Details Date Type Department Care Team ([facility] st Contact Info) Description 09/09/2024 9:20 AM EST Office Visit [facility] [address] [place] [address] Heather Romero NP [address] [place] [address] Cough in adult patient (Primary Dx); COVID-19; [...] 09/23/2024 8:30 AM EST Telemedicine [facility] MED & PED[facility] [address] [place], [place] [phone] Liam Vivar MD [address] [place] [address] 10/15/2024 9:30 AM EDT Procedure Visit [facility] & [facility]EDS [address] [place] [address] Juan David Earlene, CNM [address] [place] [address] documented as of this encounter Procedures Procedure [...] Rapid Molecular) (09/09/2024 9:51 AM EST) Pathologist [facility] Influenza B Negative Negative, Indeterminate [facility] Swab 09/09/2024 9:51 AM EST us Heather Hodgesm PHYSICAL TESTING SUPERVISOR POINT OF CARE TEST ENTER/EDIT O RDERABLES Final Result Performing Organization Address [facility]/ZIP Co de Phone Number [facility] [address] [place] [address] [phone] * Influenza A (ID NOW Rapid Molecular) (09/09/2024 9:51 AM EST) Pathologist [facility] Influenza A Negative Negative, Indeterminate [facility] Swab 09/09/2024 9:51 AM EST us Heather Appram PHYSICAL TESTING SUPERVISOR POINT OF CARE TEST ENTER/EDIT O RDERABLES Final Result [facility] [address] [place] [address] [phone] * POCT Rapid COVID Ag (09/09/2024 9:41 AM EST) Rapid COVID Ag Positive Swab 09/09/2024 9:41 AM EST [facility] PHYSICAL TESTING SUPERVISOR POINT OF CARE TEST ENTER/EDIT O RDERABLES Final Result documented in this encounter Visit Diagnoses Diagnosis Cough in adult patient- Primary COVID-19 Shortness of breath Vomiting in adult patient documented in this encounter Additional Health Concerns Assessment Noted Time PHQ-9 Depression Total Score: 16 025 9:29 AM EST documented as of this encounter Care Teams Computational Mathematician Relationship Specialty Start Date End Date Liam Vivar MD [address] [place] [address] PCP - General Internal Medicine 07/22/24 documented as of this encounter
--- OUTSIDE RECORDS SUMMARY | 2024-09-14 16:15 | XMS_ITS | Encounter Summary ---
Author Organization [employer] Address [address] [facility] [address] 7t [place] [address] Care Team Providers Care Digital Press Operator Name Role Phone Liam Vivar MD Primary Care Prov ider Reason for Visit * Reason Comments Med Refill Encounter Details Date Type Department Care Team (Late st Contact Info) Description 09/03/2024 Refill [facility] [address] [place] [address] Opal Salvador MD [address] [place] [address] Herpes labialis Social History Tobacco Use Types [...] Description 09/23/2024 8:30 AM EST Telemedicine [facility] MED & PEDS [address] [place] [address] Liam Vivar MD [address] [place] [address] 10/15/2024 9:30 AM EDT Procedure Visit [facility] PED[facility] [address] [place] [address] Earlene Fall, ALVA [address] [place] [address] documented as of this encounter Visit Diagnoses Diagnosis Herpes labialis Herpes simplex without mention of complication documented in this encounter Additional Health Concerns Assessment Noted Time PHQ-9 Depression Total Score: 16 025 9:29 AM EST documented as of this encounter Care Teams Digital Press Operator Relationship Specialty Start Date End Date Liam Vivar MD [address] [place] [address] PCP - General Internal Medicine 07/22/24 documented as of this encounter
--- OUTSIDE RECORDS SUMMARY | 2024-09-14 16:15 | XMS_ITS | Encounter Summary ---
Author Organization [employer] Address 75 [facility] 7t [place] [address] Care Team Providers Care Make Up Girl Name Role Phone Liam Vivar MD Primary Care Prov ider Reason for Visit * Reason Onset Date Comments Chart Prep 08/18/2024 Encounter Details Date Type Department Care Team ([facility] Contact Info) Description 08/18/2024 Telephone [facility] [address] [place] [address] Liam Vivar MD [address] [place] [address] Chart Prep Social History Tobacco Use Types [...] AM EST Telemedicine [facility] [address] [place] [address] Liam Vivar MD [address] [place] [address] 10/15/2024 9:30 AM EDT Procedure Visit [facility] [address] [place] [address] Earlene Fall CNM [address] [place] [address] documented as of this encounter Visit Diagnoses Not on filedocumented in this encounter Care Teams Make Up Girl Relationship Specialty Start Date End Date Liam Vivar MD [address] [place] [phone] PCP - General Internal Medicine 07/22/24 documented as of this encounter
--- OUTSIDE RECORDS SUMMARY | 2024-09-14 16:15 | XMS_ITS | Encounter Summary ---
Author Organization [employer] Address [address] [facility] [address] 7t [place] [address] Care Team Providers Care Shift Coordinator Name Role Phone Liam Vivar MD [...] 09/23/2024 8:30 AM EST Telemedicine [facility] [address] [place] [address] Liam Vivra MD 505 [place] [address] 10/15/2024 9:30 AM EDT Procedure Visit [facility] 505 [place] [address] Earlene Fall, MER [address] [place] [address] documented as of this encounter Visit Diagnoses Not on filedocumented in this encounter Additional Health Concerns Assessment Noted Time PHQ-9 Depression Total Score: 16 025 9:29 AM EST documented as of this encounter Care Teams Shift Coordinator Relationship Specialty Start Date End Date Liam Vivar MD [address] [place] [address] PCP - General Internal Medicine 07/22/24 documented as of this encounter
--- OUTSIDE RECORDS SUMMARY | 2024-09-14 16:15 | XMS_ITS | Encounter Summary ---
Author Organization [employer] Address 75 [facility] 7 [place] [address] Care Team Providers Care Automotive Parts Interpreter Name Role Phone Liam Vivar MD Primary Care Prov ider Reason for Visit * Reason Comments Care Coordination C3 -Ashley ko telephone call outreach Encounter Details Date Type Department Care Team (Latest Contact Info) Description 09/11/2024 Patient Outreach [facility] [address] [place] [address] Liam Vivar MD [address] [place] [address] Care Coordination (C3 RODRIGO Hines telephone call outreach) Social History Tobacco Use Types Packs/Day Years [...] as of this encounter Progress Notes * Latonya Hines - 09/11/2024 10:01 AM EST CHW Latonya Hines called patient to introduce Adult Complex Care Program. Patient's name, and Address was confirmed. Program information was provided to the patient. Patient declined to participatein program. Provided patient with direct contact information for future reference. documented in this encounter Plan of Treatment Upcoming Encounters Date Type Department Care Team ([facility] st Contact Info) Description 09/23/2024 8:30 AM EST Telemedicine [facility] [address] [place] [address] Liam Vivar MD 505 [place] [address] 10/15/2024 9:30 AM EDT Procedure Visit [facility] [address] [place] [address] Earlene Fall CNM [address] [place] [address] documented as of this encounter Visit Diagnoses Not on filedocumented in this encounter Additional Health Concerns Assessment Noted Time PHQ-9 Depression Total Score: 16 025 9:29 AM EST documented as of this encounter Care Teams Automotive Parts Interpreter Relationship Specialty Start Date End Date Liam Vivar MD [address] [place] [address] PCP - General Internal Medicine 07/22/24 documented as of this encounter
--- OUTSIDE RECORDS SUMMARY | 2024-09-14 16:15 | XMS_ITS | Encounter Summary ---
Author Organization [employer] Address 75 [facility] 7t [place] [address] Care Team Providers Care Art Museum Aide Name Role Phone Liam Vivar MD Primary Care Prov ider Encounter Details Date Type Department Care Team (Late Contact Info) Description 07/14/2024 Orders Only [facility] [address] [place] [address] Liam Vivar MD [address] [place] [address] Social History Tobacco Use Types Packs/Day Years [...] EST Telemedicine [facility] [address] [place], [place] [phone] Liam Vivar MD [address] [place] [address] 10/15/2024 9:30 AM EDT Procedure Visit [facility] [address] [place] [address] Earlene Fall, ALVA [address] [place] [address] documented as of this encounter Procedures Procedure [...] 2:26 AM EST) HCG Quantitative <2 mIU/mL [facility] Comment:Weeks post LMP Appro ximate hCG(Last Menstrual Period) Range (mIU/ml)3 - 4 weeks 9 - 1304 - 5 weeks 75 - 2,6005 - 6 weeks 850 - 20,8006 - 7 weeks 4000 - 100,2007 - 12 weeks 11,500 - 289,20756 - 16 weeks 18,300 - 137,91740 - 29 weeks (2nd trimester) 1,400 - 53,66795 - 41 weeks (3rd trimester) 940 - [...] ORDERAB LES Final Result Performing Organization Address [facility]/ZIP Co de Phone Number [facility] [address] [place] [phone] * Lipase (09/11/2024 2:26 AM EST) Lipase 17 8 - 78 U/L [facility] 09/11/2024 2:26 AM EST 09/11/2024 2:30 AM EST Generic External Data Provider LAB BLOOD ORDERAB LES Final Result Performing Organization Address [facility] de Phone Number [facility] [address] [place] [phone] * (ABNORMAL) Comprehensive Metabolic Panel (09/11/2024 2:26 AM EST) Sodium 136 135 - 145 mmol/L [facility] Potassium 3.4 3.3 - 5.1 mmol/L [facility] Chloride 105 96 - 108 mmol/L [facility] Carbon Dioxide 22 22 - 29 mmol/L [facility] Anion Gap 12 12 - 20 [facility] Urea Nitrogen (BUN) 7(L) 9 - 16 mg/dL [facility] Creatinine, Serum 0.65 0.5 - 1.4 mg/dL [facility] Creatinine Clr Calc Pharmacy 156.2 [facility] Comment:Provided height and weight: 165.1 cm,95.254 kg.eGFR (calculated from the MDRD study equation) and eCrCl(calculated from the Cockcroft-Gault equation) are based ondifferent parameters and may not yield comparable results.If eCrCl result is absurd, please check patient'sheight/weight. Estimated Glomerular Filt Rate >60 [facility] Comment:Chronic Kidney Disea se: Estimated GFR < 60 mL/min/1.00x0Tqbhvu Kidney Disease: Estimated GFR < 15 mL/min/1.73m2 Glucose 104 60 - 115 mg/dL [facility] Calcium 8.5 8.4 - 10.2 mg/dL [facility] Bilirubin, Total 0.5 0.0 - 1.0 mg/dL [facility] Aspartate Amino Transferase 35(H) 5 - 31 U/L [facility] Alanine Aminotransferase 50(H) 0 - 31 U/L [facility] Total Protein 7.3 6.5 - 8.0 g/dL [facility] Albumin Level 3.8 3.5 - 5.0 g/dL [facility] Alkaline Phosphatase 51 39 - 117 U/L [facility] 09/11/2024 2:26 AM EST 09/11/2024 2:30 AM EST us Generic External Data Provider LAB BLOOD ORDERAB LES Final Result [facility] [address] [place] [phone] * (ABNORMAL) CBC auto differential (09/11/2024 2:26 AM EST) White Blood Count 4.9 4.8 - 10.8 X10*3/uL [facility] Red Blood Count 4.35 4.20 - 5.50 X10*6/uL [facility] Hemoglobin 13.2 12.0 - 16.0 g/dl [facility] Hematocrit 38.2 37.0 - 47.0 % [facility] Mean Corpuscular Volume 87.8 80.0 - 98.0 fL [facility] Mean Corpuscular Hemoglobin 30.3 27.0 - 33.0 pg [facility] Mean Corpuscular HGB Conc 34.6 31.0 - 35.0 g/dl [facility] Red Cell Distribution Width 11.9 11.0 - 16.0 % [facility] Platelet Count 234 160 - 400 X10*3/uL [facility] Mean Platelet Volume 10.5 9.4 - 12.3 fL [facility] Neutrophils Percent Auto 56.0 45 - 73 % [facility] Imm Gran Pct Auto 0.2 0.0 - 0.4 % [facility] Lymphocytes Percent Auto 32.2 20 - 40 % [facility] Monocytes Percent Auto 11.2(H) 2 - 11 % [facility] Eosinophils Percent Auto 0.0 0 - 4 % [facility] Basophils Percent Auto 0.4 0 - 2 % [facility] NRBC Pct Auto 0.0 0.0 - 0.2 /100WBC [facility] Neutrophils Absolute Auto 2.8 2.0 - 8.3 x10*3/uL [facility] Imm Gran Abs Auto 0.01 0.00 - 0.03 X10*3/uL [facility] Lymphocytes Absolute Auto 1.6 1.2 - 4.9 X10*3/uL [facility] Monocytes Absolute Auto 0.6 0.1 - 1.2 X10*3/uL [facility] Eosinophils Absolute Auto 0.0 0.0 - 0.4 X10*3/uL [facility] Basophils Absolute Auto 0.0 0.0 - 0.2 X10*3/uL [facility] NRBC Abs Auto 0.000 0.0 - 0.012 X10*3/uL [facility] 09/11/2024 2:26 AM EST 09/11/2024 2:30 AM EST us Generic External Data Provider LAB BLOOD ORDERAB LES Final Result [facility] [address] [place] [phone] * (ABNORMAL) SARS-CoV-2 RNA, Influenza A/B, and RSV RNA, Ql NAAT (09/11/2024 2:25 AM EST) Influenza A PCR POSITIVE(A) Negative [facility] Influenza B PCR NEGATIVE Negative [facility] Resp Syncy Virus RNA Qual PCR NEGATIVE Negative [facility] SARS COV2 PCR NEGATIVE Negative [facility] Comment:All test results mus t [...] use by authorized laboratories.Testing performed on the [email or web address] GeneXpert utilizingreal-time RT-PCR.All SARS CoV2 and positive influenza A/B results arereported to [facility]. 09/11/2024 2:25 AM EST 09/11/2024 2:30 AM EST us Generic External Data Provider LAB MICROBIOLOGY - GENERAL ORDERABLES Final Result [facility] [address] [place] [phone] documented in this encounter Visit Diagnoses Not on filedocumented in this encounter Care Teams Art Museum Aide Relationship Specialty Start Date End Date Liam Vivar MD [address] [place] [phone] PCP - General Internal Medicine 07/22/24 documented as of this encounter
--- OUTSIDE RECORDS SUMMARY | 2024-09-14 16:15 | XMS_ITS | Encounter Summary ---
Author Organization [employer] Address [address] [facility] [address] 7t [place] [address] Care Team Providers Care Airline Dispatcher Name Role Phone Liam Vivar MD Primary [...] Info) Description 09/23/2024 8:30 AM EST Telemedicine [facility] [address] [place] [address] Liam Vivar MD [address] [place] [address] 10/15/2024 9:30 AM EDT Procedure Visit [facility] [address] [place] [address] Earlene Fall, MER [address] [place] [address] documented as of this encounter Visit Diagnoses Not on filedocumented in this encounter Additional Health Concerns Assessment Noted Time PHQ-9 Depression Total Score: 16 025 9:29 AM EST documented as of this encounter Care Teams Airline Dispatcher Relationship Specialty Start Date End Date Liam Vivar MD [address] [place] [address] PCP - General Internal Medicine 07/22/24 documented as of this encounter
--- OUTSIDE RECORDS SUMMARY | 2024-09-14 16:15 | XMS_ITS | Encounter Summary ---
Author Organization [employer] Address [address] [facility] [address] 7t [place] [address] Care Team Providers Care Chemical Inspector Name Role Phone Liam Vivar MD Primary Care Prov ider Encounter Details Date Type Department Care Team (Late st Contact Info) Description 09/01/2024 2:20 PM EST Office Visit [facility] [address] [place] [address] Opal Salvador MD [address] [place] [phone] Herpes labialis (Primary Dx) Social History Tobacco [...] Info) Description 09/23/2024 8:30 AM EST Telemedicine [facility] [address] [place], [place] [phone] Liam Vivar MD [address] [place] [address] 10/15/2024 9:30 AM EDT Procedure Visit [facility] [address] [place] [address] Earlene Fall, CNM [address] [place] [address] documented as of this encounter Procedures Procedure Name Priority Date/Time Associated Diagnosis Comments HERPES CULTURE WITH REFLEX TYPING Routine 09/01/2024 2:35 PM EST Herpes labialis documented in this encounter Results * (ABNORMAL) Herpes Simplex Virus Culture with Reflex Typing (09/01/2024 2:35 PM EST) HSV Culture/Type SEE NOTE(A) [facility] Comment:HERPES SIMPLEX VIRUS CULTURE W/RFL TO TYPING Micro Number: [id number] Test Status: Final Specimen Source: Not given Specimen Quality: Adequate HSV Culture: Isolated HSV TYPE 2: Not Isolated HSV TYPE 1: IsolatedTHIS TEST WAS PERFORMED AT:[facility] [address] [id number] MERATI,MD Swab Topography unknown / Unknown 09/01/2024 2:35 PM EST 09/02/2024 11:38 AM EST us Opal Salvador MD LAB MICROBIOLOGY - GENERAL ORDERABLES Final Result [facility] [address] [place] [phone] documented in this encounter Visit Diagnoses Diagnosis Herpes labialis- Primary Herpes simplex without mention of complication documented in this encounter Additional Health Concerns Assessment Noted Time PHQ-9 Depression Total Score: 16 025 9:29 AM EST documented as of this encounter Care Teams Chemical Inspector Relationship Specialty Start Date End Date Liam Vivar MD [address] [place] [phone] PCP - General Internal Medicine 07/22/24 documented as of this encounter
--- OUTSIDE RECORDS SUMMARY | 2024-09-14 16:15 | XMS_ITS | Encounter Summary ---
Author Organization [employer] Address 75 [facility] 7t [place] [address] Care Team Providers Care Label Stamper Name Role Phone Liam Vivar MD Primary Care Prov ider Reason for Visit * Reason Onset Date Comments Care Management 09/11/2024 [facility]- Chart Revi ew Encounter Details Date Type Department Care Team ([facility] st Contact Info) Description 09/11/2024 Telephone [facility] [address] [place] [address] Liam Vivar MD [address] [place] [address] Care Management (CM- Chart Review) Social History Tobacco Use Types Packs/Day Years [...] encounter Miscellaneous Notes * Telephone Encounter - Samuel Quinones RN - 09/11/2024 9:27 AM EST CM Samuel Quinones RN, performed chart review, in anticipation of initial assessment with patient, aspatient has stratified for C3 Adult Complex Care through the ADT feed. History significant for GERD, Irregular periods, Chronic left knee pain, Obesity, Herpes labialis, Upper back pain, And anxiety/d epression. Specialists include Behavioral health, and [facility] physical therapy. ED visits within the last 12 months include one to C on 09/11/24. Last appointment in PCP office on 09/09/24. Next appointment scheduled for 09/23/24. documented in this encounter Plan of Treatment Upcoming Encounters Date Type Department Care Team (Late st Contact Info) Description 09/23/2024 8:30 AM EST Telemedicine [facility] [address] [place] [address] Liam Vivar MD [address] [place] [address] 10/15/2024 9:30 AM EDT Procedure Visit [facility] [address] [place] [address] Earlene Fall, CNM [address] [place] [address] documented as of this encounter Visit Diagnoses Not on filedocumented in this encounter Additional Health Concerns Assessment Noted Time PHQ-9 Depression Total Score: 16 025 9:29 AM EST documented as of this encounter Care Teams Label Stamper Relationship Specialty Start Date End Date Liam Vivar MD [address] [place] [address] PCP - General Internal Medicine 07/22/24 documented as of this encounter
--- OUTSIDE RECORDS SUMMARY | 2024-09-14 16:16 | XMS_ITS | Encounter Summary ---
Author Organization [employer] Address 75 [facility] 7t [place] [address] Care Team Providers Care Smoking Pipe Coater Name Role Phone Liam Vivar MD Primary Care Prov ider Reason for Visit * Reason Onset Date Comments Nurse Triage 09/02/2024 Encounter Details Date Type Department Care Team (Late st Contact Info) Description 09/02/2024 Telephone [facility] [address] [place] [address] Liam Vivar MD [address] [place] [address] Nurse Triage Social History Tobacco Use Types [...] caller accepted this outcome. Contact pt at [phone] documented in this encounter Plan of Treatment Upcoming Encounters Date Type Department Care Team ([facility] st Contact Info) Description 09/23/2024 8:30 AM EST Telemedicine [facility] [address] [place] [address] Liam Vivar MD [address] [place] [address] 10/15/2024 9:30 AM EDT Procedure Visit [facility] [address] [place] [address] Earlene Fall, CNM [address] [place] [address] documented as of this encounter Visit Diagnoses Not on filedocumented in this encounter Additional Health Concerns Assessment Noted Time PHQ-9 Depression Total Score: 16 025 9:29 AM EST documented as of this encounter Care Teams Smoking Pipe Coater Relationship Specialty Start Date End Date Liam Vivar MD [address] [place] [address] PCP - General Internal Medicine 07/22/24 documented as of this encounter
--- OUTSIDE RECORDS SUMMARY | 2024-09-14 16:16 | XMS_ITS | Clinical Summary ---
Author Organization [employer] Address [address] [facility] [address] [place] [address] Care Team Providers Care Timekeeper Supervisor Name Role Phone Liam Vivar MD [...] and enrrique. Her sense of belonging and mu-ism are highly connected and identified as strength. Pt needs guidance in setting up healthy boundaries around her social support (family and gnosticism community). Her focus most part of the [...] organization. Date Type Department Care Team Description 09/11/2024 Patient Outreach [facility] [address] [place] [phone] Liam Vivar MD Care Coordination (C3 CM-[facility] Latonya Hines telephone call outreach) 09/11/[address] [address] Liam Vivar MD Care Management (C3CM- Chart Review) 09/09/2024 9:20 AM EST Office Visit [facility] [address] [place] [phone] Heather Romero NP Cough in adult patient (Primary Dx); COVID-19; Shortness of breath; Vomiting in adult patient 09/09/2024 Travel 09/08/2024 9:15 AM EST Office Visit [facility] [address] [place] [phone] Earlene Fall CNM Postcoital bleeding (Primary Dx); Screening examination for venereal disease; Irregular periods; Family history of breast cancer 09/08/2024 Travel 09/03/2024 Refill [facility] [address] [address] Opal Salvador MD Herpes labialis 09/02/2024 Telephone [facility] [address] [place] [phone] Liam Vivar MD Nurse Triage 09/01/2024 2:20 PM EST [facility] [address] [address] Opal Salvador MD Herpes labialis (Primary Dx) 08/19/2024 8:30 AM EST Office Visit [facility] [address] [place] [address] Liam Vivar MD Upper back pain (Primary Dx); Chronic pain of left knee; Obesity (BMI 30-39.9); Irregular periods; Gastroesophageal reflux disease without esophagitis; Anxiety and depression; Dietary counseling; Exercise counseling 08/19/2024 Telephone [facility] [address] [place] [phone] Liam Vivar MD 08/19/2024 Travel 08/18/2024 Telephone [facility] [address] [place] [address] [phone] Liam Vivar MD Chart Prep 08/12/2024 Patient Outreach [facility] [address] [place], [place] [phone] Liam Vivar MD Pre-visit Planning (SDOH negative, Tobacco screening negative. ) 08/07/2024 2:40 PM EST [facility] [address] [address] Nereida Handley MD Strep pharyngitis 07/22/2024 Telephone [facility] [address] [place] [phone] Liam Vivar MD TelephoneCall 07/14/2024 Orders Only [facility] [address] [place], [place] [phone] Liam Vivar MD 06/30/2024 1:45 PM EST Telemedicine [facility] [address] [place] [address] Liam Vivar MD Encounter for medical examination to establish care (Primary Dx) 06/30/2024 Telephone [facility] [address] [place] [address] Emily Berman MA 06/30/2024 Travel 06/29/2024 Telephone [facility] [address] [place] [address] Lucille Finn MA Chart Prep from Last [...] [facility] [address] [place], [place] [phone] Liam Vivar MD [address] [place], [place] [phone] 10/15/2024 9:30 AM EDT Procedure Visit [facility] [address] [place], [place] [phone] Earlene Fall, CN [address] [place] [address] Health Maintenance Due Date Last Done Comments [...] 09/14/2024 3:11 PM EST Obesity (BMI 30-39.9) HCG, TOTAL, QN Routine 09/11/2024 2:26 AM [...] 9:41 AM EST Cough in adult patient CHLAMYDIA/N. GONORRHOEAE AND T. VAGINALIS RNA, QUAL,TMA [...] Months Results * (ABNORMAL) CBC auto differential (09/14/2024 3:11 PM EST) Only the most recent of2 resultswithin the time period is included. White Blood Count 6.3 4.8 - 10.8 X10*3/uL [facility] Red Blood Count 4.27 4.20 - 5.50 X10*6/uL [facility] Hemoglobin 12.6 12.0 - 16.0 g/dl [facility] Hematocrit 38.7 37.0 - 47.0 % [facility] Mean Corpuscular Volume 90.6 80.0 - 98.0 fL [facility] Mean Corpuscular Hemoglobin 29.5 27.0 - 33.0 pg [facility] Mean Corpuscular HGB Conc 32.6 31.0 - 35.0 g/dl [facility] Red Cell Distribution Width 12.0 11.0 - 16.0 % [facility] Platelet Count 268 160 - 400 X10*3/uL [facility] Mean Platelet Volume 11.3 9.4 - 12.3 fL [facility] Neutrophils Percent Auto 80.6(H) 45 - 73 % [facility] Imm Gran Pct Auto 0.5(H) 0.0 - 0.4 % [facility] Lymphocytes Percent Auto 14.9(L) 20 - 40 % [facility] Monocytes Percent Auto 4.0 2 - 11 % [facility] Eosinophils Percent Auto 0.0 0 - 4 % [facility] Basophils Percent Auto 0.0 0 - 2 % [facility] NRBC Pct Auto 0.0 0.0 - 0.2 /100WBC [facility] Neutrophils Absolute Auto 5.1 2.0 - 8.3 x10*3/uL [facility] Imm Gran Abs Auto 0.03 0.00 - 0.03 X10*3/uL [facility] Lymphocytes Absolute Auto 0.9(L) 1.2 - 4.9 X10*3/uL [facility] Monocytes Absolute Auto 0.3 0.1 - 1.2 X10*3/uL [facility] Eosinophils Absolute Auto 0.0 0.0 - 0.4 X10*3/uL [facility] Basophils Absolute Auto 0.0 0.0 - 0.2 X10*3/uL [facility] NRBC Abs Auto 0.000 0.0 - 0.012 X10*3/uL [facility] Blood Venous blood specimen / Unknown 09/14/2024 3:11 PM EST 09/14/2024 4:02 PM EST us Liam Tam MD LAB BLOOD ORDERABL ES Final Result [facility] [address] [place], [place] [phone] * hCG, Total, Quantitative (09/11/2024 2:26 AM EST) HCG Quantitative <2 mIU/mL [facility] Comment:Weeks post LMP Appr oximate hCG(Last Menstrual Period) Range (mIU/ml)3 - 4 weeks 9 - 1304 - 5 weeks 75 - 2,6005 - 6 weeks 850 - 20,8006 - 7 weeks 4000 - 100,2007 - 12 weeks 11,500 - 289,36573 - 16 weeks 18,300 - 137,69512 - 29 weeks (2nd trimester) 1,400 - 53,04093 - 41 weeks (3rd trimester) 940 - [...] Final Result Performing Organization Address [facility]/ZIP Co de Phone Number [facility] [address] [place] [phone] * Lipase (09/11/2024 2:26 AM EST) Lipase 17 8 - 78 U/L [facility] 09/11/2024 2:26 AM EST 09/11/2024 2:30 AM EST Generic External Data Provider LAB BLOOD ORDERAB LES Final Result Performing Organization Address [facility]/ZIP Co de Phone Number [facility] [address] [place] [phone] * (ABNORMAL) Comprehensive Metabolic Panel (09/11/2024 2:26 AM EST) Sodium 136 135 - 145 mmol/L [facility] Potassium 3.4 3.3 - 5.1 mmol/L [facility] Chloride 105 96 - 108 mmol/L [facility] Carbon Dioxide 22 22 - 29 mmol/L [facility] Anion Gap 12 12 - 20 [facility] Urea Nitrogen (BUN) 7(L) 9 - 16 mg/dL [facility] Creatinine, Serum 0.65 0.5 - 1.4 mg/dL [facility] Creatinine Clr Calc Pharmacy 156.2 [facility] Comment:Provided height and weight: 165.1 cm,95.254 kg.eGFR (calculated from the MDRD study equation) and eCrCl(calculated from the Cockcroft-Gault equation) are based ondifferent parameters and may not yield comparable results.If eCrCl result is absurd, please check patient'sheight/weight. Estimated Glomerular Filt Rate >60 [facility] Comment:Chronic Kidney Disea se: Estimated GFR < 60 mL/min/1.28y5Taatig Kidney Disease: Estimated GFR < 15 mL/min/1.73m2 Glucose 104 60 - 115 mg/dL [facility] Calcium 8.5 8.4 - 10.2 mg/dL [facility] Bilirubin, Total 0.5 0.0 - 1.0 mg/dL [facility] Aspartate Amino Transferase 35(H) 5 - 31 U/L [facility] Alanine Aminotransferase 50(H) 0 - 31 U/L [facility] Total Protein 7.3 6.5 - 8.0 g/dL [facility] Albumin Level 3.8 3.5 - 5.0 g/dL [facility] Alkaline Phosphatase 51 39 - 117 U/L [facility] 09/11/2024 2:26 AM EST 09/11/2024 2:30 AM EST us Generic External Data Provider LAB BLOOD ORDERAB LES Final Result [facility] [address] [place] [phone] * (ABNORMAL) SARS-CoV-2 RNA, Influenza A/B, and RSV RNA, Ql NAAT (09/11/2024 2:25 AM EST) Influenza A PCR POSITIVE(A) Negative [facility] Influenza B PCR NEGATIVE Negative [facility] Resp Syncy Virus RNA Qual PCR NEGATIVE Negative [facility] SARS COV2 PCR NEGATIVE Negative [facility] Comment:All test results mus t be [...] use by authorized laboratories.Testing performed on the [employer] GeneXpert utilizingreal-time RT-PCR.All SARS CoV2 and positive influenza A/B results arereported to [facility]. 09/11/2024 2:25 AM EST 09/11/2024 2:30 AM EST Generic External Data Provider LAB MICROBIOLOGY - GENERAL ORDERABLES Final Result Performing Organization Address [facility] Co de Phone Number [facility] [address] [place] [phone] * Influenza B (ID NOW Rapid Molecular) (09/09/2024 9:51 AM EST) Influenza B Negative Negative, Indeterminate [facility] Swab 09/09/2024 9:51 AM EST Heather Romero FLIGHT PHYSICIAN POINT OF CARE TEST ENTER/EDIT O RDERABLES Final Result Performing Organization Address [facility] Co de Phone Number [facility] [address] [place] [phone] * Influenza A (ID NOW Rapid Molecular) (09/09/2024 9:51 AM EST) Influenza A Negative Negative, Indeterminate [facility] Swab 09/09/2024 9:51 AM EST Heather Hodgesm FLIGHT PHYSICIAN POINT OF CARE TEST ENTER/EDIT O RDERABLES Final Result Performing Organization Address [facility]/ZIP Co de Phone Number [facility] [address] [place] [phone] * POCT Rapid COVID Ag (09/09/2024 9:41 AM EST) Rapid COVID Ag Positive Swab 09/09/2024 9:41 AM EST Heather Romero FLIGHT PHYSICIAN POINT OF CARE TEST ENTER/EDIT O RDERABLES Final Result * STI testing add on (NG, CT, Trich) (09/08/2024 9:48 AM EST) Pathologist [facility] Trichomonas (NAAT) Not Detected Not Detected [facility] Comment:Methodology: Transcr iption Mediated Amplification(TMA)The analytical performance characteristics of thisassay have [facility] [place], [place]. The modificationshave not been cleared or approved by the FDA. Thisassay has been validated pursuant to the CLIAregulations and is used for clinical purposes.For additional information, please refer [email or web address].Poetica/faq/[email or web address] (This link is being providedfor information/educational purposes only).THIS TEST WAS PERFORMED AT:[employer] [id number] [id number] MILLER MD,PHD CTNG Ref Lab Not Detected Not Detected [facility] NG Ref Lab Not Detected Not Detected [facility] Comment:Methodology: Transcr iption Mediated Amplification(TMA) to detect RNA.The analytical performance characteristics of thisassay, when used to test SurePath specimens havebeen determined by [employer]. The modificationshave not been cleared or approved by the FDA.This assay has been validated pursuant to the CLIAregulations and is used for clinical purposes.For additional information, please refer tohttps://[employer]mentra.Poetica/faq/HWA382(This link is being provided for information/educational purposes only).THIS TEST WAS PERFORMED AT:[employer]/[id number] [place] [address]HKUOVOHELIAZAR MILLER MD,PHD ThinPrep?? vial Cervix uteri structure / Unknown 09/08/2024 9:48 AM EST 09/09/2024 9:15 AM EST Narrative [facility] - 09/13/2024 8:03 PM EST Collection Date: [id number] by: JENNIFER Chen: Cervix Earlene DEL ANGEL LAB CYTOLOGY ORDERABLES F inal Result Performing Organization Address City/[facility] Co de Phone Number [facility] [address] [place] [address] [phone] * POCT , urine manually resulted (09/08/2024 9:47 AM EST) Preg Test, Ur Negative Negative, Indeterminate, None Detected, Invalid, Specimen unsatisfactory for evaluation, Weakly Positive QC Media Lot # [id number] Lot# Expiration Date [id number] Urine 09/08/2024 9:47 AM EST Earlene DEL ANGEL POINT OF CARE TEST ENTER/ EDIT ORDERABLES Final Result * (ABNORMAL) Herpes Simplex Virus Culture with Reflex Typing (09/01/2024 2:35 PM EST) HSV Culture/Type SEE NOTE(A) [facility] Comment:HERPES SIMPLEX VIRUS CULTURE W/RFL TO TYPING Micro Number: [id number] Test Status: Final Specimen Source: Not given Specimen Quality: Adequate HSV Culture: Isolated HSV TYPE 2: Not Isolated HSV TYPE 1: IsolatedTHIS TEST WAS PERFORMED AT:[employer] [id number] MERATI,MD Swab Topography unknown / Unknown 09/01/2024 2:35 PM EST 09/02/2024 11:38 AM EST Opal Salvador MD LAB MICROBIOLOGY - GENERAL ORDERABLES Final Result [facility] [address] [place] [address] [phone] * US Pelvis Transvaginal (08/31/2024 7:02 PM EST) Anatomical Region Laterality Modality Pelvis Ultrasound 08/31/2024 7:02 PM EST Narrative 08/31/2024 7:03 PM EST ? [facility] ?[address] ?[place] [address] ? Ultrasound Report ? Signed ? Patient: Nunes,Arlen ?MR#: [id number] ?? [id number] ? : 2005 ?Acct:[id number] ? Age/Sex: 19 / F ?ADM Date: 08/31/24 ? Loc: HO.US ? Attending Dr: Liam Tam MD ? Ordering Physician: Liam Vivar MD ?? Date of Service: 08/31/24 ?? Procedure(s): US pelvic and transvaginal ?? Accession Number(s): [id number] ? cc: Liam Vivar MD ? CLINICAL [...] ? 08/31/243 ? DD/ 01 ? TD/TT: 08/31/24 190 ? Fund Raiser: ? Procedure Note Raffaele Thompson - 08/31/[address] [address] Ultrasound Report Signed Patient: Sky NunesyMR#: [id number] : 2005Acct:[id number] Age/Sex: 19 / FADM Date: 08/31/24 Loc: HO.US Attending Dr: Liam Tam MD Ordering Physician: Liam Vivar MD Date of Service: 08/31/24 Procedure(s): US pelvic and transvaginal Accession Number(s): [id number] cc: Liam Vivar MD CLINICAL HISTORY: irregular [...] in OV> 08/31/241902 DD/ 01 TD/TT: 08/31/241901 Fund Raiser: Liam Tam MD [facility] US PROCEDURES Final Result * (ABNORMAL) POCT rapid strep A manually resulted (08/07/2024 2:05 PM EST) Rapid Strep A Screen Positive( A) Negative, None Detected Swab 08/07/2024 2:05 PM EST Nereida Handley MD POINT OF CARE TEST ENTER/EDIT OR DERABLES Final Result from Last 3 Months Insurance C3 Care Teams Timekeeper Supervisor Relationship Specialty Start Date End Date Liam Vivar MD [address] [place] [phone] PCP - General Internal Medicine 07/22/24
--- OUTSIDE RECORDS SUMMARY | 2024-09-14 16:16 | XMS_ITS | Encounter Summary ---
Author Organization [employer] Address [address] [facility] [address] [place] [address] Care Team Providers Care Senior Mechanical Project Manager Name Role Phone Liam Vivar MD Primary Care Prov ider Encounter Details Date Type Department Care Team ([facility] Contact Info) Description 08/19/[address] [facility] [address] [place] [address] Liam Vivar MD [address] [place] [address] Social History Tobacco Use Types Packs/Day Years [...] 09/23/2024 8:30 AM EST Telemedicine [facility] [address] [place] [address] Liam Vivar MD [address] [place] [address] 10/15/2024 9:30 AM EDT Procedure Visit [facility] [address] [place] [address] Earlene Fall, MER [address] [place] [address] documented as of this encounter Visit Diagnoses Not on filedocumented in this encounter Additional Health Concerns Assessment Noted Time PHQ-9 Depression Total Score: 16 025 9:29 AM EST documented as of this encounter Care Teams Senior Mechanical Project Manager Relationship Specialty Start Date End Date Liam Vivar MD [address] [place] [address] PCP - General Internal Medicine 07/22/24 documented as of this encounter
[2024-09-14 16:30] LABS: Alanine Aminotransferase 86 U/L (0-31); Anion Gap 13 (12-20); Aspartate Amino Transferase 47 U/L (5-31); Bilirubin Total 0.4 mg/dL (0.0-1.0); Blood Urea Nitrogen 10 mg/dL (9-16); Calcium 9.1 mg/dL (8.4-10.2); Carbon Dioxide 23 mmol/L (22-29); Chloride 109 mmol/L (96-108); Cholesterol 124 mg/dL (<200); Estimated Glomerular Filt Rate > 60; Glucose Random 135 mg/dL (60-115); HDL Cholesterol 26 mg/dL (>40); LDL Cholesterol Calculated 84 mg/dL (<100); Potassium 4.2 mmol/L (3.3-5.1); Sodium 141 mmol/L (135-145); Total Protein 7.7 g/dL (6.5-8.0); Triglycerides 72 mg/dL (<150)
[2024-09-14 16:35] LABS: Estimated Average Glucose 100 mg/dL; Hemoglobin A1C 105.9028 umol/L; Hemoglobin A1c % 5.1 % (<6.0); Total Hemoglobin (HGBA1C) 3291.3366 umol/L
[2024-09-14 16:44] LABS: Alkaline Phosphatase 52 U/L (39-117)
[2024-09-14 16:57] LABS: HCG Quantitative < 2 mIU/mL; TSH reflex Free T4 0.06 uIU/mL (0.32-4.0)
[2024-09-14 17:47] LABS: Free T4 (Free Thyroxine) 1.33 ng/dL (0.71-1.85)
[2024-09-15 04:23] LABS: Syphilis Screen Nonreactive (Nonreactive)
[2024-09-15 04:38] LABS: HIV AB/AG Nonreactive (Nonreactive); HIV Num 1 0.07 S/CO (0.00-0.99); ~HepC Num1 0.12 S/CO (0.00-0.79); ~Hepatitis C Antibody Nonreactive (Nonreactive)
[2024-09-15 07:38] LABS: Prolactin 5.4 ng/mL
[2024-09-18 14:37] LABS: Testosterone, Total 12 ng/dL (2-45)
[2024-09-21 05:58] LABS: Estradiol Ultra Sensitive 39 pg/mL
== END 2024-09-14 15:09 | disposition home or self-care (01) ==
LOC: HO.HHCL 15:08
PROVIDERS: Internal Medicine; Visit Provider Advanced Practice Midwife
DX: E66.9 Obesity, unspecified (principal); N92.6 Irregular menstruation, unspecified; Z11.3 Encounter for screening for infections with a predominantly sexual mode of transmission
CPT/HCPCS: 36415; 80053; 80061; 82670; 83036; 84146; 84403; 84439; 84443; 84702; 85025; 86780; 86803; 87389

== ENCOUNTER 2024-10-20 17:32 | Emergency (ER) | payer MEDICAID, SELFPAY ==
--- NOTE | ~2024-10-20 | US_ITS ---
CLINICAL HISTORY: dysfunctional uterine bleeding, pain US pelvis transvaginal Comparison: None Findings: Transvaginal scanning performed. The uterus is 9.1 cm length. Normal myometrium. No endometrial lesion, 15 mm thickness. Right ovary 3.2 x 2.0 x 2.1 cm. Left ovary 2.5 x 2.0 x 2.2 cm. Normal color Doppler of both ovaries. No free fluid. IMPRESSION: 1. Normal pelvic ultrasound This document has been electronically signed by: Benji Up MD on 10/20/2024 19:28:09
[2024-10-20 17:48] VITALS: BP 125/88; PULSE 86; RESP 20; TEMP 36.3; O2SAT 100; BMI 33.3
--- NOTE | 2024-10-20 17:55 | ED.GENADULT ---
HPI - General Adult General Chief complaint: Vaginal Bleeding Stated complaint: Heavy vaginal bleeding/Cramps Time Seen by Provider: 10/20/24 21:46 Source: patient, RN notes reviewed and old records reviewed Mode of arrival: ambulatory Limitations: no limitations History of Present Illness ED Provider: Robert ADAM narrative: 19-year-old female who denies any past medical history presents for evaluation of vaginal bleeding. Patient reports that she had a new oral contraception about a month ago. She reports that she has been bleeding heavily ever since. She has some blood clots as well. Reports that she has to change her tampon approximately every hour pain Denies any pelvic pain, abnormal discharge other than bleeding. Denies any fevers or chills Related Data Previous Rx's ?Medication ?Instructions ?Recorded cephalexin 500 mg capsule 1,000 mg (2 x 500 mg) PO BID #20 12/13/22 caps meloxicam 15 mg tablet 15 mg PO DAILY #14 tabs 12/13/22 methocarbamol 750 mg tablet 750 mg PO Q8H PRN back pain #10 12/13/22 tabs ibuprofen 600 mg tablet 600 mg PO Q6H PRN pain #14 tabs 08/27/23 ondansetron 4 mg disintegrating 4 mg PO Q8H PRN nausea and 08/27/23 tablet vomiting #12 tabs naproxen 500 mg tablet 500 mg PO BID PRN pain 7 days #14 10/21/23 tabs cyclobenzaprine 10 mg tablet 10 mg PO TID PRN muscle spasm #7 12/19/23 tabs ibuprofen 600 mg tablet 600 mg PO Q8H PRN pain #14 tabs 12/19/23 acetaminophen 500 mg tablet 1,000 mg (2 x 500 mg) PO Q8H PRN 03/10/24 (Tylenol Extra Strength) pain #30 tabs ibuprofen 600 mg tablet 600 mg PO Q6H PRN pain #30 tabs 03/10/24 lidocaine 5 % topical patch 1 patch topical DAILY #30 ea 03/10/24 (Lidoderm) albuterol sulfate 90 mcg/actuation 1 puff inhalation QID PRN 04/11/24 aerosol inhaler shortness of breath or wheezing #6.7 grams amoxicillin 500 mg capsule 500 mg PO TID 5 days #15 caps 04/11/24 azithromycin 250 mg tablet 250 mg PO DAILY 4 days #4 tabs 04/11/24 benzonatate 100 mg capsule 100 mg PO TID PRN cough #15 caps 04/11/24 prednisone 50 mg tablet 50 mg PO DAILY #4 tabs 04/11/24 codeine 10 mg-guaifenesin 100 mg/5 10 ml PO Q6H PRN cough #237 mL 09/11/24 mL oral liquid prednisone 20 mg tablet 40 mg (2 x 20 mg) PO DAILY #10 tabs 09/11/24 Allergies Allergy/AdvReac Type Severity Reaction Status Date / Time No Known Allergies Allergy Verified 10/20/24 17:54 Review of Systems Constitutional: Constitutional: Denies body ache(s), Denies chills, Denies fever(s) and Denies frequent falls Eyes: Eyes: Denies blurry vision ENT: Denies vertigo Cardiovascular: Cardiovascular: Denies chest pain and Denies dyspnea Respiratory: Respiratory: Denies cough and Denies dyspnea Gastrointestinal: Gastrointestinal: Denies abdominal pain, Denies nausea and Denies vomiting Genitourinary: Genitourinary: Reports vaginal discharge ( bloody only) Musculoskeletal: Musculoskeletal: Denies back pain Integumentary/Breasts: Skin/Breast: Denies rash Neurologic: Denies vertigo and Denies frequent falls PMFSH Social History Social History Advance Directives: Yes Advance Directives on File: No Do you have a plan to hurt others: No Plan Physical Exam ED Vital Signs: Vital Signs - 24 hr 10/20/24 17:48 10/20/24 21:42 10/20/24 22:56 Temperature 97.4 F 98.4 F 98.3 F Pulse Rate 86 82 76 Respiratory Rate 20 18 16 Blood Pressure 125/88 121/69 129/84 Pulse Oximetry 100 96 94 Oxygen Delivery Method Room Air Room Air Room Air BMI result Body Mass Index 33.3 Const General: healthy appearing, comfortable, no acute distress, alert and awake Nutritional Appearance: well nourished Orientation/consciousness: patient oriented x3 HENMT Head: Yes normocephalic and Yes atraumatic Throat: Yes posterior oropharynx normal Eyes Eyelids: Yes eyelids normal Conjunctivae: conjunctivae normal Sclerae: sclerae normal Corneas: corneas normal Pupils: Equal, round and reactive pupils present EOM: EOMs intact bilaterally Neck Neck: Yes full ROM Resp Effort & Inspection: normal respiratory effort, able to speak in complete sentences and not labored GI Inspection: No distended Palpation (GI): Soft to palpation, not firm, nontender, no guarding and not rigid Skin General skin exam: elasticity normal Neuro General: patient oriented x3 Cranial nerves: Yes Equal, round and reactive pupils present and Yes Bilaterally intact EOM present Cognition (Neuro): normal cognition Extrem Other: Moving all extremities well without any obvious deformities Course Course Course Narrative: This is a rapid medical exam performed by Manjula Nath PA-C. 19-year-old female presents with dysfunctional uterine bleeding x1 week. Patient is started on a new oral contraceptive approximately 1-1/2 months ago due to her dysfunctional bleeding. Patient began her cycle last week, she has had heavy, painful bleeding, having to change pads and tampons every hour. Patient was also passing clots. We will be screening basic labs, and obtaining a transvaginal ultrasound. The patient was stable and can return to the waiting room pending her full medical assessment. Medications Administered Discontinued Medications Generic Name Dose Route Start Last Admin Trade Name Freq PRN Reason Stop Dose Admin Ibuprofen 600 mg 10/20/24 17:53 10/20/24 17:58 Ibuprofen 600 Mg Tablet PO 10/20/24 17:54 600 mg ONCE ONE Administration Medical Decision Making Medical Decision Making [facility] Narrative: 19-year-old female presents for evaluation of abnormal vaginal bleeding. She started a new control about a month ago due to heavy menstrual bleeding. This oral contraception is likely the cause of for increased vaginal bleeding. She had labs that shows she was not anemic. Her MCV is within normal limits. Pelvic ultrasound is unremarkable. She has no evidence of infectious process. There was no reported trauma. I educated the patient on dysfunction uterine bleeding in the setting of oral contraception and the patient be discharged to follow up with her OBGYN Differential Diagnosis Differential Diagnoses: The differential diagnosis associated with the presentation includes dysfunctional uterine bleeding menorrhagia Metromenorrhagia Iron-deficiency anemia Lab Data [facility] Lab Attestation statement: I reviewed the patient's lab results. mild leukocytosis to 15.4 which may be reactive in nature. There was no anemia. Platelet count is within normal limits. MCV is within normal limits. Electrolytes are reassuring, no significant abnormalities warranting intervention 10/20/24 18:02 10/20/24 18:02 Labs: Lab Results 10/20/24 Range/Units 18:02 WBC 15.4 H (4.8-10.8) X10*3/uL RBC 4.18 L (4.20-5.50) X10*6/uL Hgb 12.4 (12.0-16.0) g/dl Hct 37.4 (37.0-47.0) % MCV 89.5 (80.0-98.0) fL MCH 29.7 (27.0-33.0) pg MCHC 33.2 (31.0-35.0) g/dl RDW 12.0 (11.0-16.0) % Plt Count 332 (160-400) X10*3/uL MPV 10.5 (9.4-12.3) fL Immature Gran % (Auto) 0.4 (0.0-0.4) % Neut % (Auto) 69.2 (45-73) % Lymph % (Auto) 23.8 (20-40) % [place] % (Auto) 4.7 (2-11) % Eos % (Auto) 1.4 (0-4) % Baso % (Auto) 0.5 (0-2) % Lymph # (Auto) 3.7 (1.2-4.9) X10*3/uL [place] # (Auto) 0.7 (0.1-1.2) X10*3/uL Eos # (Auto) 0.2 (0.0-0.4) X10*3/uL Baso # (Auto) 0.1 (0.0-0.2) X10*3/uL Abs Immat Gran (auto) 0.06 H (0.00-0.03) X10*3/uL Absolute Neuts (auto) 10.6 H (2.0-8.3) x10*3/uL Absolute Nucleated RBC 0.000 (0.0-0.012) X10*3/uL Nucleated RBC % (auto) 0.0 (0.0-0.2) /100WBC Sodium 139 (135-145) mmol/L Potassium 4.1 (3.3-5.1) mmol/L Chloride 109 H (96-108) mmol/L Carbon Dioxide 23 (22-29) mmol/L Anion Gap 11 L (12-20) BUN 9 (9-16) mg/dL Creatinine 0.67 (0.5-1.4) mg/dL Estim Creat Clear Calc 147.9 Estimated GFR > 60 Random Glucose 89 (60-115) mg/dL Calcium 8.9 (8.4-10.2) mg/dL Magnesium 1.7 (1.6-2.6) mg/dL Total Bilirubin 0.5 (0.0-1.0) mg/dL AST 21 (5-31) U/L ALT 31 (0-31) U/L Alkaline Phosphatase 58 (39-117) U/L Total Protein 7.4 (6.5-8.0) g/dL Albumin 3.9 (3.5-5.0) g/dL Beta HCG, Quant < 2 mIU/mL Discharge Plan Discharge Clinical Impression: Dysfunctional uterine bleeding Patient Disposition: Home, Self-Care Instructions: Dysfunctional Uterine Bleeding (ED) Additional Instructions: it is very common to have abnormal vaginal bleeding for up to 3 months after starting or stopping control. you are not anemic, your hemoglobin is 12.4 which is within normal limits I recommend that you continue your control medication but call your OBGYN to discuss your options return for new or worsening symptoms you may want to take an iron supplement daily until you stop bleeding Prescriptions: No Action cephalexin 500 mg capsule 1,000 mg PO BID Qty: 20 0RF meloxicam 15 mg tablet 15 mg PO DAILY Qty: 14 0RF methocarbamol 750 mg tablet 750 mg PO Q8H PRN (Reason: back pain) Qty: 10 0RF ondansetron 4 mg tablet,disintegrating 4 mg PO Q8H PRN (Reason: nausea and vomiting) Qty: 12 0RF ibuprofen 600 mg tablet 600 mg PO Q6H PRN (Reason: pain) Qty: 14 0RF naproxen 500 mg tablet 500 mg PO BID PRN (Reason: pain) 7 Days Qty: 14 0RF albuterol sulfate 90 mcg/actuation HFA aerosol inhaler 1 puff inhalation QID PRN (Reason: shortness of breath or wheezing) Qty: 6.7 0RF prednisone 50 mg tablet 50 mg PO DAILY Qty: 4 0RF benzonatate 100 mg capsule 100 mg PO TID PRN (Reason: cough) Qty: 15 0RF azithromycin 250 mg tablet 250 mg PO DAILY 4 Days Qty: 4 0RF Rx Instructions: start on day 2 of therapy amoxicillin 500 mg capsule 500 mg PO TID 5 Days Qty: 15 0RF prednisone 20 mg tablet 40 mg PO DAILY Qty: 10 0RF codeine-guaifenesin 10-100 mg/5 mL liquid 10 ml PO Q6H PRN (Reason: cough) Qty: 237 0RF ibuprofen 600 mg tablet 600 mg PO Q8H PRN (Reason: pain) Qty: 14 0RF cyclobenzaprine 10 mg tablet 10 mg PO TID PRN (Reason: muscle spasm) Qty: 7 0RF ibuprofen 600 mg tablet 600 mg PO Q6H PRN (Reason: pain) Qty: 30 0RF acetaminophen [Tylenol Extra Strength] 500 mg tablet 1,000 mg PO Q8H PRN (Reason: pain) Qty: 30 0RF lidocaine [Lidoderm] 5 % adhesive patch,medicated 1 patch topical DAILY Qty: 30 0RF Rx Instructions: leave on most painful area for up to 12 hrs Interventions: ED Discharge Assessment Last Done: 10/20/24 22:56 Print Language: Guinean
[2024-10-20] MEDS: Ibuprofen 600 MG TABLET PO (17:58)
[2024-10-20 18:06] LABS: MANUAL DIFF FLAG NO
[2024-10-20 18:07] LABS: Basophils Absolute Auto 0.1 X10*3/uL (0.0-0.2); Basophils Percent Auto 0.5 % (0-2); Eosinophils Absolute Auto 0.2 X10*3/uL (0.0-0.4); Eosinophils Percent Auto 1.4 % (0-4); Hematocrit 37.4 % (37.0-47.0); Hemoglobin 12.4 g/dl (12.0-16.0); Imm Gran Abs Auto 0.06 X10*3/uL (0.00-0.03); Imm Gran Pct Auto 0.4 % (0.0-0.4); Lymphocytes Absolute Auto 3.7 X10*3/uL (1.2-4.9); Lymphocytes Percent Auto 23.8 % (20-40); Mean Corpuscular HGB Conc 33.2 g/dl (31.0-35.0); Mean Corpuscular Hemoglobin 29.7 pg (27.0-33.0); Mean Corpuscular Volume 89.5 fL (80.0-98.0); Mean Platelet Volume 10.5 fL (9.4-12.3); Monocytes Absolute Auto 0.7 X10*3/uL (0.1-1.2); Monocytes Percent Auto 4.7 % (2-11); Neutrophils Absolute Auto 10.6 x10*3/uL (2.0-8.3); Neutrophils Percent Auto 69.2 % (45-73); Platelet Count 332 X10*3/uL (160-400); Red Blood Count 4.18 X10*6/uL (4.20-5.50); White Blood Count 15.4 X10*3/uL (4.8-10.8)
[2024-10-20 18:31] LABS: Alanine Aminotransferase 31 U/L (0-31); Albumin Level 3.9 g/dL (3.5-5.0); Alkaline Phosphatase 58 U/L (39-117); Anion Gap 11 (12-20); Aspartate Amino Transferase 21 U/L (5-31); Bilirubin Total 0.5 mg/dL (0.0-1.0); Blood Urea Nitrogen 9 mg/dL (9-16); Calcium 8.9 mg/dL (8.4-10.2); Carbon Dioxide 23 mmol/L (22-29); Chloride 109 mmol/L (96-108); Creatinine Clr Calc Pharmacy 147.9; Estimated Glomerular Filt Rate > 60; Glucose Random 89 mg/dL (60-115); HCG Quantitative < 2 mIU/mL; Magnesium 1.7 mg/dL (1.6-2.6); Potassium 4.1 mmol/L (3.3-5.1); Sodium 139 mmol/L (135-145); Total Protein 7.4 g/dL (6.5-8.0)
[2024-10-20 21:42] VITALS: BP 121/69; PULSE 82; RESP 18; TEMP 36.9; O2SAT 96
[2024-10-20 22:56] VITALS: BP 129/84; PULSE 76; RESP 16; TEMP 36.8; O2SAT 94
== END 2024-10-20 23:16 | disposition home or self-care (01) ==
PROVIDERS: Physician Assistant Medical; Emergency Provider Emergency Medicine; PCP Internal Medicine
DX: N93.8 Other specified abnormal uterine and vaginal bleeding (principal)
CPT/HCPCS: 36415; 76830; 76856; 80053; 83735; 84702; 85025; 99284

== ENCOUNTER → 2024-10-20 17:54 | Outpatient (BNV) | payer MEDICAID, SELFPAY | PROVIDERS: PCP Internal Medicine; Visit Provider Radiology Vascular & Interventional Radiology | DX: N93.9 Abnormal uterine and vaginal bleeding, unspecified (principal) | CPT/HCPCS: 76830; 76856 ==

== ENCOUNTER 2024-11-02 11:26 | Outpatient (REF) | payer MEDICAID, SELFPAY ==
--- OUTSIDE RECORDS SUMMARY | 2024-11-02 13:06 | XMS_ITS | Encounter Summary ---
Author Organization [employer] Address [address] [place] [address] Care Team Providers Care Dry Kiln Operator Helper Name Role Phone Liam Vivar MD Primary Care Prov ider Encounter Details Date Type Department Care Team (Latest Contact Info) Description 11/02/2024 Travel Social History Tobacco Use Types Packs/Day [...] Care Team (Late st Contact Info) Description 12/21/2024 8:30 AM EDT Office Visit [facility] CHC MED & PEDS [address] [place] [address] Liam Vivar MD [address] [place] [address] 02/01/2025 9:15 AM EDT Office Visit [facility] MEDICINE [address] [place] [address] Earlene Fall CN [address] [place] [address] documented as of this encounter Visit Diagnoses Not on filedocumented in this encounter Additional Health Concerns Assessment Noted Time PHQ-9 Depression Total Score: 16 025 9:29 AM EST documented as of this encounter Care Teams Dry Kiln Operator Helper Relationship Specialty Start Date End Date Liam Vivar MD [address] [place] [address] PCP - General Internal Medicine 07/22/24 documented as of this encounter
--- OUTSIDE RECORDS SUMMARY | 2024-11-02 13:06 | XMS_ITS | Encounter Summary ---
Author Organization [employer] Address [address] [facility] [address] [place] [address] Care Team Providers Care Football Pad Repairer Name Role Phone Liam Vivar MD Primary Care Prov ider Reason for Visit * Reason Comments Gynecologic Exam Encounter Details Date Type Department Care Team (Latest Contact Info) Description 11/02/2024 10:30 AM EDT Procedure Visit [facility] MEDICINE [address] [place] [address] Earlene Fall CNM [address] [place] [address] Abnormal uterine bleeding (AUB) (Primary Dx); Leukocytosis, unspecified type; Low TSH level Social History Tobacco Use Types Packs/Day Years [...] Sign Reading Time Taken Comments Blood Pressure 117/78 11/02/2024 10:54 AM EDT Pulse 77 11/02/2024 10:54 AM EDT Temperature 36.4 ??C (97.5 ??F) 11/02/2024 10:54 AM E DT Respiratory Rate 20 11/02/2024 10:54 AM EDT Oxygen Saturation 100% 11/02/2024 10:54 AM EDT Inhaled Oxygen Concentration - - Weight 90.9 kg (200 lb 6.4 oz) 11/02/2024 10:54 AM EDT Height 165.1 cm (5' 5 ) 11/02/2024 10:54 AM EDT Body Mass Index 33.35 11/02/2024 10:54 AM EDT documented in this encounter Progress Notes * Earlene Fall CNM - 11/02/2024 10:30 AM EDT Subjective Patient ID: Arlen Nunes is a 19 y.o. 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 Here with partner. Pap NIL, Gonorrhea/Chlamydia/trichomonas negative. Rx'd Bayaz by PCP, which she has been taking for about 2 months. One missed pill, otherwise taking consistently. Not taking Topamax. Began bleeding 10/15. Seen in ER for heavy bleeding and pelvic pain. Normal pelvic ultrasound 10/20/2024. Hcg neg 10/20/2024. Elevated wbc at 15. Denies recent illness/flu like symptoms. Bleeding largely tapered off at this point. Denies vaginal/urinary symptoms. Not planning , but would be okay if it happened. Asks about taking with oral contraceptive pill. TSH low at 0.06 with normal FT4, normal prolactin, testosterone, estradiol 09/2024. Notes new onset bilateral breast pain x 3 days. Also notes some increased OSMAN and nausea with Bayaz. Known migraines with aura. Review of Systems Gastrointestinal: Positive for nausea. Negative for vomiting. Genitourinary: Positive for menstrual problem and vaginal bleeding. Negative for dyspareunia, dysuria, pelvic pain, vaginal discharge and vaginal pain. Neurological: Positive for headaches. Objective BP 117/78 (BP Location: Left arm, Patient Position: Sitting, BP Cuff Size: Large adult) Pulse 77 Temp 97.5 ??F (36.4 ??C) (Temporal) Resp 20 Ht 5' 5 (1.651 m) Wt 200 lb 6.4 oz (90.9 kg) LMP 10/15/2024 (Exact Date) SpO2 100% BMI 33.35 kg/m?? Physical Exam Constitutional: Appearance: Normal appearance. Neurological: Mental Status: She is alert. Psychiatric: Mood and Affect: Mood normal. Behavior: Behavior normal. Assessment/Plan Diagnoses and all orders for this visit: Abnormal uterine bleeding (AUB) - POCT , urine manually resulted Bleeding largely resolved. test negative today. Reviewed may be due to oral contraceptivepill start, missed pill or thyroid issues. Will check thyroid labs today. Known migraines with aura, would like to continue with daily pill. Will switch to Slynd now. Report if AUB recurs, although normal to have some irregular bleeding in first few months. Breast tenderness should resolve with time as well. Try taking pill at bedtime with small snack to see if occ nausea improves. Let me know ifnot. Leukocytosis, unspecified type - CBC; Future Denies recent illness. Will recheck cbc in 1 month. Followup with PCP if still elevated. Low TSH level - TSH W/Reflex to FT4; Future - Thyroid Peroxidase Antibodies; Future Thyroid labs today. Followup with PCP if abnormal Other orders - Drospirenone (Slynd) 4 MG tablet; Take 1 tablet by mouth Once per day. documented in this encounter Plan of Treatment Upcoming Encounters Date Type Department Care Team (Late st Contact Info) Description 12/21/2024 8:30 AM EDT Office Visit [facility] CHC MED & PEDS [address] [place], [place] [phone] Liam Vivar MD [address] [place], [place] [phone] 02/01/2025 9:15 AM EDT Office Visit [facility] MEDICINE [address] [place], [place] [phone] Earlene Fall CNM [address] [place], [place] [phone] Scheduled Orders Name Type Priority Associated Diagnoses Orde r Schedule CBC Lab Routine Leukocytosis, unspecified type Expected: 12/02/2024 (Approximate), Expires: 11/02/2025 TSH W/Reflex to FT4 Lab Routine Low TSH level Expected: 11/02/2024 (Approximate), Expires: 11/02/2025 Thyroid Peroxidase Antibodies Lab Routine Low TSH level Expected: 11/02/2024 (Approximate), Expires: 11/02/2025 documented as of this encounter Procedures Procedure Name Priority Date/Time Associated Diagnosis Comments POCT , URINE Routine 11/02/2024 11:07 AM EDT Abnormal uterine bleeding (AUB) documented in this encounter Results * POCT , urine manually resulted (11/02/2024 11:07 AM EDT) Preg Test, Ur Negative Negative, Indeterminate, None Detected, Invalid, Specimen unsatisfactory for evaluation, Weakly Positive QC Media Lot # [id number] Lot# Expiration Date [id number] Urine 11/02/2024 11:0 7 AM EDT Earlene Fall CN POINT OF CARE TEST ENTER/ EDIT ORDERABLES Final Result documented in this encounter Visit Diagnoses Diagnosis Abnormal uterine bleeding (AUB)- Primary Leukocytosis, unspecified type Low TSH level documented in this encounter Additional Health Concerns Assessment Noted Time PHQ-9 Depression Total Score: 16 025 9:29 AM EST documented as of this encounter Care Teams Football Pad Repairer Relationship Specialty Start Date End Date Liam Vivar MD [address] [place] [id number] PCP - General Internal Medicine 07/22/24 documented as of this encounter
--- OUTSIDE RECORDS SUMMARY | 2024-11-02 13:06 | XMS_ITS | Continuity of Care Document ---
Author Organization [employer] Address [address] [place] [address] Phone Care Team Providers Care Surgical Orderly Name Role Phone Moises Cui MD Unavailable Unavailable Allergies, Adverse Reactions, Alerts Substance Reaction Status Criticality No Known Allergies Active No Inform ation Procedures Procedure Date OFFICE/OUTPATIENT VISIT, EST IMMUNIZATION ADMIN Flu Vac Preserv Free Quadrivalent 0.5 Ml >6mo IMMUNIZATION ADMIN HPV VACCINE 9 VALENT OFFICE/OUTPATIENT VISIT, EST [facility] DENTAL ASSESSMENT/REFERRAL 018 [facility] NUTRITIONAL ASSESSMENT [facility] Au [facility] DEVELOPMENTAL ASSESSMENT 8 PURE TONE HEARING TEST, AIR VISUAL ACUITY SCREEN HEMOGLOBIN IMMUNIZATION ADMIN HEP A VACC, PED/ADOL, 2 DOSE PEDIATRIC A IMMUNIZATION ADMIN, EACH ADD MENINGOCOCCAL VACCINE, IM PREV VISIT, NEW, AGE 12-17 Advance Directives Directive Yes / No Effective Date File Name No Information Encounters Encounter Description Practice Location Reason(s) For Visit Diagnoses Date Provider Providers Copied on Encounter [facility], [address], [place], [place], [id number], [place] tel:[phone] [facility] No Information [address] Leon. [address], [place], [id number], [place]. tel:[phone] OFFICE/OUTPA TIENT VISIT, EST [facility], [address], [place], [place], [id number], [place] tel:[phone] [facility] flu shot (chief complaint) Needs flu shot No Information OFFICE/OUTPA TIENT VISIT, [facility], [address], [place], [place], [id number], [place] tel:[phone] [facility] Labs Results (chief complaint) Immunization dueEncounter to discuss test results No Information PREV VISIT, NEW, AGE 12-17 [facility], [address], [place], [place], [id number], [place] tel:[phone] [facility] Well child (chief complaint) chest [...] use administered Note: verified by Aminata Whiting ADMINISTRATIVE OFFICE SPECIALIST, monitored 15 minutes no reaction ; Source: New Immunization Record Gardisil 9 (HPV 9-valent) administered No te: 15 min monitored, no reaction, dose verified by Olamide Whiting , idx2 ; Source: New Immunization Record Hep A (ped/adol, 2 dose) administered Not e: monitored pt. 15 mins ADELAIDE -dlopez ma ; Source: New Immunization Record MCV4P (meningococcal) administered Note: monitored pt. 15 mins ADELADIE garibay ma ; Source: New Immunization Record [...] Record Payers Payer name Insurance type Covered green party ID Authoriza tion(s) [facility] [id number] [facility] Managed Wrap [id number] [facility] [id number] [facility] Managed Wrap [id number] [facility] [id number] [facility] Managed Wrap [id number] [facility] [id number] [facility] Managed Wrap [id number] Social History Type Description Quantity Date Captured [...] Goal Diet education completed Referral Ordered: Referrals: Cement Mixer. Consult ordered Patient Education Well Care - [...]
--- OUTSIDE RECORDS SUMMARY | 2024-11-02 13:07 | XMS_ITS | Encounter Summary ---
Author Organization [employer] Address [address] [place] [address] Care Team Providers Care Medical Oncologist Name Role Phone Liam Vivar MD Primary Care Prov ider Reason for Visit * Reason Comments Med Refill Encounter Details Date Type Department Care Team (Late st Contact Info) Description 09/03/2024 Refill [facility] WALK-IN CENTER [address] [place] [address] Opal Salvador MD [address] [place] [address] Herpes labialis Social History Tobacco Use Types [...] Description 12/21/2024 8:30 AM EDT Office Visit [facility] CHC MED & PEDS [address] [place] [address] Liam Vivar MD [address] [place] [address] 02/01/2025 9:15 AM EDT Office Visit [facility] MEDICINE [address] [place] [address] Earlene Fall CNM [address] [place] [address] documented as of this encounter Visit Diagnoses Diagnosis Herpes labialis Herpes simplex without mention of complication documented in this encounter Additional Health Concerns Assessment Noted Time PHQ-9 Depression Total Score: 16 025 9:29 AM EST documented as of this encounter Care Teams Medical Oncologist Relationship Specialty Start Date End Date Liam Vivar MD [address] [place] [address] PCP - General Internal Medicine 12/18/24 documented as of this encounter
--- OUTSIDE RECORDS SUMMARY | 2024-11-02 13:07 | XMS_ITS | Patient Health Record ---
Author Organization [employer] Address [address] [facility] [id number] [place] [address] Care Team Providers Care Cardiac Rehabilitation Specialist Name Role Phone Hattie Mcginnis Primary Care Provider [phone] ALLERGIES No Known Allergies REASON FOR REFERRAL [...] Problem Syncope and collapse (R55) Active confirmed 929022835 Problem Acute depression (F32.9) Active confirmed Acute depression (320789747) Problem Abnormal menses (N92.6) Active confirmed [id number] Problem Frequent nosebleeds (R04.0) Active confirmed [id number] PLAN OF TREATMENT Pending Test Test Name [...] Coverage End Date Eugenio Valdez [address] [place] [address] [id number] Arlen Nunes Self - patient is the insured MEDICAL (GENERAL) HISTORY Medical History History ICD Code ADHD Intermittent Reflux Surgical History Surgery Date(Month/Year) colonoscopy/endoscopy as inf ant (Failure to thrive, underweight until 5yr) Hospitalization History Reason Date(Month/Year) 1 mo' ICU after swallowed meconium 2002
--- OUTSIDE RECORDS SUMMARY | 2024-11-02 13:07 | XMS_ITS | Encounter Summary ---
Author Organization [facility] Address [address] [facility] 7 [place] [address] Care Team Providers Care Detective Bowling Alley Name Role Phone Liam Vivar MD Primary Care Prov ider Encounter Details Date Type Department Care Team (Late Contact Info) Description 07/14/2024 Orders Only [facility] [address] [place] [phone] Liam Vivar MD [address] [place] [address] Social History Tobacco Use Types Packs/Day Years [...] Department Care Team (Late Contact Info) Description 12/21/2024 8:30 AM EDT Office Visit [facility] [address] [place], [place] [phone] Liam Vivar MD [address] [place] [address] 02/01/2025 9:15 AM EDT Office Visit [facility] [address] [facility] [place], [place] [phone] Earlene Fall, ALVA [address] [facility] [place] [id number] documented as of this encounter Procedures Procedure Name Priority Date/Time Associated Diagnosis Comments CBC WITH AUTO DIFFERENTIAL Routine 10/20/2024 6:02 PM EDT HCG, TOTAL, QN Routine 10/20/2024 6:02 PM EDT MAGNESIUM Routine 10/20/2024 6:02 PM EDT COMPREHENSIVE METABOLIC PANEL Routine 10/20/2024 6:02 PM EDT T4, FREE Routine 09/14/2024 3:11 PM EST CBC WITH AUTO DIFFERENTIAL Routine 09/11/2024 2:26 AM EST HCG, TOTAL, QN Routine 09/11/2024 2:26 AM EST LIPASE Routine 09/11/2024 2:26 AM EST COMPREHENSIVE METABOLIC PANEL Routine 09/11/2024 2:26 AM EST SARS COV2/INFLUENZA A/B AND RSV RNA QL NAAT Routine 09/11/2024 2:25 AM EST documented in this encounter Results * hCG, Total, Quantitative (10/20/2024 6:02 PM EDT) HCG Quantitative <2 mIU/mL [facility] Comment:Weeks post LMP Appro ximate hCG(Last Menstrual Period) Range (mIU/ml)3 - 4 weeks 9 - 1304 - 5 weeks 75 - 2,6005 - 6 weeks 850 - 20,8006 - 7 weeks 4000 - 100,2007 - 12 weeks 11,500 - 289,31949 - 16 weeks 18,300 - 137,37244 - 29 weeks (2nd trimester) 1,400 - 53,58924 - 41 weeks (3rd trimester) 940 - 60,000The Dorman B- hCG assay is used for the early detection ofpregnancy; it cannot be used to diagnose any conditionunrelated to . If a B-hCG level is not supportedby the clinical evidence, results should be confirmed by analternative method (qualitative urine hCG, for example). 10/20/2024 6:02 PM EDT 10/20/2024 6:05 PM EDT Generic External Data Provider LAB BLOOD ORDERAB LES Final Result Performing Organization Address [facility]/ZIP Co de Phone Number [facility] [address] [place] [phone] * Magnesium (10/20/2024 6:02 PM EDT) Magnesium 1.7 1.6 - 2.6 mg/dL [facility] 10/20/2024 6:02 PM EDT 10/20/2024 6:05 PM EDT Generic External Data Provider LAB BLOOD ORDERAB LES Final Result Performing Organization Address [facility]/ZIP Co de Phone Number [facility] [address] [place] [phone] * (ABNORMAL) Comprehensive Metabolic Panel (10/20/2024 6:02 PM EDT) Sodium 139 135 - 145 mmol/L [facility] Potassium 4.1 3.3 - 5.1 mmol/L [facility] Chloride 109(H) 96 - 108 mmol/L [facility] Carbon Dioxide 23 22 - 29 mmol/L [facility] Anion Gap 11(L) 12 - 20 [facility] Urea Nitrogen (BUN) 9 9 - 16 mg/dL [facility] Creatinine, Serum 0.67 0.5 - 1.4 mg/dL [facility] Creatinine Clr Calc Pharmacy 147.9 [facility] Comment:Provided height and weight: 165.1 cm,90.9 kg.eGFR (calculated from the MDRD study equation) and eCrCl(calculated from the Cockcroft-Gault equation) are based ondifferent parameters and may not yield comparable results.If eCrCl result is absurd, please check patient'sheight/weight. Estimated Glomerular Filt Rate >60 [facility] Comment:Chronic Kidney Disea se: Estimated GFR < 60 mL/min/[id number] Kidney Disease: Estimated GFR < 15 mL/min/1.73m2 Glucose 89 60 - 115 mg/dL [facility] Calcium 8.9 8.4 - 10.2 mg/dL [facility] Bilirubin, Total 0.5 0.0 - 1.0 mg/dL [facility] Aspartate Amino Transferase 21 5 - 31 U/L [facility] Alanine Aminotransferase 31 0 - 31 U/L [facility] Total Protein 7.4 6.5 - 8.0 g/dL [facility] Albumin Level 3.9 3.5 - 5.0 g/dL [facility] Alkaline Phosphatase 58 39 - 117 U/L [facility] 10/20/2024 6:02 PM EDT 10/20/2024 6:05 PM EDT us Generic External Data Provider LAB BLOOD ORDERAB LES Final Result [facility] [address] [place] [phone] * (ABNORMAL) CBC auto differential (10/20/2024 6:02 PM EDT) White Blood Count 15.4(H) 4.8 - 10.8 X10*3/uL [facility] Red Blood Count 4.18(L) 4.20 - 5.50 X10*6/uL [facility] Hemoglobin 12.4 12.0 - 16.0 g/dl [facility] Hematocrit 37.4 37.0 - 47.0 % [facility] Mean Corpuscular Volume 89.5 80.0 - 98.0 fL [facility] Mean Corpuscular Hemoglobin 29.7 27.0 - 33.0 pg [facility] Mean Corpuscular HGB Conc 33.2 31.0 - 35.0 g/dl [facility] Red Cell Distribution Width 12.0 11.0 - 16.0 % [facility] Platelet Count 332 160 - 400 X10*3/uL [facility] Mean Platelet Volume 10.5 9.4 - 12.3 fL [facility] Neutrophils Percent Auto 69.2 45 - 73 % [facility] Imm Gran Pct Auto 0.4 0.0 - 0.4 % [facility] Lymphocytes Percent Auto 23.8 20 - 40 % [facility] Monocytes Percent Auto 4.7 2 - 11 % [facility] Eosinophils Percent Auto 1.4 0 - 4 % [facility] Basophils Percent Auto 0.5 0 - 2 % [facility] NRBC Pct Auto 0.0 0.0 - 0.2 /100WBC [facility] Neutrophils Absolute Auto 10.6(H) 2.0 - 8.3 x10*3/uL [facility] Imm Gran Abs Auto 0.06(H) 0.00 - 0.03 X10*3/uL [facility] Lymphocytes Absolute Auto 3.7 1.2 - 4.9 X10*3/uL [facility] Monocytes Absolute Auto 0.7 0.1 - 1.2 X10*3/uL [facility] Eosinophils Absolute Auto 0.2 0.0 - 0.4 X10*3/uL [facility] Basophils Absolute Auto 0.1 0.0 - 0.2 X10*3/uL [facility] NRBC Abs Auto 0.000 0.0 - 0.012 X10*3/uL [facility] 10/20/2024 6:02 PM EDT 10/20/2024 6:05 PM EDT us Generic External Data Provider LAB BLOOD ORDERAB LES Final Result Performing Organization Address [facility] Co de Phone Number [facility] [address] [place] [phone] * T4, Free (09/14/2024 3:11 PM EST) Free T4 (Free Thyroxine) 1.33 0.71 - 1.85 ng/dL [facility] 09/14/2024 3:11 PM EST 09/14/2024 4:02 PM EST Liam Tam MD LAB BLOOD ORDERABL ES Final Result Performing Organization Address [facility] de Phone Number [facility] [address] [place] [phone] * hCG, Total, Quantitative (09/11/2024 2:26 AM EST) HCG Quantitative <2 mIU/mL [facility] Comment:Weeks post LMP Appr oximate hCG(Last Menstrual Period) Range (mIU/ml)3 - 4 weeks 9 - 1304 - 5 weeks 75 - 2,6005 - 6 weeks 850 - 20,8006 - 7 weeks 4000 - 100,2007 - 12 weeks 11,500 - 289,93563 - 16 weeks 18,300 - 137,81977 - 29 weeks (2nd trimester) 1,400 - 53,87471 - 41 weeks (3rd trimester) 940 - [...] ORDERAB LES Final Result Performing Organization Address [facility] Co de Phone Number [facility] [address] [place] [phone] * Lipase (09/11/2024 2:26 AM EST) Lipase 17 8 - 78 U/L [facility] 09/11/2024 2:26 AM EST 09/11/2024 2:30 AM EST us Generic External Data Provider LAB BLOOD ORDERAB LES Final Result [facility] [address] [place] [phone] * (ABNORMAL) Comprehensive Metabolic Panel (09/11/2024 2:26 AM EST) Sodium 136 135 - 145 mmol/L [facility] Potassium 3.4 3.3 - 5.1 mmol/L [facility] Chloride 105 96 - 108 mmol/L [facility] Carbon Dioxide 22 22 - 29 mmol/L [facility] Anion Gap 12 12 - 20 [facility] Urea Nitrogen (BUN) 7(L) 9 - 16 mg/dL [facility] Creatinine, Serum 0.65 0.5 - 1.4 mg/dL [facility] Creatinine Clr Calc Pharmacy 156.2 [facility] Comment:Provided height and weight: 165.1 cm,95.254 kg.eGFR (calculated from the MDRD study equation) and eCrCl(calculated from the Cockcroft-Gault equation) are based ondifferent parameters and may not yield comparable results.If eCrCl result is absurd, please check patient'sheight/weight. Estimated Glomerular Filt Rate >60 [facility] Comment:Chronic Kidney Disea se: Estimated GFR < 60 mL/min/1.84p7Ynrxtv Kidney Disease: Estimated GFR < 15 mL/min/1.73m2 Glucose 104 60 - 115 mg/dL [facility] Calcium 8.5 8.4 - 10.2 mg/dL [facility] Bilirubin, Total 0.5 0.0 - 1.0 mg/dL [facility] Aspartate Amino Transferase 35(H) 5 - 31 U/L [facility] Alanine Aminotransferase 50(H) 0 - 31 U/L [facility] Total Protein 7.3 6.5 - 8.0 g/dL [facility] Albumin Level 3.8 3.5 - 5.0 g/dL [facility] Alkaline Phosphatase 51 39 - 117 U/L [facility] 09/11/2024 2:26 AM EST 09/11/2024 2:30 AM EST us Generic External Data Provider LAB BLOOD ORDERAB LES Final Result Performing Organization Address City/State/[facility] Co de Phone Number [facility] [address] [place] [address] [phone] * (ABNORMAL) CBC auto differential (09/11/2024 2:26 AM EST) White Blood Count 4.9 4.8 - 10.8 X10*3/uL [facility] Red Blood Count 4.35 4.20 - 5.50 X10*6/uL [facility] Hemoglobin 13.2 12.0 - 16.0 g/dl [facility] Hematocrit 38.2 37.0 - 47.0 % [facility] Mean Corpuscular Volume 87.8 80.0 - 98.0 fL [facility] Mean Corpuscular Hemoglobin 30.3 27.0 - 33.0 pg [facility] Mean Corpuscular HGB Conc 34.6 31.0 - 35.0 g/dl [facility] Red Cell Distribution Width 11.9 11.0 - 16.0 % [facility] Platelet Count 234 160 - 400 X10*3/uL [facility] Mean Platelet Volume 10.5 9.4 - 12.3 fL [facility] Neutrophils Percent Auto 56.0 45 - 73 % [facility] Imm Gran Pct Auto 0.2 0.0 - 0.4 % [facility] Lymphocytes Percent Auto 32.2 20 - 40 % [facility] Monocytes Percent Auto 11.2(H) 2 - 11 % [facility] Eosinophils Percent Auto 0.0 0 - 4 % [facility] Basophils Percent Auto 0.4 0 - 2 % [facility] NRBC Pct Auto 0.0 0.0 - 0.2 /100WBC [facility] Neutrophils Absolute Auto 2.8 2.0 - 8.3 x10*3/uL [facility] Imm Gran Abs Auto 0.01 0.00 - 0.03 X10*3/uL [facility] Lymphocytes Absolute Auto 1.6 1.2 - 4.9 X10*3/uL [facility] Monocytes Absolute Auto 0.6 0.1 - 1.2 X10*3/uL [facility] Eosinophils Absolute Auto 0.0 0.0 - 0.4 X10*3/uL [facility] Basophils Absolute Auto 0.0 0.0 - 0.2 X10*3/uL [facility] NRBC Abs Auto 0.000 0.0 - 0.012 X10*3/uL [facility] 09/11/2024 2:26 AM EST 09/11/2024 2:30 AM EST us Generic External Data Provider LAB BLOOD ORDERAB LES Final Result [facility] [address] [place] [phone] * (ABNORMAL) SARS-CoV-2 RNA, Influenza A/B, and RSV RNA, Ql NAAT (09/11/2024 2:25 AM EST) Influenza A PCR POSITIVE(A) Negative [facility] Influenza B PCR NEGATIVE Negative [facility] Resp Syncy Virus RNA Qual PCR NEGATIVE Negative [facility] SARS COV2 PCR NEGATIVE Negative [facility] Comment:All test results mus t be [...] use by authorized laboratories.Testing performed on the [employer] GeneXpert utilizingreal-time RT-PCR.All SARS CoV2 and positive influenza A/B results arereported to [facility]. 09/11/2024 2:25 AM EST 09/11/2024 2:30 AM EST us Generic External Data Provider LAB MICROBIOLOGY - GENERAL ORDERABLES Final Result [facility] [address] [place] [phone] documented in this encounter Visit Diagnoses Not on filedocumented in this encounter Care Teams Detective Bowling Alley Relationship Specialty Start Date End Date Liam Vivar MD [address] [place] [phone] PCP - General Internal Medicine 07/22/24 documented as of this encounter
--- OUTSIDE RECORDS SUMMARY | 2024-11-02 13:07 | XMS_ITS | Clinical Summary ---
Author Organization [facility] Address [address] [place] [address] Care Team Providers Care Gifted Program Teacher Name Role Phone Pcp, No Primary Care [...] age to complete this topic Care Teams Gifted Program Teacher Relationship Specialty Start Date End Date Pcp, No 80 CARLOS Goldberg [phone] PCP - General 03/08/21
--- OUTSIDE RECORDS SUMMARY | 2024-11-02 13:07 | XMS_ITS | Clinical Summary ---
Author Organization [employer] Address [address] [facility] [address] [place] [address] Care Team Providers Care Product Safety Officer Name Role Phone Liam Vivar MD Primary Care Prov ider Allergies No known active allergies Medications * This document contains information received from the source organization and may not represent a complete record from that organization. ibuprofen 800 MG tablet Take 1 tablet (800 mg) by mouth 3 times daily. 90 tablet 08/07/19 25 025 Active Omeprazole 20 MG tablet delayed-releas e Take 1 tablet (20 mg) by mouth Once per day. 30 tablet 08/19/19 25 Active hydrOXYzine HCl (Atarax) 25 MG tablet Take 1 tablet (25 mg) by mouth if needed in the morning, at noon, and at bedtime for anxiety. 90 tablet 08/19/19 25 025 Active acyclovir (Zovirax) 800 MG tabletIndicati ons:Herpes Simplex Infection Take 3 tabs a day for 2 days 6 tablet 1 09/01/19 25 Active Vit-Fe Fumarate-FA ( Plus) 27-1 MG tablet One tablet by mouth daily 30 tablet 09/08/19 25 Active albuterol 108 (90 Base) MCG/ACT inhalerIndicat ions:Shortness of breath Inhale 2 puffs every 6 (six) hours if needed for wheezing. 18 g 09/09/19 25 026 Active topiramate (Topamax) 50 MG tablet Take 1 tablet (50 mg) by mouth Once per day. 30 tablet 09/23/19 25 026 Active pseudoephedrin e (Sudafed) 60 MG tablet Take 1 tablet (60 mg) by mouth every 4 (four) hours if needed for congestion for up to 10 days. 30 tablet 09/23/19 25 Active phentermine 15 MG capsule TAKE 1 CAPSULE BY MOUTH ONCE DAILY BEFORE BREAKFAST 30 capsule 10/27/19 25 Active Drospirenone (Slynd) 4 MG tablet Take 1 tablet by mouth Once per day. 28 tablet 11/03/19 25 Active phentermine 15 MG capsule Take 1 capsule (15 mg) by mouth before breakfast. 30 capsule 09/23/19 25 025 Discontinued drospirenone-e thinyl estradiol-levo mefolate calcium (Jeri Estevez) 3-0.02-0.451 MG Take 1 tablet by mouth Once per day. 28 tablet 09/23/19 025 Discontinued(Si de effects) Active Problems Problem Noted Date Diagnosed Date Subclinical hyperthyroidism 09/23/2024 Assessment & Plan (09/23/2024 9:35 AM EST): Repeat blood work in 3-4 months Family history of breast cancer 09/08/2024 Herpes [...] and enrrique. Her sense of belonging and alevism are highly connected and identified as strength. Pt needs guidance in setting up healthy boundaries around her social support (family and christian community). Her focus most part of the [...] Obesity (BMI 30-39.9) 08/19/2024 Assessment & Plan (09/23/2024 9:29 AM EST): No side effects reported, encouraged to continue healthy lifestyle changes, exercise as tolerated Assessment & Plan (08/19/2024 9:30 AM EST): Discussed benefits of weight loss, eating healthier, smaller meals, exercise as tolerated, will start on phentermine and topamax, will call if side effects developed Anxiety and depression 08/19/2024 Assessment & Plan (08/19/2024 9:30 AM EST): No suicidal/homicidal ideas, will refer to therapist, start on hydroxyzine as needed for anxiety Irregular periods 08/19/2024 Assessment & Plan (09/23/2024 9:31 AM EST): Will start on OCP, risk vs benefits discussed, Encounters * This document contains information received from the source organization and may not represent a complete record from that organization. Date Type Department Care Team Description 11/02/2024 10:30 AM EDT Procedure Visit [facility] [address] [place] [address] Arturo Lewis CNM Abnormal uterine bleeding (AUB) (Primary Dx); Leukocytosis, unspecified type; Low TSH level 11/02/2024 Travel 10/26/2024 Refill [facility] [address] [place] [address] Liam Vivar MD 10/20/2024 Orders Only [facility] External Provider, [facility] 10/20/2024 Telephone [facility] [address] [place] [address] Liam Vivar MD 10/16/2024 Population Health Risk Score Community Care [facility] ([address] [phone] Provider, Population Health Generic 09/23/2024 8:30 AM EST Telemedicine [facility] [address] [place] [address] Liam Vivar MD Obesity (BMI 30-39.9) (Primary Dx); Irregular periods; Subacute cough; Bronchitis; Subclinical hyperthyroidism 09/23/2024 Travel 09/11/2024 Patient Outreach [address] [address] Liam Vivar MD Care Coordination (C3 CM-W Latonya Hines telephone call outreach) 09/11/[address] [address] Liam Vivar MD Care Management (C3CM- Chart Review) 09/09/2024 9:20 AM EST Office Visit [facility] [address] [place] [phone] Heather Romero NP Cough in adult patient (Primary Dx); COVID-19; Shortness of breath; Vomiting in adult patient 09/09/2024 Travel 09/08/2024 9:15 AM EST Office Visit [address] [address] Arturo Lewis CNM Postcoital bleeding (Primary Dx); Screening examination for venereal disease; Irregular periods; Family history of breast cancer 09/08/2024 Travel 09/03/2024 Refill [facility] [address] [place] [phone] Opal Salvador MD Herpes labialis 09/02/[address] [address] Liam Vivar MD Nurse Triage 09/01/2024 2:20 PM EST Office Visit [facility] [address] [place] [phone] Opal Salvador MD Herpes labialis (Primary Dx) 08/19/2024 8:30 AM EST Office Visit [facility] [address] [place] [address] Liam Vivar MD Upper back pain (Primary Dx); Chronic pain of left knee; Obesity (BMI 30-39.9); Irregular periods; Gastroesophageal reflux disease without esophagitis; Anxiety and depression; Dietary counseling; Exercise counseling 08/19/2024 Telephone [facility] [address] [place] [address] Liam Vivar MD 08/19/2024 Travel 08/18/2024 Telephone [facility] [address] [place] [address] Liam Vivar MD Chart Prep 08/12/2024 Patient Outreach [facility] [address] [place] [address] Liam Vivar MD Pre-visit Planning (SDOH negative, Tobacco screening negative. ) 08/07/2024 2:40 PM EST Office Visit [facility] [address] [place] [phone] Nereida Handley MD Strep pharyngitis from Last 3 Months Immunizations Name Administration [...] Mass Index 33.35 11/02/2024 10:54 AM EDT Plan of Treatment Upcoming Encounters Date Type Department Care Team (Late st Contact Info) Description 12/21/2024 8:30 AM EDT Office Visit [facility] [address] [place] [address] Liam Vivar MD [address] [place] [address] 02/01/2025 9:15 AM EDT Office Visit [facility] [address] [place] [address] Arturo Lewis, CNM [address] [place] [address] Health Maintenance Due Date Last Done Comments Alcohol/Substance Use Screening 2015 COVID-19 Vaccine ( season) 2024 Influenza Vaccine (#1) 2024 9, 04/24/2016, 07/06/2015, Additional history exists Depression Monitoring (PHQ-9) 2025 08/19/2024, 08/19/2024 SDOH Screening 08/12/2025 08/12/2024 Depression Screening 08/19/2025 08/19/2024, 08/19/19 Chlamydia and Gonorrhea Screening 09/08/2025 09/08/2024 Family Planning (PISQ) 11/02/2025 11/02/2024 Tobacco Screening 11/02/2025 11/02/2024 DTaP/Tdap/Td Vaccines (8 - Td or Tdap) 08/24/2026 08/24/2016, 05/31/2014, 04/09/2007, Additional history exists Pap Smear 09/08/2027 09/08/2024 Lipid Panel 09/14/2029 09/14/2024 Zoster Vaccines (1 of 2) 2053 RSV [...] Meningococcal Vaccine Completed 06/15/2019 , 04/02/2018, 10/11/2014 HIV Screening Completed 09/14/2024 Hepatitis C Screening Completed 09/14/2024 Pneumococcal Vaccine: Pediatrics (0 to 5 Years) [...] 11:07 AM EDT Abnormal uterine bleeding (AUB) US PELVIS TRANSVAGINAL Routine 7:28 PM EDT HCG, TOTAL, QN Routine 10/20/2024 6:02 PM EDT MAGNESIUM Routine 10/20/2024 6:02 PM EDT COMPREHENSIVE METABOLIC PANEL Routine 10/20/2024 6:02 PM EDT CBC WITH AUTO DIFFERENTIAL Routine 10/20/2024 6:02 PM EDT T4, FREE Routine 09/14/2024 3:11 PM EST SYPHILIS SCREEN Routine 09/14/2024 3:11 PM EST Screening examination for venereal disease TESTOSTERONE, TOTAL, MALES (ADULT), IA Routine 09/14/2024 3:11 PM EST Irregular periods ESTRADIOL Routine 09/14/2024 3:11 PM EST Irregular periods HCG, TOTAL, QN Routine 09/14/2024 3:11 PM EST Irregular periods PROLACTIN Routine 09/14/2024 3:11 PM EST Irregular periods HEPATITIS C AB W/REFL TO HCV RNA, QN, PCR Routine 09/14/2024 3:11 PM EST Obesity (BMI 30-39.9) HIV 1/2 ANTIGEN/ANTIBODY, FOURTH GENERATION W/RFL Routine 09/14/2024 3:11 PM EST Obesity (BMI 30-39.9) HEMOGLOBIN A1C Routine 09/14/2024 3:11 PM EST Obesity (BMI 30-39.9) TSH W/REFLEX TO FT4 Routine 09/14/2024 3 :11 PM EST Obesity (BMI 30-39.9) LIPID PANEL, STANDARD Routine 09/14/2024 3:11 PM EST Obesity (BMI 30-39.9) COMPREHENSIVE METABOLIC PANEL Routine 09/14/2024 3:11 PM EST Obesity (BMI 30-39.9) CBC WITH AUTO DIFFERENTIAL Routine 09/14/2024 3:11 [...] Postcoital bleeding Screening examination for venereal disease PAP SMEAR Routine 09/08/2024 9:48 AM EST Postcoital bleeding POCT , URINE Routine 09/08/2024 9:47 AM EST Postcoital bleeding HERPES CULTURE WITH REFLEX TYPING Routine 09/01/2024 2:35 PM EST Herpes labialis US PELVIS TRANSVAGINAL Routine 7:02 PM EST Irregular periods POC GALLOWAY ID NOW STREP A Routine 08/07/2024 2:05 PM EST Strep pharyngitis from Last 3 Months Results * POCT , urine manually resulted (11/02/2024 11:07 AM EDT) Only the most recent of2 resultswithin the time period is included. Preg Test, Ur Negative Negative, Indeterminate, None Detected, Invalid, Specimen unsatisfactory for evaluation, Weakly Positive QC Media Lot # [id number] Lot# Expiration Date [id number] Urine 11/02/2024 11:0 7 AM EDT Arturo Lewis CNM POINT OF CARE TEST ENTER/ EDIT ORDERABLES Final Result * US Pelvis Transvaginal (10/20/2024 7:28 PM EDT) Only the most recent of2 resultswithin the time period is included. Anatomical Region Laterality Modality Pelvis Ultrasound 10/20/2024 7:28 PM EDT Narrative 10/20/2024 7:29 PM EDT ? [facility] ?[address] ?[place] [address] ? Ultrasound Report ? Signed ? Patient: Arlen Nunes ?MR#: [id number] ?? [id number] ? : 2005 ?Acct:[id number] ? Age/Sex: 19 / F ?ADM Date: 10/20/24 ? Loc: HO.ED ? Attending Dr: ? Ordering Physician: Manjula Nath ?? Date of Service: 10/20/24 ?? Procedure(s): US pelvic and transvaginal ?? Accession Number(s): [id number] ? cc: Liam Vivar MD; Manjula Nath ? CLINICAL HISTORY: dysfunctional uterine bleeding, ??pain ? US pelvis transvaginal ? Comparison: None ? Findings: ?? Transvaginal scanning performed. ? The uterus is 9.1 cm length. ?? Normal myometrium. ?? No endometrial lesion, 15 mm thickness. ? Right ovary 3.2 x 2.0 x 2.1 cm. ?? Left ovary 2.5 x 2.0 x 2.2 cm. ?? Normal color Doppler of both ovaries. ? No free fluid. ? IMPRESSION: ?? 1. Normal pelvic ultrasound ? This document has been electronically signed by: Benji Up MD on ?? 10/20/2024 19:28:09 ? Dictated By: ?Benji Up MD ? Signed By: ?<Electronically signed by Benji Up MD in OV> ? 10/20/241928 ? DD/ 27 ? TD/TT: 10/20/241927 ? Software Quality Assurance Engineer: ? Procedure Note [place], Image - 10/20/[address] [address] Ultrasound Report Signed Patient: Tonya NunesR#: [id number] : 2005Acct:[id number] Age/Sex: 19 FADM Date: 10/20/24 Loc: .ED Attending Dr: Ordering Physician: Manjula Nath Date of Service: 10/20/24 Procedure(s): US pelvic and transvaginal Accession Number(s): [id number] cc: Liam Vivar MD; Manjula Nath CLINICAL HISTORY: dysfunctional uterine bleeding, pain US pelvis transvaginal Comparison: None Findings: Transvaginal scanning performed. The uterus is 9.1 cm length. Normal myometrium. No endometrial lesion, 15 mm thickness. Right ovary 3.2 x 2.0 x 2.1 cm. Left ovary 2.5 x 2.0 x 2.2 cm. Normal color Doppler of both ovaries. No free fluid. IMPRESSION: 1. Normal pelvic ultrasound This document has been electronically signed by: Benji Up MD on 10/20/2024 19:28:09 Dictated By: Benji Up MD Signed By: <Electronically signed by Benji Up MD in OV> 10/20/241928 DD/ 27 TD/TT: 10/20/241927 Software Quality Assurance Engineer: us [facility] External Provider IMG US PROCEDURES Final Result * (ABNORMAL) CBC auto differential (10/20/2024 6:02 PM EDT) Only the most recent of3 resultswithin the time period is included. White Blood Count 15.4(H) 4.8 - 10.8 X10*3/uL [facility] Red Blood Count 4.18(L) 4.20 - 5.50 X10*6/uL [facility] Hemoglobin 12.4 12.0 - 16.0 g/dl [facility] Hematocrit 37.4 37.0 - 47.0 % [facility] Mean Corpuscular Volume 89.5 80.0 - 98.0 fL [facility] Mean Corpuscular Hemoglobin 29.7 27.0 - 33.0 pg [facility] Mean Corpuscular HGB Conc 33.2 31.0 - 35.0 g/dl [facility] Red Cell Distribution Width 12.0 11.0 - 16.0 % [facility] Platelet Count 332 160 - 400 X10*3/uL [facility] Mean Platelet Volume 10.5 9.4 - 12.3 fL [facility] Neutrophils Percent Auto 69.2 45 - 73 % [facility] Imm Gran Pct Auto 0.4 0.0 - 0.4 % [facility] Lymphocytes Percent Auto 23.8 20 - 40 % [facility] Monocytes Percent Auto 4.7 2 - 11 % [facility] Eosinophils Percent Auto 1.4 0 - 4 % [facility] Basophils Percent Auto 0.5 0 - 2 % [facility] NRBC Pct Auto 0.0 0.0 - 0.2 /100WBC [facility] Neutrophils Absolute Auto 10.6(H) 2.0 - 8.3 x10*3/uL [facility] Imm Gran Abs Auto 0.06(H) 0.00 - 0.03 X10*3/uL [facility] Lymphocytes Absolute Auto 3.7 1.2 - 4.9 X10*3/uL [facility] Monocytes Absolute Auto 0.7 0.1 - 1.2 X10*3/uL [facility] Eosinophils Absolute Auto 0.2 0.0 - 0.4 X10*3/uL [facility] Basophils Absolute Auto 0.1 0.0 - 0.2 X10*3/uL [facility] NRBC Abs Auto 0.000 0.0 - 0.012 X10*3/uL [facility] 10/20/2024 6:02 PM EDT 10/20/2024 6:05 PM EDT Generic External Data Provider LAB BLOOD ORDERAB LES Final Result Performing Organization Address [facility]/ZIP Co de Phone Number [facility] [address] [place] [phone] * hCG, Total, Quantitative (10/20/2024 6:02 PM EDT) Only the most recent of3 resultswithin the time period is included. HCG Quantitative <2 mIU/mL [facility] Comment:Weeks post LMP Appro ximate hCG(Last Menstrual Period) Range (mIU/ml)3 - 4 weeks 9 - 1304 - 5 weeks 75 - 2,6005 - 6 weeks 850 - 20,8006 - 7 weeks 4000 - 100,2007 - 12 weeks 11,500 - 289,41067 - 16 weeks 18,300 - 137,06508 - 29 weeks (2nd trimester) 1,400 - 53,98627 - 41 weeks (3rd trimester) 940 - [...] ORDERAB LES Final Result Performing Organization Address [facility] Co de Phone Number [facility] [address] [place] [phone] * Magnesium (10/20/2024 6:02 PM EDT) Magnesium 1.7 1.6 - 2.6 mg/dL [facility] 10/20/2024 6:02 PM EDT 10/20/2024 6:05 PM EDT us Generic External Data Provider LAB BLOOD ORDERAB LES Final Result [facility] [address] [place], [place] [phone] * (ABNORMAL) Comprehensive Metabolic Panel (10/20/2024 6:02 PM EDT) Only the most recent of3 resultswithin the time period is included. Pathologist [facility] Sodium 139 135 - 145 mmol/L [facility] Potassium 4.1 3.3 - 5.1 mmol/L [facility] Chloride 109(H) 96 - 108 mmol/L [facility] Carbon Dioxide 23 22 - 29 mmol/L [facility] Anion Gap 11(L) 12 - 20 [facility] Urea Nitrogen (BUN) 9 9 - 16 mg/dL [facility] Creatinine, Serum 0.67 0.5 - 1.4 mg/dL [facility] Creatinine Clr Calc Pharmacy 147.9 [facility] Comment:Provided height and weight: 165.1 cm,90.9 kg.eGFR (calculated from the MDRD study equation) and eCrCl(calculated from the Cockcroft-Gault equation) are based ondifferent parameters and may not yield comparable results.If eCrCl result is absurd, please check patient'sheight/weight. Estimated Glomerular Filt Rate >60 [facility] Comment:Chronic Kidney Disea se: Estimated GFR < 60 mL/min/1.98l8Qtiumb Kidney Disease: Estimated GFR < 15 mL/min/1.73m2 Glucose 89 60 - 115 mg/dL [facility] Calcium 8.9 8.4 - 10.2 mg/dL [facility] Bilirubin, Total 0.5 0.0 - 1.0 mg/dL [facility] Aspartate Amino Transferase 21 5 - 31 U/L [facility] Alanine Aminotransferase 31 0 - 31 U/L [facility] Total Protein 7.4 6.5 - 8.0 g/dL [facility] Albumin Level 3.9 3.5 - 5.0 g/dL [facility] Alkaline Phosphatase 58 39 - 117 U/L [facility] 10/20/2024 6:02 PM EDT 10/20/2024 6:05 PM EDT us Generic External Data Provider LAB BLOOD ORDERAB LES Final Result Performing Organization Address City/[facility]/ZIP Co de Phone Number [facility] [address] [place] [phone] * Syphilis Screen (09/14/2024 3:11 PM EST) Syphilis Screen Nonreactive Nonreactive [facility] Blood 09/14/2024 3:11 PM EST 09/14/2024 4:02 PM EST us Arturo Lewis CNM LAB BLOOD ORDERABLES Donna l Result Performing Organization Address [facility]/ZIP Co de Phone Number [facility] [address] [place] [phone] * (ABNORMAL) TSH W/Reflex to FT4 (09/14/2024 3:11 PM EST) TSH reflex Free T4 0.06(L) 0.32 - 4.0 uIU/mL [facility] Blood Venous blood specimen / Unknown 09/14/2024 3:11 PM EST 09/14/2024 4:02 PM EST us Liam Tam MD LAB BLOOD ORDERABL ES Final Result Performing Organization Address [facility]/ZIP Co de Phone Number [facility] [address] [place] [phone] * Hepatitis C Antibody with Reflex to HCV, RNA, Quantitative, Real-Time PCR (09/14/2024 3:11 PM EST) Hepatitis C Antibody Nonreactive Nonreactive [facility] Comment:Antibodies to HCV no t detected; does not exclude early acuteHCV infection. Blood Venous blood specimen / Unknown 09/14/2024 3:11 PM EST 09/14/2024 4:02 PM EST Liam Tam MD LAB BLOOD ORDERABL ES Final Result Performing Organization Address [facility] Co de Phone Number [facility] [address] [place] [phone] * Prolactin (09/14/2024 3:11 PM EST) Pathologist [facility] Prolactin 5.4 ng/mL [facility] Comment:Reference Range Fema les Non- 3.0-30.0 10.0-209.0 Postmenopausal 2.0-20.0THIS TEST WAS PERFORMED AT:[facility] [address] [address]VJHRXABIDA PEREZ MD Blood Venous blood specimen / Unknown 09/14/2024 3:11 PM EST 09/14/2024 4:02 PM EST Liam Tam MD LAB BLOOD ORDERABL ES Final Result Performing Organization Address [facility] Phone Number [facility] [address] [place] [phone] * Estradiol (09/14/2024 3:11 PM EST) Pathologist [facility] Estradiol Ultra Sensitive 39 pg/mL [facility] Comment:Female Reference Ran ges for Estradiol, Ultrasensitive (pg/mL): Follicular Phase: 39-375 Luteal Phase: 48-440 Postmenopausal Phase: < or = 10This test was developed and its analytical performancecharacteristics have been determined by [employer].It has not been cleared or approved by FDA. This assay hasbeen validated pursuant to the CLIA regulations and is usedfor clinical purposes.THIS TEST WAS PERFORMED AT:[facility]/[employer] [id number] [facility] [place] [address]YTGANNIRALI ANGEL MD,PHD,MAE Blood Venous blood specimen / Unknown 09/14/2024 3:11 PM EST 09/14/2024 4:02 PM EST us Liam Tam MD LAB BLOOD ORDERABL ES Final Result Performing Organization Address City/[facility]/ZIP Co de Phone Number [facility] [address] [place] [phone] * HIV-1/2 Antigen and Antibodies, Fourth Generation, with Reflexes (09/14/2024 3:11 PM EST) Pathologist [facility] HIV AB/AG Nonreactive Nonreactive [facility] Comment:HIV-1 p24 Ag and/or HIV-1/HIV-2 Ab not detected.A test result that is nonreactive does not exclude thepossibility of exposure to or infection with HIV-1 and/orHIV-2. Nonreactive results in this assay for individualswith prior exposure to HIV-1 and/or HIV-2 may be due toantigen and antibody levels that are below the limit ofdetection of this assay.The [employer] HIV Ag/Ab Combo assay result andsupplemental assay results should be interpreted inconjunction with the patient's clinical presentation,history and other laboratory results. If the results areinconsistent with clinical evidence, additional testing issuggested to confirm the result. Blood Venous blood specimen / Unknown 09/14/2024 3:11 PM EST 09/14/2024 4:02 PM EST us Liam Tam MD LAB BLOOD ORDERABL ES Final Result Performing Organization Address City/[facility]/ZIP Co de Phone Number [facility] [address] [place] [phone] * T4, Free (09/14/2024 3:11 PM EST) Pathologist [facility] Free T4 (Free Thyroxine) 1.33 0.71 - 1.85 ng/dL [facility] 09/14/2024 3:11 PM EST 09/14/2024 4:02 PM EST us Liam Tam MD LAB BLOOD ORDERABL ES Final Result Performing Organization Address City/[facility]/ZIP Co de Phone Number [facility] [address] [place] [phone] * Testosterone, Total, males (Adult), IA (09/14/2024 3:11 PM EST) Pathologist [facility] Testosterone, Total 12 2 - 45 ng/dL [facility] Comment:For additional infor mation, please refer tohttp://education.[employer]/faq/RlvduRpkjrnjccidlRJVCXITTU699(This link is being provided for informational/educational purposes only.)This test was developed and its analytical performancecharacteristics have been determined by [employer] [place], [place]. It hasnot been cleared or approved by the U.S. Food and DrugAdministration. This assay has been validated pursuantto the CLIA regulations and is used for clinicalpurposes.THIS TEST WAS PERFORMED AT:[facility] [place] [address]HLEYOMGELIAZAR MILLER MD,PHD Blood Venous blood specimen / Unknown 09/14/2024 3:11 PM EST 09/14/2024 4:02 PM EST us Arturo DEL ANGEL LAB BLOOD ORDERABLES Donna l Result Performing Organization Address City/[facility]/ZIP Co de Phone Number [facility] [address] [place] [phone] * Hemoglobin A1c (09/14/2024 3:11 PM EST) Pathologist [facility] Hemoglobin A1c 5.1 <6.0 % [facility] Comment:Hemoglobin A1C Refer ence Range Adults: 4.8 - 6.0 % Non diabetic: < 6.0 % Goal: < 7.0 %Additional Action Suggested: > 8.0 %Note: Hemoglobin A1c results are invalid for patients with abnormal amounts of HbF. Blood transfusions may impact the HbA1c concentration in the patient sample. Estimated Average Glucose 100 mg/dL [facility] Comment:eAG = Estimated ave rage glucose which is %A1C expressed asaverage glucose, using the formula of the N2A-OhzkadfNrbsjnf Glucose study (ADAG), Diabetes Care, Vol.31,#8,Mar. 2007 Blood Venous blood specimen / Unknown 09/14/2024 3:11 PM EST 09/14/2024 4:02 PM EST us Liam Tam MD LAB BLOOD ORDERABL ES Final Result [facility] [address] [place] [phone] * (ABNORMAL) Lipid Panel, Standard (09/14/2024 3:11 PM EST) Triglycerides 72 <150 mg/dL [facility] Comment:Desirable Triglyceri de: less than 150 mg/dLBorderline High Triglyceride 150-199 mg/dLHigh Triglyceride: 200-499 mg/dLVery High Triglyceride: greater than or equal to 5OO mg/dL Cholesterol 124 <200 mg/dL [facility] Comment:Desirable Cholestero l: less than 200 mg/dLBorderline High Cholesterol: 200-239 mg/dLHigh Cholesterol: greater than 239 mg/dL LDL Cholesterol Calculated 84 <100 mg/dL [facility] Comment:Desirable LDL: less than 100 mg/dLNear Optimal/Above Optimal LDL: 110- 129 mg/dLBorderline High LDL: 130-159 mg/dLHigh LDL: 160-189 mg/dLVery High LDL: greater than or equal to 190 mg/dL HDL Cholesterol 26(L) >40 mg/dL [facility] Comment:Desirable HDL: great er than 40 mg/dL Note: This HDL assay may give artificially low results in patients with liver disease. Blood Venous blood specimen / Unknown 09/14/2024 3:11 PM EST 09/14/2024 4:02 PM EST us Liam Tam MD LAB BLOOD ORDERABL ES Final Result Performing Organization Address City/[facility]/ZIP Co de Phone Number [facility] [address] [place] [phone] * Lipase (09/11/2024 2:26 AM EST) Lipase 17 8 - 78 U/L [facility] 09/11/2024 2:26 AM EST 09/11/2024 2:30 AM EST us Generic External Data Provider LAB BLOOD ORDERAB LES Final Result Performing Organization Address City/[facility]/ZIP Co de Phone Number [facility] [address] [place] [phone] * (ABNORMAL) SARS-CoV-2 RNA, Influenza A/B, and RSV RNA, Ql NAAT (09/11/2024 2:25 AM EST) Pathologist [facility] Influenza A PCR POSITIVE(A) Negative [facility] Influenza B PCR NEGATIVE Negative [facility] Resp Syncy Virus RNA Qual PCR NEGATIVE Negative [facility] SARS COV2 PCR NEGATIVE Negative [facility] Comment:All test results mus t [...] use by authorized laboratories.Testing performed on the [employer]ogen GeneXpert utilizingreal-time RT-PCR.All SARS CoV2 and positive influenza A/B results arereported to [facility]. 09/11/2024 2:25 AM EST 09/11/2024 2:30 AM EST Generic External Data Provider LAB MICROBIOLOGY - GENERAL ORDERABLES Final Result Performing Organization Address [facility] Co de Phone Number [facility] [address] [place] [phone] * Influenza B (ID NOW Rapid Molecular) (09/09/2024 9:51 AM EST) Influenza B Negative Negative, Indeterminate [facility] Swab 09/09/2024 9:51 AM EST Heather Romero BUILDING CONSTRUCTION FOREMAN POINT OF CARE TEST ENTER/EDIT O RDERABLES Final Result Performing Organization Address [facility] Co de Phone Number [facility] [address] [place] [phone] * Influenza A (ID NOW Rapid Molecular) (09/09/2024 9:51 AM EST) Influenza A Negative Negative, Indeterminate [facility] Swab 09/09/2024 9:51 AM EST Heather Romero BUILDING CONSTRUCTION FOREMAN POINT OF CARE TEST ENTER/EDIT O RDERABLES Final Result Performing Organization Address [facility] de Phone Number [facility] [address] [place] [phone] * POCT Rapid COVID Ag (09/09/2024 9:41 AM EST) Rapid COVID Ag Positive Swab 09/09/2024 9:41 AM EST Heather Romero BUILDING CONSTRUCTION FOREMAN POINT OF CARE TEST ENTER/EDIT O RDERABLES Final Result * STI testing add on (NG, CT, Trich) (09/08/2024 9:48 AM EST) Trichomonas (NAAT) Not Detected Not Detected [facility] Comment:Methodology: Transcr iption Mediated Amplification(TMA)The analytical performance characteristics of thisassay have been determined by [employer]. The modificationshave not been cleared or approved by the FDA. Thisassay has been validated pursuant to the CLIAregulations and is used for clinical purposes.For additional information, please refer tohttp://education.Trovebox/faq/Trichomonastma (This link is being providedfor information/educational purposes only).THIS TEST WAS PERFORMED AT:[employer] [id number] [place] [id number] MILLER MD,PHD CTNG Ref Lab Not Detected Not Detected [facility] NG Ref Lab Not Detected Not Detected [facility] Comment:Methodology: Transcr iption Mediated Amplification(TMA) to detect RNA.The analytical performance characteristics of thisassay, when used to test SurePath specimens havebeen determined by [employer]. The modificationshave not been cleared or approved by the FDA.This assay has been validated pursuant to the CLIAregulations and is used for clinical purposes.For additional information, please refer tohttps://education.Trovebox/faq/FRZ488(This link is being provided for information/educational purposes only).THIS TEST WAS PERFORMED AT:[employer] [id number] [place] [phone] MILLER MD,PHD ThinPrep?? vial Cervix uteri structure / Unknown 09/08/2024 9:48 AM EST 09/09/2024 9:15 AM EST Narrative [facility] - 09/13/2024 8:03 PM EST Collection Date: [id number] by: JENNIFER Chen: Cervix Arturo Lewis [facility] CYTOLOGY ORDERABLES F inal Result [facility] [address] [place] [phone] * Pap Smear (09/08/2024 9:48 AM EST) Swab Cervix uteri structure / Unknown 09/08/2024 9:48 AM EST 09/09/2024 9:15 AM EST [facility] - 09/18/2024 3:07 PM EST ----- ------- Name: Arlen Nunes ?Age/Sex: 19/F ? : 2005 Unit#: [id number] ?? Attend Dr: ARTURO LEWIS Sabino ?Re09/08/24 ?Status: DEP REF ? Location: HO.HHCLNP ? Disch: ? ----- ------- SPEC : [id number] ? RECD: 09/09/24-914 ? STATUS: ??SOUT ? REQ NUM: [id number] ? NAVA: 09/08/24 ? SUBM DR: ARTURO LEWIS CNM ? ENTERED: ??09/09/24 ?SP TYPE: Pap Smr ?OTHR : ? ORDERED: ??Pap Smear ? Interpretation ?? Satisfactory for evaluation. ?? Negative for intraepithelial lesion or malignancy. ?Clinical Information LMP:Unknown date Previous PAP test:Unknown date/findings Other history: Postcoital bleeding ? Material Received ?? ThinPrep-Cervical ----- ------- Signed (signature on file) CARLOS Palmer (ASC) 09/18/24 3714 ? ----- ------- ? END OF REPORT ? Arturo Lewis CNM LAB CYTOLOGY ORDERABLES F inal Result Performing Organization Address [facility] Co de Phone Number [facility] [address] [place] [phone] * (ABNORMAL) Herpes Simplex Virus Culture with Reflex Typing (09/01/2024 2:35 PM EST) [facility] HSV Culture/Type SEE NOTE(A) [facility] Comment:HERPES SIMPLEX VIRUS CULTURE W/RFL TO TYPING Micro Number: [id number] Test Status: Final Specimen Source: Not given Specimen Quality: Adequate HSV Culture: Isolated HSV TYPE 2: Not Isolated HSV TYPE 1: IsolatedTHIS TEST WAS PERFORMED AT:[employer] [address] [id number] MERATI,MD Swab Topography unknown / Unknown 09/01/2024 2:35 PM EST 09/02/2024 11:38 AM EST Opal Salvador MD LAB MICROBIOLOGY - GENERAL ORDERABLES Final Result Performing Organization Address [facility] Co de Phone Number [facility] [address] [place] [phone] * (ABNORMAL) POCT rapid strep A manually resulted (08/07/2024 2:05 PM EST) Pathologist [facility] Rapid Strep A Screen Positive( A) Negative, None Detected Swab 08/07/2024 2:05 PM EST Nereida Handley MD POINT OF CARE TEST ENTER/EDIT OR DERABLES Final Result from Last 3 Months [facility] [employer] Care Teams Product Safety Officer Relationship Specialty Start Date End Date Liam Vivar MD [address] [place] [phone] PCP - General Internal Medicine 07/22/24
[2024-11-02 13:12] LABS: TSH reflex Free T4 0.63 uIU/mL (0.32-4.0)
[2024-11-05 18:38] LABS: Thyroid Peroxidase Antibodies <1 IU/mL (<9)
== END 2024-11-02 11:27 | disposition home or self-care (01) ==
LOC: HO.HHCL 11:26
PROVIDERS: Visit Provider Advanced Practice Midwife
DX: R79.89 Other specified abnormal findings of blood chemistry (principal)
CPT/HCPCS: 36415; 84443; 86376

== ENCOUNTER 2025-02-01 09:27 | Outpatient (REF) | payer MEDICAID, SELFPAY ==
--- OUTSIDE RECORDS SUMMARY | 2025-02-01 09:47 | XMS_ITS | Clinical Summary ---
Author Organization [facility] Address [address] [place] [address] Care Team Providers Care Internal Control Consultant Name Role Phone Pcp, No Primary Care [...] Recorded Sex Assigned at Not on file Legal Sex Female 1:13 PM EDT Gender Identity Not on file Sexual Orientation Not on file Last Filed Vital Signs Vital Sign Reading Time Taken Comments Blood Pressure 120/78 04/07/2021 1:31 PM EDT Pulse 69 04/07/2021 1:31 PM EDT Temperature 36.9 C (98.5 F) 04/07/2021 1:31 PM EDT Respiratory Rate - - Oxygen Saturation 97% [...] series) 2022 Pap Smear (Ages 21-65) 02/17/2024 COVID-19 Vaccine (2023-2 5 season) 2024 12/26/2020, 12/05/2020 Influenza Vaccine 03/05/2025 Pneumococcal Vaccine: Pediatric (0-5 Years) and At-Risk Patients (6 to 49 Years) Aged Out No longer eligible b ased on patient's age to complete this topic Insurance [facility] Care Teams Internal Control Consultant Relationship Specialty Start Date End Date Pcp, No [address] [place] [address] PCP - General 03/08/21
[2025-02-01 11:22] LABS: Hemoglobin 12.6 g/dl (12.0-16.0); Mean Corpuscular HGB Conc 32.3 g/dl (31.0-35.0); Mean Corpuscular Hemoglobin 28.7 pg (27.0-33.0); Mean Corpuscular Volume 88.8 fL (80.0-98.0); Mean Platelet Volume 11.2 fL (9.4-12.3); Platelet Count 307 X10*3/uL (160-400); Red Blood Count 4.39 X10*6/uL (4.20-5.50); Red Cell Distribution Width 12.2 % (11.0-16.0); White Blood Count 9.5 X10*3/uL (4.8-10.8)
[2025-02-01 11:41] LABS: HCG Quantitative 316 mIU/mL
== END 2025-02-01 09:28 | disposition home or self-care (01) ==
LOC: HO.HHCL 09:27
PROVIDERS: PCP Internal Medicine; Visit Provider Advanced Practice Midwife
DX: O26.891 Other specified pregnancy related conditions, first trimester (principal); D72.829 Elevated white blood cell count, unspecified
CPT/HCPCS: 36415; 84702; 85027

== ENCOUNTER 2025-02-03 08:30 | Outpatient (REF) | payer MEDICAID, SELFPAY ==
--- OUTSIDE RECORDS SUMMARY | 2019-05-22 12:34 | XMS_ITS | Continuity of Care Document ---
Author Organization [facility] Address [address] [place] [address] Phone Care Team Providers Care Land Degradation Analyst Name Role Phone Moises Cui MD Unavailable Unavailable Allergies, Adverse Reactions, Alerts Substance Reaction Status Criticality No Known Allergies Active No Inform ation Procedures Procedure Date OFFICE/OUTPATIENT VISIT, EST IMMUNIZATION ADMIN Flu Vac Preserv Free Quadrivalent 0.5 Ml >6mo IMMUNIZATION ADMIN HPV VACCINE 9 VALENT OFFICE/OUTPATIENT VISIT, EST [facility] DENTAL [facility]ESS[facility]/REFERRAL 018 [facility] NUTRITIONAL [facility]ESSMENT [facility] ANTICIPAT[facility] ED. Au [facility] DEVELOPMENTAL ASSESSMENT 8 PURE TONE HEARING TEST, AIR VISUAL ACUITY SCREEN HEMOGLOBIN IMMUNIZATION ADMIN HEP A VACC, PED/ADOL, 2 DOSE PEDIATRIC A IMMUNIZATION ADMIN, EACH ADD MENINGOCOCCAL VACCINE, IM PREV VISIT, NEW, AGE 12-17 Advance Directives Directive Yes / No Effective Date File Name No Information Encounters Encounter Description Practice Location Reason(s) For Visit Diagnoses Date Provider Providers Copied on Encounter [facility], [address], [place], [place], [id number], [place] tel:[phone] [facility] No Information 9 Basilia De Leon. [address], [place], [id number], [place]. tel:[phone] OFFICE/OUTPA TIENT VISIT, EST [facility], [address], [place], [place], [id number], [place] tel:[phone] [facility] flu shot (chief complaint) Needs flu shot No Information OFFICE/OUTPA TIENT VISIT, [facility], [address], [place], [place], [id number], [place] tel:[phone] [facility] Labs Results (chief complaint) Immunization dueEncounter to discuss test results No Information PREV VISIT, NEW, AGE 12-17 [facility], [address], [place], [place], [id number], [place] tel:[phone] [facility] Well child (chief complaint) chest tightness (chief complaint) Encntr for routine child health exam w/o abnormal findingsEncntr screen for dis of the bld/bld-form org/immun mechnsmBMI (body mass index), pediatric, 95-99% for ageCostochondrit isImmunization dueDietary counseling and surveillance No Information Family History Family Member Type Diagnosis Age At Onset Father Problem (finding) hypertension Mother Problem (finding) Diabetes mellitus Immunizations Vaccine Date Status Comments Influenza virus vaccine, quadrivalent (IIV4), split virus, preservative free, 0.5 mL dosage, for intramuscular use administered Note: verified by Aminata MCGILL, monitored 15 minutes no reaction ; Source: New Immunization Record Gardisil 9 (HPV 9-valent) administered No te: 15 min monitored, no reaction, dose verified by Olamide Whiting , idx2 ; Source: New Immunization Record MCV4P (meningococcal) administered Note: monitored pt. 15 mins ADELAIDE lani platt ; Source: New Immunization Record Hep A (ped/adol, 2 dose) administered Not e: monitored pt. 15 mins ADELAIDE garibay ma ; Source: New Immunization Record Tdap (Adacel) administered Source: Parent s Written Record Varicella administered Source: Parents Written Record polio, inactive administered Source: Pare nts Written Record MMR administered Source: Parents Written Record Dtap administered Source: Parents Written Record Dtap administered Source: Parents Written Record MMR administered Source: Parents Written Record Varicella administered Source: Parents Written Record Haemophilus influenzae type b vaccine, conjugate unspecified formulation administered Source: Parents Writ ten Record polio, inactive administered Source: Pare nts Written Record Haemophilus influenzae type b vaccine, conjugate unspecified formulation administered Source: Parents Writ ten Record Hep B (ped/adol, 3 dose) administered Goldie rce: Parents Written Record Dtap administered Source: Parents Written Record polio, inactive administered Source: Pare nts Written Record Haemophilus influenzae type b vaccine, conjugate unspecified formulation administered Source: Parents Writ ten Record Hep B (ped/adol, 3 dose) administered Goldie rce: Parents Written Record Dtap administered Source: Parents Written Record polio, inactive administered Source: Pare nts Written Record Haemophilus influenzae type b vaccine, conjugate unspecified formulation administered Source: Parents Writ ten Record Hep B (ped/adol, 3 dose) administered Goldie rce: Parents Written Record Dtap administered Source: Parents Written Record Payers Payer name Insurance type Covered republican ID Authoriza tion(s) [facility] [id number] [facility] Managed Wrap [id number] [facility] [id number] [facility] Managed Wrap [id number] [facility] [id number] [facility] Managed Wrap [id number] [facility] [id number] [facility] Managed Wrap [id number] Social History Type Description Quantity Date Captured Comments Alcohol Use Details Unknown Caffeine Use Details Unknown Tobacco Use Status No Information Smoking Status No Information Sex Female Sexual Orientation Straight or heterosexual Gender Identity Female Chief Complaint And Reason For Visit No Information Reason For Referral Reason For Referral No Information Plan Of Treatment Date Type Action Status Goal HPV (1st) due Goal HPV (3rd). Due on 9 due Goal Fluoride varnish application. Due on due Goal HPV (2nd). Due on 8 due Goal Tdap due Goal Influenza vaccine. Due on due Goal PPD (TST). Due on 9 due Goal Depression screening. Due on due Goal Fluoride varnish application. Due on due Goal Tdap due Goal Depression screening. Due on due Goal PPD (TST). Due on 8 due Goal HPV (1st) due Goal Diet education completed Referral Ordered: Referrals: Wic Site Coordinator. Consult ordered Patient Education Well Care - Tips for Pa rents of Teens~ completed History Of Present Illness Encounter Date Complaint History Of Prese nt Illness flu shot 13 year old ramy winn came in for flu shot only. No fever, no known allergies, no medical concerns with this visit Labs Results 13 year old ramy winn came in to follow up labs done due to increased BMI. A Nutritional consult is pending. she is also here for her second HPV immunization. No fever or any medical concern at this time chest tightness see above Well child 13 year old ramy winn came in for well visit. She has complaints of occasional sudden onset of chest pain that it hurts when she breathes for 3 months now. No cough or colds. She is generally healthy and has no medical concerns with this visit. Functional Status Date Functional Assessmen t No Information Instructions Date Instruction Additional Infoseun chicas Results showed abnor mal cholesterol levels. Discussed lifestyle modification/diet and exercise. Patient lost 4 lbs since I saw her last month Related to Encounter to discuss test results Discussed. Ibuprofen prn Related to Costochondritis Hemoglobin 12.7 Related to Encnt r screen for dis of the bld/bld-form org/immun mechnsm HPV not available- s cheduled to come back Related to Immunization due Age appropriate anti cipatory guidance discussed (15-21 years) Related to Encntr for routine child health exam w/o abnormal findings Age appropriate diet discussed (15-21 years) Related to Encntr for routine child health exam w/o abnormal findings Age appropriate safe ty discussed (15-21 years) Related to Encntr for routine child health exam w/o abnormal findings Oral Health Discussed (15-21 yea rs) Related to Encntr for routine child health exam w/o abnormal findings Handout given Related to Encnt r for routine child health exam w/o abnormal findings Diet education Related to Dieta ry counseling and surveillance Assessments Type Assessment Date No Information Patient Care Teams Name Effective Dates (start - stop) Status Members No Information
--- OUTSIDE RECORDS SUMMARY | 2025-02-03 08:35 | XMS_ITS | Clinical Summary ---
Author Organization [facility] Address [address] [place] [address] Care Team Providers Care Freight Rate Specialist Name Role Phone Pcp, No Primary [...] patient's age to complete this topic Insurance [facility] Care Teams Freight Rate Specialist Relationship Specialty Start Date End Date Pcp, No [address] [place] [address] PCP - General 03/08/21
== END 2025-02-03 08:31 | disposition home or self-care (01) ==
LOC: HO.HHCL 08:30
PROVIDERS: PCP Internal Medicine; Visit Provider Advanced Practice Midwife
DX: Z34.91 Encounter for supervision of normal pregnancy, unspecified, first trimester (principal)
CPT/HCPCS: 36415; 84702

== ENCOUNTER 2025-04-29 09:01 | Outpatient (REF) | payer MEDICAID, SELFPAY ==
--- OUTSIDE RECORDS SUMMARY | 2019-05-22 12:34 | XMS_ITS | Continuity of Care Document ---
Author Organization [facility] Address [address] [place] [address] Phone Care Team Providers Care Executive Housekeeper Name Role Phone Moises Cui MD Unavailable Unavailable Allergies, Adverse Reactions, Alerts Substance Reaction Status Criticality No Known Allergies Active No Inform ation Procedures Procedure Date OFFICE/OUTPATIENT VISIT, EST IMMUNIZATION ADMIN Flu Vac Preserv Free Quadrivalent 0.5 Ml >6mo IMMUNIZATION ADMIN HPV VACCINE 9 VALENT OFFICE/OUTPATIENT VISIT, EST [facility] DENTAL ASSESSMENT/REFERRAL [address] [facility] NUTRITIONAL ASSESSMENT [facility] ED. Au [facility] DEVELOPMENTAL ASSESSMENT 8 PURE TONE HEARING TEST, AIR VISUAL ACUITY SCREEN HEMOGLOBIN IMMUNIZATION ADMIN HEP A VACC, PED/ADOL, 2 DOSE PEDIATRIC A IMMUNIZATION ADMIN, EACH ADD MENINGOCOCCAL VACCINE, IM PREV VISIT, NEW, AGE 12-17 Advance Directives Directive Yes / No Effective Date File Name No Information Encounters Encounter Description Practice Location Reason(s) For Visit Diagnoses Date Provider Providers Copied on Encounter [facility], [address], [place], [place], [id number], [place] tel:[phone] [facility] No Information 9 Basilia De Leon. [address], [place], [id number], [place]. tel:[phone] OFFICE/OUTPA TIENT VISIT, EST [facility], [address], [place], [place], [id number], [place] tel:[phone] [facility] flu shot (chief complaint) Needs flu shot No Information OFFICE/OUTPA TIENT VISIT, [facility], [address], [place], [place], [id number], [place] tel:[phone] [facility] Labs Results (chief complaint) Immunization dueEncounter to discuss test results No Information PREV VISIT, NEW, AGE 12-17 [facility], [address], [place], [place], [id number], [place] tel:[phone] [facility] Well child (chief complaint) chest tightness [...] intramuscular use administered Note: verified by Aminata Whiting TEXTILE EXAMINER, monitored 15 minutes no reaction ; Source: New Immunization Record Gardisil 9 (HPV 9-valent) administered No te: 15 min monitored, no reaction, dose verified by Olamide Whiting , idx2 ; Source: New Immunization Record Hep A (ped/adol, 2 dose) administered Not e: monitored pt. 15 mins ADELAIDE -dlopez ma ; Source: New Immunization Record MCV4P (meningococcal) administered Note: monitored pt. 15 mins ADELAIDE garibay ma [...] Record Payers Payer name Insurance type Covered democrat ID Authoriza tion(s) [facility] [id number] [facility] Managed Wrap [id number] [facility] [id number] [facility] Managed Wrap [id number] [facility] [id number] [facility] Managed Wrap [id number] [facility] [id number] [facility] Managed Wrap [id number] Social History Type Description Quantity Date Captured Comments Alcohol Use Details Unknown Caffeine Use Details Unknown Tobacco Use Status No Information Smoking Status No Information Sex Female Sexual Orientation Straight or heterosexual Gender Identity Female Chief Complaint And Reason For Visit No Information Reason For Referral Reason For Referral No Information Plan Of Treatment Date Type Action Status Goal Influenza vaccine. Due on Oc due Goal PPD (TST). Due on 9 due Goal Fluoride varnish application. Due on due Goal HPV (3rd). Due on 9 due Goal Tdap due Goal HPV (1st) due Goal Depression screening. Due on due Goal HPV (2nd). Due on 8 due Goal HPV (1st) due Goal PPD (TST). Due on 8 due Goal Depression screening. Due on due Goal Tdap due Goal Fluoride varnish application. Due on due Goal Diet education completed Referral Ordered: Referrals: Dry Yard Worker. Consult ordered Patient Education Well Care - [...]
--- OUTSIDE RECORDS SUMMARY | 2025-04-29 09:46 | XMS_ITS | Encounter Summary ---
Author Organization [employer] Address [address] [place] [address] Care Team Providers Care Mechanical And Auto Body Car Checker Name Role Phone Liam Vivar MD Primary Care Prov ider Encounter Details Date Type Department Care Team ([facility] st Contact Info) Description 04/28/2025 Telephone [facility] [address] [place] [address] Trinity Jimenez, RENETTA [address] [place] [address] Social History Tobacco Use Types Packs/Day Years [...] Access Q2 Not on file 08/12/2024 Comments Yes Sex and Gender Information Value Date Recorded Sex Assigned at Female 06/04/2022 10:18 AM EDT Legal Sex Female 10:18 AM EDT Gender Identity Female 06/30/2024 11:46 AM EST Sexual Orientation Don't know 06/30/2024 11 :46 AM EST documented as of this encounter Miscellaneous Notes * Telephone Encounter - Trinity Jimenez RN - 04/28/2025 10:52 AM EDT Images from the original note were not included. Triage call regarding Pt portal request below. Pt is reporting that 8 weeks ago the Pt was but, miscarried. Pt reports going to [facility] yesterday as referred and finding that Pt is again. Pt is requesting this information be sent to [facility]. Pt is offered an apt but, requested for apt if needed for next week. Electrical Systems Drafter advised will forward this information to [facility] and nursing team for prn follow up. Pt agrees with this plan. Protocol Used: Information Only Call - No Triage (Adult) Protocol-Based Disposition: Home Care Positive Triage Question: * General information question, no triage required and triager able to answer question * All higher-acuity triage questions were negative Care Advice Discussed: * Reasons To Call Back - New symptoms develop - You have more questions - You become worse Arlen Velasquez [facility] Clinical Support (supporting Earlene [facility] CNM)1 hour ago (9:40 AM) Shannon, I really need my doctor to give me a call! Please call me as soon as possible! Thank you, Arlen Nunes documented in this encounter Plan of Treatment Not on file documented as of this encounter Visit Diagnoses Not on filedocumented in this encounter Additional Health Concerns Assessment Noted Time PHQ-9 Depression Total Score: 16 025 9:29 AM EST documented as of this encounter Care Teams Mechanical And Auto Body Car Checker Relationship Specialty Start Date End Date Liam Vivar MD [address] [place] [phone] PCP - General Internal Medicine 07/22/24 documented as of this encounter
--- OUTSIDE RECORDS SUMMARY | 2025-04-29 09:46 | XMS_ITS | Encounter Summary ---
Author Organization [employer] Address [address] [place] [address] Care Team Providers Care Weather Strip Mechanic Name Role Phone Liam Vivar MD Primary Care Prov ider Reason for Visit * Reason Comments Med Refill Encounter Details Date Type Department Care Team (Late st Contact Info) Description 09/03/2024 Refill [facility] [address] [place] [address] Opal Salvador MD [address] [place] [address] Herpes labialis Social History Tobacco Use Types [...] as of this encounter Plan of Treatment Not on file documented as of this encounter Visit Diagnoses Diagnosis Herpes labialis 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
--- OUTSIDE RECORDS SUMMARY | 2025-04-29 09:46 | XMS_ITS | Clinical Summary ---
Author Organization [facility] Address [address] [place] [address] Care Team Providers Care Clinical Biochemist Name Role Phone Pcp, No Primary Care [...] Pap Smear (Ages 21-65) 02/17/2024 Influenza Vaccine 03/05/2025 COVID-19 Vaccine (2024-2 6 season) 2025 12/26/2020, 12/05/2020 Pneumococcal Vaccine: Pediatric (0-5 Years) and At-Risk Patients (6 to 49 Years) Aged Out No longer eligible b ased on patient's age to complete this topic Insurance [facility] Care Teams Clinical Biochemist Relationship Specialty Start Date End Date Pcp, No [address] [place] [address] PCP - General 03/08/21
--- OUTSIDE RECORDS SUMMARY | 2025-04-29 09:46 | XMS_ITS | Encounter Summary ---
Author Organization [employer] Address [address] [facility] [address] [place] [address] Care Team Providers Care Healthcare Technician Name Role Phone Liam Vivar MD Primary Care Prov ider Reason for Visit * Reason Onset Date Comments Med Refill 01/01/2025 Encounter Details Date Type Department Care Team ([facility] st Contact Info) Description 01/01/2025 Refill [facility] [address] [place] [address] Liam Vivar MD [address] [place] [address] Social History Tobacco Use Types Packs/Day Years [...] documented as of this encounter Care Teams Healthcare Technician Relationship Specialty Start Date End Date Liam Vivar MD [address] [place] [phone] PCP - General Internal Medicine 07/22/24 documented as of this encounter
--- OUTSIDE RECORDS SUMMARY | 2025-04-29 09:46 | XMS_ITS | Encounter Summary ---
Author Organization [employer] Address [address] [facility] [address] [place] [address] Care Team Providers Care Watcher [employer]out [employer] Name Role Phone Liam Viavr MD Primary Care Prov ider Encounter Details Date Type Department Care Team ([facility] st Contact Info) Description 04/29/2025 Orders Only [facility] [address] [place] [address] Earlene Fall CNM [address] [place] [phone] Currently in first trimester with unknown gestational age (Primary Dx) Social History Tobacco Use Types [...] as of this encounter Plan of Treatment Scheduled Orders Name Type Priority Associated Diagnoses Orde r Schedule hCG, Total, Quantitative Lab Routine Currently in first trimester with unknown gestational age Expected: 04/29/2025 (Approximate), Expires: 04/29/2026 documented as of this encounter Visit Diagnoses Diagnosis Currently in first trimester with unknown gestational age- Primary documented in this encounter Additional Health Concerns Assessment Noted Time PHQ-9 Depression Total Score: 16 025 9:29 AM EST documented as of this encounter Care Teams Watcher [employer] Relationship Specialty Start Date End Date Liam Vivar MD [address] [place] [phone] PCP - General Internal Medicine 07/22/24 documented as of this encounter
--- OUTSIDE RECORDS SUMMARY | 2025-04-29 09:46 | XMS_ITS | Encounter Summary ---
Author Organization [employer] Address [address] [facility] [address] [place] [address] Care Team Providers Care [employer] Name Role Phone Liam Vivar MD Primary Care Prov ider Encounter Details Date Type Department Care Team ([facility] Contact Info) Description 07/14/2024 Orders Only [facility] [address] [place] [address] Liam Vivar MD [address] [place] [address] Social History Tobacco Use Types Packs/Day Years [...] on file documented as of this encounter Procedures Procedure [...] 6:02 PM EDT) HCG Quantitative <2 mIU/mL [facility] Comment:Weeks post LMP Appro ximate hCG(Last Menstrual Period) Range (mIU/ml)3 - 4 weeks 9 - 1304 - 5 weeks 75 - 2,6005 - 6 weeks 850 - 20,8006 - 7 weeks 4000 - 100,2007 - 12 weeks 11,500 - 289,70034 - 16 weeks 18,300 - 137,19389 - 29 weeks (2nd trimester) 1,400 - 53,32881 - 41 weeks (3rd trimester) 940 - [...] ORDERAB LES Final Result Performing Organization Address [facility]/ZIP Co de Phone Number [facility] [address] [place] [address] [phone] * Magnesium (10/20/2024 6:02 PM EDT) Magnesium 1.7 1.6 - 2.6 mg/dL [facility] 10/20/2024 6:02 PM EDT 10/20/2024 6:05 PM EDT us Generic External Data Provider LAB BLOOD ORDERAB LES Final Result Performing Organization Address [facility] Co de Phone Number [facility] [address] [place] [address] [phone] * (ABNORMAL) Comprehensive Metabolic Panel (10/20/2024 6:02 PM EDT) Sodium 139 135 - 145 mmol/L [facility] Potassium 4.1 3.3 - 5.1 mmol/L [facility] Chloride 109(H) 96 - 108 mmol/L [facility] Carbon Dioxide 23 22 - 29 mmol/L [facility] Anion Gap 11(L) 12 - 20 [facility] Urea Nitrogen (BUN) 9 9 - 16 mg/dL [facility] Creatinine, Serum 0.67 0.5 - 1.4 mg/dL [facility] Creatinine Clr Calc Pharmacy 147.9 [facility] Comment:Provided height and weight: 165.1 cm,90.9 kg.eGFR (calculated from the MDRD study equation) and eCrCl(calculated from the Cockcroft-Gault equation) are based ondifferent parameters and may not yield comparable results.If eCrCl result is absurd, please check patient'sheight/weight. Estimated Glomerular Filt Rate >60 [facility] Comment:Chronic Kidney Disea se: Estimated GFR < 60 mL/min/1.61x8Eflxps Kidney Disease: Estimated GFR < 15 mL/min/1.73m2 Glucose 89 60 - 115 mg/dL [facility] Calcium 8.9 8.4 - 10.2 mg/dL [facility] Bilirubin, Total 0.5 0.0 - 1.0 mg/dL [facility] Aspartate Amino Transferase 21 5 - 31 U/L [facility] Alanine Aminotransferase 31 0 - 31 U/L [facility] Total Protein 7.4 6.5 - 8.0 g/dL [facility] Albumin Level 3.9 3.5 - 5.0 g/dL [facility] Alkaline Phosphatase 58 39 - 117 U/L [facility] 10/20/2024 6:02 PM EDT 10/20/2024 6:05 PM EDT us Generic External Data Provider LAB BLOOD ORDERAB LES Final Result [facility] [address] [place] [address] [phone] * (ABNORMAL) CBC auto differential (10/20/2024 6:02 PM EDT) White Blood Count 15.4(H) 4.8 - 10.8 X10*3/uL [facility] Red Blood Count 4.18(L) 4.20 - 5.50 X10*6/uL [facility] Hemoglobin 12.4 12.0 - 16.0 g/dl [facility] Hematocrit 37.4 37.0 - 47.0 % [facility] Mean Corpuscular Volume 89.5 80.0 - 98.0 fL [facility] Mean Corpuscular Hemoglobin 29.7 27.0 - 33.0 pg [facility] Mean Corpuscular HGB Conc 33.2 31.0 - 35.0 g/dl [facility] Red Cell Distribution Width 12.0 11.0 - 16.0 % [facility] Platelet Count 332 160 - 400 X10*3/uL [facility] Mean Platelet Volume 10.5 9.4 - 12.3 fL [facility] Neutrophils Percent Auto 69.2 45 - 73 % [facility] Imm Gran Pct Auto 0.4 0.0 - 0.4 % [facility] Lymphocytes Percent Auto 23.8 20 - 40 % [facility] Monocytes Percent Auto 4.7 2 - 11 % [facility] Eosinophils Percent Auto 1.4 0 - 4 % [facility] Basophils Percent Auto 0.5 0 - 2 % [facility] NRBC Pct Auto 0.0 0.0 - 0.2 /100WBC [facility] Neutrophils Absolute Auto 10.6(H) 2.0 - 8.3 x10*3/uL [facility] Imm Gran Abs Auto 0.06(H) 0.00 - 0.03 X10*3/uL [facility] Lymphocytes Absolute Auto 3.7 1.2 - 4.9 X10*3/uL [facility] Monocytes Absolute Auto 0.7 0.1 - 1.2 X10*3/uL [facility] Eosinophils Absolute Auto 0.2 0.0 - 0.4 X10*3/uL [facility] Basophils Absolute Auto 0.1 0.0 - 0.2 X10*3/uL [facility] NRBC Abs Auto 0.000 0.0 - 0.012 X10*3/uL [facility] 10/20/2024 6:02 PM EDT 10/20/2024 6:05 PM EDT us Generic External Data Provider LAB BLOOD ORDERAB LES Final Result [facility] [address] [place] [phone] * T4, Free (09/14/2024 3:11 PM EST) Free T4 (Free Thyroxine) 1.33 0.71 - 1.85 ng/dL [facility] 09/14/2024 3:11 PM EST 09/14/2024 4:02 PM EST us Liam Tam MD LAB BLOOD ORDERABL ES Final Result Performing Organization Address City/[facility]/ZIP Co de Phone Number [facility] [address] [place] [address] [phone] * hCG, Total, Quantitative (09/11/2024 2:26 AM EST) HCG Quantitative <2 mIU/mL [facility] Comment:Weeks post LMP Appr oximate hCG(Last Menstrual Period) Range (mIU/ml)3 - 4 weeks 9 - 1304 - 5 weeks 75 - 2,6005 - 6 weeks 850 - 20,8006 - 7 weeks 4000 - 100,2007 - 12 weeks 11,500 - 289,80323 - 16 weeks 18,300 - 137,01810 - 29 weeks (2nd trimester) 1,400 - 53,28292 - 41 weeks (3rd trimester) 940 - [...] ORDERAB LES Final Result Performing Organization Address [facility] Co de Phone Number [facility] [address] [place] [address] [phone] * Lipase (09/11/2024 2:26 AM EST) Lipase 17 8 - 78 U/L [facility] 09/11/2024 2:26 AM EST 09/11/2024 2:30 AM EST Generic External Data Provider LAB BLOOD ORDERAB LES Final Result Performing Organization Address [facility]/ZIP Co de Phone Number [facility] [address] [place] [address] [phone] * (ABNORMAL) Comprehensive Metabolic Panel (09/11/2024 2:26 AM EST) Sodium 136 135 - 145 mmol/L [facility] Potassium 3.4 3.3 - 5.1 mmol/L [facility] Chloride 105 96 - 108 mmol/L [facility] Carbon Dioxide 22 22 - 29 mmol/L [facility] Anion Gap 12 12 - 20 [facility] Urea Nitrogen (BUN) 7(L) 9 - 16 mg/dL [facility] Creatinine, Serum 0.65 0.5 - 1.4 mg/dL [facility] Creatinine Clr Calc Pharmacy 156.2 [facility] Comment:Provided height and weight: 165.1 cm,95.254 kg.eGFR (calculated from the MDRD study equation) and eCrCl(calculated from the Cockcroft-Gault equation) are based ondifferent parameters and may not yield comparable results.If eCrCl result is absurd, please check patient'sheight/weight. Estimated Glomerular Filt Rate >60 [facility] Comment:Chronic Kidney Disea se: Estimated GFR < 60 mL/min/1.49b1Alxaof Kidney Disease: Estimated GFR < 15 mL/min/1.73m2 Glucose 104 60 - 115 mg/dL [facility] Calcium 8.5 8.4 - 10.2 mg/dL [facility] Bilirubin, Total 0.5 0.0 - 1.0 mg/dL [facility] Aspartate Amino Transferase 35(H) 5 - 31 U/L [facility] Alanine Aminotransferase 50(H) 0 - 31 U/L [facility] Total Protein 7.3 6.5 - 8.0 g/dL [facility] Albumin Level 3.8 3.5 - 5.0 g/dL [facility] Alkaline Phosphatase 51 39 - 117 U/L [facility] 09/11/2024 2:26 AM EST 09/11/2024 2:30 AM EST us Generic External Data Provider LAB BLOOD ORDERAB LES Final Result [facility] [address] [place] [address] [phone] * (ABNORMAL) CBC auto differential (09/11/2024 2:26 AM EST) White Blood Count 4.9 4.8 - 10.8 X10*3/uL [facility] Red Blood Count 4.35 4.20 - 5.50 X10*6/uL [facility] Hemoglobin 13.2 12.0 - 16.0 g/dl [facility] Hematocrit 38.2 37.0 - 47.0 % [facility] Mean Corpuscular Volume 87.8 80.0 - 98.0 fL [facility] Mean Corpuscular Hemoglobin 30.3 27.0 - 33.0 pg [facility] Mean Corpuscular HGB Conc 34.6 31.0 - 35.0 g/dl [facility] Red Cell Distribution Width 11.9 11.0 - 16.0 % [facility] Platelet Count 234 160 - 400 X10*3/uL [facility] Mean Platelet Volume 10.5 9.4 - 12.3 fL [facility] Neutrophils Percent Auto 56.0 45 - 73 % [facility] Imm Gran Pct Auto 0.2 0.0 - 0.4 % [facility] Lymphocytes Percent Auto 32.2 20 - 40 % [facility] Monocytes Percent Auto 11.2(H) 2 - 11 % [facility] Eosinophils Percent Auto 0.0 0 - 4 % [facility] Basophils Percent Auto 0.4 0 - 2 % [facility] NRBC Pct Auto 0.0 0.0 - 0.2 /100WBC [facility] Neutrophils Absolute Auto 2.8 2.0 - 8.3 x10*3/uL [facility] Imm Gran Abs Auto 0.01 0.00 - 0.03 X10*3/uL [facility] Lymphocytes Absolute Auto 1.6 1.2 - 4.9 X10*3/uL [facility] Monocytes Absolute Auto 0.6 0.1 - 1.2 X10*3/uL [facility] Eosinophils Absolute Auto 0.0 0.0 - 0.4 X10*3/uL [facility] Basophils Absolute Auto 0.0 0.0 - 0.2 X10*3/uL [facility] NRBC Abs Auto 0.000 0.0 - 0.012 X10*3/uL [facility] 09/11/2024 2:26 AM EST 09/11/2024 2:30 AM EST Generic External Data Provider LAB BLOOD ORDERAB LES Final Result Performing Organization Address City/[facility]/ZIP Co de Phone Number [facility] [address] [place] [phone] * (ABNORMAL) SARS-CoV-2 RNA, Influenza A/B, and RSV RNA, Ql NAAT (09/11/2024 2:25 AM EST) Influenza A PCR POSITIVE(A) Negative [facility] Influenza B PCR NEGATIVE Negative [facility] Resp Syncy Virus RNA Qual PCR NEGATIVE Negative [facility] SARS COV2 PCR NEGATIVE Negative [facility] Comment:All test results mus t [...] use by authorized laboratories.Testing performed on the [employer] GeneXpert utilizingreal-time RT-PCR.All SARS CoV2 and positive influenza A/B results arereported to [facility]. 09/11/2024 2:25 AM EST 09/11/2024 2:30 AM EST us Generic External Data Provider LAB MICROBIOLOGY - GENERAL ORDERABLES Final Result [facility] [address] [place] [address] [phone] documented in this encounter Visit Diagnoses Not on filedocumented in this encounter Care Teams [employer] Relationship Specialty Start Date End Date Liam Vivar MD [address] [place] [phone] PCP - General Internal Medicine 07/22/24 documented as of this encounter
--- OUTSIDE RECORDS SUMMARY | 2025-04-29 09:47 | XMS_ITS | Clinical Summary ---
Author Organization [employer] Address [address] [facility] [address] [place] [address] Care Team Providers Care Anesthesiology Resident Name Role Phone Liam Vivar MD Primary Care Prov ider Allergies No known active allergies Medications * This document contains information received from the source organization and may not represent a complete record from that organization. Omeprazole 20 MG tablet delayed-release Take 1 tablet (20 mg) by mouth Once per day. 30 tablet 3 5 Active albuterol 108 (90 Base) MCG/ACT inhalerIndicati ons:Shortness of breath Inhale 2 puffs every 6 (six) hours if needed for wheezing. 18 g 11 5 09/09/19 26 Active pseudoephedrine (Sudafed) 60 MG tablet Take 1 tablet (60 mg) by mouth every 4 (four) hours if needed for congestion for up to 10 days. 30 tablet 5 Active hydrOXYzine HCl (Atarax) 25 MG tablet Take 1 tablet (25 mg) by mouth if needed in the morning, at noon, and at bedtime for anxiety. 90 tablet 3 5 Active Vit-Fe Fumarate-FA ( Plus) 27-1 MG tablet One tablet by mouth daily 30 tablet 11 5 Active Active Problems Problem Noted Date Diagnosed Date Strep pharyngitis 12/08/2024 Assessment & Plan (12/08/2024 11:42 AM EDT): -rapid strep positive -amoxicillin 500mg bid for 10 days -droplet precautions discussed -supportive care discussed -ER precautions given Subclinical hyperthyroidism 09/23/2024 Assessment & Plan (09/23/2024 [...] and enrrique. Her sense of belonging and congregation are highly connected and identified as strength. 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 Her focus most part of the [...] start on OCP, risk vs benefits discussed, Comments Yes Encounters Date Type Department Care Team Description 04/29/2025 Orders Only [facility] [phone] Arturo Lewis CNM Currently in first trimester with unknown gestational age (Primary Dx) 04/28/2025 Telephone [facility] MIRIAM Ochoa [phone] Trinity Jimenez RN 02/03/2025 Orders Only [facility] MIRIAM Ochoa [phone] Arturo Lewis CNM Currently in first trimester with unknown gestational age (Primary Dx) 02/03/2025 Results Follow-Up [facility] [phone] Arturo Lewis CNM hCG, Total, Quantitative 02/01/2025 9:15 AM EDT Office Visit [facility] MIRIAM Ochoa [phone] Arturo Lewis CNM Currently in first trimester with unknown gestational age (Primary Dx) 02/01/2025 Orders Only [facility] MIRIAM Ochoa [phone] Arturo Lewis CNM Currently in first trimester with unknown gestational age (Primary Dx) 02/01/2025 Results Follow-Up [facility] foster [phone] Arturo Lewis CNM hCG, Total, Quantitative 02/01/2025 Results Follow-Up [facility] [phone] Arturo Lewis CNM CBC 02/01/2025 Travel 01/29/2025 Telephone [facility] [phone] Arturo Lewis CNM chart prep from Last 3 Months Immunizations Immunization Administration Dates Next Due DTaP 04/09/2007, 5,2003,08/02,2003 [...] Q2 Not on file 08/12/2024 Comments Yes Intention Date Recorded Wants to become (finding) 02/01 Sex and Gender Information Value Date Recorded Sex Assigned at Female 06/04/2022 10:18 AM EDT Legal Sex Female 10:18 AM EDT Gender Identity Female 06/30/2024 11:46 AM EST Sexual Orientation Don't know 06/30/2024 11 :46 AM EST Last Filed Vital Signs Vital Sign Reading Time Taken Comments Blood Pressure 123/80 02/01/2025 9:17 AM EDT Pulse 88 02/01/2025 9:17 AM EDT Temperature 36.7 C (98 F) 02/01/2025 9:17 AM EDT Respiratory Rate 20 02/01/2025 9:17 AM EDT Oxygen Saturation 97% 12/08/2024 11: 20 AM EDT Inhaled Oxygen Concentration - - Weight 88.4 kg (194 lb 12.8 oz) 02/01/2025 9:17 AM EDT Height 166.4 cm (5' 5.5 ) 02/01/2025 9:17 AM EDT Body Mass Index 31.92 02/01/2025 9:17 AM EDT Plan of Treatment Health Maintenance Due Date Last Done Comments Disability Screening 2003 Alcohol/Substance Use Screening 2015 Meningococcal B Vaccine (1 of 2 - Standard) 2019 Depression Monitoring 2025 08/19/2024, 025 COVID-19 Vaccine ( season) 2025 Influenza Vaccine (#1) 2025 9, 04/24/2016, 07/06/2015, Additional history exists SDOH Screening 08/12/2025 08/12/2024 Chlamydia and Gonorrhea Screening 09/08/2025 09/08/2024 Family Planning (PISQ) 02/01/2026 02/01/2025 Tobacco Screening 02/01/2026 02/01/2025 DTaP/Tdap/Td Vaccines (8 - Td or Tdap) [...] Years) and At-Risk Patients (6 to 49) Years Aged Out No longer eligible based on patient's age to complete this topic RSV under 20 months Aged Out No longe r eligible based on patient's age to complete this topic Rotavirus Vaccines Aged Out No longer eligible based on patient's age to complete this topic Procedures Procedure Name Priority Date/Time Associated Diagnosis Comments AMB REFERRAL TO OB-[facility] Routine 03/05/2025 Currently in first trimester with unknown gestational age HCG, TOTAL, QN Routine 02/03/2025 8:33 AM EDT Currently in first trimester with unknown gestational age HCG, TOTAL, QN Routine 02/01/2025 9:36 AM EDT Currently in first trimester with unknown gestational age CBC Routine 02/01/2025 9:36 AM EDT Leukocytosis, unspecified type HEPATITIS C AB W/REFL TO HCV RNA, QN, PCR Routine 09/14/2024 3:11 PM EST Obesity (BMI 30-39.9) HIV 1/2 ANTIGEN/ANTIBODY, FOURTH GENERATION W/RFL Routine 09/14/2024 3:11 PM EST Obesity (BMI 30-39.9) LIPID PANEL, STANDARD Routine 09/14/2024 3:11 PM EST Obesity (BMI 30-39.9) PAP SMEAR Routine 09/08/2024 9:48 AM EST Postcoital bleeding CHLAMYDIA/N. GONORRHOEAE AND T. VAGINALIS RNA, QUAL,TMA Routine 09/08/2024 9:48 AM EST Postcoital bleeding Screening examination for venereal disease from Last 3 Months or Most Recently Relevant to Health Maintenance Results * Referral to Obstetrics / Gynecology (03/05/2025) Arturo Lewis [facility] OUTPATIENT REFERRAL ORDER SHREYAS Final Result * hCG, Total, Quantitative (02/03/2025 8:33 AM EDT) Only the most recent of2 resultswithin the time period is included. HCG Quantitative 776 mIU/mL [facility] Comment:Weeks post LMP Appro ximate hCG(Last Menstrual Period) Range (mIU/ml)3 - 4 weeks 9 - 1304 - 5 weeks 75 - 2,6005 - 6 weeks 850 - 20,8006 - 7 weeks 4000 - 100,2007 - 12 weeks 11,500 - 289,39772 - 16 weeks 18,300 - 137,38898 - 29 weeks (2nd trimester) 1,400 - 53,17692 - 41 weeks (3rd trimester) 940 - 60,000The Dorman B- hCG assay is used for the early detection ofpregnancy; it cannot be used to diagnose any conditionunrelated to . If a B-hCG level is not supportedby the clinical evidence, results should be confirmed by analternative method (qualitative urine hCG, for example). Blood Venous blood specimen / Unknown 02/03/2025 8:33 AM EDT 02/03/2025 11:03 AM EDT us Arturo DEL ANGEL LAB BLOOD ORDERABLES Donna maradiaga Result [facility] [address] [place] [phone] * CBC (02/01/2025 9:36 AM EDT) White Blood Count 9.5 4.8 - 10.8 X10*3/uL [facility] Red Blood Count 4.39 4.20 - 5.50 X10*6/uL [facility] Hemoglobin 12.6 12.0 - 16.0 g/dl [facility] Hematocrit 39.0 37.0 - 47.0 % [facility] Mean Corpuscular Volume 88.8 80.0 - 98.0 fL [facility] Mean Corpuscular Hemoglobin 28.7 27.0 - 33.0 pg [facility] Mean Corpuscular HGB Conc 32.3 31.0 - 35.0 g/dl [facility] Red Cell Distribution Width 12.2 11.0 - 16.0 % [facility] Platelet Count 307 160 - 400 X10*3/uL [facility] Mean Platelet Volume 11.2 9.4 - 12.3 fL [facility] NRBC Pct Auto 0.0 0.0 - 0.2 /100WBC [facility] NRBC Abs Auto 0.000 0.0 - 0.012 X10*3/uL [facility] Blood Venous blood specimen / Unknown 02/01/2025 9:36 AM EDT 02/01/2025 10:59 AM EDT us Arturo Lewis CN LAB BLOOD ORDERABLES Donna l Result Performing Organization Address [facility]/ZIP Co de Phone Number [facility] [address] [place] [phone] * Hepatitis C Antibody with Reflex to HCV, RNA, Quantitative, Real-Time PCR (09/14/2024 3:11 PM EST) Pathologist [facility] Hepatitis C Antibody Nonreactive Nonreactive [facility] Comment:Antibodies to HCV no t detected; does not exclude early acuteHCV infection. Blood Venous blood specimen / Unknown 09/14/2024 3:11 PM EST 09/14/2024 4:02 PM EST us Liam Tam MD LAB BLOOD ORDERABL ES Final Result Performing Organization Address [facility] Co de Phone Number [facility] [address] [place] [phone] * HIV-1/2 Antigen and Antibodies, Fourth Generation, with Reflexes (09/14/2024 3:11 PM EST) Pathologist [facility] HIV AB/AG Nonreactive Nonreactive [facility] Comment:HIV-1 p24 Ag and/or HIV-1/HIV-2 Ab not detected.A test result that is nonreactive does not exclude thepossibility of exposure to or infection with HIV-1 and/orHIV-2. Nonreactive results in this assay for individualswith prior exposure to HIV-1 and/or HIV-2 may be due toantigen and antibody levels that are below the limit ofdetection of this assay.The [employer] HIV Ag/Ab Combo assay result andsupplemental assay results should be interpreted inconjunction with the patient's clinical presentation,history and other laboratory results. If the results areinconsistent with clinical evidence, additional testing issuggested to confirm the result. Blood Venous blood specimen / Unknown 09/14/2024 3:11 PM EST 09/14/2024 4:02 PM EST Liam Tam MD LAB BLOOD ORDERABL ES Final Result Performing Organization Address [facility] de Phone Number [facility] [address] [place] [phone] * (ABNORMAL) Lipid Panel, Standard (09/14/2024 3:11 PM EST) Triglycerides 72 <150 mg/dL [facility] Comment:Desirable Triglyceri de: less than 150 mg/dLBorderline High Triglyceride 150-199 mg/dLHigh Triglyceride: 200-499 mg/dLVery High Triglyceride: greater than or equal to 5OO mg/dL Cholesterol 124 <200 mg/dL [facility] Comment:Desirable Cholestero l: less than 200 mg/dLBorderline High Cholesterol: 200-239 mg/dLHigh Cholesterol: greater than 239 mg/dL LDL Cholesterol Calculated 84 <100 mg/dL [facility] Comment:Desirable LDL: less than 100 mg/dLNear Optimal/Above Optimal LDL: 110- 129 mg/dLBorderline High LDL: 130-159 mg/dLHigh LDL: 160-189 mg/dLVery High LDL: greater than or equal to 190 mg/dL HDL Cholesterol 26(L) >40 mg/dL [facility] Comment:Desirable HDL: great er than 40 mg/dL Note: This HDL assay may give artificially low results in patients with liver disease. Blood Venous blood specimen / Unknown 09/14/2024 3:11 PM EST 09/14/2024 4:02 PM EST Liam Tam MD LAB BLOOD ORDERABL ES Final Result Performing Organization Address [facility] Co de Phone Number [facility] [address] [place] [phone] * STI testing add on (NG, CT, Trich) (09/08/2024 9:48 AM EST) Trichomonas (NAAT) Not Detected Not Detected [facility] Comment:Methodology: Transcr iption Mediated Amplification(TMA)The analytical performance characteristics of thisassay [place] The modificationshave not been cleared or approved by the FDA. Thisassay has been validated pursuant to the CLIAregulations and is used for clinical purposes.For additional information, please refer tohttp://education.MedS[employer]/faq/Trichomonastma (This link is being providedfor information/educational purposes only).THIS TEST WAS PERFORMED AT:[employer] [id number] [place] [phone] MILLER MD,PHD CTNG Ref Lab Not Detected Not Detected [facility] NG Ref Lab Not Detected Not Detected [facility] Comment:Methodology: Transcr iption Mediated Amplification(TMA) to detect RNA.The analytical performance characteristics of thisassay, when used to test SurePath specimens havebeen determined by [employer]. The modificationshave not been cleared or approved by the FDA.This assay has been validated pursuant to the CLIAregulations and is used for clinical purposes.For additional information, please refer tohttps://education.MedSolutions/faq/NFK739(This link is being provided for information/educational purposes only).THIS TEST WAS PERFORMED AT:[employer] [id number] [place] [phone] MILLER MD,PHD ThinPrep vial Cervix uteri structure / Unknown 09/08/2024 9:48 AM EST 09/09/2024 9:15 AM EST Narrative [facility] - 09/13/2024 8:03 PM EST Collection Date: [id number] by: JENNIFER Chen: Cervix Arturo Lewis [facility] LAB CYTOLOGY ORDERABLES F inal Result [facility] [address] [place] [phone] * Pap Smear (09/08/2024 9:48 AM EST) Swab Cervix uteri structure / Unknown 09/08/2024 9:48 AM EST 09/09/2024 9:15 AM EST Mariano [facility] - 09/18/2024 3:07 PM EST ----- ------- Name: Arlen Nunes Age/Sex: 19/F : 2005 Unit#: [id number] Attend Dr: ARTURO LEWIS CNM Re09/08/24 Status: [facility] Location: [facility] Disch: ----- ------- SPEC : [id number] RECD: 09/09/24 STATUS: LUZ MARIA OLIVA NUM: [id number] NAVA: 09/08/[address] [facility] [address]: ARTURO LEWIS CNM ENTERED: 09/09/24 SP TYPE: Pap Smr [facility] DR: ORDERED: Pap Smear Interpretation Satisfactory for evaluation. Negative for intraepithelial lesion or malignancy. Clinical Information LMP:Unknown date Previous PAP test:Unknown date/findings Other history: Postcoital bleeding Material Received ThinPrep-Cervical ----- ------- Signed (signature on file) CARLOS Palmer ([facility]) 09/18/24 1507 ----- ------- END OF REPORT Arturo Lewis [facility] LAB CYTOLOGY ORDERABLES F inal Result [facility] [address] [place] [address] [phone] from Last 3 Months or Most Recently Relevant to Health Maintenance [place] [address] [place] [address] C3 Care Teams Anesthesiology Resident Relationship Specialty Start Date End Date Liam Vivar MD [address] [place] [phone] PCP - General Internal Medicine 07/22/24
== END 2025-04-29 09:02 | disposition home or self-care (01) ==
LOC: HO.HHCL 09:01
PROVIDERS: PCP Internal Medicine; Visit Provider Advanced Practice Midwife
DX: Z34.91 Encounter for supervision of normal pregnancy, unspecified, first trimester (principal)
CPT/HCPCS: 36415; 84702

== ENCOUNTER 2025-05-03 08:08 | Outpatient (REF) | payer MEDICAID, SELFPAY | END 2025-05-03 08:09 | disposition home or self-care (01) | LOC: HO.LAB 08:08 | PROVIDERS: PCP Internal Medicine; Visit Provider Advanced Practice Midwife | DX: O09.299 Supervision of pregnancy with other poor reproductive or obstetric history, unspecified trimester (principal) | CPT/HCPCS: 36415; 84702 ==

== ENCOUNTER 2025-05-12 14:36 | Outpatient (REF) | payer MEDICAID, SELFPAY ==
--- NOTE | ~2025-05-12 | US_ITS ---
EXAMINATION: US OBSTETRICAL ULTRASOUND CLINICAL INFORMATION: Size and dates COMPARISON: None available. LMP: Unknown. TECHNIQUE: Transabdominal and transvaginal ultrasound was performed to the uterus with color Doppler FINDINGS: Echogenic sac is seen in the uterus. There is a yolk sac. No pole is identified. The mean diameter is 17 mm. Question of anechoic material is present along 1/3 of the sac circumference. MATERNAL ADNEXA: The right maternal ovary measures 3.9 x 1.5 x 2.0 cm. The left maternal ovary measures 3.2 x 2.1 x 2.3 cm. There is no significant maternal adnexal mass. No maternal pelvic ascites. US/US OB pelvic and transvaginal IMPRESSION: Intrauterine gestational sac with a yolk sac is consistent with 6 weeks 4 days and estimated date of delivery 01/01/2026. No parts were present which is suspicious for ectopic , but not definitive. Consider follow up ultrasound in 7 days. Subchorionic hemorrhage involves up to one-third of the sac circumference. Electronically signed by: Jass Matthew MD 05/12/2025 03:51 PM EDT
== END 2025-05-12 14:37 | disposition home or self-care (01) ==
LOC: HO.US 14:36
PROVIDERS: PCP Internal Medicine; Visit Provider Advanced Practice Midwife
DX: Z34.91 Encounter for supervision of normal pregnancy, unspecified, first trimester (principal)
CPT/HCPCS: 76801; 76817

== ENCOUNTER → 2025-05-12 14:39 | Outpatient (BNV) | payer MEDICAID, SELFPAY | PROVIDERS: PCP Internal Medicine; Visit Provider Radiology Diagnostic Radiology | DX: O36.80X1 Pregnancy with inconclusive fetal viability, fetus 1 (principal) | CPT/HCPCS: 76801; 76817 ==

== ENCOUNTER 2025-05-17 14:37 | Outpatient (REF) | payer MEDICAID, SELFPAY ==
--- OUTSIDE RECORDS SUMMARY | 2025-05-17 14:40 | XMS_ITS | Encounter Summary ---
Author Organization [employer] Address [address] [place] [address] Care Team Providers Care Analyzer Sales Name Role Phone Liam Vivar MD Primary Care Prov ider Reason for Visit * Reason Comments Med Refill Encounter Details Date Type Department Care Team (Late st Contact Info) Description 09/03/2024 Refill [facility] [address] [place] [address] Opal Salvador MD [address] [place] [address] Herpes labialis Social History Tobacco Use Types [...] Care Team (Late st Contact Info) Description 05/18/2025 1:15 PM EDT Telemedicine [facility] [address] [place] [address] Liam Vivar MD [address] [place] [address] documented as of this encounter Visit Diagnoses Diagnosis Herpes labialis Herpes simplex without mention of complication documented in this encounter Additional Health Concerns Assessment Noted Time PHQ-9 Depression Total Score: 16 025 9:29 AM EST documented as of this encounter Care Teams Analyzer Sales Relationship Specialty Start Date End Date Liam Vivar MD [address] [place] [address] PCP - General Internal Medicine 07/22/24 documented as of this encounter
--- OUTSIDE RECORDS SUMMARY | 2025-05-17 14:40 | XMS_ITS | Encounter Summary ---
Author Organization [employer] Address [address] [place] [address] Care Team Providers Care Sales Driver Name Role Phone Liam Vivar MD Primary Care Prov ider Encounter Details Date Type Department Care Team ([facility] st Contact Info) Description 05/13/2025 Orders Only [facility] [address] [place] [address] Earlene Fall CNM [address] [place] [address] Currently in first trimester with unknown gestational [...] Info) Description 05/18/2025 1:15 PM EDT Telemedicine [facility] [address] [place] [address] Liam Vivar MD [address] [place] [address] Scheduled Orders Name Type Priority Associated Diagnoses Orde r Schedule hCG, Total, Quantitative Lab STAT Currently in first trimester with unknown gestational age Expected: 05/13/2025 (Approximate), Expires: 05/13/2026 documented as of this encounter Visit Diagnoses Diagnosis Currently in first trimester with unknown gestational age- Primary documented in this encounter Additional Health Concerns Assessment Noted Time PHQ-9 Depression Total Score: 16 025 9:29 AM EST documented as of this encounter Care Teams Sales Driver Relationship Specialty Start Date End Date Liam Vivar MD [address] [place] [address] PCP - General Internal Medicine 07/22/24 documented as of this encounter
--- OUTSIDE RECORDS SUMMARY | 2025-05-17 14:40 | XMS_ITS | Encounter Summary ---
Author Organization [employer] Address [address] [facility] [address] [address] [facility] [place] [address] Care Team Providers Care Program Administrator Name Role Phone Liam Vivar MD Primary Care Prov ider Encounter Details Date Type Department Care Team (Latest Contact Info) Description 04/29/2025 Results Follow-Up [facility] MED[facility]INE [address] [place] [address] Earlene Fall, [facility] [address] [place] [address] hCG, Total, Quantitative Social History Tobacco Use Types Packs/Day Years [...] Info) Description 05/18/2025 1:15 PM EDT Telemedicine [facility] [address] [place] [address] Liam Vivar MD [address] [place] [address] documented as of this encounter Visit Diagnoses Not on filedocumented in this encounter Additional Health Concerns Assessment Noted Time PHQ-9 Depression Total Score: 16 025 9:29 AM EST documented as of this encounter Care Teams Program Administrator Relationship Specialty Start Date End Date Liam Vivar MD [address] [place] [address] PCP - General Internal Medicine 07/22/24 documented as of this encounter
--- OUTSIDE RECORDS SUMMARY | 2025-05-17 14:40 | XMS_ITS | Encounter Summary ---
Author Organization [employer] Address [address] [facility] [address] [place] [address] Care Team Providers Care Destination Coordinator Name Role Phone Liam Vivar MD Primary Care Prov ider Reason for Visit * Reason Onset Date Comments Med Refill 01/01/2025 Encounter Details Date Type Department Care Team ([facility] st Contact Info) Description 01/01/2025 Refill [facility] [address] [place] [address] Liam Vivar MD [address] [place] [address] Social History Tobacco Use Types Packs/Day Years [...] Info) Description 05/18/2025 1:15 PM EDT Telemedicine [facility] [address] [place] [address] Liam Vivar MD [address] [place] [address] documented as of this encounter Visit Diagnoses Not on filedocumented in this encounter Additional Health Concerns Assessment Noted Time PHQ-9 Depression Total Score: 16 025 9:29 AM EST documented as of this encounter Care Teams Destination Coordinator Relationship Specialty Start Date End Date Liam Vivar MD [address] [place] [address] PCP - General Internal Medicine 07/22/24 documented as of this encounter
--- OUTSIDE RECORDS SUMMARY | 2025-05-17 14:40 | XMS_ITS | Encounter Summary ---
Author Organization [employer] Address [address] [facility] [address] [place] [address] Care Team Providers Care Leather Heel Breaster Name Role Phone Liam Vivar MD Primary Care Prov ider Encounter Details Date Type Department Care Team (Late Contact Info) Description 07/14/2024 Orders Only [facility] [address] [place] [address] Liam Vivar MD [address] [place] [address] Social History Tobacco Use Types Packs/Day Years [...] Department Care Team (Late Contact Info) Description 05/18/2025 1:15 PM EDT Telemedicine [facility] [address], [place] [phone] Liam Vivar MD [address] [place] [address] documented as of this encounter Procedures Procedure [...] 6:02 PM EDT) HCG Quantitative <2 mIU/mL [facility] Comment:Weeks post LMP Appro ximate hCG(Last Menstrual Period) Range (mIU/ml)3 - 4 weeks 9 - 1304 - 5 weeks 75 - 2,6005 - 6 weeks 850 - 20,8006 - 7 weeks 4000 - 100,2007 - 12 weeks 11,500 - 289,06767 - 16 weeks 18,300 - 137,18628 - 29 weeks (2nd trimester) 1,400 - 53,36874 - 41 weeks (3rd trimester) 940 - [...] ORDERAB LES Final Result Performing Organization Address [facility] Phone Number [facility] [address] [place] [phone] * Magnesium (10/20/2024 6:02 PM EDT) Magnesium 1.7 1.6 - 2.6 mg/dL [facility] 10/20/2024 6:02 PM EDT 10/20/2024 6:05 PM EDT Generic External Data Provider LAB BLOOD ORDERAB LES Final Result Performing Organization Address [facility] Phone Number [facility] [address] [place] [phone] * (ABNORMAL) Comprehensive Metabolic Panel (10/20/2024 6:02 PM EDT) Sodium 139 135 - 145 mmol/L [facility] Potassium 4.1 3.3 - 5.1 mmol/L [facility] Chloride 109(H) 96 - 108 mmol/L [facility] Carbon Dioxide 23 22 - 29 mmol/L [facility] Anion Gap 11(L) 12 - 20 [facility] Urea Nitrogen (BUN) 9 9 - 16 mg/dL [facility] Creatinine, Serum 0.67 0.5 - 1.4 mg/dL [facility] Creatinine Clr Calc Pharmacy 147.9 [facility] Comment:Provided height and weight: 165.1 cm,90.9 kg.eGFR (calculated from the MDRD study equation) and eCrCl(calculated from the Cockcroft-Gault equation) are based ondifferent parameters and may not yield comparable results.If eCrCl result is absurd, please check patient'sheight/weight. Estimated Glomerular Filt Rate >60 [facility] Comment:Chronic Kidney Disea se: Estimated GFR < 60 mL/min/1.40v2Dbxves Kidney Disease: Estimated GFR < 15 mL/min/1.73m2 Glucose 89 60 - 115 mg/dL [facility] Calcium 8.9 8.4 - 10.2 mg/dL [facility] Bilirubin, Total 0.5 0.0 - 1.0 mg/dL [facility] Aspartate Amino Transferase 21 5 - 31 U/L [facility] Alanine Aminotransferase 31 0 - 31 U/L [facility] Total Protein 7.4 6.5 - 8.0 g/dL [facility] Albumin Level 3.9 3.5 - 5.0 g/dL [facility] Alkaline Phosphatase 58 39 - 117 U/L [facility] 10/20/2024 6:02 PM EDT 10/20/2024 6:05 PM EDT us Generic External Data Provider LAB BLOOD ORDERAB LES Final Result [facility] [address] [place] [address] [phone] * (ABNORMAL) CBC auto differential (10/20/2024 6:02 PM EDT) White Blood Count 15.4(H) 4.8 - 10.8 X10*3/uL [facility] Red Blood Count 4.18(L) 4.20 - 5.50 X10*6/uL [facility] Hemoglobin 12.4 12.0 - 16.0 g/dl [facility] Hematocrit 37.4 37.0 - 47.0 % [facility] Mean Corpuscular Volume 89.5 80.0 - 98.0 fL [facility] Mean Corpuscular Hemoglobin 29.7 27.0 - 33.0 pg [facility] Mean Corpuscular HGB Conc 33.2 31.0 - 35.0 g/dl [facility] Red Cell Distribution Width 12.0 11.0 - 16.0 % [facility] Platelet Count 332 160 - 400 X10*3/uL [facility] Mean Platelet Volume 10.5 9.4 - 12.3 fL [facility] Neutrophils Percent Auto 69.2 45 - 73 % [facility] Imm Gran Pct Auto 0.4 0.0 - 0.4 % [facility] Lymphocytes Percent Auto 23.8 20 - 40 % [facility] Monocytes Percent Auto 4.7 2 - 11 % [facility] Eosinophils Percent Auto 1.4 0 - 4 % [facility] Basophils Percent Auto 0.5 0 - 2 % [facility] NRBC Pct Auto 0.0 0.0 - 0.2 /100WBC [facility] Neutrophils Absolute Auto 10.6(H) 2.0 - 8.3 x10*3/uL [facility] Imm Gran Abs Auto 0.06(H) 0.00 - 0.03 X10*3/uL [facility] Lymphocytes Absolute Auto 3.7 1.2 - 4.9 X10*3/uL [facility] Monocytes Absolute Auto 0.7 0.1 - 1.2 X10*3/uL [facility] Eosinophils Absolute Auto 0.2 0.0 - 0.4 X10*3/uL [facility] Basophils Absolute Auto 0.1 0.0 - 0.2 X10*3/uL [facility] NRBC Abs Auto 0.000 0.0 - 0.012 X10*3/uL [facility] 10/20/2024 6:02 PM EDT 10/20/2024 6:05 PM EDT us Generic External Data Provider LAB BLOOD ORDERAB LES Final Result [facility] [address] [place] [phone] [phone] * T4, Free (09/14/2024 3:11 PM EST) Free T4 (Free Thyroxine) 1.33 0.71 - 1.85 ng/dL [facility] 09/14/2024 3:11 PM EST 09/14/2024 4:02 PM EST us Liam Tam MD LAB BLOOD ORDERABL ES Final Result Performing Organization Address [facility] Co de Phone Number [facility] [address] [place] [phone] * hCG, Total, Quantitative (09/11/2024 2:26 AM EST) HCG Quantitative <2 mIU/mL [facility] Comment:Weeks post LMP Appro ximate hCG(Last Menstrual Period) Range (mIU/ml)3 - 4 weeks 9 - 1304 - 5 weeks 75 - 2,6005 - 6 weeks 850 - 20,8006 - 7 weeks 4000 - 100,2007 - 12 weeks 11,500 - 289,60101 - 16 weeks 18,300 - 137,24704 - 29 weeks (2nd trimester) 1,400 - 53,49496 - 41 weeks (3rd trimester) 940 - [...] ORDERAB LES Final Result Performing Organization Address [facility] Co de Phone Number [facility] [address] [place] [phone] * Lipase (09/11/2024 2:26 AM EST) Lipase 17 8 - 78 U/L [facility] 09/11/2024 2:26 AM EST 09/11/2024 2:30 AM EST us Generic External Data Provider LAB BLOOD ORDERAB LES Final Result [facility] [address] [place] [phone] * (ABNORMAL) Comprehensive Metabolic Panel (09/11/2024 2:26 AM EST) Sodium 136 135 - 145 mmol/L [facility] Potassium 3.4 3.3 - 5.1 mmol/L [facility] Chloride 105 96 - 108 mmol/L [facility] Carbon Dioxide 22 22 - 29 mmol/L [facility] Anion Gap 12 12 - 20 [facility] Urea Nitrogen (BUN) 7(L) 9 - 16 mg/dL [facility] Creatinine, Serum 0.65 0.5 - 1.4 mg/dL [facility] Creatinine Clr Calc Pharmacy 156.2 [facility] Comment:Provided height and weight: 165.1 cm,95.254 kg.eGFR (calculated from the MDRD study equation) and eCrCl(calculated from the Cockcroft-Gault equation) are based ondifferent parameters and may not yield comparable results.If eCrCl result is absurd, please check patient'sheight/weight. Estimated Glomerular Filt Rate >60 [facility] Comment:Chronic Kidney Disea se: Estimated GFR < 60 mL/min/1.09i6Dxngqf Kidney Disease: Estimated GFR < 15 mL/min/1.73m2 Glucose 104 60 - 115 mg/dL [facility] Calcium 8.5 8.4 - 10.2 mg/dL [facility] Bilirubin, Total 0.5 0.0 - 1.0 mg/dL [facility] Aspartate Amino Transferase 35(H) 5 - 31 U/L [facility] Alanine Aminotransferase 50(H) 0 - 31 U/L [facility] Total Protein 7.3 6.5 - 8.0 g/dL [facility] Albumin Level 3.8 3.5 - 5.0 g/dL [facility] Alkaline Phosphatase 51 39 - 117 U/L [facility] 09/11/2024 2:26 AM EST 09/11/2024 2:30 AM EST us Generic External Data Provider LAB BLOOD ORDERAB LES Final Result [facility] [address] [place] [phone] * (ABNORMAL) CBC auto differential (09/11/2024 2:26 AM EST) White Blood Count 4.9 4.8 - 10.8 X10*3/uL [facility] Red Blood Count 4.35 4.20 - 5.50 X10*6/uL [facility] Hemoglobin 13.2 12.0 - 16.0 g/dl [facility] Hematocrit 38.2 37.0 - 47.0 % [facility] Mean Corpuscular Volume 87.8 80.0 - 98.0 fL [facility] Mean Corpuscular Hemoglobin 30.3 27.0 - 33.0 pg [facility] Mean Corpuscular HGB Conc 34.6 31.0 - 35.0 g/dl [facility] Red Cell Distribution Width 11.9 11.0 - 16.0 % [facility] Platelet Count 234 160 - 400 X10*3/uL [facility] Mean Platelet Volume 10.5 9.4 - 12.3 fL [facility] Neutrophils Percent Auto 56.0 45 - 73 % [facility] Imm Gran Pct Auto 0.2 0.0 - 0.4 % [facility] Lymphocytes Percent Auto 32.2 20 - 40 % [facility] Monocytes Percent Auto 11.2(H) 2 - 11 % [facility] Eosinophils Percent Auto 0.0 0 - 4 % [facility] Basophils Percent Auto 0.4 0 - 2 % [facility] NRBC Pct Auto 0.0 0.0 - 0.2 /100WBC [facility] Neutrophils Absolute Auto 2.8 2.0 - 8.3 x10*3/uL [facility] Imm Gran Abs Auto 0.01 0.00 - 0.03 X10*3/uL [facility] Lymphocytes Absolute Auto 1.6 1.2 - 4.9 X10*3/uL [facility] Monocytes Absolute Auto 0.6 0.1 - 1.2 X10*3/uL [facility] Eosinophils Absolute Auto 0.0 0.0 - 0.4 X10*3/uL [facility] Basophils Absolute Auto 0.0 0.0 - 0.2 X10*3/uL [facility] NRBC Abs Auto 0.000 0.0 - 0.012 X10*3/uL [facility] 09/11/2024 2:26 AM EST 09/11/2024 2:30 AM EST us Generic External Data Provider LAB BLOOD ORDERAB LES Final Result [facility] [address] [place] [phone] * (ABNORMAL) SARS-CoV-2 RNA, Influenza A/B, and RSV RNA, Ql NAAT (09/11/2024 2:25 AM EST) Influenza A PCR POSITIVE(A) Negative [facility] Influenza B PCR NEGATIVE Negative [facility] Resp Syncy Virus RNA Qual PCR NEGATIVE Negative [facility] SARS COV2 PCR NEGATIVE Negative [facility] Comment:All test results mus t [...] use by authorized laboratories.Testing performed on the [employer] utilizingreal-time RT-PCR.All SARS CoV2 and positive influenza A/B results arereported to [facility]. 09/11/2024 2:25 AM EST 09/11/2024 2:30 AM EST us Generic External Data Provider LAB MICROBIOLOGY - GENERAL ORDERABLES Final Result Performing Organization Address City/State/[facility] Co de Phone Number [facility] [address] [place] [phone] documented in this encounter Visit Diagnoses Not on filedocumented in this encounter Care Teams Leather Heel Breaster Relationship Specialty Start Date End Date Liam Vivar MD [address] [place] [phone] PCP - General Internal Medicine 07/22/24 documented as of this encounter
--- OUTSIDE RECORDS SUMMARY | 2025-05-17 14:40 | XMS_ITS | Clinical Summary ---
Author Organization [facility] Address [address] [place] [address] Care Team Providers Care Cardiac Cath Lab Radiology Technologist Name Role Phone Pcp, No Primary Care [...] patient's age to complete this topic Insurance [facility] Care Teams Cardiac Cath Lab Radiology Technologist Relationship Specialty Start Date End Date Pcp, No [address] [place] [address] PCP - General 03/08/21
--- OUTSIDE RECORDS SUMMARY | 2025-05-17 14:40 | XMS_ITS | Encounter Summary ---
Author Organization [employer] Address [address] [place] [address] Care Team Providers Care Ophthalmic Dispenser Name Role Phone Liam Vivar MD Primary Care Prov ider Encounter Details Date Type Department Care Team (Latest Contact Info) Description 05/03/2025 Results Follow-Up [facility] [address] [place] [address] Earlene Fall, [facility] [address] [place] [address] hCG, Total, Quantitative Social History Tobacco Use [...] Info) Description 05/18/2025 1:15 PM EDT Telemedicine [facility] [address] [place] [address] Liam Vivar MD [address] [place] [address] documented as of this encounter Visit Diagnoses Not on filedocumented in this encounter Additional Health Concerns Assessment Noted Time PHQ-9 Depression Total Score: 16 025 9:29 AM EST documented as of this encounter Care Teams Ophthalmic Dispenser Relationship Specialty Start Date End Date Liam Vivar MD [address] [place] [address] PCP - General Internal Medicine 07/22/24 documented as of this encounter
--- OUTSIDE RECORDS SUMMARY | 2025-05-17 14:40 | XMS_ITS | Encounter Summary ---
Author Organization [employer] Address [address] [place] [address] Care Team Providers Care Plastic Surgery Nurse Name Role Phone Liam Vivar MD Primary Care Prov ider Reason for Visit * Reason Onset Date Comments Results 05/12/2025 Encounter Details Date Type Department Care Team (Latest Contact Info) Description 05/12/2025 Results Follow-Up [facility] [address] [place] [address] Earlene Fall CN [address] [place] [address] US OB Pelvis with Transvaginal Social History Tobacco Use Types Packs/Day Years [...] encounter Miscellaneous Notes * Telephone Encounter - Hortencia Tovar RN - 05/12/2025 4:54 PM EDT Called pt, advised of below US result. Pt denies cramping or bleeding currently. Advised her of need to repeat US in 7 days, pt states she also has US scheduled 05/21/25 via [facility] for OB care. Advised her will clarify with ordering provider tomorrow regarding which to complete. Educated pt to [facility] if develop cramping or bleeding, pt verbalized understanding, to contact clinic PRN beforehand with concerns. * Telephone Encounter - Hortencia Tovar RN - 05/12/2025 4:54 PM EDT ----- Message from Earlene Fall sent at 05/12/2025 4:46 PM EDT ----- Ultrasound noted. Please let Arlen ultrasound isn't conclusive. She may have early in uterus or elsewhere (although no masses noted in ovaries makes me think no ectopic ). If she is having any cramping or bleeding, she should go to [facility] at [facility]. If she feels well, let's repeat ultrasound in 1 week. Thanks! ----- Message ----- From: Chloe Rosales Results In Sent: 05/12/2025 3:55 PM EDT To: Earlene Fall CNM * Result Encounter Note - Earlene Fall CNM - 05/12/2025 4:46 PM EDT Ultrasound noted. Please let Arlen ultrasound isn't conclusive. She may have early in uterus or elsewhere (although no masses noted in ovaries makes me think no ectopic ). If she is having any cramping or bleeding, she should go to [facility] at [facility]. If she feels well,let's repeat ultrasound in 1 week. Thanks! documented in this encounter Plan of Treatment Upcoming Encounters Date Type Department Care Team (Late st Contact Info) Description 05/18/2025 1:15 PM EDT Telemedicine [facility] [address] [place] [address] Liam Vivar MD [address] [place] [address] documented as of this encounter Visit Diagnoses Not on filedocumented in this encounter Additional Health Concerns Assessment Noted Time PHQ-9 Depression Total Score: 16 025 9:29 AM EST documented as of this encounter Care Teams Plastic Surgery Nurse Relationship Specialty Start Date End Date Liam Vivar MD [address] [place] [address] PCP - General Internal Medicine 07/22/24 documented as of this encounter
--- OUTSIDE RECORDS SUMMARY | 2025-05-17 14:41 | XMS_ITS | Clinical Summary ---
Author Organization [employer] Address [address] [facility] 7[address] [place] [address] Care Team Providers Care Line Runner Name Role Phone Liam Vivar MD Primary [...] and enrrique. Her sense of belonging and anabaptist are highly connected and identified as strength. Pt needs guidance in setting up healthy boundaries around her social support (family and yarsani community). Her focus most part of the [...] Encounters Date Type Department Care Team Description 05/13/2025 Orders Only [address] [address] Arturo Lewis CNM Currently in first trimester with unknown gestational age (Primary Dx) 05/12/2025 Results Follow-Up [address] [address] Arturo Lewis CNM US OB Pelvis with Transvaginal 05/04/2025 Orders Only [address] [address] Arturo Lewis CNM Currently in first trimester with unknown gestational age (Primary Dx) 05/03/2025 Telephone [facility] [address] [place] [address] Arturo Lewis CNM US OB ORDER 05/03/2025 Orders Only [address] [address] Arturo Lewis CNM Currently in first trimester with unknown gestational age (Primary Dx) 05/03/2025 Results Follow-Up [address] [address] Arturo Lewis CNM hCG, Total, Quantitative 04/29/2025 Orders Only [facility] [address] [place] [address] Arturo Lewis CNM Currently in first trimester with unknown gestational age (Primary Dx); History of miscarriage, currently 04/29/2025 Results Follow-Up [facility] [address] [place] [address] Arturo Lewis CNM hCG, Total, Quantitative 04/29/2025 Orders Only [address] [address] Arturo Lewis CNM Currently in first trimester with unknown gestational age (Primary Dx) 04/28/2025 Telephone [facility] [address] [facility], [place] [phone] Trinity Jimenez, RENETTA from Last 3 Months Immunizations Immunization Administration [...] 02/01/2025 9:17 AM EDT Plan of Treatment Upcoming Encounters Date Type Department Care Team (Late st Contact Info) Description 05/18/2025 1:15 PM EDT Telemedicine [facility] [address] [place] [address] Liam Vivar MD [address] [place] [address] Health Maintenance Due Date Last Done Comments Disability Screening 2003 Alcohol/Substance Use Screening 2015 Hepatitis A Vaccines (2 of 2 - 2-dose series) 04/13/2015 10/11/2014 Meningococcal B Vaccine (1 of 2 - Standard) 2019 DTaP/Tdap/Td Vaccines (7 - Td or Tdap) 05/31/2024 05/31/2014, 04/09/2007, 09/01/2004, Additional history exists Depression Monitoring 2025 08/19/2024, 025 COVID-19 Vaccine ( season) 2025 Influenza Vaccine (#1) 2025 6, 07/06/2015, 05/31/2014, Additional history exists SDOH Screening 08/12/2025 08/12/2024 Chlamydia and Gonorrhea Screening 09/08/2025 09/08/2024 Family Planning (PISQ) 02/01/2026 02/01/2025 Tobacco Screening 02/01/2026 02/01/2025 Pap Smear 09/08/2027 09/08/2024 Lipid Panel 09/14/2029 09/14/2024 Zoster Vaccines (1 of 2) 2053 RSV Patients and Patients Aged 60 years or older (1 - 1-dose 75+ series) 2078 Hepatitis B Vaccines Completed 2003, 2003, 2003 HIB Vaccines Completed 02/29/2004, 10/2003, 2003, Additional history exists IPV Vaccines Completed 04/09/2007, 10/2003, 2003, Additional history exists Meningococcal Vaccine Aged Out 10/11/2014 No carmelo sanjay eligible based on patient's age to complete this topic HPV Vaccines Completed 11/28/2015, 03/0 04/2015, 05/31/2014 HIV Screening Completed 09/14/2024 Hepatitis C Screening [...] Name Priority Date/Time Associated Diagnosis Comments US OB PELVIS TRANSVAGINAL STAT 05/12/2025 2:54 PM EDT HCG, TOTAL, QN Routine 05/03/2025 8:15 AM EDT Currently in first trimester with unknown gestational age History of miscarriage, currently HCG, TOTAL, QN Routine 04/29/2025 9:04 AM EDT Currently in first trimester with unknown gestational age AMB REFERRAL TO OB-DIESEL PILE DRIVER OPERATOR Routine 03/05/2025 Currently in first trimester with unknown gestational age HEPATITIS C AB W/REFL TO HCV RNA, [...] Recently Relevant to Health Maintenance Results * US OB Pelvis with Transvaginal (05/12/2025 2:54 PM EDT) Anatomical Region Laterality Modality Pelvis Ultrasound 05/12/2025 2:54 PM EDT Narrative 05/12/2025 3:54 PM EDT [address] [address] Ultrasound Report Signed Patient: Arlen Nunes MR#: [id number] : 2005 Acct:[id number] Age/Sex: 20 / F ADM Date: 05/12/25 Loc: HO.US Attending Dr: Arturo Lewis CNM Ordering Physician: ARTURO LEWIS CNM Date of Service: 05/12/25 Procedure(s): US OB pelvic and transvaginal Accession Number(s): [id number] cc: Liam Vivar MD; ARTURO LEWIS CNM Reason for Exam: Size and dates EXAMINATION: US OBSTETRICAL ULTRASOUND CLINICAL INFORMATION: Size and dates COMPARISON: None available. LMP: Unknown. TECHNIQUE: Transabdominal and transvaginal ultrasound was performed to the uterus with color Doppler FINDINGS: Echogenic sac is seen in the uterus. There is a yolk sac. No pole is identified. The mean diameter is 17 mm. Question of anechoic material is present along 1/3 of the sac circumference. MATERNAL ADNEXA: The right maternal ovary measures 3.9 x 1.5 x 2.0 cm. The left maternal ovary measures 3.2 x 2.1 x 2.3 cm. There is no significant maternal adnexal mass. No maternal pelvic ascites. US/US OB pelvic and transvaginal IMPRESSION: Intrauterine gestational sac with a yolk sac is consistent with 6 weeks 4 days and estimated date of delivery 01/01/2026. No parts were present which is suspicious for ectopic , but not definitive. Consider follow up ultrasound in 7 days. Subchorionic hemorrhage involves up to one-third of the sac circumference. Electronically signed by: Jass Matthew MD 05/12/2025 03:51 PM EDT Dictated By: Jass Matthew MD Signed By: <Electronically signed by Jass Matthew MD in OV> 05/12/25 1551 DD/ 1454 TD/TT: 05/12/25 1516 Lieutenant Firefighter: Procedure Note Donotuseinterpreter, Image - 05/12/[address] [address] Ultrasound Report Signed Patient: Mone Nunes#: [id number] : 2005Acct:[id number] Age/Sex: 20 / FADM Date: 05/12/25 Loc: HO.US Attending Dr: Arturo Lewis CNM Ordering Physician: ARTURO LEWIS CNM Date of Service: 05/12/25 Procedure(s): US OB pelvic and transvaginal Accession Number(s): [id number] cc: Liam Vivar MD; ARTURO LEWIS CNM Reason for Exam: Size and dates EXAMINATION: US OBSTETRICAL ULTRASOUND CLINICAL INFORMATION: Size and dates COMPARISON: None available. LMP: Unknown. TECHNIQUE: Transabdominal and transvaginal ultrasound was performed to the uterus with color Doppler FINDINGS: Echogenic sac is seen in the uterus. There is a yolk sac. No pole is identified. The mean diameter is 17 mm. Question of anechoic material is present along 1/3 of the sac circumference. MATERNAL ADNEXA: The right maternal ovary measures 3.9 x 1.5 x 2.0 cm. The left maternal ovary measures 3.2 x 2.1 x 2.3 cm. There is no significant maternal adnexal mass. No maternal pelvic ascites. US/US OB pelvic and transvaginal IMPRESSION: Intrauterine gestational sac with a yolk sac is consistent with 6 weeks 4 days and estimated date of delivery 01/01/2026. No parts were present which is suspicious for ectopic , but not definitive. Consider follow up ultrasound in 7 days. Subchorionic hemorrhage involves up to one-third of the sac circumference. Electronically signed by: Jass Matthew MD 05/12/2025 03:51 PM EDT Dictated By: Jass Matthew MD Signed By: <Electronically signed by Jass Matthew MD in OV> 05/12/25 1551 DD/ 1454 TD/TT: 05/12/25 1516 Lieutenant Firefighter: Arturo Lewis CNM IMG US PROCEDURES Final R esult * hCG, Total, Quantitative (05/03/2025 8:15 AM EDT) Only the most recent of2 resultswithin the time period is included. HCG Quantitative 3,837 mIU/mL [facility] Comment:Weeks post LMP Appro ximate hCG(Last Menstrual Period) Range (mIU/ml)3 - 4 weeks 9 - 1304 - 5 weeks 75 - 2,6005 - 6 weeks 850 - 20,8006 - 7 weeks 4000 - 100,2007 - 12 weeks 11,500 - 289,48641 - 16 weeks 18,300 - 137,99550 - 29 weeks (2nd trimester) 1,400 - 53,88010 - 41 weeks (3rd trimester) 940 - 60,000The Dorman B- hCG assay is used for the early detection ofpregnancy; it cannot be used to diagnose any conditionunrelated to . If a B-hCG level is not supportedby the clinical evidence, results should be confirmed by analternative method (qualitative urine hCG, for example). Blood Venous blood specimen / Unknown 05/03/2025 8:15 AM EDT 05/03/2025 8:15 AM EDT Result [facility] Arturo DEL ANGEL LAB BLOOD ORDERABLES Donna l Result [facility] [address] [place] [phone] * Referral to Obstetrics / Gynecology (03/05/2025) Result [facility] Arturo Lewis CNM OUTPATIENT REFERRAL ORDER SHREYAS Final Result * Hepatitis C Antibody with Reflex to HCV, RNA, Quantitative, Real-Time PCR (09/14/2024 3:11 PM EST) Pathologist [facility] Hepatitis C Antibody Nonreactive Nonreactive [facility] Comment:Antibodies to HCV no t detected; does not exclude early acuteHCV infection. Blood Venous blood specimen / Unknown 09/14/2024 3:11 PM EST 09/14/2024 4:02 PM EST Liam Tam MD LAB BLOOD ORDERABL ES Final Result Performing Organization Address City/[facility]/ZIP Co de Phone Number [facility] [address] [place] [phone] * HIV-1/2 Antigen and Antibodies, Fourth Generation, with Reflexes (09/14/2024 3:11 PM EST) [facility] HIV AB/AG Nonreactive Nonreactive [facility] Comment:HIV-1 p24 Ag and/or HIV-1/HIV-2 Ab not detected.A test result that is nonreactive does not exclude thepossibility of exposure to or infection with HIV-1 and/orHIV-2. Nonreactive results in this assay for individualswith prior exposure to HIV-1 and/or HIV-2 may be due toantigen and antibody levels that are below the limit ofdetection of this assay.The [employer] HIV Ag/Ab Combo assay result andsupplemental assay results should be interpreted inconjunction with the patient's clinical presentation,history and other laboratory results. If the results areinconsistent with clinical evidence, additional testing issuggested to confirm the result. Blood Venous blood specimen / Unknown 09/14/2024 3:11 PM EST 09/14/2024 4:02 PM EST us Liam Tam MD LAB BLOOD ORDERABL ES Final Result Performing Organization Address City/[facility]/ZIP Co de Phone Number [facility] [address] [place] [phone] * (ABNORMAL) Lipid Panel, Standard (09/14/2024 3:11 PM EST) [facility] Triglycerides 72 <150 mg/dL [facility] Comment:Desirable Triglyceri de: less than 150 mg/dLBorderline High Triglyceride 150-199 mg/dLHigh Triglyceride: 200-499 mg/dLVery High Triglyceride: greater than or equal to 5OO mg/dL Cholesterol 124 <200 mg/dL [facility] Comment:Desirable Cholestero l: less than 200 mg/dLBorderline High Cholesterol: 200-239 mg/dLHigh Cholesterol: greater than 239 mg/dL LDL Cholesterol Calculated 84 <100 mg/dL [facility] Comment:Desirable LDL: less than 100 mg/dLNear Optimal/Above Optimal LDL: 110- 129 mg/dLBorderline High LDL: 130-159 mg/dLHigh LDL: 160-189 mg/dLVery High LDL: greater than or equal to 190 mg/dL HDL Cholesterol 26(L) >40 mg/dL [facility] Comment:Desirable HDL: great er than 40 mg/dL Note: This HDL assay may give artificially low results in patients with liver disease. Blood Venous blood specimen / Unknown 09/14/2024 3:11 PM EST 09/14/2024 4:02 PM EST us Liam Tam MD LAB BLOOD ORDERABL ES Final Result [facility] [address] [place] [phone] * STI testing add on (NG, CT, Trich) (09/08/2024 9:48 AM EST) Trichomonas (NAAT) Not Detected Not Detected [facility] Comment:Methodology: Transcr iption Mediated Amplification(TMA)The analytical performance characteristics of thisassay have been determined by [facility], [place], [place]. The modificationshave not been cleared or approved by the FDA. Thisassay has been validated pursuant to the CLIAregulations and is used for clinical purposes.For additional information, please refer tohttp://education.[employer]/faq/Trichomonastma (This link is being providedfor information/educational purposes only).THIS TEST WAS PERFORMED AT:[employer] [id number] [place] [address]SNXWPZJELIAZAR MILLER MD,PHD CTNG Ref Lab Not Detected Not Detected [facility] NG Ref Lab Not Detected Not Detected [facility] Comment:Methodology: Transcr iption Mediated Amplification(TMA) to detect RNA.The analytical performance characteristics of thisassay, when used to test SurePath specimens havebeen determined by [employer]. The modificationshave not been cleared or approved by the FDA.This assay has been validated pursuant to the CLIAregulations and is used for clinical purposes.For additional information, please refer totps://education.[employer]/faq/REK181(This link is being provided for information/educational purposes only).THIS TEST WAS PERFORMED AT:[employer] [id number] [place] [address]PHKQBKLELIAZAR MILLER MD,PHD ThinPrep vial Cervix uteri structure / Unknown 09/08/2024 9:48 AM EST 09/09/2024 9:15 AM EST [facility] - 09/13/2024 8:03 PM EST Collection Date: [id number] by: JENNIFER Chen: Cervix us Arturo Lewis [facility] CYTOLOGY ORDERABLES F inal Result [facility] [address] [place] [phone] * Pap Smear (09/08/2024 9:48 AM EST) Swab Cervix uteri structure / Unknown 09/08/2024 9:48 AM EST 09/09/2024 9:15 AM EST [facility] - 09/18/2024 3:07 PM EST ----- ------- Name: Arlen Nunes Age/Sex: 19/F : 2005 Unit#: [id number] Attend Dr: ARTURO LEWIS CNM Re09/08/24 Status: DEP [facility]F [facility] ----- ------- SPEC : [id number] RECD: 09/09/24 STATUS: ZAMaura HAZEL NUM: [id number] NAVA: 09/08/[address] [facility] [address]: ARTURO LEWIS CNM ENTERED: 09/09/24 SP TYPE: Pap Smr [facility] DR: ORDERED: Pap Smear Interpretation Satisfactory for evaluation. Negative for intraepithelial lesion or malignancy. Clinical Information LMP:Unknown date Previous PAP test:Unknown date/findings Other history: Postcoital bleeding Material Received ThinPrep-Cervical ----- ------- Signed (signature on file) CARLOS Palmer ([facility]) 09/18/24 1507 ----- ------- END OF REPORT Arturo Lewis CN LAB CYTOLOGY ORDERABLES F inal Result [facility] [address] [place] [phone] [phone] from Last 3 Months or Most Recently Relevant to Health Maintenance Insurance [employer] C[employer] Care Teams Line Runner Relationship Specialty Start Date End Date Liam Vivar MD [address] [place] [phone] PCP - General Internal Medicine 07/22/24
== END 2025-05-17 14:38 | disposition home or self-care (01) ==
LOC: HO.HHCL 14:37
PROVIDERS: PCP Advanced Practice Midwife; Visit Provider Advanced Practice Midwife
DX: Z34.91 Encounter for supervision of normal pregnancy, unspecified, first trimester (principal)
CPT/HCPCS: 36415; 84702

== ENCOUNTER 2025-05-18 11:35 | Outpatient (REF) | payer MEDICAID, SELFPAY ==
--- NOTE | ~2025-05-18 | US_ITS ---
EXAMINATION: US OBSTETRICAL ULTRASOUND CLINICAL INFORMATION: Rule out ectopic . Follow-up from prior ultrasound 05/12/2025. COMPARISON: 05/12/2025. LMP: Unknown. TECHNIQUE: Ultrasound of the maternal pelvis is performed using transabdominal and transvaginal transducers. Transvaginal imaging is performed due to inadequate visualization transabdominally. M-mode Doppler is also performed. FINDINGS: The uterus is anteverted and measures 10.2 x 5.0 x 6.0 cm. There is a single intrauterine gestational sac in the fundal endometrium, with visible yolk sac, embryo/fetus, and cardiac activity. There is is a small subchorionic hemorrhage present, encompassing approximately 10% of the sac circumference right laterally. HR: 109 beats per minute. CRL (crown rump length): 0.40 cm (6 weeks and 1 day, +/- 4 days). OMID (estimated date of delivery): 01/10/2026, +/- 4 days. MATERNAL ADNEXA: The right maternal ovary measures 3.7 x 1.6 x 2.1 cm. There is a corpus luteal cyst present measuring 1.3 x 1.3 x 1.6 cm. Normal sonographic appearance. The left maternal ovary measures 2.5 x 1.7 x 1.7 cm. Normal sonographic appearance. There is no significant maternal adnexal mass. No maternal pelvic ascites. US/US OB pelvic and transvaginal IMPRESSION: 1. Single live intrauterine gestation with ultrasound gestational age of 6 weeks and 1 day, +/- 4 days. heart rate is 109 bpm. There is a small subchorionic hemorrhage present, encompassing approximately 10% of the sac circumference. 2. Estimated date of delivery is 01/10/2026, +/- 4 days. 3. No evidence of ectopic , adnexal mass, or free fluid. Electronically signed by: Kirill Velasquez MD 05/18/2025 12:49 PM EDT
--- OUTSIDE RECORDS SUMMARY | 2025-05-18 13:15 | XMS_ITS | Encounter Summary ---
Author Organization [employer] Address [address] [facility] 7t [place] [address] Care Team Providers Care Glass Forming Engineer Name Role Phone Liam Vivar MD Primary Care Prov ider Encounter Details Date Type Department Care Team ([facility] Contact Info) Description 05/18/2025 1:15 PM EDT Telemedicine [facility] [address] [place] [address] Liam Vivar MD [address] [place] [address] Anxiety and depression (Primary Dx); Less than 8 weeks gestation of Social History Tobacco Use Types Packs/Day Years Used Date Smoking Tobacco: Never Smokeless Tobacco: Never Alcohol Use Standard Drinks/Week Comments Never 0 (1 standard drink = 0.6 oz pur e alcohol) Depression Answer Date Recorded Patient Health Questionnaire-9 Score 0 05/18/2025 Patient Health Questionnaire-9 Score 0 05/18/2025 Last PHQ-9: Questionnaire Data Not on file 1 Housing Stability Answer Date Recorded What is [...] Answer Date Recorded Patient Health Questionnaire-2 Score 0 05/18/2025 Internet Access Answer Date Recorded Internet Access Q1 Yes 08/12/2024 Internet Access Q2 Not on file 08/12/2024 Comments Yes Sex and Gender Information Value Date Recorded Sex Assigned at Female 06/04/2022 10:18 AM EDT Legal Sex Female 10:18 AM EDT Gender Identity Female 06/30/2024 11:46 AM EST Sexual Orientation Don't know 06/30/2024 11 :46 AM EST documented as of this encounter Functional Status * Over the past 2 weeks, how often have you been bothered by any of the following problems? Question Answer Date of Assessment Author Patient Health Questionnaire-2 Score 0 05/05 1:16 PM EDT Emily Berman MA * Little interest or pleasure in doing things Answer Date of Assessment Author Not at all 05/18/2025 1:16 PM EDT Deb Berman MA * Feeling down, depressed, or hopeless Answer Date of Assessment Author Not at all 05/18/2025 1:16 PM EDT Deb Berman MA * Trouble falling or staying asleep, or sleeping too much Answer Date of Assessment Author Not at all 05/18/2025 1:16 PM EDT Deb Berman MA * Feeling tired or having little energy Answer Date of Assessment Author Not at all 05/18/2025 1:16 PM EDT Deb Berman MA * Poor appetite or overeating Answer Date of Assessment Author Not at all 05/18/2025 1:16 PM EDT Deb Berman MA * Feeling bad about yourself - or that you are a failure or have let yourself or your family down Answer Date of Assessment Author Not at all 05/18/2025 1:16 PM EDT Deb Berman MA * Trouble concentrating on things, such as reading the newspaper or watching television Answer Date of Assessment Author Not at all 05/18/2025 1:16 PM EDT Deb Berman MA * Moving or speaking so slowly that other people could have noticed? Or the opposite - being so fidgety or restless that you have been moving around a lot more than usual. Answer Date of Assessment Author Not at all 05/18/2025 1:16 PM EDT Deb Berman MA * Thoughts that you would be better off or hurting yourself in some way Answer Date of Assessment Author Not at all 05/18/2025 1:16 PM EDT Deb Berman MA * Patient Health Questionnaire-9 Score Answer Date of Assessment Author 0 05/18/2025 1:16 PM EDT Deb Berman MA documented as of this encounter Progress Notes * Liam Tam MD - 05/18/2025 1:15 PM EDT Subjective Patient ID: Arlen Nunes is a 20 y.o. female who presents for No chief complaint on file.. HPI Patient was scheduled for a televisit to discuss anxiety and depression Review of Systems Constitutional: Negative for chills, fatigue and fever. Respiratory: Negative for cough and shortness of breath. Cardiovascular: Negative for chest pain and palpitations. Objective Physical Exam Neurological: General: No focal deficit present. Mental Status: She is oriented to person, place, and time. Psychiatric: Mood and Affect: Mood normal. Behavior: Behavior normal. Assessment/Plan Problem List Items Addressed This Visit Anxiety and depression - Primary Symptoms controlled, no suicidal/homicidal ideas, follow up as needed Other Visit Diagnoses Less than 8 weeks gestation of Gn referral done, continue multivitamin, documented in this encounter Miscellaneous Notes * Assessment & Plan Note - Liam Tam MD - 05/18/2025 1:59 PM EDTAssociated Problem(s): Anxiety and depression Symptoms controlled, no suicidal/homicidal ideas, follow up as needed documented in this encounter Plan of Treatment Not on file documented as of this encounter Visit Diagnoses Diagnosis Anxiety and depression- Primary Less than 8 weeks gestation of documented in this encounter Additional Health Concerns Assessment Noted Time PHQ-9 Depression Total Score: 0 05/18/20 25 1:16 PM EDT documented as of this encounter Care Teams Glass Forming Engineer Relationship Specialty Start Date End Date Liam Vivar MD [address] [place] [phone] PCP - General Internal Medicine 07/22/24 documented as of this encounter
--- OUTSIDE RECORDS SUMMARY | 2025-05-18 14:10 | XMS_ITS | Clinical Summary ---
Author Organization [facility] Address [address] [place] [address] Care Team Providers Care Fire Equipment Inspector Name Role Phone Pcp, No Primary Care [...] patient's age to complete this topic Insurance [facility] Care Teams Fire Equipment Inspector Relationship Specialty Start Date End Date Pcp, No [address] [place] [address] PCP - General 03/08/21
--- OUTSIDE RECORDS SUMMARY | 2025-05-18 14:10 | XMS_ITS | Encounter Summary ---
Author Organization [employer] Address [address] [facility] [address] 7t [place] [address] Care Team Providers Care Septic Tank Service Technician Name Role Phone Liam Vivar MD Primary Care Prov ider Encounter Details Date Type Department Care Team ([facility] Contact Info) Description 05/18/2025 Telephone [facility] [address] [place] [address] Earlene Fall, [facility] [address] [place] [address] Social History Tobacco Use Types Packs/Day Years [...] encounter Miscellaneous Notes * Telephone Encounter - Earlene Fall CNM - 05/18/2025 1:02 PM EDT Ultrasound reviewed, IUP 6w1d, subchorionic hemorrhage decreased in size, no ectopic. Tc to [facility], relayed results. Will refer to [facility] for care. Taking prenatals already. documented in this encounter Plan of Treatment Not on file documented as of this encounter Visit Diagnoses Not on filedocumented in this encounter Additional Health Concerns Assessment Noted Time PHQ-9 Depression Total Score: 0 05/18/20 25 1:16 PM EDT documented as of this encounter Care Teams Septic Tank Service Technician Relationship Specialty Start Date End Date Liam Vivar MD [address] [place] [phone] PCP - General Internal Medicine 07/22/24 documented as of this encounter
--- OUTSIDE RECORDS SUMMARY | 2025-05-18 14:10 | XMS_ITS | Encounter Summary ---
Author Organization [employer] Address [address] [facility] [address] 7[address] [place] [address] Care Team Providers Care Trestle Mainternance Laborer Name Role Phone Liam Vivar MD Primary Care Prov ider Encounter Details Date Type Department Care Team (Latest Contact Info) Description 05/18/2025 Travel Social History Tobacco Use Types Packs/Day [...] Health Questionnaire-2 Score 0 05/05 1:16 PM Emily Truong MA * Little interest or pleasure in doing things Answer Date of Assessment Author Not at all 05/18/2025 1:16 PM Deb Trunog MA * Feeling down, depressed, or hopeless Answer Date of Assessment Author Not at all 05/18/2025 1:16 PM Deb Truong MA * Trouble falling or staying asleep, or sleeping too much Answer Date of Assessment Author Not at all 05/18/2025 1:16 PM Deb Truong MA * Feeling tired or having little energy Answer Date of Assessment Author Not at all 05/18/2025 1:16 PM Deb Truong MA * Poor appetite or overeating Answer Date of Assessment Author Not at all 05/18/2025 1:16 PM Deb Truong MA * Feeling bad about yourself - or that you are a failure or have let yourself or your family down Answer Date of Assessment Author Not at all 05/18/2025 1:16 PM Deb Truong MA * Trouble concentrating on things, such as reading the newspaper or watching television Answer Date of Assessment Author Not at all 05/18/2025 1:16 PM Deb Truong MA * Moving or speaking so slowly [...] Berman MA documented as of this encounter Plan of Treatment Not on file documented as of this encounter Visit Diagnoses Not on filedocumented in this encounter Additional Health Concerns Assessment Noted Time PHQ-9 Depression Total Score: 0 05/18/20 25 1:16 PM EDT documented as of this encounter Care Teams Trestle Mainternance Laborer Relationship Specialty Start Date End Date Liam Vivar MD [address] [place] [phone] PCP - General Internal Medicine 07/22/24 documented as of this encounter
--- OUTSIDE RECORDS SUMMARY | 2025-05-18 14:10 | XMS_ITS | Encounter Summary ---
Author Organization [employer] Address [address] [place] [address] Care Team Providers Care Energy Attorney Name Role Phone Liam Vivar MD Primary Care Prov ider Encounter Details Date Type Department Care Team (Latest Contact Info) Description 04/29/2025 Results Follow-Up [facility] MED[facility]INE [address] [place] [address] Earlene Fall, [facility] [address] [place] [address] hCG, Total, Quantitative Social History Tobacco Use [...] documented as of this encounter Care Teams Energy Attorney Relationship Specialty Start Date End Date Liam Vivar MD [address] [place] [phone] PCP - General Internal Medicine 07/22/24 documented as of this encounter
--- OUTSIDE RECORDS SUMMARY | 2025-05-18 14:10 | XMS_ITS | Encounter Summary ---
Author Organization [employer] Address [address] [facility] 7t [place] [address] Care Team Providers Care Dog Breeder Name Role Phone Liam Vivar MD Primary Care Prov ider Encounter Details Date Type Department Care Team ([facility] st Contact Info) Description 05/18/2025 Orders Only [facility] MEDICINE [address] [place] [address] Earlene Lewis CNM [address] [place] [address] Currently in first trimester with unknown gestational [...] Diagnosis Comments US OB PELVIS TRANSVAGINAL STAT 05/18/2025 11:57 AM EDT documented in this encounter Results * US OB Pelvis with Transvaginal (05/18/2025 11:57 AM EDT) Anatomical Region Laterality Modality Pelvis Ultrasound 05/18/2025 11:5 7 AM EDT Narrative 05/18/2025 12:52 PM EDT [place] [address] Ultrasound Report Signed Patient: Arlen Nunes MR#: [id number] 592 : 2005 Acct:[id number] Age/Sex: 20 / F ADM Date: 05/18/25 Loc: HO.US Attending Dr: Earlene Lewis CNM Ordering Physician: EARLENE LEWIS CNM Date of Service: 05/18/25 Procedure(s): US OB pelvic and transvaginal Accession Number(s): [id number] cc: Liam iVvar MD; EARLENE LEWIS CNM Reason for Exam: r/o ectopic EXAMINATION: US OBSTETRICAL ULTRASOUND CLINICAL INFORMATION: Rule out ectopic . Follow-up from prior ultrasound 05/12/2025. COMPARISON: 05/12/2025. LMP: Unknown. TECHNIQUE: Ultrasound of the maternal pelvis is performed using transabdominal and transvaginal transducers. Transvaginal imaging is performed due to inadequate visualization transabdominally. M-mode Doppler is also performed. FINDINGS: The uterus is anteverted and measures 10.2 x 5.0 x 6.0 cm. There is a single intrauterine gestational sac in the fundal endometrium, with visible yolk sac, embryo/fetus, and cardiac activity. There is is a small subchorionic hemorrhage present, encompassing approximately 10% of the sac circumference right laterally. HR: 109 beats per minute. CRL (crown rump length): 0.40 cm (6 weeks and 1 day, +/- 4 days). OMID (estimated date of delivery): 01/10/2026, +/- 4 days. MATERNAL ADNEXA: The right maternal ovary measures 3.7 x 1.6 x 2.1 cm. There is a corpus luteal cyst present measuring 1.3 x 1.3 x 1.6 cm. Normal sonographic appearance. The left maternal ovary measures 2.5 x 1.7 x 1.7 cm. Normal sonographic appearance. There is no significant maternal adnexal mass. No maternal pelvic ascites. US/US OB pelvic and transvaginal IMPRESSION: 1. Single live intrauterine gestation with ultrasound gestational age of 6 weeks and 1 day, +/- 4 days. heart rate is 109 bpm. There is a small subchorionic hemorrhage present, encompassing approximately 10% of the sac circumference. 2. Estimated date of delivery is 01/10/2026, +/- 4 days. 3. No evidence of ectopic , adnexal mass, or free fluid. Electronically signed by: Kirill Velasquez MD 05/18/2025 12:49 PM EDT Dictated By: Kirill Velasquez MD Signed By: <Electronically signed by Kirill Velasquez MD in [place]> 05/18/25 1249 DD/ 1157 TD/TT: 05/18/25 1210 Chief Client Officer: Procedure Note Donotuseinterpreter, Image - 05/18/2025 [place] [address] Ultrasound Report Signed Patient: Tonya NunesR#: [id number] : 2005Acct:[id number] Age/Sex: 20 / FADM Date: 05/18/25 Loc: HO.US Attending Dr: Earlene Lewis CNM Ordering Physician: EARLENE LEWIS CNM Date of Service: 05/18/25 Procedure(s): US OB pelvic and transvaginal Accession Number(s): [id number] cc: Liam Vivar MD; EARLENE LEWIS CNM Reason for Exam: r/o ectopic EXAMINATION: US OBSTETRICAL ULTRASOUND CLINICAL INFORMATION: Rule out ectopic . Follow-up from prior ultrasound 05/12/2025. COMPARISON: 05/12/2025. LMP: Unknown. TECHNIQUE: Ultrasound of the maternal pelvis is performed using transabdominal and transvaginal transducers. Transvaginal imaging is performed due to inadequate visualization transabdominally. M-mode Doppler is also performed. FINDINGS: The uterus is anteverted and measures 10.2 x 5.0 x 6.0 cm. There is a single intrauterine gestational sac in the fundal endometrium, with visible yolk sac, embryo/fetus, and cardiac activity. There is is a small subchorionic hemorrhage present, encompassing approximately 10% of the sac circumference right laterally. HR: 109 beats per minute. CRL (crown rump length): 0.40 cm (6 weeks and 1 day, +/- 4 days). OMID (estimated date of delivery): 01/10/2026, +/- 4 days. MATERNAL ADNEXA: The right maternal ovary measures 3.7 x 1.6 x 2.1 cm. There is a corpus luteal cyst present measuring 1.3 x 1.3 x 1.6 cm. Normal sonographic appearance. The left maternal ovary measures 2.5 x 1.7 x 1.7 cm. Normal sonographic appearance. There is no significant maternal adnexal mass. No maternal pelvic ascites. US/US OB pelvic and transvaginal IMPRESSION: 1. Single live intrauterine gestation with ultrasound gestational age of 6 weeks and 1 day, +/- 4 days. heart rate is 109 bpm. There is a small subchorionic hemorrhage present, encompassing approximately 10% of the sac circumference. 2. Estimated date of delivery is 01/10/2026, +/- 4 days. 3. No evidence of ectopic , adnexal mass, or free fluid. Electronically signed by: Kirill Velasquez MD 05/18/2025 12:49 PM EDT RP Dictated By: Kirill Velasquez MD Signed By: <Electronically signed by Kirill Velasquez MD in OV> 05/18/25 1249 DD/ 1157 TD/TT: 05/18/25 1210 Chief Client Officer: us Earlene Lewis CNM IMG US PROCEDURES Final R esult documented in this encounter Visit Diagnoses Diagnosis Currently in first trimester with unknown gestational age- Primary documented in this encounter Additional Health Concerns Assessment Noted Time PHQ-9 Depression Total Score: 0 05/18/20 25 1:16 PM EDT documented as of this encounter Care Teams Dog Breeder Relationship Specialty Start Date End Date Liam Vivar MD [address] [place] [phone] PCP - General Internal Medicine 07/22/24 documented as of this encounter
--- OUTSIDE RECORDS SUMMARY | 2025-05-18 14:10 | XMS_ITS | Encounter Summary ---
Author Organization [employer] Address [address] 7t [place] [address] Care Team Providers Care Hr Assistant Name Role Phone Liam Vivar MD Primary Care Prov ider Encounter Details Date Type Department Care Team ([facility] st Contact Info) Description 05/13/2025 Orders Only [facility] MEDICINE [address] [place] [address] Earlene Fall CNM [address] [place] [address] Currently in first trimester with unknown gestational [...] Date/Time Associated Diagnosis Comments HCG, TOTAL, QN STAT 05/17/2025 2:42 PM EDT Currently in first trimester with unknown gestational age documented in this encounter Results * hCG, Total, Quantitative (05/17/2025 2:42 PM EDT) HCG Quantitative 41,292 mIU/mL [facility] Comment:Weeks post LMP Appro ximate hCG(Last Menstrual Period) Range (mIU/ml)3 - 4 weeks 9 - 1304 - 5 weeks 75 - 2,6005 - 6 weeks 850 - 20,8006 - 7 weeks 4000 - 100,2007 - 12 weeks 11,500 - 289,35020 - 16 weeks 18,300 - 137,33779 - 29 weeks (2nd trimester) 1,400 - 53,32139 - 41 weeks (3rd trimester) 940 - 60,000The Dorman B- hCG assay is used for the early detection ofpregnancy; it cannot be used to diagnose any conditionunrelated to . If a B-hCG level is not supportedby the clinical evidence, results should be confirmed by analternative method (qualitative urine hCG, for example). Blood Venous blood specimen / Unknown 05/17/2025 2:42 PM EDT 05/17/2025 3:56 PM EDT us Earlene Fall CNM LAB BLOOD ORDERABLES Donna maradiaga Result [facility] [address] [place] [address] [phone] documented in this encounter Visit Diagnoses Diagnosis Currently in first trimester with unknown gestational age- Primary documented in this encounter Additional Health Concerns Assessment Noted Time PHQ-9 Depression Total Score: 16 025 9:29 AM EST documented as of this encounter Care Teams Hr Assistant Relationship Specialty Start Date End Date Liam Vivar MD [address] [place] [phone] PCP - General Internal Medicine 07/22/24 documented as of this encounter
--- OUTSIDE RECORDS SUMMARY | 2025-05-18 14:10 | XMS_ITS | Encounter Summary ---
Author Organization [employer] Address [address] [facility] 7t [place] [address] Care Team Providers Care Associate Professor Of Medicine Name Role Phone Liam Vivar MD Primary Care Prov ider Reason for Visit * Reason Onset Date Comments Med Refill 01/01/2025 Encounter Details Date Type Department Care Team ([facility] st Contact Info) Description 01/01/2025 Refill [facility] MED & PEDS [address] [place] [address] Liam Vivar MD [address] [place] [address] Social History Tobacco Use Types Packs/Day Years [...] documented as of this encounter Care Teams Associate Professor Of Medicine Relationship Specialty Start Date End Date Liam Vivar MD [address] [place] [phone] PCP - General Internal Medicine 07/22/24 documented as of this encounter
--- OUTSIDE RECORDS SUMMARY | 2025-05-18 14:10 | XMS_ITS | Encounter Summary ---
Author Organization [employer] Address [address] [facility] 7t [place] [address] Care Team Providers Care Food Service Attendant Name Role Phone Liam Vivar MD Primary Care Prov ider Encounter Details Date Type Department Care Team ([facility] Contact Info) Description 07/14/2024 Orders Only [facility] MED & PEDS [address] [place] [address] Liam Vivar MD [address] [place] [address] Social History Tobacco Use Types Packs/Day Years [...] 6:02 PM EDT) HCG Quantitative <2 mIU/mL [facility] Comment:Weeks post LMP Appro ximate hCG(Last Menstrual Period) Range (mIU/ml)3 - 4 weeks 9 - 1304 - 5 weeks 75 - 2,6005 - 6 weeks 850 - 20,8006 - 7 weeks 4000 - 100,2007 - 12 weeks 11,500 - 289,60602 - 16 weeks 18,300 - 137,16789 - 29 weeks (2nd trimester) 1,400 - 53,76857 - 41 weeks (3rd trimester) 940 - [...] ORDERAB LES Final Result Performing Organization Address [facility]/ZIP Co de Phone Number [facility] [address] [place] [address] [phone] * Magnesium (10/20/2024 6:02 PM EDT) Magnesium 1.7 1.6 - 2.6 mg/dL [facility] 10/20/2024 6:02 PM EDT 10/20/2024 6:05 PM EDT us Generic External Data Provider LAB BLOOD ORDERAB LES Final Result Performing Organization Address [facility] Co de Phone Number [facility] [address] [place] [address] [phone] * (ABNORMAL) Comprehensive Metabolic Panel (10/20/2024 6:02 PM EDT) Sodium 139 135 - 145 mmol/L [facility] Potassium 4.1 3.3 - 5.1 mmol/L [facility] Chloride 109(H) 96 - 108 mmol/L [facility] Carbon Dioxide 23 22 - 29 mmol/L [facility] Anion Gap 11(L) 12 - 20 [facility] Urea Nitrogen (BUN) 9 9 - 16 mg/dL [facility] Creatinine, Serum 0.67 0.5 - 1.4 mg/dL [facility] Creatinine Clr Calc Pharmacy 147.9 [facility] Comment:Provided height and weight: 165.1 cm,90.9 kg.eGFR (calculated from the MDRD study equation) and eCrCl(calculated from the Cockcroft-Gault equation) are based ondifferent parameters and may not yield comparable results.If eCrCl result is absurd, please check patient'sheight/weight. Estimated Glomerular Filt Rate >60 [facility] Comment:Chronic Kidney Disea se: Estimated GFR < 60 mL/min/[id number] Kidney Disease: Estimated GFR < 15 mL/min/1.73m2 Glucose 89 60 - 115 mg/dL [facility] Calcium 8.9 8.4 - 10.2 mg/dL [facility] Bilirubin, Total 0.5 0.0 - 1.0 mg/dL [facility] Aspartate Amino Transferase 21 5 - 31 U/L [facility] Alanine Aminotransferase 31 0 - 31 U/L [facility] Total Protein 7.4 6.5 - 8.0 g/dL [facility] Albumin Level 3.9 3.5 - 5.0 g/dL [facility] Alkaline Phosphatase 58 39 - 117 U/L [facility] 10/20/2024 6:02 PM EDT 10/20/2024 6:05 PM EDT us Generic External Data Provider LAB BLOOD ORDERAB LES Final Result [facility] [address] [place] [address] [phone] * (ABNORMAL) CBC auto differential (10/20/2024 6:02 PM EDT) White Blood Count 15.4(H) 4.8 - 10.8 X10*3/uL [facility] Red Blood Count 4.18(L) 4.20 - 5.50 X10*6/uL [facility] Hemoglobin 12.4 12.0 - 16.0 g/dl [facility] Hematocrit 37.4 37.0 - 47.0 % [facility] Mean Corpuscular Volume 89.5 80.0 - 98.0 fL [facility] Mean Corpuscular Hemoglobin 29.7 27.0 - 33.0 pg [facility] Mean Corpuscular HGB Conc 33.2 31.0 - 35.0 g/dl [facility] Red Cell Distribution Width 12.0 11.0 - 16.0 % [facility] Platelet Count 332 160 - 400 X10*3/uL [facility] Mean Platelet Volume 10.5 9.4 - 12.3 fL [facility] Neutrophils Percent Auto 69.2 45 - 73 % [facility] Imm Gran Pct Auto 0.4 0.0 - 0.4 % [facility] Lymphocytes Percent Auto 23.8 20 - 40 % [facility] Monocytes Percent Auto 4.7 2 - 11 % [facility] Eosinophils Percent Auto 1.4 0 - 4 % [facility] Basophils Percent Auto 0.5 0 - 2 % [facility] NRBC Pct Auto 0.0 0.0 - 0.2 /100WBC [facility] Neutrophils Absolute Auto 10.6(H) 2.0 - 8.3 x10*3/uL [facility] Imm Gran Abs Auto 0.06(H) 0.00 - 0.03 X10*3/uL [facility] Lymphocytes Absolute Auto 3.7 1.2 - 4.9 X10*3/uL [facility] Monocytes Absolute Auto 0.7 0.1 - 1.2 X10*3/uL [facility] Eosinophils Absolute Auto 0.2 0.0 - 0.4 X10*3/uL [facility] Basophils Absolute Auto 0.1 0.0 - 0.2 X10*3/uL [facility] NRBC Abs Auto 0.000 0.0 - 0.012 X10*3/uL [facility] 10/20/2024 6:02 PM EDT 10/20/2024 6:05 PM EDT us Generic External Data Provider LAB BLOOD ORDERAB LES Final Result [facility] [address] [place] [phone] * T4, Free (09/14/2024 3:11 PM EST) Free T4 (Free Thyroxine) 1.33 0.71 - 1.85 ng/dL [facility] 09/14/2024 3:11 PM EST 09/14/2024 4:02 PM EST us Liam Tam MD LAB BLOOD ORDERABL ES Final Result Performing Organization Address City/[facility]/ZIP Co de Phone Number [facility] [address] [place] [address] [phone] * hCG, Total, Quantitative (09/11/2024 2:26 AM EST) HCG Quantitative <2 mIU/mL [facility] Comment:Weeks post LMP Appro ximate hCG(Last Menstrual Period) Range (mIU/ml)3 - 4 weeks 9 - 1304 - 5 weeks 75 - 2,6005 - 6 weeks 850 - 20,8006 - 7 weeks 4000 - 100,2007 - 12 weeks 11,500 - 289,90675 - 16 weeks 18,300 - 137,38444 - 29 weeks (2nd trimester) 1,400 - 53,23481 - 41 weeks (3rd trimester) 940 - [...] ORDERAB LES Final Result Performing Organization Address [facility] Co de Phone Number [facility] [address] [place] [address] [phone] * Lipase (09/11/2024 2:26 AM EST) Lipase 17 8 - 78 U/L [facility] 09/11/2024 2:26 AM EST 09/11/2024 2:30 AM EST Generic External Data Provider LAB BLOOD ORDERAB LES Final Result Performing Organization Address [facility]/ZIP Co de Phone Number [facility] [address] [place] [address] [phone] * (ABNORMAL) Comprehensive Metabolic Panel (09/11/2024 2:26 AM EST) Sodium 136 135 - 145 mmol/L [facility] Potassium 3.4 3.3 - 5.1 mmol/L [facility] Chloride 105 96 - 108 mmol/L [facility] Carbon Dioxide 22 22 - 29 mmol/L [facility] Anion Gap 12 12 - 20 [facility] Urea Nitrogen (BUN) 7(L) 9 - 16 mg/dL [facility] Creatinine, Serum 0.65 0.5 - 1.4 mg/dL [facility] Creatinine Clr Calc Pharmacy 156.2 [facility] Comment:Provided height and weight: 165.1 cm,95.254 kg.eGFR (calculated from the MDRD study equation) and eCrCl(calculated from the Cockcroft-Gault equation) are based ondifferent parameters and may not yield comparable results.If eCrCl result is absurd, please check patient'sheight/weight. Estimated Glomerular Filt Rate >60 [facility] Comment:Chronic Kidney Disea se: Estimated GFR < 60 mL/min/1.99n8Txwxul Kidney Disease: Estimated GFR < 15 mL/min/1.73m2 Glucose 104 60 - 115 mg/dL [facility] Calcium 8.5 8.4 - 10.2 mg/dL [facility] Bilirubin, Total 0.5 0.0 - 1.0 mg/dL [facility] Aspartate Amino Transferase 35(H) 5 - 31 U/L [facility] Alanine Aminotransferase 50(H) 0 - 31 U/L [facility] Total Protein 7.3 6.5 - 8.0 g/dL [facility] Albumin Level 3.8 3.5 - 5.0 g/dL [facility] Alkaline Phosphatase 51 39 - 117 U/L [facility] 09/11/2024 2:26 AM EST 09/11/2024 2:30 AM EST us Generic External Data Provider LAB BLOOD ORDERAB LES Final Result [facility] [address] [place] [address] [phone] * (ABNORMAL) CBC auto differential (09/11/2024 2:26 AM EST) White Blood Count 4.9 4.8 - 10.8 X10*3/uL [facility] Red Blood Count 4.35 4.20 - 5.50 X10*6/uL [facility] Hemoglobin 13.2 12.0 - 16.0 g/dl [facility] Hematocrit 38.2 37.0 - 47.0 % [facility] Mean Corpuscular Volume 87.8 80.0 - 98.0 fL [facility] Mean Corpuscular Hemoglobin 30.3 27.0 - 33.0 pg [facility] Mean Corpuscular HGB Conc 34.6 31.0 - 35.0 g/dl [facility] Red Cell Distribution Width 11.9 11.0 - 16.0 % [facility] Platelet Count 234 160 - 400 X10*3/uL [facility] Mean Platelet Volume 10.5 9.4 - 12.3 fL [facility] Neutrophils Percent Auto 56.0 45 - 73 % [facility] Imm Gran Pct Auto 0.2 0.0 - 0.4 % [facility] Lymphocytes Percent Auto 32.2 20 - 40 % [facility] Monocytes Percent Auto 11.2(H) 2 - 11 % [facility] Eosinophils Percent Auto 0.0 0 - 4 % [facility] Basophils Percent Auto 0.4 0 - 2 % [facility] NRBC Pct Auto 0.0 0.0 - 0.2 /100WBC [facility] Neutrophils Absolute Auto 2.8 2.0 - 8.3 x10*3/uL [facility] Imm Gran Abs Auto 0.01 0.00 - 0.03 X10*3/uL [facility] Lymphocytes Absolute Auto 1.6 1.2 - 4.9 X10*3/uL [facility] Monocytes Absolute Auto 0.6 0.1 - 1.2 X10*3/uL [facility] Eosinophils Absolute Auto 0.0 0.0 - 0.4 X10*3/uL [facility] Basophils Absolute Auto 0.0 0.0 - 0.2 X10*3/uL [facility] NRBC Abs Auto 0.000 0.0 - 0.012 X10*3/uL [facility] 09/11/2024 2:26 AM EST 09/11/2024 2:30 AM EST us Generic External Data Provider LAB BLOOD ORDERAB LES Final Result Performing Organization Address City/[facility]/ZIP Co de Phone Number [facility] [address] [place] [phone] * (ABNORMAL) SARS-CoV-2 RNA, Influenza A/B, and RSV RNA, Ql NAAT (09/11/2024 2:25 AM EST) Influenza A PCR POSITIVE(A) Negative [facility] Influenza B PCR NEGATIVE Negative [facility] Resp Syncy Virus RNA Qual PCR NEGATIVE Negative [facility] SARS COV2 PCR NEGATIVE Negative [facility] Comment:All test results mus t [...] use by authorized laboratories.Testing performed on the [employer] GeneXpert utilizingreal-time RT-PCR.All SARS CoV2 and positive influenza A/B results arereported to [facility]. 09/11/2024 2:25 AM EST 09/11/2024 2:30 AM EST us Generic External Data Provider LAB MICROBIOLOGY - GENERAL ORDERABLES Final Result [facility] [address] [place] [address] [phone] documented in this encounter Visit Diagnoses Not on filedocumented in this encounter Care Teams Food Service Attendant Relationship Specialty Start Date End Date Liam Vivar MD [address] [place] [phone] PCP - General Internal Medicine 07/22/24 documented as of this encounter
--- OUTSIDE RECORDS SUMMARY | 2025-05-18 14:10 | XMS_ITS | Encounter Summary ---
Author Organization [employer] Address [address] [place] [address] Care Team Providers Care Instrument Inspector Name Role Phone Liam Vivar MD Primary Care Prov ider Encounter Details Date Type Department Care Team (Latest Contact Info) Description 05/03/2025 Results Follow-Up [facility] MEDICINE [address] [place] [address] Earlene Fall, [facility] [address] [place] [address] hCG, Total, Quantitative Social History Tobacco Use [...] documented as of this encounter Care Teams Instrument Inspector Relationship Specialty Start Date End Date Liam Vivar MD [address] [place] [phone] PCP - General Internal Medicine 07/22/24 documented as of this encounter
--- OUTSIDE RECORDS SUMMARY | 2025-05-18 14:10 | XMS_ITS | Encounter Summary ---
Author Organization [employer] Address [address] [place] [address] Care Team Providers Care Oxygen Equipment Technician Name Role Phone Liam Vivar MD Primary Care Prov ider Reason for Visit * Reason Comments Med Refill Encounter Details Date Type Department Care Team (Late st Contact Info) Description 09/03/2024 Refill [facility] [address] [place] [address] Opal Salvador MD [address] [place] [address] Herpes labialis Social History Tobacco Use Types [...] documented as of this encounter Care Teams Oxygen Equipment Technician Relationship Specialty Start Date End Date Liam Vivar MD [address] [place] [phone] PCP - General Internal Medicine 07/22/24 documented as of this encounter
--- OUTSIDE RECORDS SUMMARY | 2025-05-18 14:10 | XMS_ITS | Encounter Summary ---
Author Organization [employer] Address [address] [facility] [address] [place] [address] Care Team Providers Care Lobster Man Name Role Phone Liam Vivar MD Primary Care Prov ider Encounter Details Date Type Department Care Team (Latest Contact Info) Description 05/18/2025 Results Follow-Up [facility] MED[facility] [address] [place] [address] Earlene Fall, [facility] [address] [place] [address] hCG, Total, Quantitative Social History Tobacco Use [...] Author Not at all 05/18/2025 1:16 PM [place]TT Deb Berman MA * Trouble falling or staying asleep, or sleeping too much Answer Date of Assessment Author Not at all 05/18/2025 1:16 PM EDT Deb Berman MA * Feeling tired or having little energy Answer Date of Assessment Author Not at all 05/18/2025 1:16 PM NORBERTT Deb Berman MA * Poor appetite or overeating Answer Date of Assessment Author Not at all 05/18/2025 1:16 PM NORBERTT Deb Berman MA * Feeling bad about [...] documented as of this encounter Care Teams Lobster Man Relationship Specialty Start Date End Date Liam Vivar MD [address] [place] [phone] PCP - General Internal Medicine 07/22/24 documented as of this encounter
--- OUTSIDE RECORDS SUMMARY | 2025-05-18 14:10 | XMS_ITS | Encounter Summary ---
Author Organization [employer] Address [address] [place] [address] Care Team Providers Care Lmft Name Role Phone Liam Vivar MD Primary Care Prov ider Encounter Details Date Type Department Care Team (Special Care Hospital Contact Info) Description 05/18/2025 Telephone [facility] MEDICINE [address] [place] [address] Earlene Fall, [facility] [address] [place] [address] Social History Tobacco Use Types Packs/Day Years [...] Encounter - Earlene Fall CNM - 05/18/2025 11:26 AM EDT Telephone call to Arlen to relay instructions for ultrasound today. She is on her way to [facility] now.Will be in touch with results. documented in this encounter Plan of Treatment Not on file documented as of this encounter Visit Diagnoses Not on filedocumented in this encounter Additional Health Concerns Assessment Noted Time PHQ-9 Depression Total Score: 0 05/18/20 25 1:16 PM EDT documented as of this encounter Care Teams Lmft Relationship Specialty Start Date End Date Liam Vivar MD [address] [place] [phone] PCP - General Internal Medicine 07/22/24 documented as of this encounter
--- OUTSIDE RECORDS SUMMARY | 2025-05-18 14:10 | XMS_ITS | Encounter Summary ---
Author Organization [employer] Address [address] [place] [address] 7 [place] [address] Care Team Providers Care Supervisor Throwing Department Name Role Phone Liam Vivar MD Primary Care Prov ider Reason for Referral * Consultation (Routine) - Pending Review Specialty Diagnoses / Procedures Referred By Betty redd Referred To Contact Obstetrics and Gynecology Diagnoses Less than 8 weeks gestation of Earlene Fall CNM [address] [place] [address] Phone: tel: fax: Referral ID Status Reason Start Date Expiration Date Visits Requested Visits Authorized [id number] Pending Review Specialty Services Required 05/18/2026 1 1 Scheduling Instructions Please send pelvic ultrasound from 05/18/2025. Encounter Details Date Type Department Care Team (Late st Contact Info) Description 05/18/2025 Orders Only [facility] MEDICINE [address] [place] [phone] Earlene Fall CNM [address] [place], [place] [phone] Less than 8 weeks gestation of (Primary Dx) Social History Tobacco Use Types [...] Health Questionnaire-2 Score 0 05/05 1:16 PM NORBERTT Emily Berman [place] * Little interest or [...] of this encounter Plan of Treatment Scheduled Referrals Name Type Priority Associated Diagnoses Order Schedule Referral to Obstetrics / Gynecology Outpatient Referral Routine Less than 8 weeks gestation of Expected: 05/18/2025 (Approximate), Expires: 05/18/2026 documented as of this encounter Visit Diagnoses Diagnosis Less than 8 weeks gestation of - Primary documented in this encounter Additional Health Concerns Assessment Noted Time PHQ-9 Depression Total Score: 0 05/18/20 25 1:16 PM EDT documented as of this encounter Care Teams Supervisor Throwing Department Relationship Specialty Start Date End Date Liam Vivar MD [address] [place] [address] PCP - General Internal Medicine 07/22/24 documented as of this encounter
--- OUTSIDE RECORDS SUMMARY | 2025-05-18 14:10 | XMS_ITS | Clinical Summary ---
Author Organization [employer] Address [address] [place] [address] Care Team Providers Care Human Capital Analyst Name Role Phone Liam Vivar MD Primary Care Prov ider Allergies No known active allergies Medications * This document contains information received from the source organization and may not represent a complete record from that organization. Omeprazole 20 MG tablet delayed-releas e Take 1 tablet (20 mg) by mouth Once per day. 30 tablet 3 08/19/19 25 Active albuterol 108 (90 Base) MCG/ACT inhalerIndicat ions:Shortness of breath Inhale 2 puffs every 6 (six) hours if needed for wheezing. 18 g 11 09/09/19 25 026 Active hydrOXYzine HCl (Atarax) 25 MG tablet Take 1 tablet (25 mg) by mouth if needed in the morning, at noon, and at bedtime for anxiety. 90 tablet 3 12/19/19 25 Active Vit-Fe Fumarate-FA ( Plus) 27-1 MG tablet One tablet by mouth daily 30 tablet 11 05/18/20 25 Active pseudoephedrin e (Sudafed) 60 MG tablet Take 1 tablet (60 mg) by mouth every 4 (four) hours if needed for congestion for up to 10 days. 30 tablet 09/23/19 25 025 Discontinued Vit-Fe Fumarate-FA ( Plus) 27-1 MG tablet One tablet by mouth daily 30 tablet 11 02/02/20 025 Discontinued(Re order (will not trigger notification to Pharmacy)) Active Problems Problem Noted Date Diagnosed Date [...] and enrrique. Her sense of belonging and anglican are highly connected and identified as strength. Pt needs guidance in setting up healthy boundaries around her social support (family and jainism community). Her focus most part of the [...] Anxiety and depression 08/19/2024 Assessment & Plan (05/18/2025 1:59 PM EDT): Symptoms controlled, no suicidal/homicidal ideas, follow up as needed Assessment & Plan (08/19/2024 9:30 AM EST): No suicidal/homicidal ideas, will refer to therapist, start on hydroxyzine as needed for anxiety Irregular periods 08/19/2024 Assessment & Plan (09/23/2024 9:31 AM EST): Will start on OCP, risk vs benefits discussed, Comments Yes Encounters Date Type Department Care Team Description 05/18/2025 1:15 PM EDT Telemedicine [facility] [address] [place], [place] [phone] Liam Vivar MD Anxiety and depression (Primary Dx); Less than 8 weeks gestation of 05/18/2025 Telephone [facility] [place] [address] Arturo Lewis CNM 05/18/2025 Orders Only [facility] [place] [address] Arturo Lewis CNM Less than 8 weeks gestation of (Primary Dx) 05/18/2025 Telephone [facility] [place] [address] Arturo Lewis CNM 05/18/2025 Travel 05/18/2025 Orders Only [facility] [place] [address] Arturo Lewis CNM Currently in first trimester with unknown gestational age (Primary Dx) 05/18/2025 Results Follow-Up [facility] [place] [address] Arturo Lewis CNM hCG, Total, Quantitative 05/13/2025 Orders Only [facility] [place] [address] Arturo Lewis CNM Currently in first trimester with unknown gestational age (Primary Dx) 05/12/2025 Results Follow-Up [address] [address] Arturo Lewis CNM US OB Pelvis with Transvaginal 05/04/2025 Orders Only [address] [address] Arturo Lewis CNM Currently in first trimester with unknown gestational age (Primary Dx) 05/03/2025 Telephone [facility] [address] [place] [address] Arturo Lewis CNM US OB ORDER 05/03/2025 Orders Only [address] [address] Arturo Lewis CNM Currently in first trimester with unknown gestational age (Primary Dx) 05/03/2025 Results Follow-Up [address] [address] Arturo Lewis CNM hCG, Total, Quantitative 04/29/2025 Orders Only [address] [address] Arturo Lewis CNM Currently in first trimester with unknown gestational age (Primary Dx); History of miscarriage, currently 04/29/2025 Results Follow-Up [address] [address] Arturo Lewis CNM hCG, Total, Quantitative 04/29/2025 Orders Only [address] [address] Arturo Lewis CNM Currently in first trimester with unknown gestational age (Primary Dx) 04/28/[address] [address] Trinity Jimenez RN from Last 3 Months Immunizations Immunization Administration [...] Maintenance Due Date Last Done Comments Hepatitis A Vaccines (2 of 2 - 2-dose series) 04/13/2015 10/11/2014 Meningococcal B Vaccine (1 of 2 - Standard) 2019 DTaP/Tdap/Td Vaccines (7 - Td or Tdap) 05/31/2024 05/31/2014, 04/09/2007, 09/01/2004, Additional history exists COVID-19 Vaccine ( - season) 2025 Influenza Vaccine (#1) 2025 6, 07/06/2015, 05/31/2014, Additional history exists SDOH Screening 08/12/2025 08/12/2024 Chlamydia and Gonorrhea Screening 09/08/2025 09/08/2024 Family Planning (PISQ) 02/01/2026 02/01/2025 Tobacco Screening 02/01/2026 02/01/2025 Alcohol/Substance Use Screening 05/18/2026 05/18/2025 Depression Screening 05/18/2026 05/18/2025, 05/18/20 Disability Screening 05/18/2026 05/18/2025 Pap Smear 09/08/2027 09/08/2024 Lipid Panel 09/14/2029 [...] complete this topic HPV Vaccines Completed 11/28/2015, 04/2015, 05/31/2014 HIV Screening Completed 09/14/2024 Hepatitis [...] PELVIS TRANSVAGINAL STAT 05/18/2025 11:57 AM EDT HCG, TOTAL, QN STAT 05/17/2025 2:42 PM EDT Currently in first trimester with unknown gestational age US OB PELVIS TRANSVAGINAL STAT 05/12/2025 2:54 PM EDT HCG, TOTAL, QN Routine 05/03/2025 8:15 AM EDT Currently in first trimester with unknown gestational age History of miscarriage, currently HCG, TOTAL, QN Routine 04/29/2025 9:04 AM EDT Currently in first trimester with unknown gestational age AMB REFERRAL TO OB-SCIENCE EDITOR Routine 03/05/2025 Currently in first trimester with [...] Pelvis with Transvaginal (05/18/2025 11:57 AM EDT) Only the most recent of2 resultswithin the time period is included. Anatomical Region Laterality Modality Pelvis Ultrasound 05/18/2025 11:5 7 AM EDT Narrative 05/18/2025 12:52 PM EDT [address] [address] Ultrasound Report Signed Patient: Arlen Nunes MR#: [id number] 592 : 2005 Acct:[id number] Age/Sex: 20 / F ADM Date: 05/18/25 Loc: HO.US Attending Dr: Arturo Lewis CNM Ordering Physician: ARTURO LEWIS CNM Date of Service: 05/18/25 Procedure(s): US OB pelvic and transvaginal Accession Number(s): [id number] cc: Liam Vivar MD; ARTURO LEWIS CNM Reason for Exam: r/o ectopic [...] 05/18/25 1249 DD/ 1157 TD/TT: 05/18/25 1210 Logistics Engineering Manager: Procedure Note Donotuseinterpreter, Image - 05/18/2025 [place] [address] Ultrasound Report Signed Patient: Mone Nunes#: [id number] : 2005Acct:[id number] Age/Sex: M Date: 05/18/25 Loc: HO.US Attending Dr: Arturo Lewis CNM Ordering Physician: ARTURO LEWIS CNM Date of Service: 05/18/25 Procedure(s): US OB pelvic and transvaginal Accession Number(s): [id number] cc: Liam Vivar MD; ARTURO LEWIS CNM Reason for Exam: r/o ectopic [...] 05/18/25 1249 DD/ 1157 TD/TT: 05/18/25 1210 Logistics Engineering Manager: Arturo Lewis [facility] IM US PROCEDURES Final R esult * hCG, Total, Quantitative (05/17/2025 2:42 PM EDT) Only the most recent of3 resultswithin the time period is included. HCG Quantitative 41,292 mIU/mL [facility] Comment:Weeks post LMP Appro ximate hCG(Last Menstrual Period) Range (mIU/ml)3 - 4 weeks 9 - 1304 - 5 weeks 75 - 2,6005 - 6 weeks 850 - 20,8006 - 7 weeks 4000 - 100,2007 - 12 weeks 11,500 - 289,51768 - 16 weeks 18,300 - 137,43307 - 29 weeks (2nd trimester) 1,400 - 53,65363 - 41 weeks (3rd trimester) 940 - [...] 2:42 PM EDT 05/17/2025 3:56 PM EDT Arturo Lewis [facility] LAB BLOOD ORDERABLES Donna l Result Performing Organization Address [facility] de Phone Number [facility] [address] [place] [phone] * Referral to Obstetrics / Gynecology (03/05/2025) Arturo Lewis [facility] OUTPATIENT REFERRAL ORDER SHREYAS Final Result * Hepatitis C Antibody with Reflex to HCV, RNA, Quantitative, Real-Time PCR (09/14/2024 3:11 PM EST) Hepatitis C Antibody Nonreactive Nonreactive [facility] Comment:Antibodies to HCV no t detected; does not exclude early acuteHCV infection. Blood Venous blood specimen / Unknown 09/14/2024 3:11 PM EST 09/14/2024 4:02 PM EST Liam Tam MD LAB BLOOD ORDERABL ES Final Result Performing Organization Address [facility] de Phone Number [facility] [address] [place] [phone] * HIV-1/2 Antigen and Antibodies, Fourth Generation, with Reflexes (09/14/2024 3:11 PM EST) HIV AB/AG Nonreactive Nonreactive [facility] Comment:HIV-1 p24 Ag and/or HIV-1/HIV-2 Ab not detected.A test result that is nonreactive does not exclude thepossibility of exposure to or infection with HIV-1 and/orHIV-2. Nonreactive results in this assay for individualswith prior exposure to HIV-1 and/or HIV-2 may be due toantigen and antibody levels that are below the limit ofdetection of this assay.The [employer] HIV Ag/Ab Combo assay result andsupplemental assay results should be interpreted inconjunction with the patient's clinical presentation,history and other laboratory results. If the results areinconsistent with clinical evidence, additional testing issuggested to confirm the result. Blood Venous blood specimen / Unknown 09/14/2024 3:11 PM EST 09/14/2024 4:02 PM EST us Liam Tam MD LAB BLOOD ORDERABL ES Final Result [facility] [address] [place] [phone] * (ABNORMAL) Lipid Panel, Standard (09/14/2024 3:11 PM EST) Triglycerides 72 <150 mg/dL [facility] Comment:Desirable Triglyceri de: less than 150 mg/dLBorderline High Triglyceride 150-199 mg/dLHigh Triglyceride: 200-499 mg/dLVery High Triglyceride: greater than or equal to 5OO mg/dL Cholesterol 124 <200 mg/dL [facility] Comment:Desirable Cholestero l: less than 200 mg/dLBorderline High Cholesterol: 200-239 mg/dLHigh Cholesterol: greater than 239 mg/dL LDL Cholesterol Calculated 84 <100 mg/dL [facility] Comment:Desirable LDL: less than 100 mg/dLNear Optimal/Above Optimal LDL: 110- 129 mg/dLBorderline High LDL: 130-159 mg/dLHigh LDL: 160-189 mg/dLVery High LDL: greater than or equal to 190 mg/dL HDL Cholesterol 26(L) >40 mg/dL [facility] Comment:Desirable HDL: great er than 40 mg/dL Note: This HDL assay may give artificially low results in patients with liver disease. Blood Venous blood specimen / Unknown 09/14/2024 3:11 PM EST 09/14/2024 4:02 PM EST us Liam Tam MD LAB BLOOD ORDERABL ES Final Result [facility] [address] [place] [address] [phone] * STI testing add on (NG, CT, Trich) (09/08/2024 9:48 AM EST) Trichomonas (NAAT) Not Detected Not Detected [facility] Comment:Methodology: Transcr iption Mediated Amplification(TMA)The analytical performance characteristics of thisassay have been determined by [employer] [place]. The modificationshave not been cleared or approved by the FDA. Thisassay has been validated pursuant to the CLIAregulations and is used for clinical purposes.For additional information, please refer tohttp://Pelliano/faq/Trichomonastma (This link is being providedfor information/educational purposes only).THIS TEST WAS PERFORMED AT:[employer] [id number] [place] [address]ZOVBQJR W. MASON,MD,PHD CTNG Ref Lab Not Detected Not Detected [facility] NG Ref Lab Not Detected Not Detected [facility] Comment:Methodology: Transcr iption Mediated Amplification(TMA) to detect RNA.The analytical performance characteristics of thisassay, when used to test SurePath specimens havebeen determined by [employer]. The modificationshave not been cleared or approved by the FDA.This assay has been validated pursuant to the CLIAregulations and is used for clinical purposes.For additional information, please refer tohttps://Oversi.imeem/faq/QXF899(This link is being provided for information/educational purposes only).THIS TEST WAS PERFORMED AT:[employer] [id number] [place] [address]RIHPPHQELIAZAR MILLER MD,PHD ThinPrep vial Cervix uteri structure / Unknown 09/08/2024 9:48 AM EST 09/09/2024 9:15 AM EST Narrative [facility] - 09/13/2024 8:03 PM EST Collection Date: [id number] by: JENNIFER Chen: Cervix Arturo Lewis CNM LAB CYTOLOGY ORDERABLES F inal Result [facility] [address] [place] [phone] * Pap Smear (09/08/2024 9:48 AM EST) Swab Cervix uteri structure / Unknown 09/08/2024 9:48 AM EST 09/09/2024 9:15 AM EST [facility] - 09/18/2024 3:07 PM EST ----- ------- Name: DesArlen Age/Sex: 19/F : 2005 Unit#: [id number] Attend Dr: ARTURO LEWIS CNM Re09/08/24 Status: STEPH REF Location: HO.HHCLNP Disch: ----- ------- SPEC : [id number] RECD: 09/09/24 STATUS: LUZ MARIA OLIVA NUM: [id number] NAVA: 09/08/[address] [facility] DR: ARTURO LEWIS CNM ENTERED: 09/09/24 SP TYPE: Pap Smr WILTON LOMAS: ORDERED: Pap Smear Interpretation Satisfactory for evaluation. Negative for intraepithelial lesion or malignancy. Clinical Information LMP:Unknown date Previous PAP test:Unknown date/findings Other history: Postcoital bleeding Material Received ThinPrep-Cervical ----- ------- Signed (signature on file) CARLOS Palmer (ASCP) 09/18/24 1507 ----- ------- END OF REPORT Arturo Lewis [facility] LAB CYTOLOGY ORDERABLES F inal Result [facility] [address] [place] [phone] from Last 3 Months or Most Recently Relevant to Health Maintenance Insurance [address] [place], [place] [address] Care Teams Human Capital Analyst Relationship Specialty Start Date End Date Liam Vivar MD [address] [place] [phone] PCP - General Internal Medicine 07/22/24
== END 2025-05-18 11:36 | disposition home or self-care (01) ==
LOC: HO.US 11:35
PROVIDERS: PCP Internal Medicine; Visit Provider Advanced Practice Midwife
DX: Z34.01 Encounter for supervision of normal first pregnancy, first trimester (principal)
CPT/HCPCS: 76801; 76817

== ENCOUNTER → 2025-05-18 11:42 | Outpatient (BNV) | payer MEDICAID, SELFPAY | PROVIDERS: PCP Internal Medicine; Visit Provider Radiology Diagnostic Radiology | DX: O20.8 Other hemorrhage in early pregnancy (principal); Z3A.01 Less than 8 weeks gestation of pregnancy | CPT/HCPCS: 76801; 76817 ==